=== PATIENT | male | born 1950 | race Caucasian/White ===

== ENCOUNTER 2017-08-09 07:59 | Inpatient (IN) | payer MEDICARE ==
[2017-08-09 09:36] LABS: Hematocrit 42 % (42-52); Hemoglobin 14.7 g/dl (14.0-18.0); Mean Corpuscular HGB Conc 35 g/dl (31-36); Mean Corpuscular Hemoglobin 35 pg (27-31); Mean Corpuscular Volume 99 fL (80-94); Mean Platelet Volume 10 um3 (7.4-10.4); Platelet Count 96 10^3/ul (150-450); Red Blood Count 4.26 10^6/ul (4.0-5.4); Red Cell Distribution Width 15 % (10.5-15); White Blood Count 10.5 10^3/ul (3.5-10.8)
[2017-08-09 09:39] LABS: INR 0.98 (0.77-1.02)
[2017-08-09 09:45] LABS: EGFR Non-African American 53.9 (>60)
[2017-08-09 09:57] LABS: Urine Appearance Clear; Urine Blood Negative (Negative); Urine Color Yellow; Urine Ketones Negative (Negative); Urine Protein 1+(30 mg/dL) (Negative); Urine Specific Gravity 1.016 (1.010-1.030); Urine Urobilinogen Negative (Negative)
[2017-08-09 09:58] LABS: ABS Basophils 0 10^3/ul (0-0.2); ABS Eosinophils 0 10^3/ul (0-0.6); ABS Lymphocytes 0.9 10^3/ul (1.0-4.8); ABS Monocytes 0.7 10^3/ul (0-0.8); ABS Neutrophils 8.8 10^3/ul (1.5-7.7); ABS Nucleated RBC 0 10^3/ul; Eosinophil % 0.2 % (0-6); Lymphocyte % 8.3 % (25-47); Nucleated Red Blood Cells % 0
[2017-08-09] MEDS ORDERED: Calcium Gluconate INJ* 1 GM in NS 0.9% 100 ML* 100 ML IVPB ONE (10:10)
[2017-08-09] MEDS ORDERED: Insulin REGULAR(*) 1 UNITS UNIT IV PUSH ONE (10:10)
[2017-08-09] MEDS ORDERED: Dextrose 50% VIAL 50 ml IV PRN (10:10)
[2017-08-09] MEDS ORDERED: Dextrose 50% Syringe 50 ML* 25 GM/50 ML SYRINGE ONE (10:19)
[2017-08-09] MEDS ORDERED: Albuterol HFA INHALER* 8 gm MDI INH PRN (10:59)
[2017-08-09] MEDS ORDERED: Sodium Polystyrene ORAL.SOL* 15 GM/60 ML BTL PO ONE ×2 (11:04→15:39)
[2017-08-09] MEDS ORDERED: Dextrose 50% Syringe 50 ML* 25 GM/50 ML SYRINGE IV PUSH PRN (11:14)
[2017-08-09] MEDS ORDERED: cefTRIAXone(*) 2 GM in NS 0.9% 100 ML* 100 ML IVPB SCH (12:00)
[2017-08-09] MEDS: Insulin LISPRO* 1 UNITS UNIT SUBCUT SCH ×3 (12:38→20:30)
[2017-08-09] MEDS: NS 0.9% 1000 ML* 1,000 ML IV SCH (12:51)
[2017-08-09] MEDS: Furosemide TAB* 40 MG PO SCH (13:06)
[2017-08-09] MEDS ORDERED: Iodixanol* (CONTRAST) 320 MG/ML 100 ML SDV IV ONE (13:07)
[2017-08-09] MEDS ORDERED: Furosemide IV* 10 MG/ML 2 ML VIAL (20 MG) IV SLOW PU ONE (13:09)
[2017-08-09] MEDS ORDERED: Ondansetron INJ* 2 MG/ML VIAL IV PRN (13:09)
[2017-08-09] MEDS ORDERED: Morphine INJ* 2 MG/ML 1 ML CARPUJECT IV PRN (13:47)
--- NOTE | 2017-08-09 14:42 | RAD ---
INDICATION: Abdominal pain. Cirrhosis. Hyperkalemia. Blood in stool. Post cholecystectomy. History of a mesenteric mass. COMPARISON: May 29, 2017 MRI and December 18, 2015 CT. TECHNIQUE: Multidetector CT images were obtained from the lung bases to the ischial tuberosities with 135 mL Visipaque 320 IV and oral contrast. Multiplanar reformation. REPORT: 0.9 cm soft tissue density nodule at the medial basal segment of the RIGHT lower lobe is new compared with the prior exam. Negative for pleural effusions. Nodular surface contour of the liver. No focal hepatic lesions or biliary dilatation. Post cholecystectomy. Unremarkable pancreas. Mildly enlarged spleen measuring 14 cm cephalocaudal without significant change. 1.4 cm diameter normally opacified portal vein. Portosystemic most prominent at the gastrohepatic ligament and paraesophageal varices. Negative for CT abnormality of the upper GI, small bowel, or infra cecal appendix. Moderate colonic diverticulosis at the sigmoid colon without findings of diverticulitis. Negative for ascites or free air. Small fat-containing umbilical hernia without suggestion of acute inflammatory change. Normal adrenal glands. Innumerable bilateral small renal cortical cysts. Dominant 2.4 cm cyst at the upper pole of the LEFT kidney. No suspicious focal renal lesions or hydronephrosis. Unchanged few small nonobstructing RIGHT kidney calyceal stones. Unchanged small LEFT calyceal renal stone. Unremarkable nondilated ureters. Largely decompressed urinary bladder partially obscured by artifact from the RIGHT hip prosthesis without gross abnormality. Symmetric seminal vesicles. Negative for lymphadenopathy. Normal diameter abdominal aorta and iliac arteries. Physiologic distention of the IVC. Significant interval decrease in magnitude of increased density in the midline retroperitoneal fat most prominent below the level of the duodenum. Negative for suspicious focal osseous lesions. Diffuse degenerative spondylosis and facet joint osteoarthritis. Moderate LEFT hip osteoarthritis. IMPRESSION: 1. Cirrhotic liver morphology with evidence for portal hypertension with portosystemic shunts most prominent at the gastrosplenic ligament and paraesophageal regions. 2. Interval decrease in mild splenomegaly. 3. Negative for ascites. 4. Interval decrease in magnitude of nonspecific retroperitoneal increased density favoring benign etiology. 5. Urolithiasis without obstructive uropathy.
[2017-08-09 15:00] LABS: EGFR Non-African American 55.9 (>60)
[2017-08-09] MEDS ORDERED: Sodium Polystyrene RECTAL* 30 GM/120 ML RECTAL.SUS PR ONE (17:35)
--- NOTE | 2017-08-09 20:04 | HP ---
CC: Dr. Osborn; Dr. Silva * ADMISSION HISTORY AND PHYSICAL: DATE OF ADMISSION: 08/09/17 PRIMARY CARE DOCTOR: Dr. Osborn. VISUAL TRAINING AIDE: Dr. Silva. MY ATTENDING PHYSICIAN WHILE IN THE HOSPITAL: Dr. Nilo Lo* (DICTATED BY VIJI TORREZ) CHIEF COMPLAINT: Confusion since May, significantly worse over the past day. HISTORY OF PRESENT ILLNESS: Mr. 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 The patient was diagnosed with cirrhosis 1-1/2 years ago. It was determined to be due to nonalcoholic steatohepatitis. The patient follows with Dr. Silva. The patient in May was found to have significant ascites, a MELD score of 9, and was started on lactulose, spironolactone which was then switched to amiloride. The patient weighed 268 pounds and is down to 237 pounds since May. The patient since then, has been somewhat confused and more allergic than he normally is. The patient has been seen several times and sent by his primary care provider and his television camera operator. The patient was recently started on lactulose on 08/06/17 for this confusion. The patient had significant amounts of diarrhea since then with initially small amounts of blood that has increased to significant amount of blood this morning. The patient denies black material in his stool or rectal pain with this diarrhea. The patient was diagnosed with influenza A in the middle of June and has persistent shortness of breath with activity and cough, which improves with albuterol inhaler, which he has been having to use several times a day. The patient also has had abdominal pain on and off since May, but it has gotten much worse since this morning the patient states the pain is on his right side underneath his rib margin and will radiate across his abdomen to the left side, states it is 6/10 in intensity, worse with movement. No palliating factors. The patient denies fevers or chills. The patient has not had a temperature. The patient denies dizziness, change in his vision, chest pain, swelling, or other signs of coronary artery disease. The patient was found in the emergency department to have elevated liver enzymes with AST of 114, ALT of 111, ammonia of 86, sodium 124, potassium 6.6, the patient's creatinine is also elevated at 1.32. As such, we were asked to evaluate for admission. PAST MEDICAL HISTORY: Cirrhosis, diabetes, arthritis, hypertension, psoriasis, gout, nonalcoholic steatohepatitis, inflammatory mesenteric mass, infected hip prosthesis, lumbar disk disease. PAST SURGICAL HISTORY: Cholecystectomy, lumbar spine surgery at L5-S1, and multiple hip replacements with infected prosthesis and removal. MEDICATIONS: 1. Metformin 500 mg daily. 2. Multivitamin. 3. Colchicine 0.6 mg by mouth twice daily as needed for gout. 4. Lasix 40 mg p.o. daily. 5. Albuterol 2 puffs inhalation q.4 hours as needed for shortness of breath or wheezing. 6. Amiloride 10 mg p.o. b.i.d. 7. Allopurinol 100 mg daily. 8. Ramipril 10 mg p.o. daily. 9. Amlodipine 5 mg p.o. daily. 10. Lactulose 10 mg p.o. t.i.d. ALLERGIES: PENICILLIN, ZOLOFT, STATINS. FAMILY HISTORY: The patient's father of bladder cancer. The patient's mother of renal failure secondary to hypertension. The patient has a sister with Parkinson's disease. SOCIAL HISTORY: The patient quit smoking 37 years ago. The patient denies ever using alcohol or illicit drugs. The patient is on disability. The patient is , has 2 children. The patient's healthcare proxy is his , Keren Bailey. REVIEW OF SYSTEMS: A 14-point review of systems was reviewed and negative except as the above. PHYSICAL EXAMINATION GENERAL: The patient is a 67-year-old male, who appears stated age, who is sitting comfortably in the bed, in no acute distress. VITAL SIGNS: At the time of admission, at the time of arrival to the emergency department temperature 98.0, pulse rate 86, respiratory rate 16, oxygen saturation 98% on room air, blood pressure 116/70. HEENT: Head normocephalic, atraumatic. Sclerae anicteric. No conjunctival injection. Nasal mucosa moist. Oral mucous moist. No pharyngeal erythema, discharge, or exudates. NECK: Supple. Nontender. No lymphadenopathy. No carotid bruit auscultated. RESPIRATORY: Clear to auscultation bilaterally. No wheezes, rales, or rhonchi. Good air exchange bilaterally. CARDIAC: Regular rate and rhythm. No clicks, murmurs, gallops, or rubs. Pulses 2+ in bilateral dorsalis pedis, posterior tibialis, and radial areas. No bilateral lower extremity edema noted. ABDOMEN: Distended, tender to palpation throughout with voluntary guarding without rigidity. No rebound. Tenderness is worst in the right upper quadrant but it is present throughout. Positive fluid wave. RECTAL: Exam performed by emergency department revealed no hemorrhoids, perianal excoriation, or overt blood positive for stool occult blood. GENITOURINARY: No suprapubic tenderness or CVA tenderness. NEURO: Cranial nerves II through XII intact. Strength 4/5 in bilateral lower extremities without focal deficits. The patient is alert and oriented x3, but is slow to respond to questions and is very lethargic. Cerebellar testing performed without difficulty, but the patient's movement are very slow and Deliberate. Reflexes 2+ in bilateral biceps, patellar, and Achilles areas. Babinski's downgoing bilaterally. PSYCHIATRIC: The patient is lethargic, but pleasant and cooperative. SKIN: Clean, dry, intact. No rash. No jaundice. DIAGNOSTIC STUDIES/LAB DATA: White blood cell count 10.5, hemoglobin 14.7, MCV 99, MCH 35, platelet count 96. INR 0.98. Sodium 124, potassium 6.6, chloride 100, carbon dioxide 17, anion gap 7, BUN 44, creatinine 1.32, glucose 125, calcium 10, magnesium 2.2. Total bilirubin 0.15, AST 114, ALT 111, alkaline phosphatase 105. Ammonia 86. Creatine kinase 203. Troponin I 0.03. Protein 8.2, albumin 4.4, globulin 3.8, globulin-albumin ratio 1.2. Urine shows 1+ protein and hyaline casts, no abnormalities. Studies: Electrocardiogram shows normal sinus rhythm. No ST-segment abnormalities. No blocks or hypertrophy, possible intraventricular conduction delay, no enlargement. QTc of 419, normal axis, no peaked or symmetric T waves. ASSESSMENT AND PLAN: The patient is a 67-year-old male with past medical history significant for cirrhosis from nonalcoholic steatohepatitis, diabetes mellitus, hypertension, psoriasis, gout, and mesenteric mass, who presents with increased lethargy, ascites, and abdominal pain as well as hyperkalemia. The patient's presentation might be a consequence of progression of his cirrhosis with hepatic encephalopathy; however, the patient has concerning features for spontaneous bacterial peritonitis. The patient will have a paracentesis and subsequently started on ceftriaxone. The patient will also have therapy for his potassium and treatment with lactulose for his hepatic encephalopathy. 1. Abdominal pain in the setting of cirrhotic patient. The patient has abdominal pain and mental status changes with known cirrhosis with ascites. The patient also has mild bleeding per rectum. The patient has no white blood cell count, fevers, or hypotension at this time; however, spontaneous bacterial peritonitis cannot be excluded. The patient will be started on ceftriaxone. The patient will have a paracentesis with Surgery. The patient will have a contrast-enhanced CAT scan to exclude other causes of his abdominal pain. 2. Hyperkalemia. The patient has potassium 6.6 without signs of EKG changes at this time. This could contribute to the patient's confusion. The patient has received calcium gluconate, insulin, and dextrose while in the emergency department. We will dose with Kayexalate as well and recheck in 4 hours. The patient's amiloride and ramipril will be held. 3. Ascites. The patient will be continued on Lasix for treatment of ascites and for lowering his potassium. The patient will have the amiloride held. The patient has lost 31 pounds since being started on diuretics, but still has problems with ascites, this will be assessed. This will also be decreased by his paracentesis. If confirmed spontaneous bacterial peritonitis, the patient will be given albumin. 4. Cirrhosis, possible hepatic encephalopathy. The patient has a MELD score of 10 at this time increased from 9 at his most recent appointment with his television camera operator. The patient is not a candidate for liver transplant due to his mesenteric mass. The patient will be started on lactulose 30ml t.i.d. for his possible hepatic encephalopathy. The patient is to follow up as outpatient. 5. Hypertension. The patient is hypertensive in the hospital, but given the possibility of spontaneous bacterial peritonitis, we will hold amlodipine and ramipril. At this time, continue Lasix and monitor. The patient also could be a risk for hypotension after his paracentesis. 6. Diabetes. The patient is well controlled on metformin at home. The patient will have this out due to acute kidney injury and we will follow this with blood fingersticks and insulin while in the hospital. Lactic acid will like be performed as this may be an explanation for the patient's altered mental status due to metformin and acute kidney injury. 7. Acute kidney injury. The patient has slightly elevated creatinine at 1.32 up from his baseline, looks around 0.8, this could be dehydration. The patient' s elevated BUN-creatinine ratio could also be due to hepatorenal syndrome. We will give the patient fluid for his hyponatremia and monitor. 8. Hyponatremia. The patient's sodium is 124, this could contribute to his confusion. This is decreased from 136 the last time he was at this institution. We will give fluids and monitor. 9. Gout: Continue Allopurinol. 10. Gastrointestinal bleed: The patient has scant amount of gastrointestinal bleeding at this time. The patient's hemoglobin is stable and the patient has had no visible blood in his stool, but has blood when he wipes. It is possible due to internal hemorrhoids with cirrhosis. The patient is scheduled for an EGD with his television camera operator later this year to assess for varices. The patient's hemoglobin is stable, it does not likely represent variceal bleeding at this time. We will monitor the patient's hemoglobin and consult Gastroenterology for EGD or colonoscopy if this persists. This is an indication to start the patient on antibiotics even if the patient is not confirmed to have spontaneous bacterial peritonitis. 11. FEN: The patient will have low-protein diet to reduce chance of hepatic encephalopathy. The patient will have fluids running at 125 for hyponatremia, hyperkalemia, and for blood pressure support in the setting of possible spontaneous bacterial peritonitis. 12. DVT prophylaxis. The patient will have SCDs in the setting of possible gastrointestinal bleed. 13. Disposition. The patient is an inpatient to telemetry for monitoring while his potassium is being lowered. TIME SPENT: Approximately 75 minutes was spent on this admission, 45 minutes of which was spent [id number] with the patient obtaining history and physical and discussing treatment plan. This plan has been discussed with my attending, Dr. Nilo Lo, and he is in agreement. ADDENDUM: Patient had a Contrast enhanced CT scan of his abdomen which showed no Ascites. Gasterointestinal Bleeding likely from rectal excoriation, will stop Ceftriaxone.. Patient also was unable to tolerate SPS by mouth so he was given it per rectum for treatment of persistent hyperkalemia. VIJI TORREZ [id number]/[facility] #: [id number] KRISTEN
[2017-08-09] MEDS ORDERED: Phenol 1.4% Spray* 177 ML BTL MT PRN (20:23)
[2017-08-09] MEDS ORDERED: Benzocaine/Menthol LOZ* 1 LOZENGE MT PRN (20:23)
[2017-08-09 23:16] LABS: EGFR Non-African American 48.8 (>60)
[2017-08-10 06:16] LABS: ABS Basophils 0 10^3/ul (0-0.2); ABS Eosinophils 0 10^3/ul (0-0.6); ABS Neutrophils 5.2 10^3/ul (1.5-7.7); ABS Nucleated RBC 0 10^3/ul; Eosinophil % 0.6 % (0-6); Hematocrit 38 % (42-52); Hemoglobin 13.4 g/dl (14.0-18.0); Lymphocyte % 13.9 % (25-47); Mean Corpuscular HGB Conc 35 g/dl (31-36); Mean Corpuscular Hemoglobin 35 pg (27-31); Mean Corpuscular Volume 98 fL (80-94); Mean Platelet Volume 9 um3 (7.4-10.4); Nucleated Red Blood Cells % 0.1; Platelet Count 77 10^3/ul (150-450); Red Blood Count 3.85 10^6/ul (4.0-5.4); Red Cell Distribution Width 15 % (10.5-15); White Blood Count 7.2 10^3/ul (3.5-10.8)
[2017-08-10 06:29] LABS: EGFR Non-African American 55.4 (>60)
[2017-08-10] MEDS: NS 0.9% 1000 ML* 1,000 ML IV SCH ×2 (08:53→18:02)
[2017-08-10] MEDS: Insulin LISPRO* 1 UNITS UNIT SUBCUT SCH ×4 (09:52→20:48)
[2017-08-10] MEDS: Furosemide TAB* 40 MG PO SCH (09:57)
[2017-08-10] MEDS: Allopurinol TAB* 100 MG PO SCH (09:57)
--- NOTE | 2017-08-10 10:40 | ED ---
Rolanda Howell Edward, scribed for Mark Lisa MD on 08/09/17 at 0816 . Complex/Multi-Sys Presentation - HPI Summary HPI Summary: 67 y/o male presents to the ED c/o acute on chronic AMS described as confusion. Pt's states that she has had trouble getting the pt to eat the past couple of days. Pt c/o ABD pain rated 6/10 in severity. Associated sx: large amounts of blood with BM this morning, decreased appetite, sleep disturbance, cough, bilateral shoulder pain. Pt had diarrhea three nights ago all night, continuing into the next day after starting . PMHx ascites, cirrhosis - nonalcoholic fatty liver disease, mass at the back of his stomach. - History Of Current Complaint Chief Complaint: EDGeneral Hx Obtained From: Patient Onset/Duration: Still Present Location: Pain At: - ABD Associated Signs And Symptoms: Positive: Diarrhea, Abdominal Pain, Decreased Oral Intake, Other - AMS described as confusion, bilateral shoulder pain, sleep disturbance - Allergies/Home Medications Allergies/Adverse Reactions: Allergies Allergy/AdvReac Type Severity Reaction Status Date / Time Penicillins Allergy Severe Hives/Diff. Verified 08/09/17 10:25 Breathing/Itching Home Medications: Home Medications Albuterol HFA INHALER* [Ventolin HFA Inhaler*] 2 puff INH Q4H PRN 08/09/17 [ History Confirmed 08/09/17] Allopurinol TAB* [Zyloprim 100 MG TAB*] 100 mg PO DAILY 08/09/17 [History Confirmed 08/09/17] Colchicine* [Colcrys*] 0.6 mg PO DAILY PRN 08/09/17 [History Confirmed 08/09/17] Furosemide TAB* [Lasix TAB*] 40 mg PO DAILY 08/09/17 [History Confirmed 08/09/17 ] Lactulose [Kristalose] 10 gm PO DAILY 08/09/17 [History Confirmed 08/09/17] Multivitamins/Minerals TAB* [Theragran/minerals TAB*] 1 tab PO DAILY 08/09/17 [ History Confirmed 08/09/17] Ramipril CAP* [Altace CAP*] 10 mg PO DAILY 08/09/17 [History Confirmed 08/09/17] aMILoride TAB* [Midamor TAB*] 10 mg PO BID 08/09/17 [History Confirmed 08/09/17] amLODIPine TAB* [Norvasc 5 mg TAB*] 5 mg PO DAILY 08/09/17 [History Confirmed ] metFORMIN* [Glucophage 500 MG TAB *] 500 mg PO DAILY 08/09/17 [History Confirmed 08/09/17] PMH/Surg Hx/FS Hx/Imm Hx Previously Healthy: No Endocrine/Hematology History: Reports: Hx Diabetes - lost wt and is no longer dm Denies: Hx Thyroid Disease Cardiovascular History: Reports: Hx Hypertension - meds Denies: Hx Pacemaker/ICD Respiratory History: Denies: Hx Asthma, Hx Chronic Obstructive Pulmonary Disease (COPD) GI History: Denies: Hx Ulcer Sensory History: Denies: Hx Hearing Aid Psychiatric History: Denies: Hx Panic Disorder - Cancer History Cancer Type, 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 Hx Chemotherapy: No Hx Radiation Therapy: No Hx Palliative Cancer Treatment: No - Surgical History Surgery Procedure, Year, and Place: RIGHT HIP REPLACEMENT X3, GALLBLADDER, LOWER BACK X2 - Immunization History Date of Tetanus Vaccine: Unknown Infectious Disease History: No Infectious Disease History: Denies: Hx Hepatitis, Hx Human Immunodeficiency Virus (HIV), Traveled Outside the [place] in Last 30 Days - Social History Alcohol Use: None Hx Substance Use: No Substance Use Type: Reports: None Hx Tobacco Use: Yes Smoking Status (MU): Former Smoker Review of Systems Positive: Other - decreased appetite, sleep disturbance Eyes: Negative ENT: Negative Cardiovascular: Negative Respiratory: Negative Positive: Abdominal Pain, Diarrhea, Other - blood in stool Genitourinary: Negative Positive: Arthralgia - bilateral shoulder pain Skin: Negative Neurological: Other - confusion Psychological: Normal All Other Systems Reviewed And Are Negative: Yes Physical Exam - Summary Physical Exam Summary: VITAL SIGNS: Reviewed. GENERAL: Patient is a well-developed and nourished male who is lying comfortable in the stretcher. Patient is not in any acute respiratory distress. Pt is confused. HEAD AND FACE: Normocephalic and atraumatic. EYES: PERRLA, EOMI x 2, No injected conjunctiva. EARS: Hearing grossly intact. Ear canals and tympanic membranes are WNL. MOUTH: Oropharynx within normal limits. NECK: Supple, trachea is midline, no adenopathy, no JVD. CHEST: Symmetric, no tenderness at palpation LUNGS: Clear to auscultation bilaterally. No wheezing or crackles. CVS: RRR, S1 and S2 present, no murmurs or gallops appreciated. ABDOMEN: Soft, non-tender. No signs of distention. Positive bowel sounds. No rebound no guarding, and no masses palpated. No abdominal bruit or pulsations. EXTREMITIES: FROM in all major joints, no edema, no cyanosis or clubbing. NEURO: Alert and oriented x 3. No acute neurological deficits. Speech is normal. SKIN: Dry and warm RECTAL: No gross blood, no hemorrhoids. Triage Information Reviewed: Yes Vital Signs On Initial Exam: Initial Vitals Temp Pulse Resp BP Pulse Ox 98.0 F 86 16 166/70 98 08/09/17 08:00 08/09/17 08:00 08/09/17 08:00 08/09/17 08:00 08/09/17 08:00 Vital Signs Reviewed: Yes Diagnostics - Vital Signs Vital Signs Temp Pulse Resp BP Pulse Ox 08/09/17 08:00 98.0 F 86 16 166/70 98 - Laboratory Lab Results: Lab Results 08/09/17 08/09/17 08/09/17 Range/Units 09:15 09:15 09:15 WBC 10.5 (3.5-10.8) 10^3/ul RBC 4.26 (4.0-5.4) 10^6/ul Hgb 14.7 (14.0-18.0) g/dl Hct 42 (42-52) % MCV 99 H (80-94) fL MCH 35 H (27-31) pg MCHC 35 (31-36) g/dl RDW 15 (10.5-15) % Plt Count 96 L (150-450) 10^3/ul MPV 10 (7.4-10.4) um3 Neut % (Auto) 84.0 H (38-83) % Lymph % (Auto) 8.3 L (25-47) % [place] % (Auto) 7.1 (1-9) % Eos % (Auto) 0.2 (0-6) % Baso % (Auto) 0.4 (0-2) % Absolute Neuts (auto) 8.8 H (1.5-7.7) 10^3/ul Absolute Lymphs (auto) 0.9 L (1.0-4.8) 10^3/ul Absolute Monos (auto) 0.7 (0-0.8) 10^3/ul Absolute Eos (auto) 0 (0-0.6) 10^3/ul Absolute Basos (auto) 0 (0-0.2) 10^3/ul Absolute Nucleated RBC 0 10^3/ul Nucleated RBC % 0 INR (Anticoag Therapy) (0.77-1.02) Sodium 124 L (133-145) mmol/L Potassium 6.6 H* (3.5-5.0) mmol/L Chloride 100 L (101-111) mmol/L Carbon Dioxide 17 L (22-32) mmol/L Anion Gap 7 (2-11) mmol/L BUN 44 H (6-24) mg/dL Creatinine 1.32 H (0.67-1.17) mg/dL Est GFR ( Amer) 69.4 (>60) Est GFR (Non-Af Amer) 53.9 (>60) BUN/Creatinine Ratio 33.3 H (8-20) Glucose 125 H (70-100) mg/dL Calcium 10.0 (8.6-10.3) mg/dL Magnesium 2.2 (1.9-2.7) mg/dL Total Bilirubin 1.50 H (0.2-1.0) mg/dL AST 114 H (13-39) U/L ALT 111 H (7-52) U/L Alkaline Phosphatase 105 H (34-104) U/L Ammonia 86 H (16-53) mol/L Total Creatine Kinase 203 (10-223) U/L Troponin I 0.03 (<0.04) ng/mL Total Protein 8.2 (6.4-8.9) g/dL Albumin 4.4 (3.2-5.2) g/dL Globulin 3.8 (2-4) g/dL Albumin/Globulin Ratio 1.2 (1-3) Urine Color Urine Appearance Urine pH (5-9) Ur Specific [place] (1.010-1.030) Urine Protein (Negative) Urine Ketones (Negative) Urine Blood (Negative) Urine Nitrate (Negative) Urine Bilirubin (Negative) Urine Urobilinogen (Negative) Ur Leukocyte Esterase (Negative) Urine WBC (Auto) (Absent) Urine RBC (Auto) (Absent) Urine Bacteria (Absent) Hyaline Casts (Absent) Urine Glucose (Negative) 08/09/17 08/09/17 Range/Units 09:15 09:30 WBC (3.5-10.8) 10^3/ul RBC (4.0-5.4) 10^6/ul Hgb (14.0-18.0) g/dl Hct (42-52) % MCV (80-94) fL MCH (27-31) pg MCHC (31-36) g/dl RDW (10.5-15) % Plt Count (150-450) 10^3/ul MPV (7.4-10.4) um3 Neut % (Auto) (38-83) % Lymph % (Auto) (25-47) % [place] % (Auto) (1-9) % Eos % (Auto) (0-6) % Baso % (Auto) (0-2) % Absolute Neuts (auto) (1.5-7.7) 10^3/ul Absolute Lymphs (auto) (1.0-4.8) 10^3/ul Absolute Monos (auto) (0-0.8) 10^3/ul Absolute Eos (auto) (0-0.6) 10^3/ul Absolute Basos (auto) (0-0.2) 10^3/ul Absolute Nucleated RBC 10^3/ul Nucleated RBC % INR (Anticoag Therapy) 0.98 (0.77-1.02) Sodium (133-145) mmol/L Potassium (3.5-5.0) mmol/L Chloride (101-111) mmol/L Carbon Dioxide (22-32) mmol/L Anion Gap (2-11) mmol/L BUN (6-24) mg/dL Creatinine (0.67-1.17) mg/dL Est GFR ( Amer) (>60) Est GFR (Non-Af Amer) (>60) BUN/Creatinine Ratio (8-20) Glucose (70-100) mg/dL Calcium (8.6-10.3) mg/dL Magnesium (1.9-2.7) mg/dL Total Bilirubin (0.2-1.0) mg/dL AST (13-39) U/L ALT (7-52) U/L Alkaline Phosphatase (34-104) U/L Ammonia (16-53) mol/L Total Creatine Kinase (10-223) U/L Troponin I (<0.04) ng/mL Total Protein (6.4-8.9) g/dL Albumin (3.2-5.2) g/dL Globulin (2-4) g/dL Albumin/Globulin Ratio (1-3) Urine Color Yellow Urine Appearance Clear Urine pH 5.0 (5-9) Ur Specific [place] 1.016 (1.010-1.030) Urine Protein 1+(30 mg/dl) H (Negative) Urine Ketones Negative (Negative) Urine Blood Negative (Negative) Urine Nitrate Negative (Negative) Urine Bilirubin Negative (Negative) Urine Urobilinogen Negative (Negative) Ur Leukocyte Esterase Negative (Negative) Urine WBC (Auto) Absent (Absent) Urine RBC (Auto) Absent (Absent) Urine Bacteria Absent (Absent) Hyaline Casts Present H (Absent) Urine Glucose Negative (Negative) Result Diagrams: 08/10/17 05:53 08/10/17 05:53 Lab Statement: Any lab studies that have been ordered have been reviewed, and results considered in the medical decision making process. - Additional Comments Diagnostic Additional Comments: EKG - 08:42 - SR @ 71 BPM. Normal axis. No ST elevations. Complex Multi-Symp Course/Dx Assessment/Plan: 67 y/o male presents to the ED c/o acute on chronic AMS described as confusion. Pt's states that she has had trouble getting the pt to eat the past couple of days. Pt c/o ABD pain rated 6/10 in severity. Associated sx: large amounts of blood with BM this morning, decreased appetite, sleep disturbance, cough, bilateral shoulder pain. Pt had diarrhea three nights ago all night, continuing into the next day after starting . PMHx ascites, cirrhosis - nonalcoholic fatty liver disease, mass at the back of his stomach. EKG - 08:42 - SR @ 71 BPM. Normal axis. No ST elevations. Test results show sodium 124, potassium 6.6, acute renal insufficiency, increased LFTs, ammonia 86, ua uti. In the ed course the pt given calcium gluconate, dextrose and insulin for the pts hyperkalemia. I discussed the case with Dr. Lo who accepted the pt for admission. - Diagnoses Provider Diagnoses: AMS possibly secondary to hypernatremia, Increased ammonia level, Hyperkalemia , Increased LFT's - Physician Notifications Discussed Care Of Patient With: Nilo Lo Time Discussed With Above Provider: 10:50 Instructed by Provider To: Admit As Inpatient - Critical Care Time Critical Care Time: 75-104 min Discharge - Discharge Plan Condition: Stable Disposition: ADMITTED TO [facility] documentation as recorded by the Rolanda miles Edward accurately reflects the service I personally performed and the decisions made by me, Mark Lisa MD.
[2017-08-10] MEDS ORDERED: amLODIPine TAB* 5 MG PO SCH (11:00)
--- NOTE | 2017-08-10 13:30 | RAD ---
Indication: Cough. Single frontal view of the chest performed at 1310 hours was reviewed. Comparison is made with previous exam dated August 24, 2014. No mediastinal shift is noted. Heart is of normal size and configuration. Lung lzoano appear clear. IMPRESSION: NO ACTIVE CARDIOPULMONARY DISEASE IS NOTED.
[2017-08-10 14:14] LABS: Urine Appearance Clear; Urine Blood Negative (Negative); Urine Color Yellow; Urine Ketones Negative (Negative); Urine Protein Negative (Negative); Urine Specific Gravity 1.013 (1.010-1.030); Urine Urobilinogen Negative (Negative)
--- NOTE | 2017-08-10 16:56 | PN ---
Subjective Date of Service: 08/10/17 Interval History: He and his agree that he is better this morning. He is still not back to his baseline, but improving. His only complaint is diarrhea since taking the lactulose. Family History: Unchanged from Admission Social History: Unchanged from Admission Past Medical History: Unchanged from Admission Objective Active Medications: Albuterol (Ventolin Hfa Inhaler*) 2 puff INH Q4H PRN PRN Reason: SOB/WHEEZING Last Admin: 08/10/17 09:50 Dose: 2 puff Allopurinol (Zyloprim Tab*) 100 mg PO DAILY [facility] Last Admin: 08/10/17 09:57 Dose: 100 mg Dextrose (D50w Syringe 50 Ml*) 12.5 gm IV PUSH .FOR FS < 60 - SS PRN PRN Reason: FS < 60 Furosemide (Lasix Tab*) 40 mg PO DAILY [facility] Last Admin: 08/10/17 09:57 Dose: 40 mg Guaifenesin (Robitussin*) 5 ml PO Q4H PRN PRN Reason: COUGH Sodium Chloride (Ns 0.9% 1000 Ml*) 1,000 mls @ 125 mls/hr IV PER RATE [facility] Last Admin: 08/10/17 08:53 Dose: 125 mls/hr Insulin Human Lispro (Humalog*) 0 units SUBCUT ACHS [facility] PRN Reason: Protocol Last Admin: 08/10/17 12:15 Dose: Not Given Lactulose (Lactulose*) 30 ml PO TID [facility] Last Admin: 08/10/17 14:09 Dose: 30 ml Morphine Sulfate (Morphine Inj (Syringe)*) 2 mg IV Q4H PRN PRN Reason: PAIN - MILD Ondansetron HCl (Zofran Inj*) 4 mg IV Q6H PRN PRN Reason: NAUSEA Last Admin: 08/09/17 15:36 Dose: 4 mg Oseltamivir Phosphate (Tamiflu Cap*) 75 mg PO BID [facility] Stop: 08/15/17 09:01 Phenol/Menthol (Chloroseptic Throat Crowder*) 1 spray MT TID PRN PRN Reason: SORE THROAT Throat Lozenges (Chloraseptic Troy*) 1 troy MT Q6H PRN PRN Reason: SORE THROAT Last Admin: 08/09/17 21:03 Dose: 1 troy Vital Signs - 8 hr 08/10/17 08/10/17 11:14 15:31 Temperature 98.3 F 98.5 F Pulse Rate 81 78 Respiratory 20 Rate Blood Pressure 139/60 132/62 (mmHg) O2 Sat by Pulse 98 96 Oximetry Oxygen Devices in Use Now: None Appearance: alert, well appearing Eyes: No Scleral Icterus, PERRLA, - - no nystagmus Ears/Nose/Mouth/Throat: NL Teeth, Lips, Gums, - Neck: NL Appearance and Movements; NL JVP, Trachea Midline Respiratory: - - few rhonchi at bases, coughs frequently during my exam Cardiovascular: NL Sounds; No Murmurs; No JVD, RRR Abdominal: NL Sounds; No Tenderness; No Distention, - - umbilical hernia, reducible, liver palpable at costal margin, no ascites Lymphatic: No Cervical Adenopathy Extremities: No Edema Skin: No Rash or Ulcers Neurological: Alert and Oriented x 3, - - coordination in tact, follows complex commands Result Diagrams: 08/10/17 05:53 08/10/17 05:53 Additional Lab and Data: Lab Results 08/09/17 08/09/17 08/09/17 Range/Units 09:15 09:15 09:15 WBC 10.5 (3.5-10.8) 10^3/ul RBC 4.26 (4.0-5.4) 10^6/ul Hgb 14.7 (14.0-18.0) g/dl Hct 42 (42-52) % MCV 99 H (80-94) fL MCH 35 H (27-31) pg MCHC 35 (31-36) g/dl RDW 15 (10.5-15) % Plt Count 96 L (150-450) 10^3/ul MPV 10 (7.4-10.4) um3 Neut % (Auto) 84.0 H (38-83) % Lymph % (Auto) 8.3 L (25-47) % [place] % (Auto) 7.1 (1-9) % Eos % (Auto) 0.2 (0-6) % Baso % (Auto) 0.4 (0-2) % Absolute Neuts (auto) 8.8 H (1.5-7.7) 10^3/ul Absolute Lymphs (auto) 0.9 L (1.0-4.8) 10^3/ul Absolute Monos (auto) 0.7 (0-0.8) 10^3/ul Absolute Eos (auto) 0 (0-0.6) 10^3/ul Absolute Basos (auto) 0 (0-0.2) 10^3/ul Absolute Nucleated RBC 0 10^3/ul Nucleated RBC % 0 INR (Anticoag Therapy) (0.77-1.02) Sodium 124 L (133-145) mmol/L Potassium 6.6 H* (3.5-5.0) mmol/L Chloride 100 L (101-111) mmol/L Carbon Dioxide 17 L (22-32) mmol/L Anion Gap 7 (2-11) mmol/L BUN 44 H (6-24) mg/dL Creatinine 1.32 H (0.67-1.17) mg/dL Est GFR ( Amer) 69.4 (>60) Est GFR (Non-Af Amer) 53.9 (>60) BUN/Creatinine Ratio 33.3 H (8-20) Glucose 125 H (70-100) mg/dL Calcium 10.0 (8.6-10.3) mg/dL Magnesium 2.2 (1.9-2.7) mg/dL Total Bilirubin 1.50 H (0.2-1.0) mg/dL AST 114 H (13-39) U/L ALT 111 H (7-52) U/L Alkaline Phosphatase 105 H (34-104) U/L Ammonia 86 H (16-53) mol/L Total Creatine Kinase 203 (10-223) U/L Troponin I 0.03 (<0.04) ng/mL Total Protein 8.2 (6.4-8.9) g/dL Albumin 4.4 (3.2-5.2) g/dL Globulin 3.8 (2-4) g/dL Albumin/Globulin Ratio 1.2 (1-3) Urine Color Urine Appearance Urine pH (5-9) Ur Specific [place] (1.010-1.030) Urine Protein (Negative) Urine Ketones (Negative) Urine Blood (Negative) Urine Nitrate (Negative) Urine Bilirubin (Negative) Urine Urobilinogen (Negative) Ur Leukocyte Esterase (Negative) Urine WBC (Auto) (Absent) Urine RBC (Auto) (Absent) Urine Bacteria (Absent) Hyaline Casts (Absent) Urine Glucose (Negative) 08/09/17 08/09/17 Range/Units 09:15 09:30 WBC (3.5-10.8) 10^3/ul RBC (4.0-5.4) 10^6/ul Hgb (14.0-18.0) g/dl Hct (42-52) % MCV (80-94) fL MCH (27-31) pg MCHC (31-36) g/dl RDW (10.5-15) % Plt Count (150-450) 10^3/ul MPV (7.4-10.4) um3 Neut % (Auto) (38-83) % Lymph % (Auto) (25-47) % [place] % (Auto) (1-9) % Eos % (Auto) (0-6) % Baso % (Auto) (0-2) % Absolute Neuts (auto) (1.5-7.7) 10^3/ul Absolute Lymphs (auto) (1.0-4.8) 10^3/ul Absolute Monos (auto) (0-0.8) 10^3/ul Absolute Eos (auto) (0-0.6) 10^3/ul Absolute Basos (auto) (0-0.2) 10^3/ul Absolute Nucleated RBC 10^3/ul Nucleated RBC % INR (Anticoag Therapy) 0.98 (0.77-1.02) Sodium (133-145) mmol/L Potassium (3.5-5.0) mmol/L Chloride (101-111) mmol/L Carbon Dioxide (22-32) mmol/L Anion Gap (2-11) mmol/L BUN (6-24) mg/dL Creatinine (0.67-1.17) mg/dL Est GFR ( Amer) (>60) Est GFR (Non-Af Amer) (>60) BUN/Creatinine Ratio (8-20) Glucose (70-100) mg/dL Calcium (8.6-10.3) mg/dL Magnesium (1.9-2.7) mg/dL Total Bilirubin (0.2-1.0) mg/dL AST (13-39) U/L ALT (7-52) U/L Alkaline Phosphatase (34-104) U/L Ammonia (16-53) mol/L Total Creatine Kinase (10-223) U/L Troponin I (<0.04) ng/mL Total Protein (6.4-8.9) g/dL Albumin (3.2-5.2) g/dL Globulin (2-4) g/dL Albumin/Globulin Ratio (1-3) Urine Color Yellow Urine Appearance Clear Urine pH 5.0 (5-9) Ur Specific [place] 1.016 (1.010-1.030) Urine Protein 1+(30 mg/dl) H (Negative) Urine Ketones Negative (Negative) Urine Blood Negative (Negative) Urine Nitrate Negative (Negative) Urine Bilirubin Negative (Negative) Urine Urobilinogen Negative (Negative) Ur Leukocyte Esterase Negative (Negative) Urine WBC (Auto) Absent (Absent) Urine RBC (Auto) Absent (Absent) Urine Bacteria Absent (Absent) Hyaline Casts Present H (Absent) Urine Glucose Negative (Negative) Microbiology and Other Data: Microbiology 08/10/17 13:45 Gram Stain - Final Sputum 08/10/17 13:00 Influenza Types A,B Antigen (RACHELE) - Final Nasal Specimen received for Influenza A/B Molecular testing Assess/Plan/Problems-Billing Assessment: - Patient Problems (1) Influenza B Current Visit: Yes Status: Acute Code(s): J10.1 - FLU DUE TO OTH IDENT INFLUENZA VIRUS W OTH RESP MANIFEST SNOMED Code(s): 48648677 Comment: Start tamiflu today x 5 days (2) Hepatic encephalopathy Current Visit: Yes Status: Acute Code(s): K72.90 - HEPATIC FAILURE, UNSPECIFIED WITHOUT COMA SNOMED Code(s): 35938872 Comment: Improved; titrate lactulose to mental status. Can reduce today. No asterixis. (3) AGUIRRE (nonalcoholic steatohepatitis) Current Visit: Yes Status: Acute Code(s): K75.81 - NONALCOHOLIC STEATOHEPATITIS (AGUIRRE) SNOMED Code(s): 289178942 Comment: with decompensation as above with encephalopathy. i suspect this was due to influenza; no ascites on CT to perform a diagnostic para, no uti, he did complain of come blood on the toilet paper, but hgb stable and he likely does have hemorrhoids given elevated portal pressure, and this has resolved. He follows with Hepatology at [place] (4) Normal anion gap metabolic acidosis Current Visit: Yes Status: Acute Code(s): E87.2 - ACIDOSIS SNOMED Code(s) : 008335442 Comment: Likely due to profuse diarrhea from lactulose. decrease lactulose as above (5) Hyperkalemia Current Visit: Yes Status: Acute Code(s): E87.5 - HYPERKALEMIA SNOMED Code (s): 35777890 Comment: likely med-related due to spironolactone and ramipril. both on hold at this time, and K+ is resolving. (6) Acute kidney failure Current Visit: Yes Status: Acute Comment: improving today with IVF
[2017-08-10] MEDS: guaiFENesin LIQ* 100 MG/5 ML UDC PO PRN (17:17)
[2017-08-10] MEDS: Oseltamivir CAP* 75 MG CAP PO SCH (21:49)
[2017-08-11 06:28] LABS: ABS Basophils 0 10^3/ul (0-0.2); ABS Eosinophils 0.1 10^3/ul (0-0.6); ABS Lymphocytes 1.5 10^3/ul (1.0-4.8); ABS Monocytes 0.6 10^3/ul (0-0.8); ABS Neutrophils 2.7 10^3/ul (1.5-7.7); ABS Nucleated RBC 0 10^3/ul; Eosinophil % 2.2 % (0-6); Hematocrit 35 % (42-52); Hemoglobin 12.1 g/dl (14.0-18.0); Lymphocyte % 29.9 % (25-47); Mean Corpuscular HGB Conc 34 g/dl (31-36); Mean Corpuscular Hemoglobin 34 pg (27-31); Mean Corpuscular Volume 100 fL (80-94); Mean Platelet Volume 9 um3 (7.4-10.4); Nucleated Red Blood Cells % 0; Platelet Count 64 10^3/ul (150-450); Red Blood Count 3.56 10^6/ul (4.0-5.4); Red Cell Distribution Width 15 % (10.5-15); White Blood Count 4.9 10^3/ul (3.5-10.8)
[2017-08-11 06:40] LABS: INR 0.98 (0.77-1.02)
[2017-08-11 06:43] LABS: EGFR Non-African American 72.6 (>60)
[2017-08-11] MEDS: Insulin LISPRO* 1 UNITS UNIT SUBCUT SCH ×2 (08:21→11:54)
[2017-08-11] MEDS: Allopurinol TAB* 100 MG PO SCH (08:22)
[2017-08-11] MEDS: Furosemide TAB* 40 MG PO SCH (08:22)
[2017-08-11] MEDS: Oseltamivir CAP* 75 MG CAP PO SCH (08:23)
[2017-08-11] MEDS: NS 0.9% 1000 ML* 1,000 ML IV SCH (10:19)
[2017-08-11] MEDS: guaiFENesin LIQ* 100 MG/5 ML UDC PO PRN (11:53)
[2017-08-11 12:41] VITALS: BP 125/63
--- NOTE | 2017-08-12 03:52 | DS ---
DISCHARGE SUMMARY: DATE OF ADMISSION: 08/09/17 DATE OF DISCHARGE: 08/11/17 ADMITTING PROVIDER: VIJI Gonsales ATTENDING PHYSICIANS: Sandee Mccurdy MD, and Bhavesh Francisco MD (on date of discharge). PRIMARY CARE PROVIDER: Dr. Osborn. GI DOCTOR: Dr. Awilda Silva of [facility]. PRINT BUYER/LIVER TRANSPLANT: Dr. Eric, [facility]. CHIEF COMPLAINT: Altered mental status. PRINCIPAL DIAGNOSES: Influenza B; likely hepatic encephalopathy in the setting of AGUIRRE cirrhosis. HISTORY OF PRESENT ILLNESS AND HOSPITAL COURSE: Mr. Bill Bailey is a 67-year - old male with a past medical history of significant for cirrhosis secondary to AGUIRRE, non-insulin dependent diabetes mellitus, hypertension, psoriasis, gout , inflammatory mesenteric mass presented with 1 day of increased lethargy, anorexia without nausea, vomiting, and blood in his stools. He has been diagnosed with AGUIRRE cirrhosis approximately 18 months ago and follows with Dr. Awilda Silva. He had previously workup for MDS at [facility], which ultimately turned out not be thought to be the case. Had imaging in May, which showed ascites and was started on spironolactone by Dr. Puckett and then on followup with Dr. Silva, started on Lasix. His spironolactone had been changed to amiloride given breast pain. The patient's weight dropped from 268 to 237 pounds since that time. However, since that time he has been somewhat more confused than his baseline and actually had followed up and started again prescription for lactulose just this past , 08/06/17, 3 days prior to admission. However, he only had one dose of that prior to presentation. Also, he was diagnosed with influenza A in the middle of June and had shortness of breath with cough, improved with inhaler since then. He has had on and off abdominal pain since May, but much worse morning of admission. He denied fevers or chills. He had some transaminase on presentation here with AST of 114 , ALT of 111, ammonia of 86, hyponatremic sodium 124, and potassium of 6.6, creatinine of 1.32. He was admitted for all the above findings. There was concern given this abdominal pain and confusion and for SBP. He had a CT abdomen and pelvis with IV and oral contrast on 08/09/17, which showed cirrhotic liver with evidence of portal hypertension and portosystemic shunts most prominent at the gastrosplenic ligament and paraesophageal regions. He had interval decrease in mild splenomegaly compared to MRI of 05/29/17. There was no evidence of ascites on this exam and interval decrease in the non- specific retroperitoneal density in his retroperitoneal fat below the level of the duodenum and was thought favoring a benign etiology. The patient's amiloride and OSCAR inhibitor were held given GUALBERTO and hyperkalemia, which slowly resolved. He was started on lactulose again. Again, he had only got one dose as an outpatient. He did get 1 dose of ceftriaxone on admission when initial concern for SBP prior to negative findings of the ascites on CT abdomen and pelvis. He had a sputum culture with Gram stain, 2+ neutrophils, mixed morphotypes resembling normal benedicto, actual culture is still pending. Stool occult blood which was positive for blood and he had a positive influenza B rapid serology, was started on Tamiflu. His sodium improved from 124 up to 129 on the day of discharge. His mental status rapidly improved by admitted day of hospital day #2. His hemoglobin was 14.7 on admission and drifted down to 13.4 and 12.1 on the day of discharge. His bowel movements were described as loose and watery, there was extensive urgency. He did not have any gross blood. His platelets were noted to be decreased, thrombocytopenic to 96 on admission, 64 on discharge. He does have a scheduled EGD on 09/09/17 to look for esophageal varices. He is being discharged with continued course of Tamiflu and lactulose to be titrated for 3 soft bowel movements each day and cessation of his amiloride and ramipril. Of course, followup scheduled with Dr. Osborn and Dr. Silva encouraged. The patient noted was not thought to be a current candidate for liver transplant when he saw Dr. Eric of [facility] given this inflammatory retroperitoneal mass though did of note decrease in size on this study. DISCHARGE MEDICATIONS: Include: 1. Lactose 30 mL p.o. b.i.d. but to titrate for 3 soft bowel movements each day. 2. Albuterol 2 puffs inhaled q.4 hours p.r.n. shortness of breath. 3. Allopurinol 100 mg p.o. daily. 4. Lasix 40 mg p.o. daily. 5. Tamiflu 75 mg p.o. b.i.d. for 8 more tabs. 6. Amlodipine 5 mg p.o. daily. 7. Colchicine 0.6 mg p.o. daily p.r.n. for gout flares. 8. Metformin 500 mg p.o. daily. Of note, amiloride 10 mg p.o. b.i.d. and ramipril 10 mg p.o. daily had been stopped given GUALBERTO and hyperkalemia. DISCHARGE DIET: Low salt, consistent carbohydrate. RESTRICTIONS: No restrictions. FOLLOWUP: Please follow up with Dr. Osborn within 5 days; Dr. Awilda Silva, Gastroenterology within 1 to 2 weeks; as previously arranged with Dr. Eric of [place], Hepatology, as needed. The patient should have his blood pressure recorded daily given the cessation of his OSCAR inhibitor, was normotensive here. Also, should have a CBC within 7 days. TIME SPENT: On this discharge was 40 minutes. [id number]/[facility] #: [id number] MTDD
== END 2017-08-11 13:30 | disposition home or self-care (01) | DRG 442 ==
LOC: ED 07:59 → MEDTELE 10:49
PROVIDERS: ADMIT Internal Medicine; ATTEND Internal Medicine
DX: K72.90 Hepatic failure, unspecified without coma (principal); N17.9 Acute kidney failure, unspecified; E87.2 Acidosis; E87.1 Hypo-osmolality and hyponatremia; D69.6 Thrombocytopenia, unspecified; E87.5 Hyperkalemia; K92.1 Melena; J10.1 Influenza due to other identified influenza virus with other respiratory manifestations; K74.60 Unspecified cirrhosis of liver; R41.82 Altered mental status, unspecified; E11.9 Type 2 diabetes mellitus without complications; I10 Essential (primary) hypertension; Z96.641 Presence of right artificial hip joint; K63.9 Disease of intestine, unspecified; M19.90 Unspecified osteoarthritis, unspecified site; L40.9 Psoriasis, unspecified; M10.9 Gout, unspecified; K75.81 Nonalcoholic steatohepatitis (NASH); M51.36 Other intervertebral disc degeneration, lumbar region; Z88.8 Allergy status to other drugs, medicaments and biological substances; Z90.49 Acquired absence of other specified parts of digestive tract; Z80.52 Family history of malignant neoplasm of bladder; Z88.0 Allergy status to penicillin; Z87.891 Personal history of nicotine dependence; Z82.49 Family history of ischemic heart disease and other diseases of the circulatory system; Z84.1 Family history of disorders of kidney and ureter
CPT/HCPCS: 36415; 71045; 74177; 80048; 80053; 81003; 81015; 82140; 82270; 82550; 83605; 83735; 84484; 85025; 85610; 87070; 87205; 87502; 93005; 99284; A9270-GY; J0610; J0696; J1940; J2405; Q9967

== ENCOUNTER 2018-06-10 18:26 | Emergency (ER) | payer MEDICARE ==
[2018-06-10] MEDS ORDERED: HYDROcodone/ACETAMIN 5-325 MG* 1 TAB PO ONE (18:38)
--- NOTE | 2018-06-10 18:42 | UC ---
Truncal Trauma HPI - HPI Summary HPI Summary: 68-year-old male comes in to clinic today after he is 8 foot ladder fell over and he landed on his right ribs and right abdomen. This happened within a couple hours. Eyes any head injury or neck injury no loss of consciousness. It does hurt when he takes a deep breath. He has a history of cirrhosis. No vomiting. Movement makes the pain worse. With inspiration or movement the pain is moderate to severe. Resting minimizes the pain. - History Of Current Complaint Stated Complaint: RIB INJURY Time Seen by Provider: 06/10/18 18:32 - Allergies/Home Medications Allergies/Adverse Reactions: Allergies Allergy/AdvReac Type Severity Reaction Status Date / Time Penicillins Allergy Severe Hives/Diff. Verified 06/10/18 18:44 Breathing/Itching sertraline [From Zoloft] Allergy WEIRD Verified 06/10/18 18:44 THOUGHTS Nlsghlb-Efj-Pjn Reductase Allergy Stomach Verified 06/10/18 18:44 Inhibitor Cramps PMH/Surg Hx/FS Hx/Imm Hx Previously Healthy: Yes - cirrhosis Endocrine History: Diabetes Cardiovascular History: Hypertension GI/ History: Gastrointestional Bleed - Surgical History Surgical History: Yes Surgery Procedure, Year, and Place: RIGHT HIP REPLACEMENT-REVISED AFTER INFECTION. BACK SURGERIES-LAMINECTOMY. GALLBLADDER - Social History Alcohol Use: None Substance Use Type: None Smoking Status (MU): Former Smoker - Immunization History Most Recent Influenza Vaccination: FALL 2016 Most Recent Pneumonia Vaccination: RECEIVED IN PAST Review of Systems All Other Systems Reviewed And Are Negative: Yes Constitutional: Positive: Negative Skin: Positive: Bruising - rt upper abd Eyes: Positive: Negative ENT: Positive: Negative Respiratory: Positive: Other - see hpi Cardiovascular: Positive: Chest Pain - see hpi Gastrointestinal: Positive: Abdominal Pain - see hpi Genitourinary: Positive: Negative Motor: Positive: Negative Neurovascular: Positive: Negative Musculoskeletal: Positive: Other: - Tender to palpation right lower lateral ribs and right side of the upper abdomen. Positive bowel sounds the rest of the abdomen is nontender. There is is some abrasion and ecchymosis on the upper abdomen on the lateral aspect. Neurological: Positive: Negative Psychological: Positive: Negative Is Patient Immunocompromised?: No Physical Exam Triage Information Reviewed: Yes Appearance: Well-Appearing, Well-Nourished, Pain Distress - with deep breaths and movement Vital Signs Reviewed: Yes Eye Exam: Normal Eyes: Positive: Conjunctiva Clear ENT: Negative: Nasal drainage Neck exam: Normal Neck: Positive: Supple, Nontender Respiratory: Positive: Lungs clear, Normal breath sounds, No respiratory distress, Other: - tender to palpation rt lower lateral ribs Cardiovascular: Positive: RRR Abdomen Description: Positive: Other: - tender to palpation rt upper lateral abd. Negative: CVA Tenderness (R), CVA Tenderness (L) Bowel Sounds: Positive: Present Musculoskeletal: Positive: Other: - Tender to palpation right lower lateral ribs and right side of the upper abdomen. Positive bowel sounds the rest of the abdomen is nontender. There is is some abrasion and ecchymosis on the upper abdomen on the lateral aspect. Neurological Exam: Normal Neurological: Positive: Alert, Muscle Tone Normal Psychological Exam: Normal Psychological: Positive: Normal Response To Family, Age Appropriate Behavior Skin: Positive: Other - abrasion/eccymosis rt upper lateral abd Truncal Trauma Course/Dx - Course Course Of Treatment: EXAM: CT Chest Without Contrast. EXAM DATE/TIME: 2017 7:04 PM. CLINICAL HISTORY: 68 years old, male; Injury or trauma; Fall; Initial encounter; Blunt; Ruq;. Blunt trauma (contusions or hematomas); Injury date: 06/10/18; Prior surgery;. Surgery date: 1-6 months; Surgery type: Umbilical hernia repair 05/06/18,. cholecystectomy, right hip replacement, laminectomy; Additional info: Fall,. struck right upper/abd lower ribs, HX of cirrhosis of liver. TECHNIQUE: Axial computed tomography images of the chest without intravenous contrast. All CT scans at this facility use at least one of these dose optimization. techniques: automated exposure control; mA and/or kV adjustment per patient. size (includes targeted exams where dose is matched to clinical indication); or. iterative reconstruction. Coronal and sagittal reformatted images were created and reviewed. COMPARISON: CT ABDOMEN AND PELVIS W WO CONTRAST 12/18/2015 2:01 PM. FINDINGS: Thyroid: No thyroid nodules. Lungs: No lung contusion or laceration. No pulmonary nodules, masses, or. consolidations. No bronchiectasis, peribronchial thickening, or luminal. defects. Pleural space: Normal. No pneumothorax. No pleural effusion. Heart: No pericardial effusion. There is mild atherosclerotic calcification. of the coronary arteries. Mediastinum: No mediastinal hematoma. Aorta: The aorta demonstrates mild atherosclerotic calcification. Lymph nodes: Normal. No enlarged lymph nodes. Bones/joints: The thoracic spine demonstrates mild degenerative changes at. multiple levels. No fractures. No suspicious bone lesions. Soft tissues: Normal. IMPRESSION: No traumatic thoracic abnormalities. EXAM: CT Abdomen and Pelvis Without Contrast. EXAM DATE/TIME: 06/10/2018 7:04 PM. CLINICAL HISTORY: 68 years old, male; Injury or trauma; Fall; Initial encounter; Blunt; Ruq;. Blunt trauma (contusions or hematomas); Injury date: 06/10/18; Prior surgery;. Surgery date: 1-6 months; Surgery type: Umbilical hernia repair 05/06/18,. cholecystectomy, right hip replacement, laminectomy; Additional info: Fall,. struck right upper/abd lower ribs, HX of cirrhosis of liver. TECHNIQUE: Axial computed tomography images of the abdomen and pelvis without contrast. All CT scans at this facility use at least one of these dose optimization. techniques: automated exposure control; mA and/or kV adjustment per patient. size (includes targeted exams where dose is matched to clinical indication); or. iterative reconstruction. Coronal and sagittal reformatted images were created and reviewed. COMPARISON: CT ABDOMEN AND PELVIS W WO CONTRAST 12/18/2015 2:01 PM. FINDINGS: Lower thorax: No acute findings. ABDOMEN: Liver: Nodular hepatic contour with no focal lesions. No hepatic laceration. or perihepatic hematomas. Gallbladder and bile ducts: Surgically absent gallbladder. Pancreas: Normal. No ductal dilation. Spleen: Enlarged spleen measuring 940 cc. No splenic laceration or. perisplenic hematomas. Adrenals: Normal. No mass. Kidneys and ureters: Bilateral nonobstructing renal calculi largest on the. right within the mid pole measuring 0.7 cm and on the left within the superior. pole measuring 0.3 cm. Several subtle low attenuating renal cortical foci. bilaterally including on the right from the lower pole measuring 1.3 cm and on. the left within the upper pole measuring 2 cm. No renal laceration or perirenal. hematomas. No calyceal or pelvic rupture. Stomach and bowel: Incompletely distended grossly normal stomach. Normal. caliber small bowel. No colonic masses or segmental wall thickening. Appendix: Normal caliber appendix without wall thickening or adjacent. inflammation. PELVIS: Bladder: Thin-walled bladder with no focal nodularity, perivesicular. stranding, or calcifications. Reproductive: Normal sized prostate. Normal seminal vesicles. ABDOMEN and PELVIS: Intraperitoneal space: Normal. No free air. No significant fluid collection. Bones/joints: Total right hip arthroplasty in normal anatomic alignment. No. displaced rib fractures. No vertebral fractures or dislocations. No pelvic. fractures. Mild left hip primary osteoarthritis. Soft tissues: Normal. No hernia. Vasculature : The aorta demonstrates mild atherosclerotic calcification. Multiple perigastric and periesophageal varices. Lymph nodes: Normal. No enlarged lymph nodes. IMPRESSION: 1. No abdominal or pelvic traumatic abnormalities. 2. Hepatic cirrhosis and portal hypertension. 3. Bilateral nonobstructing renal calculi. 4. Bosniak type I renal cysts. No followup indicated. To contact [facility] with a general question: [facility] - [phone]. For direct physician to physician contact: Physician Hotline - [phone]. [facility] ([facility] Facility ID #[id number]). End of Report Content . . Attending Doctor: Sb Madrid ([id number]). Liquor Commissioner: Salma Flor ([id number]). Mud Analysis Supervisor: León MCGILL ([facility]). Report Date: 06/10/2018 18:38:00. Report Status: Final. Begin of Report Content === . Patient Name: HARLAN ALFARO Medical Record#: [id number]. Ordering Physician: Sb Madrid MD Acct.#: [id number]. : 1950 Age: 68 Sex: M Location: [facility]. Exam Date: 1837 ADM Status: REG ER. Order Information: CT CHEST/ABD/PEL W/O. Accession Number: [id number]. CPT: 23211. EXAM: CT Chest Without Contrast. EXAM DATE/TIME: 06/10/2018 7:04 PM. CLINICAL HISTORY: 68 years old, male; Injury or trauma; Fall; Initial encounter; Blunt; Ruq;. Blunt trauma ( contusions or hematomas); Injury date: 06/10/18; Prior surgery;. Surgery date: 1-6 months; Surgery type: Umbilical hernia repair 05/06/18,. cholecystectomy, right hip replacement, laminectomy; Additional info: Fall,. struck right upper/ abd lower ribs, HX of cirrhosis of liver. TECHNIQUE: Axial computed tomography images of the chest without intravenous contrast. All CT scans at this facility use at least one of these dose optimization. techniques: automated exposure control; mA and/or kV adjustment per patient. size ( includes targeted exams where dose is matched to clinical indication); or. iterative reconstruction. Coronal and sagittal reformatted images were created and reviewed. COMPARISON: CT ABDOMEN AND PELVIS W WO CONTRAST 12/18/2015 2:01 PM. FINDINGS: Thyroid: No thyroid nodules. Lungs: No lung contusion or laceration. No pulmonary nodules, masses, or. consolidations. No bronchiectasis , peribronchial thickening, or luminal. defects. Pleural space: Normal. No pneumothorax. No pleural effusion. Heart: No pericardial effusion. There is mild atherosclerotic calcification. of the coronary arteries. Mediastinum: No mediastinal hematoma. Aorta: The aorta demonstrates mild atherosclerotic calcification. Lymph nodes: Normal. No enlarged lymph nodes. Bones/joints: The thoracic spine demonstrates mild degenerative changes at. multiple levels. No fractures. No suspicious bone lesions. Soft tissues: Normal. IMPRESSION: No traumatic thoracic abnormalities. EXAM: CT Abdomen and Pelvis Without Contrast. EXAM DATE/TIME: 06/10/2018 7:04 PM. CLINICAL HISTORY: 68 years old , male; Injury or trauma; Fall; Initial encounter; Blunt; Ruq;. Blunt trauma ( contusions or hematomas); Injury date: 06/10/18; Prior surgery;. Surgery date: 1-6 months; Surgery type: Umbilical hernia repair 05/06/18,. cholecystectomy, right hip replacement, laminectomy; Additional info: Fall,. struck right upper/ abd lower ribs, HX of cirrhosis of liver. TECHNIQUE: Axial computed tomography images of the abdomen and pelvis without contrast. All CT scans at this facility use at least one of these dose optimization. techniques: automated exposure control; mA and/or kV adjustment per patient. size ( includes targeted exams where dose is matched to clinical indication); or. iterative reconstruction. Coronal and sagittal reformatted images were created and reviewed. COMPARISON: CT ABDOMEN AND PELVIS W WO CONTRAST 12/18/2015 2:01 PM. FINDINGS: Lower thorax: No acute findings. ABDOMEN: Liver: Nodular hepatic contour with no focal lesions. No hepatic laceration. or perihepatic hematomas. Gallbladder and bile ducts: Surgically absent gallbladder. Pancreas : Normal. No ductal dilation. Spleen: Enlarged spleen measuring 940 cc. No splenic laceration or. perisplenic hematomas. Adrenals: Normal. No mass. Kidneys and ureters: Bilateral nonobstructing renal calculi largest on the. right within the mid pole measuring 0.7 cm and on the left within the superior. pole measuring 0.3 cm. Several subtle low attenuating renal cortical foci. bilaterally including on the right from the lower pole measuring 1.3 cm and on. the left within the upper pole measuring 2 cm. No renal laceration or perirenal. hematomas. No calyceal or pelvic rupture. Stomach and bowel: Incompletely distended grossly normal stomach. Normal. caliber small bowel. No colonic masses or segmental wall thickening. Appendix: Normal caliber appendix without wall thickening or adjacent. inflammation. PELVIS: Bladder: Thin- walled bladder with no focal nodularity, perivesicular. stranding, or calcifications. Reproductive: Normal sized prostate. Normal seminal vesicles. ABDOMEN and PELVIS: Intraperitoneal space: Normal. No free air. No significant fluid collection. Bones/joints: Total right hip arthroplasty in normal anatomic alignment. No. displaced rib fractures. No vertebral fractures or dislocations. No pelvic. fractures. Mild left hip primary osteoarthritis. Soft tissues: Normal. No hernia. Vasculature: The aorta demonstrates mild atherosclerotic calcification. Multiple perigastric and periesophageal varices. Lymph nodes: Normal. No enlarged lymph nodes. IMPRESSION: 1. No abdominal or pelvic traumatic abnormalities. 2. Hepatic cirrhosis and portal hypertension. 3. Bilateral nonobstructing renal calculi. 4. Bosniak type I renal cysts. No followup indicated. To contact [facility] with a general question: Operations Center - [phone]. For direct physician to physician contact: Physician Hotline - [phone]. [facility] ([facility] Facility ID #[id number]). . <Electronically signed by Salma Flor MD in OV> 06/10/181930. I discussed the CT report with patient and his . Patient is unable to take nonsteroidal anti-inflammatories due to history of GI bleeds. He also has hepatic cirrhosis but he does take acetaminophen sparingly. For pain control we will give tramadol 50 mg every 6 hours as needed. Patient has an incentive spirometer that he will use at home to help avoid respiratory infections. Plan will be for the patient follow-up his primary care doctor if he gets worse he needs to get reevaluated in the emergency department. - Differential Dx/Diagnosis Provider Diagnosis: Contusion of rib on right side, Abdominal contusion Discharge - Sign-Out/Discharge Documenting (check all that apply): Patient Departure All imaging exams completed and their final reports reviewed: Yes - Discharge Plan Condition: Stable Disposition: HOME Prescriptions: traMADol TAB* [Ultram*] 50 mg PO Q6HR PRN #20 tab MDD 4 PRN Reason: Pain Patient Education Materials: Rib Contusion (ED), Blunt Abdominal Injury (ED) Referrals: Dex Osborn MD [Primary Care Provider] - Additional Instructions: FOLLOW UP WITH YOUR DOCTOR IF NOT COMPLETELY IMPROVED. GET RECHECKED FOR ANY WORSENING OF YOUR CONDITION OR QUESTIONS OR CONCERNS. - Billing Disposition and Condition Condition: STABLE Disposition: Home
[2018-06-10 18:48] VITALS: BP 151/66
== END 2018-06-10 19:30 | disposition home or self-care (01) ==
LOC: UCEAST 18:26
DX: S20.211A Contusion of right front wall of thorax, initial encounter (principal); W11.XXXA Fall on and from ladder, initial encounter; Y92.9 Unspecified place or not applicable; S30.1XXA Contusion of abdominal wall, initial encounter; Z87.891 Personal history of nicotine dependence; I10 Essential (primary) hypertension; E11.9 Type 2 diabetes mellitus without complications; Z88.8 Allergy status to other drugs, medicaments and biological substances; Z88.0 Allergy status to penicillin
CPT/HCPCS: 71250; 74176; 81003; 99212; G0463

== ENCOUNTER 2019-05-12 17:09 | Observation (INO) | payer MEDICARE, OTHER ==
--- OUTSIDE RECORDS SUMMARY | 2019-05-12 17:48 | XMS REPORT | Summary of Care ---
:1950 Author Organization [facility] Address [address] [facility] [place] [address] Care Team Providers Name Role Phone Dex Osborn Primary Care Provider Reason for Referral MRI/CAT/PET Scan (Routine) Status Reason Specialty Diagnoses / Referred By Referred To Procedures Contact Contact Pending Review Diagnoses Other ascites Awilda Silva MD Procedures US ABDOMEN COMPLETE [address] [place] [address] Reason for Visit Reason Comments Follow Up Discharge from spinal rehab from [place]/ seen by Dr Eric in [facility] - liver specialist - recommendations were given to Dr Silva - anxiety issues / poor apetitite x couple of weeks Encounter Details Date Type Department Care Team Description 05/10/2019 Office Visit Awilda Atwood MD 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) (Primary Dx); Gastroenterology/Hepa [address] Idiopathic sclerosing mesenteritis (HCC); [place] [address] Other ascites [address] [phone] [place] [address] [phone] Allergies Active Allergy Reactions Severity Noted Date Comments Alc-Sertraline Other 08/26/2007 Hostile mood Penicillins Anaphylaxis, Rash 10/15/2004 Statins GI Reaction 09/30/2010 Abdomen pain, RUQ Zoloft Other 09/20/2010 He had terrible thought while taking it documented as of this encounter (statuses as of 05/10/2019) Medications Medication Sig Dispensed Refills Start Date End Date Status urea 10 % Apply by Apply externally 0 Active externally Cream route NEEDED. COLCRYS 0.6 MG Oral TAKE 1 TABLET BY 60 Tab 5 08/29/2013 Active Tab MOUTH TWICE A DAY IF NEEDED FOR GOUT Blood Glucose by Does not apply 1 Kit 0 04/05/2014 Active Monitoring Suppl route. Brand: (BLOOD GLUCOSE insurance choice, METER) Does not use daily as dir, apply Kit Dx: 250.00 Lancets Does not by Does not apply 100 Each 11 04/05/2014 Active apply Misc route. Brand: Insurance choice, use daily as dir, Dx: 250.00 Calcipotriene-Betame 1 Appl by Topical 100 g 11 09/11/2015 Active th Diprop (TACLONEX) route DAILY 0.005-0.064 % Apply NEEDED (for externally psoriasis). OintmentIndications: Psoriasis Glucose Blood In 1 Strip by In Vitro route DAILY. Freestyle lite 100 Strip 5 01/07/2016 Active Vitro Strip E11.9 albuterol HFA Take 2 Puffs by 18 g 5 05/25/2017 Active (VENTOLIN) 108 (90 inhalation EVERY Base) MCG/ACT FOUR HOURS Inhalation Aero Soln NEEDED (for wheezing). furosemide (LASIX) Take 1 Tab by mouth 30 Tab 5 07/08/2017 Active 40 MG Oral Tab DAILY. Additional information Patient taking differently: 80 mg Oral BID, Reported on 05/10/2019 12:32 PM Multiple Vitamins-Minerals Take by mouth DAILY. 0 Active (DAILY-GABRIEL MENS FORMULA PO) amiloride (MIDAMOR) 5 MG Oral Take 5 mg by mouth 0 Active TabIndications: 2 tabs BID DAILY. Indications: 2 tabs BID halobetasol (ULTRAVATE) 0.05 % Apply BID PRN for 50 g 3 12/10/2017 Active Apply externally psoriasis CreamIndications: Psoriasis metFORMIN (GLUCOPHAGE) 500 MG TAKE 1 TABLET ONCE 90 Tab 3 01/26/2018 Active Oral TabIndications: Diabetes DAILY mellitus (HCC) allopurinol (ZYLOPRIM) 100 MG TAKE 1 TABLET ONCE 90 Tab 3 02/22/2018 Active Oral Tab DAILY XIFAXAN 550 MG Oral Tab take 1 tablet by mouth 60 Tab 6 05/10/2018 Active twice a day as directed lactulose (CEPHULAC) 10 g Oral Take 10-20 g by mouth 180 Packet 3 2018 Active PackIndications: Cirrhosis of THREE TIMES DAILY. liver not due to alcohol (HCC) Additional information Patient taking differently: 20 g Oral QID, Reported on 05/10/2019 12:32 PM Rosuvastatin Calcium 5 MG Oral Take 1 Tab by mouth EVERY 90 Tab 3 2018 Active Tab BEDTIME. Additional information Patient taking differently: 10 mg Oral QHS, Indications: 1/2 tab QD, Reported on 05/10/2019 12:32 PM nadolol (CORGARD) 20 Take 0.5 Tabs 45 Tab 3 10/20/2018 Active MG Oral Tab by mouth DAILY. citalopram (CELEXA) Take 1 Tab by 30 Tab 3 05/09/2019 Active 10 MG Oral Tab mouth DAILY. Pantoprazole Sodium Take 40 mg by 0 Active 40 MG Oral Pack mouth DAILY AT 1400. sennosides (SENOKOT) Take 2 Tabs by 0 Active 8.6 MG Oral Tab mouth DAILY. Tamsulosin HCl Take 0.4 mg by 0 Active (FLOMAX) 0.4 MG Oral mouth DAILY. CapIndications: 2 Indications: 2 tabs tabs apixaban (ELIQUIS) Take 2.5 mg by 0 Active 2.5 MG Oral Tab mouth TWICE DAILY. simethicone Take 80 mg by 0 Active (GENASYME, MYLICON) mouth EVERY SIX 80 MG Oral Chew Tab HOURS NEEDED for Flatulence. Benzocaine-Docusate Place 5 mg per 0 Active Sodium (ENEMEEZ PLUS rectum TWICE RE) DAILY. amLodipine (NORVASC) Take 1 Tab by 90 Tab 3 03/30/2018 Discontinued (No 5 MG Oral Tab mouth DAILY. 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 General patient education discussion including: obesity-related excess mortality, weight loss link to reduction of risk factors for cardiac and other diseases, importance of long-term maintenance treatment in weight loss Status post revision of total hip Right Dr. Vic Chicas 08/21/2005 01/22/2012 Gout 08/23/2009 DJD (DEGENERATIVE JOINT DISEASE) OF HIP 08/26/2007 Colon polyp 08/26/2007 Overview: Replaced inactive diagnosis Psoriasis 08/24/2007 Essential hypertension 06/09/2007 Degenerative disc disease 06/09/2007 Mixed hyperlipidemia 06/09/2007 Diabetes mellitus, CARE PLAN INITIATED documented as of this encounter (statuses as of 05/10/2019) Resolved Problems Problem Noted Date Resolved Date MDS (myelodysplastic syndrome) 06/27/2016 03/23/2018 MDS (myelodysplastic syndrome) 04/11/2014 06/27/2015 Obesity 08/24/2007 10/14/2011 Fatty liver 06/09/2007 06/27/2015 documented as of this encounter (statuses as of 05/10/2019) Immunizations Name Administration Dates Next Due Hepatitis B Vaccine Adult 01/01/2016, 08/06/2015, 07/10/2015 Influenza (IM) Preservative Free 04/03/2014, 03/01/2013, 07/05/2012, 06/09/2011, 05/06/2010, 04/19/2009, 04/20/2008, 08/26/2007 Influenza Vaccine High Dose 03/23/2018, 03/13/2017, 04/24/2016, 05/17/2015 Influenza Vaccine Whole 04/07/2006 PNEUMOCOCCAL POLYSACCHARIDE VACCINE 03/01/2013 Pneumococcal Conjugate(13 Valent) 07/08/2014 TDAP Vaccine 04/20/2008 ZOSTER (ZOSTAVAX) VACCINE 10/26/2012 documented as of this encounter Social History Tobacco Use Types Packs/Day Years Used Date Former Smoker Cigarettes 0.2 Quit: 09/27/1969 Smokeless Tobacco: Never Used Comments: quit 1981. Never bought his own cigarettes only borrowed them from people, very infrequently, which also holds for smokeless tobacco Alcohol Use Drinks/Week oz/Week Comments No 0 Standard drinks or equivalent 0.0 Sex Assigned at Date Recorded Not on file Job Start Date Occupation Industry Not on file Not on file Not on file Travel History Travel Start Travel End No recent travel history available. documented as of this encounter Last Filed Vital Signs Vital Sign Reading Time Taken Comments Blood Pressure 106/63 05/10/2019 12:23 PM EST Pulse 67 05/10/2019 12:23 PM EST Temperature 35.9 05/10/2019 12:23 PM EST C (96.7 F) Respiratory Rate 20 05/10/2019 12:23 PM EST Oxygen Saturation 99% 05/10/2019 12:23 PM EST Inhaled Oxygen Concentration - - Weight 81.9 kg (180 lb 8 oz) 05/10/2019 12:23 PM EST Height 172.7 cm (5' 8") 05/10/2019 12:23 PM EST Body Mass Index 27.44 05/10/2019 12:23 PM EST documented in this encounter Progress Notes Awilda Silva MD - 05/10/2019 12:45 PM EST PATIENT: Bill Bailey : 1950 DATE OF SERVICE: 05/10/2019 REFERRING PRACTITIONER: Dex Osborn PRIMARY CARE PROVIDER: Dex Osborn CHIEF COMPLAINT: AGUIRRE cirrhosis followup Subjective HISTORY OF PRESENT ILLNESS: Bill Bailey is a 69-y.o. male who presents for follow-up of AGUIRRE cirrhosis. Patient had been referred to [facility] in [place] to discuss need for liver transplant. Because his MELD is low, he was not deemed to be a candidate at this time, although may be considered in the future. His course over the last few months has been very difficult. He had a fall that resulted in a broken neck, and was in the [facility] for 1 month, followed by a stay in the [facility]. He has had recurrent ascitesrequiring multiple paracentesis. He is suffering from anxiety and sleeplessness. His last paracentesis was several weeks ago, and it was recommended afterwards by Dr. Loaiza that he be considered for an albumin infusion. He thinks that the fluid may be building up again, althoughit is definitely better than previously. Currently, he is wheelchair bound, but is able to stand with walker and assistance. He is getting physical therapy twice a week. Current Outpatient Medications Medication Sig albuterol HFA (VENTOLIN) 108 (90 Base) MCG/ACT Inhalation Aero Soln Take 2 Puffs by inhalation EVERY FOUR HOURS NEEDED (for wheezing). allopurinol (ZYLOPRIM) 100 MG Oral Tab TAKE 1 TABLET ONCE DAILY amiloride (MIDAMOR) 5 MG Oral Tab Take 5 mg by mouth DAILY. amLodipine (NORVASC) 5 MG Oral Tab Take 1 Tab by mouth DAILY. Blood Glucose Monitoring Suppl (BLOOD GLUCOSE METER) Does not apply Kit by Does not apply route. Brand: insurance choice, use daily as dir, Dx: 250.00 Calcipotriene-Betameth Diprop (TACLONEX) 0.005-0.064 % Apply externally Ointment 1 Appl by Topical route DAILY NEEDED (for psoriasis). citalopram (CELEXA) 10 MG Oral Tab Take 1 Tab by mouth DAILY. COLCRYS 0.6 MG Oral Tab TAKE 1 TABLET BY MOUTH TWICE A DAY IF NEEDED FOR GOUT furosemide (LASIX) 40 MG Oral Tab Take 1 Tab by mouth DAILY. (Patient taking differently: Take 40 mg by mouth TWICE DAILY.) Glucose Blood In Vitro Strip 1 Strip by In Vitro route DAILY. Freestyle lite E11.9 halobetasol (ULTRAVATE) 0.05 % Apply externally Cream Apply BID PRN for psoriasis lactulose (CEPHULAC) 10 g Oral Pack Take 10-20 g by mouth THREE TIMES DAILY. Lancets Does not apply Misc by Does not apply route. Brand: Insurance choice, use daily as dir, Dx: 250.00 metFORMIN (GLUCOPHAGE) 500 MG Oral Tab TAKE 1 TABLET ONCE DAILY Multiple Vitamins-Minerals (DAILY-GABRIEL MENS FORMULA PO) Take by mouth DAILY. nadolol (CORGARD) 20 MG Oral Tab Take 0.5 Tabs by mouth DAILY. Rosuvastatin Calcium 5 MG Oral Tab Take 1 Tab by mouth EVERY BEDTIME. urea 10 % Apply externally Cream by Apply externally route NEEDED. XIFAXAN 550 MG Oral Tab take 1 tablet by mouth twice a day as directed No current facility-administered medications for this visit. Facility-Administered Medications Ordered in Other Visits Medication gadobutrol (GADOVIST) IV solution 10 mmol Allergies Allergen Reactions Alc-Sertraline Other Hostile mood Pcn [Penicillins] Anaphylaxis and Rash Statins GI Reaction Abdomen pain, RUQ Zoloft Other He had terrible thought while taking it REVIEW OF SYSTEMS: All remaining review of systems was negative except for as noted in the history of present illness/subjective. Objective PHYSICAL EXAMINATION: VITALS: Vitals: 05/10/19 1223 BP: 106/63 Pulse: 67 Resp: 20 Temp: 96.7 F (35.9 C) SpO2: 99% GENERAL: alert, oriented, no acute distress. HEENT: No scleral icterus, MMM; in wheelchair Psych: Affect subdued Neck: no lymphadenopathy LUNGS: clear to auscultation bilaterally. HEART: regular rhythm, no murmurs, no gallops, no rubs. ABDOMEN: general exam: soft, mild distention Extrmities: trace-2+ pitting Skin: clear RECTAL: exam deferred. IMPRESSION: AGUIRRE cirrhosis, recent fall, recurrent ascites Plan PLAN: 1. Check ultrasound to see if there is more ascites; recommend IR guided paracentesis with albumin infusion 2. Bloodwork next week with Dr. Osborn; may need adjustment of his diuretic regimen Follow up: Schedule follow-up here in 2 week(s). Author: Awilda Silva MD 05/10/2019 07:31 documented in this encounter Plan of Treatment Date Type Specialty Care Team Description 05/17/2019 Office Visit Internal Medicine Dex Osborn MD [facility] [place] [address] [phone] 05/17/2019 Office Visit Gastroenterology Awilda Silva MD [address] [place] [address] [phone] Name Type Priority Associated Diagnoses Date/Time US ABDOMEN COMPLETE Imaging Routine Other ascites 05/10/2019 1:20 PM EST Name Type Priority Associated Diagnoses Order Schedule US ABDOMEN COMPLETE Imaging Routine Other ascites Expected: 05/10/2019, Expires: 05/09/2020 Health Maintenance Due Date Last Done Comments ZOSTER IMMUNIZATION SERIES 12/21/2012 10/26/2012 (2 of 3) FALL RISK ASSESSMENT 2014 MEDICARE ANNUAL WELLNESS 12/20/2015 12/19/2014 (Previously VISIT completed) Diabetic Eye Exam 02/27/2018 02/27/2017, 08/28/2015, 04/13/2014 PNEUMOCOCCAL 65+YRS (2 of 2 03/01/2018 07/08/2014, 03/01/2013 - PPSV23) INFLUENZA VACCINE (#1) 2019 03/23/2018, 03/13/2017, 04/24/2016, Additional history exists DEPRESSION SCREENING 03/23/2019 03/23/2018 FOOT EXAM 03/23/2019 03/23/2018, 03/23/2018, 03/23/2017, Additional history exists COLONOSCOPY SCREENING 06/08/2019 06/08/2014, 12/25/2011, 12/25/2011, Additional history exists HEMOGLOBIN A1C 07/16/2019 01/13/2019, 09/09/2018, 07/14/2018, Additional history exists EGD (ESOPHAGODUODENOSCOPY) 10/16/2019 10/15/2018, 10/15/2018, 09/08/2017, Additional history exists LIPID DISORDER SCREENING 01/14/2020 01/13/2019, 09/17/2018, 09/09/2018, Additional history exists URINE MICROALBUMIN 01/14/2020 01/13/2019, 03/13/2017, 03/26/2016, Additional history exists HEPATITIS C SCREENING Completed 12/20/2013, 10/26/2007, 04/01/2007 AAA SCREENING/SURVEILLANCE Completed 02/02/2017, 08/11/2016, 12/18/2015, Additional history exists HPV IMMUNIZATION SERIES Aged Out No longer eligible based on patient's age to complete this topic MENINGOCOCCAL VACCINE IMM Aged Out No longer eligible based on patient's age to complete this topic documented as of this encounter Goals Goal Patient Goal Associated Recent Patient-Stated? Author Type Problems Progress Blood Pressure Blood Pressure Essential 106/63 No [place], < 140/90 hypertension (05/10/2019 MD Dex 12:23 PM EST) Note: Hypertension Care Plan Based on the patient's clinical history and according to JNC 8 guidelines target blood pressure goal is less than 140/90. Based on the patient's last blood pressure of BP: 168/84 mmHg the patient is at above goal. As your provider, it is important that I advise you regarding: your current medications and help you with any challenges you may face taking your medications as directed (ex. instructions, cost, side effects, and interactions). Important lifestyle changes: exercise, weight reduction, diet, dietary sodium reduction, medication compliance and moderation of alcohol consumption your clinical goals and how you can achieve success: weight reduction, exercise plan and diet improvements medication management: adjusted medications as appropriate patient education/self-management tools provided: Current self-management tools adequate To successfully manage my Hypertension I will: monitor my blood pressure daily, understanding that my goal is less than 140/ 90 per my healthcare provider's recommendation. I will schedule an appointment with my provider if consistent abnormal readings greater than 160/100. take medications every day as prescribed by my healthcare provider and if unable to take them I will discuss with my provider. monitor for symptoms of chest pain, chest tightness/pressure, irregular heartbeat, persistent dizziness, radiating arm pain, and neck or jaw pain. If any of these symptoms are noticed I will seek medical attention immediately by calling 911 exercise/walk 30 minutes 5 day(s) per week. If I experience chest pain, chest tightness, or shortness of breath, I will seek medical attention immediately. follow a diet rich in fruits, vegetables, and low-fat dairy products with reduced content of saturated & total fat. I will reduce my sodium intake daily. An example is the DASH diet. To obtain more information please refer to the DASH Eating Plan listed in Educational Resources. record my blood pressure results. [employer] is safe and secure way for you to do this in your medical record online. try to obtain an ideal body weight. My recent weight was Weight: 245 lb ( 111.131 kg). My weight loss goal for my next office visit is 240 lbs. limit alcohol consumption. For men two drinks per day and women one drink per day. if currently smoking, will discuss how to quit smoking with my healthcare provider and work towards quitting. Educational Resources: National Heart, Lung, & Blood [place] http://nhlbi.nih.gov/hbp/index.html The DASH Diet Eating Plan http://www.nhlbi.nih.gov/health/health-topics/ topics/dash/ Academy of Nutrition & DIetetics http://eatright.org National Smoking Cessation Site http://smokefree.gov Blood Pressure < Blood Pressure 106/63 (05/10/2019 12:23 No Dex Osborn MD 140/90 PM EST) Note: This is an individualized treatment (blood pressure) goal for Bill Bailey: Displayed above (on the left) is your goal for blood pressure control. Your most recent blood pressure is also shown above, on the right. You should try to achieve blood pressures that are lower than your goal listed above (on the left). Diabetes < 7.0 Diabetes Diabetes mellitus, 6.3 (01/13/2019 7:58 No Dex Osborn MD CARE PLAN INITIATED AM EDT) Note: Diabetes Care Plan According to current 2014 ADA guidelines the patient A1C goal is less than 7. The patient's last A1C was Lab Results Lab Results Value Date/Time GLYCO 5.8 04/03/2014 1155 GLYCO 6.9 07/22/2013 0820 The patient is:at goal . As your provider, it is important that I advise you regarding: your current medications and help you with any challenges you may face taking your medications as directed (ex. instructions, cost, side effects, and interactions). Important lifestyle changes:exercise, diet, glucose monitoring and medication compliance your clinical goals and how you can achieve success:weight reduction, exercise plan, diet management and glucose monitoring medication management: adjusted medications as appropriate patient education/self-management tools provided: Current self-management tools adequate To successfully manage my Diabetes I will: have lab work every six months if my previous A1c was 7 or less. If my results were greater than 7, I will have lab work every three months. My goal is to control my diabetes by keeping A1c below 7.0 take medications every day as prescribed by my healthcare provider and if unable to take them I will discuss with my provider. exercise/walk 30 minutes 5 day(s) per week. If I experience chest pain, chest tightness, or shortness of breath, I will seek medical attention immediately. check feet daily. If sores or irritation are noticed, will seek medical attention. follow a low carbohydrate and low fat diet. My goal is an LDL (bad cholesterol) number less than 100 when I have my routine lab work. check blood sugar as instructed and will call my healthcare provider if the results are consistently below 70 or above 300. I will monitor for symptoms of low blood sugar (feeling faint, dizzy, lig htheaded, jittery, sweaty, or hungry), if symptoms are noticed, I will eat or drink something (glucose tabs, orange juice, candy) to help raise sugar. record my blood sugar results (including dextrose sticks). [employer] is safe and secure way for you to do this in your medical record online. try to obtain an ideal body weight. My recent weight was Weight: 245 lb ( 111.131 kg). My weight loss goal for my next office visit is 240 lbs. to prevent kidney problems common to people with diabetes I will complete a yearly Microalbumin to check for protein in urine. I will talk with my healthcare provider about medications to prevent diabetic renal disease. to prevent diabetic retinopathy I will see an eye doctor yearly. A yearly dilated eye exam helps prevent blindness. if currently smoking, will discuss how to quit smoking with my healthcare provider and work towards quitting. Glycohemoglobin A1c < 7.0 Diabetes 6.3 (01/13/2019 7:58 AM No Dex Osborn MD EDT) Note: This is an individualized treatment (diabetes control, HgbA1C) goal for Bill Bailey: Displayed above is your progress towards your HgbA1C goal. Your goal is shown above (on the left); your most recent HgbA1C is shown on the right. Note that lower numbers are better. Weight loss vs. 18 mo Lifestyle 69.5 (05/10/2019 12:23 PM No Dex Osborn MD max (lbs) >= 10 EST) Note: This is an individualized lifestyle goal for Bill Bailey: Your body mass index (BMI) is more than 30. You should lose weight. A reasonable starting goal is to lose 10 pounds. Displayed above is how many pounds you have lost thus far towards your 10 pound weight loss goal. Keep immunizations current Lifestyle Dex Alvarez MD Note: This is an individualized lifestyle goal for Bill Bailey: Please be sure to keep up-to-date on recommended immunizations. For example, this would include a yearly influenza vaccine. Immunization status can be seen by looking at the Health Maintenance sections of your [employer], Plan of Care, and any After Visit Summaries. Take all prescribed medications as directed Self-management Dex Alvarez MD Note: This is an individualized self-management goal for Bill Bailey: Please take all prescribed medications as directed. 1. Do not skip doses. If you cannot afford your medications, talk with your doctor. 2. Use a pill reminder system such as a pill box if needed. Your pharmacist can help you with this. 3. Contact your Pharmacy 5 days before your medication runs out. If you cannot take your medications for any reasons, talk with your doctor. 4. Please bring all of your medication bottles and inhalers (or a list of all your medications/inhalers) with you to every visit. Potential barriers to meeting all of your care plan goals will continue to be addressed on an ongoing basis. 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 (Home) [address] [phone] [place], [place] (Work) [id number] documented as of this encounter
--- NOTE | 2019-05-12 18:29 | ED ---
Abdominal Pain/Male - HPI Summary HPI Summary: 69 year old M [place] [facility] accompanied by for evaluation of 50 pound weight gain over 3 days. Hx non-alcoholic cirrhosis. Was seen by Dr. Silva GI at [place], 3 days ago, where he had an ultrasound done which showed ascites. Hx ascites. Last paracentesis 3 weeks ago when he had 8L drained. Had blood work done and weight taken today. On his way home from today's appointment , patient was called and told that he gained 50 pounds over the last 3 days and was referred to ED. states he hasn't been eating a lot recently. Patient denies fever, chills, erythema of eyes, sore throat, chest pain, shortness of breath, cough, abdominal pain, nausea/vomiting, dysuria, hematuria, myalgia, edema, rash, or dizziness. The patient rates the pain 6/10 in severity. Symptoms aggravated by nothing. Symptoms alleviated by nothing. Does not usually wear nasal cannula oxygen. Neck fx in December 2018 after unloading heavy items in driveway, slipping, falling on to ground. Recently d/c from rehab 2 weeks ago. Patient has right side weakness and is unable to ambulate at baseline since this injury. - History of Current Complaint Chief Complaint: EDAbdPain Stated Complaint: PARACENTESIS PER Hx Obtained From: Patient, Family/Playground Worker - Onset/Duration: Lasting Days, Still Present Timing: Constant Severity Currently: Moderate Pain Intensity: 6 Pain Scale Used: 0-10 Numeric Aggravating Factor(s): Nothing Alleviating Factor(s): Nothing Associated Signs And Symptoms: Positive: Negative - fever, chills, erythema of eyes, sore throat, chest pain, shortness of breath, cough, abdominal pain, nausea/vomiting, dysuria, hematuria, myalgia, edema, rash, or dizziness - Allergies/Home Medications Allergies/Adverse Reactions: Allergies Allergy/AdvReac Type Severity Reaction Status Date / Time Penicillins Allergy Severe Hives/Diff. Verified 05/12/19 17:25 Breathing/Itching sertraline [From Zoloft] Allergy WEIRD Verified 05/12/19 17:25 THOUGHTS Hizlcam-Tsm-Epb Reductase Allergy Stomach Verified 05/12/19 17:25 Inhibitor Cramps Home Medications: Home Medications Apixaban* [Eliquis*] 2.5 mg PO BID 05/12/19 [History Confirmed 05/12/19] Citalopram TAB* [CeleXA TAB*] 10 mg PO DAILY 05/12/19 [History Confirmed ] Docusate Sodium/Benzocaine [Enemeez Plus] 5 ml IA BID 05/12/19 [History Confirmed 05/12/19] Furosemide TAB* [Lasix TAB*] 80 mg PO BID 05/12/19 [History Confirmed 05/12/19] Lactulose* 20 ml PO QID 05/12/19 [History Confirmed 05/12/19] Nadolol (NF) 10 mg PO DAILY 05/12/19 [History Confirmed 05/12/19] Pantoprazole TAB * [Protonix TAB*] 40 mg PO DAILY 05/12/19 [History Confirmed ] RiFAXimin* [Xifaxan*] 550 mg PO BID 05/12/19 [History Confirmed 05/12/19] Rosuvastatin (NF) [Crestor (NF)] 5 mg PO DAILY 05/12/19 [History Confirmed 05/12] Senna TAB 8.6 mg* [Senokot 8.6 mg TAB*] 2 tab PO DAILY 05/12/19 [History Confirmed 05/12/19] Simethicone TAB* [Mylicon TAB*] 160 mg PO TID 05/12/19 [History Confirmed ] Tamsulosin CAP* [Flomax CAP*] 0.8 mg PO DAILY 05/12/19 [History Confirmed ] aMILoride TAB* [Midamor TAB*] 10 mg PO BID 05/12/19 [History Confirmed 05/12/19] PMH/Surg Hx/FS Hx/Imm Hx Endocrine/Hematology History: Reports: Hx Diabetes, Other Endocrine/ Hematological Disorders - CIRRHOSIS Denies: Hx Thyroid Disease Cardiovascular History: Reports: Hx Hypertension - meds, Other Cardiovascular Problems/Disorders - hcl Denies: Hx Pacemaker/ICD Respiratory History: Denies: Hx Asthma, Hx Chronic Obstructive Pulmonary Disease (COPD) GI History: Reports: Hx Gall Bladder Disease - JAIRO, Hx Gastrointestinal Bleed - 08/09/17, Other GI Disorders - LIVER DISEASE, CIRRHOSIS Denies: Hx Ulcer History: Reports: Hx Acute Renal Failure - 08/09/17 Denies: Hx Renal Disease Musculoskeletal History: Reports: Hx Gout Sensory History: Denies: Hx Contacts or Glasses, Hx Hearing Aid Opthamlomology History: Denies: Hx Contacts or Glasses Neurological History: Reports: Other Neuro Impairments/Disorders - ELEVATED AMMONIA LEVELS - CONFUSION Denies: Hx Seizures, Hx Spinal Cord Injury, Hx Transient Ischemic Attacks ( TIA) Psychiatric History: Denies: Hx Panic Disorder - Cancer History Cancer Type, 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 Hx Chemotherapy: No Hx Radiation Therapy: No Hx Palliative Cancer Treatment: No - Surgical History Surgery Procedure, Year, and Place: RIGHT HIP REPLACEMENT-REVISED AFTER INFECTION. BACK SURGERIES-LAMINECTOMY. GALLBLADDER - Immunization History Date of Tetanus Vaccine: Unknown Date of Influenza Vaccine: 04/14 Infectious Disease History: No Infectious Disease History: Reports: History Other Infectious Disease - staph infection, not MRSA, FLU 06/2017 Denies: Hx Hepatitis, Hx Human Immunodeficiency Virus (HIV), Traveled Outside the [place] in Last 30 Days - Family History Known Family History: Positive: Other - bladder cancer, renal failure, hypertension, Parkinson's - Social History Alcohol Use: None Hx Substance Use: No Substance Use Type: Reports: None Hx Tobacco Use: Yes Smoking Status (MU): Former Smoker Review of Systems Negative: Fever, Chills Negative: Erythema Negative: Sore Throat Negative: Chest Pain Negative: Shortness Of Breath, Cough Negative: Abdominal Pain, Vomiting, Nausea Negative: dysuria, hematuria Negative: Myalgia, Edema Negative: Rash Neurological: Negative - Dizziness All Other Systems Reviewed And Are Negative: Yes Physical Exam - Summary Physical Exam Summary: Constitutional: Well-developed, Well-nourished, Alert. (-) Distressed Skin: Warm, Dry HENT: Normocephalic; Atraumatic Eyes: Conjunctiva normal Neck: Musculoskeletal ROM normal neck. (-) JVD, (-) Stridor, (-) Tracheal deviation Cardio: Rhythm regular, rate normal, Heart sounds normal; Intact distal pulses; The pedal pulses are 2+ and symmetric. Radial pulses are 2+ and symmetric. (-) Murmur Pulmonary/Chest wall: Effort normal. (-) Respiratory distress but currently on supplemental oxygen, (-) Wheezes, (-) Rales. Abd: Soft, (-) tenderness, (-) Guarding, (-) Rebound, moderate ascites Musculoskeletal: (-) Edema Lymph: (-) Cervical adenopathy Neuro: Alert, Oriented x3 Psych: Mood and affect Normal Triage Information Reviewed: Yes Vital Signs On Initial Exam: Initial Vitals Temp Pulse Resp BP Pulse Ox 98.7 F 62 22 109/65 99 05/12/19 17:15 05/12/19 17:15 05/12/19 17:15 05/12/19 17:15 05/12/19 17:15 Vital Signs Reviewed: Yes Procedures - Sedation Patient Received Moderate/Deep Sedation with Procedure: No Diagnostics - Vital Signs Vital Signs Temp Pulse Resp BP Pulse Ox 05/12/19 17:15 98.7 F 62 22 109/65 99 - Laboratory Result Diagrams: 05/12/19 18:46 05/12/19 18:46 Lab Statement: Any lab studies that have been ordered have been reviewed, and results considered in the medical decision making process. Abdominal Pain Male Course/Dx - Course Course Of Treatment: 69 year old M presenting to [facility] accompanied by for evaluation of 50 pound weight gain over 3 days. Hx non-alcoholic cirrhosis. Was seen by LEANDER Sky at [place], 3 days ago, where he had an ultrasound done which showed ascites. Hx ascites. Last paracentesis 3 weeks ago when he had 8L drained. Had blood work done and weight taken today. On his way home from today' s appointment, patient was called and told that he gained 50 pounds over the last 3 days and was referred to ED. states he hasn't been eating a lot recently. Patient denies fever, chills, erythema of eyes, sore throat, chest pain, shortness of breath, cough, abdominal pain, nausea/vomiting, dysuria, hematuria, myalgia, edema, rash, or dizziness. The patient rates the pain 6/10 in severity. Symptoms aggravated by nothing. Symptoms alleviated by nothing. Does not usually wear nasal cannula oxygen. Neck fx in December 2018 after unloading heavy items in driveway, slipping, falling on to ground. Recently d/c from rehab 2 weeks ago. Patient has right side weakness and is unable to ambulate at baseline since this injury. Physical exam findings: No respiratory distress but currently on supplemental oxygen, moderate ascites. . Bloodwork results with no significant abnormalities except for RBC 2.56, Hgb 7.6, Hct 23, RDW 17, platelet count 123, absolute lymphs 0.8, sodium 130, chloride 97, calcium 8.3, CRP 14.78, total protein 5.8, albumin 2.8, albumin/globulin 0.9. Urinalysis results with no significant abnormalities except for blood 2+, trace leukocyte esterase, RBC 1+, squamous epithelial cells, bacteria 1+, hyaline casts. Dr. Diane, GI, recommends consulting surgery for paracentesis. Dr. Muñoz, hospitalist, agrees to admit patient. - Diagnoses Provider Diagnoses: Cirrhosis - Provider Notifications Discussed Care Of Patient With: Jorge Diane Time Discussed With Above Provider: 19:57 Instructed by Provider To: Other - Per LEANDER Lauren, we need to consult surgery for paracentesis. Discharge ED - Sign-Out/Discharge Documenting (check all that apply): Patient Departure - Admit - Discharge Plan Condition: Stable Disposition: ADMITTED TO [facility] Referrals: Dex Osborn MD [Primary Care Provider] - - Attestation Statements Document Initiated by Scribe: Yes Documenting Scribe: Zaida Reynolds Provider For Whom Scribe is Documenting (Include Credential): Gonzalo Grullon MD Scribe Attestation: I, Zaida Reynolds, scribed for Gonzalo Grullon MD on 05/12/19 at 2024. Status of Scribe Document: Ready
[2019-05-12 18:53] LABS: ABS Eosinophils 0.1 10^3/ul (0-0.6); ABS Lymphocytes 0.8 10^3/ul (1.0-4.8); ABS Monocytes 0.6 10^3/ul (0-0.8); ABS Neutrophils 3.1 10^3/ul (1.5-7.7); Eosinophil % 2.9 %; Hematocrit 23 % (42-52); Hemoglobin 7.6 g/dL (14.0-18.0); Lymphocyte % 16.6 %; Mean Corpuscular HGB Conc 32 g/dL (31-36); Mean Corpuscular Hemoglobin 30 pg (27-31); Mean Corpuscular Volume 92 fL (80-94); Mean Platelet Volume 9.1 fL (7.4-10.4); Platelet Count 123 10^3/uL (150-450); Red Blood Count 2.56 10^6 /uL (4.18-5.48); Red Cell Distribution Width 17 % (10-15); White Blood Count 4.6 10^3/uL (3.5-10.8)
[2019-05-12 19:03] LABS: Urine Appearance Cloudy; Urine Bacteria 1+ (Absent); Urine Bilirubin Negative (Negative); Urine Blood 2+ (Negative); Urine Color Amber; Urine Glucose Negative (Negative); Urine Ketones Negative (Negative); Urine Nitrite Negative (Negative); Urine Protein Negative (Negative); Urine Red Blood Cell 1+(3-5/hpf) (Absent); Urine Squamous Epithelial Cell Present (Absent); Urine Urobilinogen Negative (Negative); Urine White Blood Cell Trace(0-5/hpf) (Absent)
[2019-05-12 19:10] LABS: Albumin 2.8 g/dL (3.2-5.2); Albumin/Globulin Ratio 0.9 (1-3); BUN/Creatinine Ratio 17.9 (8-20); C Reactive Protein 14.78 mg/L (<8.01); Calcium 8.3 mg/dL (8.6-10.3); EGFR African American 94.8 (>60); EGFR Non-African American 78.4 (>60); Potassium 3.5 mmol/L (3.5-5.0); Total Protein 5.8 g/dL (6.4-8.9)
--- NOTE | 2019-05-12 21:25 | HP ---
History of Present Illness - History of Present Illness Reason for Visit: paracentesis History of Present Illness: 69 year old male with non-alcoholic cirrhosis was referred to the ED today from his clinic appointment. He was told he gained 50 lbs in 3 days and his physician sent him to the hospital to get a paracentesis and albumin transfusion. Pt's is baffled over this 50 lbs weight gain. She said her 's weight usually avg around 230s-240s, and it is 230 today. He did have a paracentesis 3 weeks ago done at the [facility] where 9 L of fluid was removed, this was his 4th paracentesis since december. No fever, no chills. His abdomen is not tense but he said he is starting to feel full and cannot lay flat entirely. is concerned that if he doesnt get his paracentesis soon, it may drag through the weekend. - Past Medical History Gastrointestinal: Other - cirrhosis - Past Surgical History Past Surgical History: Hernia Repair - Past Family History Family History: Hyperlipidemia, Hypertension - Past Social History Alcohol: None Drugs: None Lives: With Family Domestic Violence: Negative Review of Systems - Measurements Intake and Output: Intake and Output Last 24 Hours 05/10/19 05/11/19 05/12/19 05/13/19 06:59 06:59 06:59 06:59 Weight 230 lb - Review of Systems Constitutional Symptoms: Positive: Weight Gain Dermatology: Negative: Normal, Rash, Skin Lesions, Cancer, Skin Lumps, Other HEENT: Negative: Normal, Change in Hearing, Vertigo, Dental Problems, Tinnitus, Sinus Problem, Other Eyes: Negative: Normal, Change in Vision, Double Vision, Eye Pain, Glaucoma, Cataract, Contacts or Glasses, Other Pulmonary: Negative: Normal, Cough, Sputum, Hemoptysis, Wheezing, Respiratory Distress, Shortness of Breath, COPD, Asthma, Exercise Intolerance, Home Oxygen, Other Cardiology: Negative: Normal, Chest Pain, Shortness of Breath, Palpitations, Swelling of Ankles, Peripheral Vascular Dis, Edema, Faintness, Syncope, Claudication, Proximal NocturnalDyspnea, Orthopnoea, Other Endocrinology: Negative: Normal, Thyroid Problems, Adrenal Problems, Gonadal Problems, Family Hx Endocrine Disorders, Obesity, Diabetes Mellitus, Hyperglycemia, Hx Hypoglycemia, Diabetic Foot Ulcers, Calluses, Hirsutism, Menstrual Abnormalities , Polydipsia, Polyuria, Gonadal Problems, Gynecomastia, Pituitary disease, Other Hematologic/Lymphatic: Negative: Anemia, Easy Bruising, Hx Leukemia, Hx Lymphoma, Use of Anticoagulant, Use of Antiplatelet Drugs, Other Neurology: Negative: Normal, Headache, Migraines, Change in Vision, Diplopia, Dizziness , Change in Balancing, Change in Coordination, Change in Memory, Change in Speech, Change in Sphincter Function, Change in Walking, Numbness\Paresthesiae, Unexplained Weakness, Hx of Stroke\TIA, Hx of Seizures, Other Objective Active Medications: Allopurinol (Zyloprim Tab*) 100 mg PO DAILY AAYUSH Amiloride HCl (Midamor Tab*) 10 mg PO BID [facility]USH Apixaban (Eliquis*) 2.5 mg PO BID [facility]USH Citalopram Hydrobromide (Celexa Tab*) 10 mg PO DAILY [facility]USH Furosemide (Lasix Tab*) 80 mg PO BID [facility] Lactulose (Lactulose*) 20 ml PO QID AAYUSH Nadolol (Nadolol (Nf)) 10 mg PO DAILY [facility]USH Pantoprazole Sodium (Protonix Tab*) 40 mg PO DAILY [facility]USH Rifaximin (Xifaxan*) 550 mg PO BID A[facility]USH Rosuvastatin Calcium (Crestor (Nf)) 5 mg PO DAILY [facility]; Protocol Senna (Senokot 8.6 Mg Tab*) 2 tab PO DAILY AAYUSH Simethicone (Mylicon Tab*) 160 mg PO TID A[facility]USH Tamsulosin HCl (Flomax Cap*) 0.8 mg PO DAILY [facility] Vital Signs - 8 hr 05/12/19 05/12/19 05/12/19 17:15 18:04 18:05 Temperature 98.7 F Pulse Rate 62 61 64 Respiratory 22 Rate Blood Pressure 109/65 111/68 (mmHg) O2 Sat by Pulse 99 99 99 Oximetry 05/12/19 18:35 Temperature Pulse Rate 69 Respiratory 23 Rate Blood Pressure 105/69 (mmHg) O2 Sat by Pulse 100 Oximetry Oxygen Devices in Use Now: None Appearance: laying in bed comfortably Eyes: No Scleral Icterus Respiratory: Symmetrical Chest Expansion and Respiratory Effort, Clear to Auscultation Cardiovascular: NL Sounds; No Murmurs; No JVD - 2+ edema B/L Abdominal: - - distended, non-tender. +fluid wave Neurological: Alert and Oriented x 3 Result Diagrams: 05/12/19 18:46 05/12/19 18:46 Assess/Plan/Problems-Billing Assessment: - Patient Problems (1) Decompensated hepatic cirrhosis Current Visit: Yes Status: Acute Code(s): K72.90 - HEPATIC FAILURE, UNSPECIFIED WITHOUT COMA SNOMED Code(s): 805879837 Comment: cirrhosis sec to AGUIRRE on lasix amiloride at home, despite that has been having frequent paracenteses since december Pt not sure what his dry weight is but knows he usally weighs around 230-240s. Here for a parencetesis. (2) DVT prophylaxis Current Visit: Yes Status: Acute Code(s): Z29.9 - ENCOUNTER FOR PROPHYLACTIC MEASURES, UNSPECIFIED SNOMED Code(s): 989214315 Comment: betzaida (3) Full code status Current Visit: Yes Status: Acute Code(s): Z78.9 - OTHER SPECIFIED HEALTH STATUS SNOMED Code(s): 761652593 (4) AGUIRRE (nonalcoholic steatohepatitis) Current Visit: No Status: Acute Code(s): K75.81 - NONALCOHOLIC STEATOHEPATITIS (AGUIRRE) SNOMED Code(s): 512030831 Comment: He follows with Hepatology at [place] cont lactulose, rifaximin, protonix, nadolol (5) BPH (benign prostatic hyperplasia) Current Visit: Yes Status: Acute Code(s): N40.0 - BENIGN PROSTATIC HYPERPLASIA WITHOUT LOWER URINRY TRACT SYMP SNOMED Code(s): 013680559 Comment: on tamsulosin (6) HLD (hyperlipidemia) Current Visit: Yes Status: Acute Code(s): E78.5 - HYPERLIPIDEMIA, UNSPECIFIED SNOMED Code(s): 59486941 Comment: cont rosuvastatin
[2019-05-13 06:25] LABS: ABS Eosinophils 0.1 10^3/ul (0-0.6); ABS Lymphocytes 0.9 10^3/ul (1.0-4.8); ABS Monocytes 0.4 10^3/ul (0-0.8); ABS Neutrophils 2.1 10^3/ul (1.5-7.7); Eosinophil % 3.6 %; Hematocrit 21 % (42-52); Hemoglobin 7.1 g/dL (14.0-18.0); Lymphocyte % 24.9 %; Mean Corpuscular HGB Conc 34 g/dL (31-36); Mean Corpuscular Hemoglobin 30 pg (27-31); Mean Corpuscular Volume 91 fL (80-94); Mean Platelet Volume 9.2 fL (7.4-10.4); Platelet Count 103 10^3/uL (150-450); Red Blood Count 2.34 10^6 /uL (4.18-5.48); Red Cell Distribution Width 17 % (10-15); White Blood Count 3.5 10^3/uL (3.5-10.8)
[2019-05-13 06:37] LABS: INR 1.6 (0.82-1.09)
[2019-05-13 06:42] LABS: Albumin 2.6 g/dL (3.2-5.2); Albumin/Globulin Ratio 0.9 (1-3); BUN/Creatinine Ratio 20.9 (8-20); Calcium 8.3 mg/dL (8.6-10.3); EGFR African American 106.4 (>60); EGFR Non-African American 87.9 (>60); Globulin 2.8 g/dL (2-4); Potassium 3.3 mmol/L (3.5-5.0); Total Protein 5.4 g/dL (6.4-8.9)
--- NOTE | 2019-05-13 07:16 | PN ---
<DarcyMilton - Last Filed: 05/13/19 14:52> Hospitalist Progress Note Date of Service: 05/13/19 S/IE: Bill Bailey is a 69 year-old man with a history of hepatic cirrhosis with recurrent ascities, hepatic encephalopathy, HLD, atrial fibrillation, fall with neck fracture and neurogenic bladder and bowel who presents with complaints of acute weight gain and abdominal distention, requesting paracentesis. He was admitted last evening (05/12/19) by Dr. Muñoz. This is hospital day 2. Believes that he was told by PCP that he had gained 50 pounds and needed paracentesis and albumin transfusion. is confused by this, stating that normal weight is 230 - 240 and today is about 230. Last paracentesis was 3 weeks ago at the [place], extracted about 9L of fluid total, was 4th paracentesis since December. concerned about worsening of condition without paracentesis. Has had steatohepatitis for about 4 years. Follows with transplant team at [facility]. MELD score is low and not currently on a transplant list. PCP is Dr. Osborn at [facility] in [place]. Also getting setup with a PCP at the [facility] in [place] to facilitate rehab services related to cervical spine fracture sustained during fall in December 2018. Neck fracture was surgically repaired. There was a cardiac arrest just prior to that surgery with successful resuscitation. Had been wearing neck brace until about 2 weeks ago. Had paracentesis today. Planning for d/c to home today. ROS: Reports weight gain. Denies fever, chills, SOB, CP, abdominal pain. PMH: Hepatic cirrhosis, hepatic encephalopathy, ascities, HLD, neurogenic bladder, fall, neck fracture, neurogenic bladder and bowel, atrial fibrillation PSH: hernia repair, hip replacement - complicated by infection, had revision, surgical repair of neck fracture Family Hx: HLD, HTN Social Hx: [place] , lives at home with who cares for him, denies tobacco / ETOH / recreational drug use, follows low salt diet Allergies: PCN - hives / dyspnea, statins - stomach cramps, sertraline - "weird thoughts" Home Meds: Allopurinol TAB* [Zyloprim 100 MG TAB*] 100 mg PO DAILY 08/09/17 [History Confirmed 05/12/19] Multivitamins/Minerals TAB* [Theragran/minerals TAB*] 1 tab PO DAILY 08/09/17 [ History Confirmed 05/12/19] metFORMIN* [Glucophage 500 MG TAB *] 500 mg PO DAILY 08/09/17 [History Confirmed 05/12/19] Apixaban* [Eliquis*] 2.5 mg PO BID 05/12/19 [History Confirmed 05/12/19] Citalopram TAB* [CeleXA TAB*] 10 mg PO DAILY 05/12/19 [History Confirmed ] Docusate Sodium/Benzocaine [Enemeez Plus] 5 ml [place] BID 05/12/19 [History Confirmed 05/12/19] Furosemide TAB* [Lasix TAB*] 80 mg PO BID 05/12/19 [History Confirmed 05/12/19] Lactulose* 20 ml PO QID 05/12/19 [History Confirmed 05/12/19] Nadolol (NF) 10 mg PO DAILY 05/12/19 [History Confirmed 05/12/19] Pantoprazole TAB * [Protonix TAB*] 40 mg PO DAILY 05/12/19 [History Confirmed ] RiFAXimin* [Xifaxan*] 550 mg PO BID 05/12/19 [History Confirmed 05/12/19] Rosuvastatin (NF) [Crestor (NF)] 5 mg PO DAILY 05/12/19 [History Confirmed 05/12] Senna TAB 8.6 mg* [Senokot 8.6 mg TAB*] 2 tab PO DAILY 05/12/19 [History Confirmed 05/12/19] Simethicone TAB* [Mylicon TAB*] 160 mg PO TID 05/12/19 [History Confirmed ] Tamsulosin CAP* [Flomax CAP*] 0.8 mg PO DAILY 05/12/19 [History Confirmed ] aMILoride TAB* [Midamor TAB*] 10 mg PO BID 05/12/19 [History Confirmed 05/12/19] O: PE: 3 Temp Pulse Resp BP Pulse Ox 98.6 F 61 16 104/56 100 05/13/19 11:05 05/13/19 11:05 05/13/19 11:05 05/13/19 11:05 05/13/19 11:05 *Exam done after paracentesis with drainage of 5.5 L of fluid General: Resting comfortably in bed, appears stated age, not in acute distress, AAOx4, mildly somnolent, pleasantly cooperates with interview and examination HEENT: Head normocephalic, atraumatic. Hearing grossly normal. PERRLA. EOMI. Vision grossly normal. No scleral icterus. Nares patent. Oral mucosa pink and moist. Good dentition. Uvula midline. No JVD. Trachea midline. No lymphadenopathy. No thyromegaly. Chest: Unlabored breathing with normal symmetric chest motion. Lungs clear bilaterally with good air movement. Normal S1/S2. No rubs, clicks, gallops. Abdomen: Protuberant, soft, non-distended, non-tender. No fluid wave. Extremities: UE and LE distal CMS intact b/l. No asterixis. Recent Labs: 3 05/13/19 05/13/19 05/13/19 05:30 05:30 05:30 WBC 3.5 RBC 2.34 L Hgb 7.1 L Hct 21 L MCV 91 MCH 30 MCHC 34 RDW 17 H Plt Count 103 L MPV 9.2 Neut % (Auto) 58.6 Lymph % (Auto) 24.9 Izard % (Auto) 12.1 Eos % (Auto) 3.6 Baso % (Auto) 0.8 Absolute Neuts (auto) 2.1 Absolute Lymphs (auto) 0.9 L Absolute Monos (auto) 0.4 Absolute Eos (auto) 0.1 Absolute Basos (auto) 0.0 Absolute Nucleated RBC 0.0 Nucleated RBC % 0.0 INR (Anticoag Therapy) 1.60 H Sodium 132 L Potassium 3.3 L Chloride 99 L Carbon Dioxide 27 Anion Gap 6 BUN 18 Creatinine 0.86 Est GFR ( Amer) 106.4 Est GFR (Non-Af Amer) 87.9 BUN/Creatinine Ratio 20.9 H Glucose 95 Calcium 8.3 L Total Bilirubin 1.00 AST 28 ALT 14 Alkaline Phosphatase 57 Total Protein 5.4 L Albumin 2.6 L Globulin 2.8 Albumin/Globulin Ratio 0.9 L 3 05/12/19 18:46 WBC 4.6 RBC 2.56 L Hgb 7.6 L Hct 23 L MCV 92 MCH 30 MCHC 32 RDW 17 H Plt Count 123 L MPV 9.1 Neut % (Auto) 67.4 Lymph % (Auto) 16.6 Izard % (Auto) 12.6 Eos % (Auto) 2.9 Baso % (Auto) 0.5 Absolute Neuts (auto) 3.1 Absolute Lymphs (auto) 0.8 L Absolute Monos (auto) 0.6 Absolute Eos (auto) 0.1 Absolute Basos (auto) 0.0 Absolute Nucleated RBC 0.0 Nucleated RBC % 0.0 3 05/12/19 05/12/19 18:46 18:46 Sodium 130 L Potassium 3.5 Chloride 97 L Carbon Dioxide 27 Anion Gap 6 BUN 17 Creatinine 0.95 Est GFR ( Amer) 94.8 Est GFR (Non-Af Amer) 78.4 BUN/Creatinine Ratio 17.9 Glucose 100 Lactic Acid 1.7 Calcium 8.3 L Total Bilirubin 1.00 AST 32 ALT 17 Alkaline Phosphatase 59 C-Reactive Protein 14.78 H Total Protein 5.8 L Albumin 2.8 L Globulin 3.0 Albumin/Globulin Ratio 0.9 L Lipase 34 3 05/12/19 18:50 Urine Color Natalee Urine Appearance Cloudy Urine pH 5.0 Ur Specific Dun[place] 1.010 Urine Protein Negative Urine Ketones Negative Urine Blood 2+ A Urine Nitrate Negative Urine Bilirubin Negative Urine Urobilinogen Negative Ur Leukocyte Esterase Trace A Urine WBC (Auto) Trace(0-5/hpf) Urine RBC (Auto) 1+(3-5/hpf) A Ur Squamous Epith Cells Present A Urine Bacteria 1+ A Hyaline Casts Present A Urine Glucose Negative Paracentesis US (05/13/19): Indication: Ascites. Limited abdominal ultrasound demonstrates a moderate to large amount of ascites. Informed consent was obtained from the patient. Utilizing usual aseptic technique and lidocaine as a local anesthetic an 8-Chilean catheter was placed within the left lower quadrant. Approximately 5500 mL of natalee fluid was aspirated. IMPRESSION: Paracentesis 5.5 L of natalee appearing fluid from the abdomen. Current Medications: Allopurinol (Zyloprim Tab*) 100 mg PO DAILY [facility] Last Admin: 05/13/19 08:15 Dose: 100 mg Amiloride HCl (Midamor Tab*) 10 mg PO BID [facility] Last Admin: 05/13/19 10:44 Dose: 10 mg Citalopram Hydrobromide (Celexa Tab*) 10 mg PO DAILY [facility] Last Admin: 05/13/19 08:16 Dose: 10 mg Furosemide (Lasix Tab*) 80 mg PO BID [facility] Last Admin: 05/13/19 08:13 Dose: 80 mg Lactulose (Lactulose*) 20 ml PO QID [facility] Last Admin: 05/13/19 13:47 Dose: 20 ml Nadolol (Nadolol (Nf)) 10 mg PO DAILY [facility] Last Admin: 05/13/19 11:13 Dose: Not Given (Docusate Sodium/Benzocaine [Enemeez Plus Mini Enema] 5 Ml) 5 ml W[place] BID [facility] Last Admin: 05/13/19 11:14 Dose: Not Given Pantoprazole Sodium (Protonix Tab*) 40 mg PO DAILY [facility] Last Admin: 05/13/19 08:15 Dose: 40 mg Rifaximin (Xifaxan*) 550 mg PO BID [facility] Last Admin: 05/13/19 10:43 Dose: 550 mg Rosuvastatin Calcium (Crestor (Nf)) 5 mg PO DAILY [facility]; Protocol Last Admin: 05/13/19 10:43 Dose: 5 mg Senna (Senokot 8.6 Mg Tab*) 2 tab PO DAILY [facility] Last Admin: 05/13/19 08:16 Dose: 2 tab Simethicone (Mylicon Tab*) 160 mg PO TID [facility] Last Admin: 05/13/19 13:48 Dose: 160 mg Tamsulosin HCl (Flomax Cap*) 0.8 mg PO DAILY [facility] Recent Orders: 05/12/19 18:24 Straight Catheterization ONCE 05/12/19 18:50 Urine Culture Stat 05/12/19 21:06 Up with Assistance Activity Routine Admit Routine Clinical Screening Routine Full Code Routine 05/12/19 21:07 Call Provider if:(View Detail) .ONCE DVT Risk Assessment Routine 05/12/19 21:08 CDU Care ONCE 05/13/19 09:00 Allopurinol TAB* [Zyloprim TAB*] 100 mg PO DAILY Citalopram TAB* [CeleXA TAB*] 10 mg PO DAILY Docusate Sodium/Benzocaine [Enemeez Plus Mini Enema] 5 ml [place] BID Furosemide TAB* [Lasix TAB*] 80 mg PO BID Lactulose* 20 ml PO QID Nadolol (NF) 10 mg PO DAILY Pantoprazole TAB * [Protonix TAB*] 40 mg PO DAILY RiFAXimin* [Xifaxan*] 550 mg PO BID Rosuvastatin (NF) [Crestor (NF)] 5 mg PO DAILY Senna TAB 8.6 mg* [Senokot 8.6 mg TAB*] 2 tab PO DAILY Simethicone TAB* [Mylicon TAB*] 160 mg PO TID aMILoride TAB* [Midamor TAB*] 10 mg PO BID 05/13/19 13:37 Discharge Routine 05/13/19 21:00 Tamsulosin CAP* [Flomax CAP*] 0.8 mg PO DAILY A/I: 69 year-old man with a history of hepatic cirrhosis with recurrent ascities, hepatic encephalopathy, HLD, atrial fibrillation, fall with neck fracture and neurogenic bladder and bowel with significant ascities due to acute decompensated hepatic cirrhosis in need of paracentesis P: Decompensated Hepatic Cirrhosis: Strong suspicion of acute decompensation based upon history and presence of ascities confirmed by US No asterixis noted No varices noted No spider telangiectasias noted MELD score is 12 based upon current data Paracentesis was ordered and performed under US guidance - drained 5.5 L of fluid Ordered 25 g albumin infusion Continue furosemide and amiloride as above Continue nadolol as above Continue low sodium diet Recommended f/u with existing coutierier for re-evaluation of diuretic regimen and to discuss whether or not a TIPS procedure might be indicated Hepatic Encephalopathy Prophylaxis: Chronic condition due to hepatic cirrhosis Continue lactulose and rifaximin as above Neurogenic Bladder: Complication of neck fracture that occurred December 2018 Continue Flomax as above Continue condom catheter use Neurogenic Bowel: Complication of neck fracture that occurred December 2018 Continue senna, simethicone and docusate sodium enemas as above DMII: Chronic condition Non-insulin dependant Holding home metformin while in hospital Resume on d/c HLD: Chronic condition Continue Crestor as above Depression: Chronic condition Continue citalopram as above Gout Prophylaxis: Chronic condition Continue allopurinol as above <Shelli Oglesby - Last Filed: 05/13/19 15:50> Hospitalist Progress Note Agree with excellent MSIII note, difficult tx options in the block sealer given multimorbiditiy, though in short term para successful
[2019-05-13] MEDS: Simethicone TAB* 80 MG TAB.CHEW PO SCH ×2 (08:15→13:48)
[2019-05-13] MEDS ORDERED: Pantoprazole TAB * 40 MG TAB PO SCH (09:00)
[2019-05-13] MEDS ORDERED: Senna TAB 8.6 mg* TAB PO SCH (09:00)
[2019-05-13] MEDS ORDERED: BENZOCAINE PR SCH (09:00)
[2019-05-13] MEDS ORDERED: Allopurinol TAB* 100 MG PO SCH (09:00)
[2019-05-13] MEDS ORDERED: Lactulose* 15 ML UDC PO SCH (09:00)
[2019-05-13] MEDS ORDERED: RiFAXimin* 550 MG TAB PO SCH (09:00)
[2019-05-13] MEDS ORDERED: Tamsulosin CAP* 0.4 MG PO SCH ×2 (09:00→21:00)
[2019-05-13] MEDS ORDERED: CMCS: Rosuvastatin (NF) 5 MG TAB PO SCH (09:00)
[2019-05-13] MEDS ORDERED: NADOLOL 20 MG PO SCH (09:00)
[2019-05-13] MEDS ORDERED: Apixaban* 2.5 MG TAB PO SCH (09:00)
[2019-05-13] MEDS ORDERED: aMILoride TAB* 5 MG PO SCH (09:00)
[2019-05-13] MEDS ORDERED: Citalopram TAB* 10 MG PO SCH (09:00)
[2019-05-13] MEDS ORDERED: Furosemide TAB* 40 MG PO SCH (09:00)
[2019-05-13] MEDS ORDERED: DOCUSATE SODIUM PR SCH (09:00)
[2019-05-13] MEDS ORDERED: Albumin Human 25%* 25 GM/100 ML BTL IV ONE (11:30)
--- NOTE | 2019-05-13 14:56 | DS ---
CC: Dex Osborn MD DISCHARGE SUMMARY: DATE OF ADMISSION: 05/12/19 DATE OF DISCHARGE: 05/13/19 PRIMARY CARE PROVIDER: Dex Osborn MD, [facility]. DISPOSITION AT THE TIME OF DISCHARGE: Stable to return to home. PRIMARY DIAGNOSIS: Decompensated cirrhosis with tense ascites, status post 5.5 L paracentesis. SECONDARY DIAGNOSES: 1. Nonalcoholic steatohepatitis, cirrhosis, decompensated by ascites, hepatic encephalology, and eso phageal varices, all currently controlled at this time, on home medications, following with the trans plant clinic. 2. Prediabetes. 3. Gout. 4. Hypertension. 5. Hyperlipidemia. 6. Recent vertebral fracture in the summer, status post current repair. 7. Benign prostatic hypertrophy. 8. Atrial fibrillation, on anticoagulation. MEDICATIONS AT THE TIME OF DISCHARGE: 1. Metformin 500 mg p.o. daily. 2. Multivitamin 1 tab p.o. daily. 3. Allopurinol 100 mg p.o. daily. 4. Amiloride 10 mg p.o. b.i.d. 5. Apixaban 2.5 mg p.o. b.i.d. 6. Citalopram 10 mg p.o. daily. 7. Docusate 5 mL per rectum b.i.d. 8. Furosemide 80 mg p.o. b.i.d. 9. Lactulose 20 mL p.o. q.i.d. 10. Nadolol 10 mg p.o. daily. 11. Pantoprazole 40 mg p.o. daily. 12. Rifaximin 550 mg p.o. b.i.d. 13. Rosuvastatin 5 mg p.o. daily. 14. Senna 2 tabs p.o. daily. 15. Simethicone 160 mg p.o. t.i.d. p.r.n. 16. Tamsulosin 0.8 mg p.o. daily. Medication changes during this hospitalization include none. HISTORY OF PRESENT ILLNESS AND HOSPITAL COURSE: This is a 69-year-old male with the above past medic al history, who presented to the emergency room with complaint of tense ascites. The patient had bee n to his primary care provider, who noted weight gain and was concerned heading into the weekend that the patient would need a large volume paracentesis. He denied any shortness of breath, cough, GI pa in, hepatic encephalopathy, or hematemesis or dark or tarry stools. Labs were done, which were notab le for hyponatremia, which is stable and pancytopenia, which is unchanged from prior in the past. Im aging was done that showed large ascites. He was admitted to the hospital for a large volume paracen tesis, which was performed under ultrasound guidance. On the morning of 05/13/19, 5.5 L were removed successfully without pain or complication. Albumin 25 g was given status post paracentesis and the patient tolerated the procedure well with no hypertension or further complication. On the day of dis charge, he is ambulating, tolerating diet, voiding freely. Physical exam is notable for no asterixis , no confusion. He still has mild ascites with positive fluid waves, but no tense ascites and no oth er stigmata of chronic liver disease and is stable to be discharged to home. LABS AND STUDIES DONE DURING THIS HOSPITALIZATION: Labs on the day of discharge: White blood cell co unt 3.5, hemoglobin 7.1, hematocrit 21, platelets 103. Sodium 132, potassium 3.3, chloride 99, BUN 1 8, creatinine 0.86, and glucose 95. LFTs are stable at AST 28, ALT 14, alk phos 57, and total biliru bin is 1. UA shows 1+ red blood cells, squamous epithelial cells is present, hyaline casts. Culture was drawn. The patient has no symptoms. Imaging included ultrasound that was used to guide paracen tesis, which showed [id number] amount of ascites. ITEMS TO FOLLOW UP ON STATUS POST DISCHARGE: 1. Decompensated cirrhosis with recurrent need for large volume paracentesis. The patient is mildly hypertensive, although question is whether he can tolerate more diuresis. He should be on a 2:1 rat io with potassium sparing diuretic and furosemide, and the patient is already on fairly large doses o f diuretic. We will defer to primary care and malware analyst to continue to optimize this patient from a diuretic standpoint. Likely he is not a candidate for the TIPS procedure secondary to already mellissa ng diagnosed with hepatic encephalopathy, although this decision can be discussed with the family. 2. Transplant status: The patient is already on a transplant list. Apparently with low MELD scores . Continues to follow regularly in the event he does decompensate further. This was discussed with . All questions were answered. TIME SPENT: Forty-five minutes was spent on the planning of this discharge with over half of that sp ent directly at the bedside of the patient providing direct patient care. If there are any questions about the care of the patient during this hospitalization, please do not h esitate to reach out or contact me directly, my cell phone # is [phone]. A physical exam was pe rformed on the day of discharge, can be found in the progress note. [id number]/CPS #: [id number]
[2019-05-13 17:26] VITALS: BP 99/53
== END 2019-05-13 16:15 | disposition home or self-care (01) ==
LOC: ED 17:09 → MED 21:06
PROVIDERS: ADMIT Student in an Organized Health Care Education/Training Program; ATTEND Internal Medicine
DX: K72.90 Hepatic failure, unspecified without coma (principal); K75.81 Nonalcoholic steatohepatitis (NASH); R18.8 Other ascites; I85.00 Esophageal varices without bleeding; Z79.899 Other long term (current) drug therapy; R73.03 Prediabetes; M10.9 Gout, unspecified; I10 Essential (primary) hypertension; E78.5 Hyperlipidemia, unspecified; N40.0 Benign prostatic hyperplasia without lower urinary tract symptoms; I48.91 Unspecified atrial fibrillation; Z79.01 Long term (current) use of anticoagulants; Z88.0 Allergy status to penicillin; Z87.891 Personal history of nicotine dependence
CPT/HCPCS: 36415; 49083; 76705; 80053; 81003; 81015; 83605; 83690; 85025; 85610; 86140; 87077; 87086; 87186; 96374; 99285; A9270-GY; G0378; P9047

== ENCOUNTER 2019-06-05 18:34 | Emergency (ER) | payer MEDICARE ==
--- OUTSIDE RECORDS SUMMARY | 2019-06-05 19:22 | XMS REPORT | Summary of Care ---
:1950 Author Organization [facility] Address [address] [facility] [place] [address] Care Team Providers Name Role Phone Dex Osborn Primary Care Provider Reason for Visit Reason Comments Transitional Care Management [facility] [place]13 [place]acentesis; [facility] and [facility]30 dr. flores (neck sureon); dr. Silva next month Medication Check question amiloride from last OV with GI. Also increased lasix and lactulose Hypertension question medication as since accident BP running lower. 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) (Primary Dx); Medicine [address] Idiopathic sclerosing mesenteritis (HCC); [address] [place] [address] Type 2 diabetes mellitus with complication, without long-term current use of insulin (HCC); [place] [address] Other ascites; [phone] Dislocation of C6-C7 cervical vertebrae, sequela; Portal vein thrombosis Allergies Active Allergy Reactions Severity Noted Date Comments Alc-Sertraline Other 08/26/2007 Hostile mood Penicillins Anaphylaxis, Rash 10/15/2004 Statins GI Reaction 09/30/2010 Abdomen pain, RUQ Zoloft Other 09/20/2010 He had terrible thought while taking it documented as of this encounter (statuses as of 05/27/2019) Medications Medication Sig Dispensed Refills Start Date [...] HOURS Inhalation Aero Soln NEEDED (for wheezing). Multiple Take by mouth 0 Active Vitamins-Minerals DAILY. (DAILY-GABRIEL MENS FORMULA PO) amiloride (MIDAMOR) Take 5 mg by mouth 0 Active 5 MG Oral DAILY. Indications: TabIndications: 2 2 tabs BID tabs BID halobetasol Apply BID PRN for 50 g 3 12/10/2017 Active (ULTRAVATE) 0.05 % psoriasis Apply externally CreamIndications: Psoriasis metFORMIN TAKE 1 TABLET ONCE 90 Tab 3 01/26/2018 Active (GLUCOPHAGE) 500 MG DAILY Oral TabIndications: Diabetes mellitus (HCC) allopurinol TAKE 1 TABLET ONCE 90 Tab 3 02/22/2018 Active (ZYLOPRIM) 100 MG DAILY Oral Tab lactulose (CEPHULAC) Take 10-20 g by 180 Packet 3 09/01/2018 Active 10 g Oral mouth THREE TIMES PackIndications: DAILY. 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) Additional information Patient taking differently: 20 g Oral QID, Reported on 05/10/2019 12:32 PM Rosuvastatin Calcium 5 MG Oral Take 1 Tab by mouth EVERY 90 Tab 3 2018 Active Tab BEDTIME. Additional information Patient taking differently: 10 mg Oral QHS, Indications: 1/2 tab QD, Reported on 05/10/2019 12:32 PM nadolol (CORGARD) 20 Take 0.5 Tabs by 45 Tab 3 10/20/2018 Active MG Oral Tab mouth DAILY. Pantoprazole Sodium [...] Sodium (ENEMEEZ PLUS rectum TWICE RE) DAILY. rifaximin (XIFAXAN) Take 550 mg by 0 Active 550 MG Oral Tab mouth TWICE DAILY. mirtazapine (REMERON) Take 1 Tab by 30 Tab 5 05/17/2019 Active 15 MG Oral Tab mouth EVERY BEDTIME. furosemide (LASIX) 40 Take 1 Tab by 30 Tab 5 07/08/2017 05/23/20 Discontinued MG Oral Tab mouth DAILY. 19 XIFAXAN 550 MG Oral take 1 tablet by 60 Tab 6 05/10/2018 05/23/20 Discontinued Tab mouth twice a 19 day as directed citalopram (CELEXA) Take 1 Tab by 30 Tab 3 05/09/2019 05/17/20 Discontinued 10 MG Oral Tab mouth DAILY. 19 (Alternative Therapy) documented as of this encounter (statuses as of 05/27/2019) Active Problems Problem Noted Date Dislocation of C6-C7 cervical vertebrae 05/24/2019 Overview: With fracture Portal hypertension 09/05/2018 Idiopathic sclerosing mesenteritis 09/05/2018 [...] as of this encounter (statuses as of 05/27/2019) Resolved Problems Problem Noted Date Resolved Date MDS (myelodysplastic syndrome) 06/27/2016 03/23/2018 MDS (myelodysplastic syndrome) 04/11/2014 06/27/2015 Obesity 08/24/2007 10/14/2011 Fatty liver 06/09/2007 06/27/2015 documented as of this encounter (statuses as of 05/27/2019) Immunizations Name Administration Dates Next Due Hepatitis B Vaccine Adult 01/01/2016, 08/06/2015, 07/10/2015 Influenza (IM) Preservative Free 04/03/2014, 03/01/2013, 07/05/2012, 06/09/2011, 05/06/2010, 04/19/2009, 04/20/2008, 08/26/2007 Influenza Vaccine High Dose 03/28/2019, 03/23/2018, 03/13/2017, 04/24/2016, 05/17/2015 Influenza Vaccine Whole 04/07/2006 PNEUMOCOCCAL POLYSACCHARIDE VACCINE 03/01/2013 Pneumococcal Conjugate(13 Valent) 07/08/2014 TDAP Vaccine 01/16/2019, 04/20/2008 ZOSTER (ZOSTAVAX) VACCINE 10/26/2012 documented as [...] Sign Reading Time Taken Comments Blood Pressure 100/52 05/17/2019 1:27 PM EST Pulse 60 05/17/2019 1:27 PM EST Temperature - - Respiratory Rate - - Oxygen Saturation - - Inhaled Oxygen Concentration - - Weight 98.9 kg (218 lb) 05/17/2019 1:27 PM EST Height - - Body Mass Index 33.15 05/10/2019 12:23 PM EST documented in this encounter Patient Instructions Patient InstructionsDex Osborn MD - 05/17/2019 1:00 PM ESTContinue same medicines, except stop citalopram and start mirtazapine 15 mg at bedtime. This helps mood, appetite, and can help you sleep at night. I will be discussing the diuretic regimen with Dr. Silva, trying to make it so that you do not get a reaccumulation of fluid in your abdomen. Call if any symptoms worsen. Return in 1 month documented in this encounter Progress Notes Dex Osborn MD - 05/17/2019 1:00 PM EST PATIENT: Bill Bailey : 1950 DATE OF SERVICE: 05/17/2019 CHIEF COMPLAINT: Chief Complaint Patient presents with Transitional Care Management [facility] [place]/13 paracentesis; [facility] dr. flores (neck sure); dr. Silva next month Medication Check question amiloride from last OV with GI. Also increased lasix and lactulose Hypertension question medication as since accident BP running lower. Subjective HISTORY OF PRESENT ILLNESS: Bill Bailey is a 69-y.o. male. HPI He returns in follow-up of several issues. 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 Had long hospitalization and rehab stay. More recently he had development of ascites and required brief hospitalization for therapeutic paracentesis . Several liters of fluid were removed. Now getting PT at [facility] Bertha Was getting more anxious and depressed and started on citalopram. Wonders if it is causing loose stools. Told him it usually does not. Past Medical History: Diagnosis Date Cervical stenosis of spine Cirrhosis (HCC) AGUIRRE Degenerative disc disease 06/09/2007 Diabetes mellitus (HCC) GERD (gastroesophageal reflux disease) Gout 06/09/2007 Hyperlipidemia 06/09/2007 Hypersplenism Hypertension 06/09/2007 Obesity 08/24/2007 Personal history of colonic polyps 04/13/2007 Psoriasis 08/24/2007 Sclerosing mesenteritis (HCC) Family History Problem Relation Age of Onset Heart Father [place] Cancer Father gall bladder Asthma Child dtg Prostate Cancer Child cousin Prostate Cancer Paternal Uncle Current Outpatient Medications Medication Sig albuterol HFA (VENTOLIN) 108 (90 Base) MCG/ACT Inhalation Aero Soln Take 2 Puffs by inhalation EVERY FOUR HOURS NEEDED (for wheezing). allopurinol (ZYLOPRIM) 100 MG Oral Tab TAKE 1 TABLET ONCE DAILY amiloride (MIDAMOR) 5 MG Oral Tab Take 5 mg by mouth DAILY. Indications: 2 tabs BID apixaban (ELIQUIS) 2.5 MG Oral Tab Take 2.5 mg by mouth TWICE DAILY. Benzocaine-Docusate Sodium (ENEMEEZ PLUS RE) Place 5 mg per rectum TWICE DAILY. Blood Glucose Monitoring Suppl (BLOOD GLUCOSE [...] by mouth DAILY. (Patient taking differently: Take 80 mg by mouth TWICE DAILY.) Glucose Blood In Vitro Strip 1 Strip by In Vitro route DAILY. Freestyle lite E11.9 halobetasol (ULTRAVATE) 0.05 % Apply externally Cream Apply BID PRN for psoriasis lactulose (CEPHULAC) 10 g Oral Pack Take 10-20 g by mouth THREE TIMES DAILY. (Patient taking differently: Take 20 g by mouth FOUR TIMES DAILY.) Lancets Does not apply Misc by Does not apply route. Brand: Insurance choice, use daily as dir, Dx: 250.00 metFORMIN (GLUCOPHAGE) 500 MG Oral Tab TAKE 1 TABLET ONCE DAILY Multiple Vitamins-Minerals (DAILY-GABRIEL MENS FORMULA PO) Take by mouth DAILY. nadolol (CORGARD) 20 MG Oral Tab Take 0.5 Tabs by mouth DAILY. Pantoprazole Sodium 40 MG Oral Pack Take 40 mg by mouth DAILY AT 1400. rifaximin (XIFAXAN) 550 MG Oral Tab Take 550 mg by mouth. Rosuvastatin Calcium 5 MG Oral Tab Take 1 Tab by mouth EVERY BEDTIME. ( Patient taking differently: Take 10 mg by mouth EVERY BEDTIME. Indications: 1/2 tab QD) sennosides (SENOKOT) 8.6 MG Oral Tab Take 2 Tabs by mouth DAILY. simethicone (GENASYME, MYLICON) 80 MG Oral Chew Tab Take 80 mg by mouth EVERY SIX HOURS NEEDED for Flatulence. Tamsulosin HCl (FLOMAX) 0.4 MG Oral Cap Take 0.4 mg by mouth DAILY. Indications: 2 tabs urea 10 % Apply externally Cream by [...] He had terrible thought while taking it Social History Socioeconomic History Marital status: Spouse name: Not on file Number of children: Not on file Years of education: Not on file Highest education level: Not on file Occupational History Not on file Social Needs Financial resource strain: Not on file Food insecurity: Worry: Not on file Inability: Not on file Transportation needs: Medical: Not on file Non-medical: Not on file Tobacco Use Smoking status: Former Smoker Packs/day: 0.20 Types: Cigarettes Last attempt to quit: 09/27/1969 Years since quittin.6 Smokeless tobacco: Never Used Tobacco comment: quit 1981. Never bought his own cigarettes only borrowed them from people, very infrequently, which also holds for smokeless tobacco Substance and Sexual Activity Alcohol use: No Alcohol/week: 0.0 standard drinks Drug use: No Sexual activity: Yes Partners: Female Lifestyle Physical activity: Days per week: Not on file Minutes per session: Not on file Stress: Not on file Relationships Social connections: Talks on phone: Not on file Gets together: Not on file Attends taoism service: Not on file Active member of club or organization: Not on file Attends meetings of clubs or organizations: Not on file Relationship status: Not on file Intimate partner violence: Fear of current or ex partner: Not on file Emotionally abused: Not on file Physically abused: Not on file Forced sexual activity: Not on file Other Topics Concern Not on file Social History Narrative Not on file REVIEW OF SYSTEMS: Review of Systems Constitutional: Positive for malaise/fatigue and weight loss. Negative for fever. HENT: Negative for congestion. Eyes: Negative for blurred vision. Respiratory: Positive for shortness of breath. Cardiovascular: Negative for chest pain. Gastrointestinal: Negative for abdominal pain. Genitourinary: Positive for frequency. Musculoskeletal: Positive for neck pain. Neurological: Negative for seizures and loss of consciousness. Endo/Heme/Allergies: Negative for polydipsia. Psychiatric/Behavioral: Positive for depression. The patient has insomnia. Objective PHYSICAL EXAM: VITALS: BP 100/52 | Pulse 60 | Wt 218 lb (98.9 kg) | BMI 33.15 kg/m Body mass index is 33.15 kg/m. Physical Exam Alert, oriented, in no acute distress. Vitals as above. HEENT: unremarkable. Neck: No palpable lymphadenopathy in the submandibular, submental, anterior cervical, posterior cervical, or occipital chains, nor in the supraclavicular spaces. No JVD, thyromegaly. LUNGS: clear. HEART: Regular rate and rhythm. Abdomen distended but not tense EXTREMITIES: no cyanosis, clubbing, trace1+ edema. ASSESSMENT / IMPRESSION: ICD-9-CM ICD-10-CM 1. 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)due to nonalcoholic steatohepatitis 571.5 K74.60 2. 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 Type 2 diabetes mellitus with complication, without long-term current use of insulin (HCC)controlled 250.90 E11.8 4. Other ascitestreated with paracentesis now with diuretic 789.59 R18.8 5. Dislocation of C6-C7 cervical vertebrae, sequelarecovering 905.6 S13.171S With fracture 6 anemia unclear cause. Will discuss with Dr. Silva 7 portal vein thrombosiscontinue apixaban for now but given anemia discuss with Dr. Silva the importance of continuing it, versus stopping it in the face of anemia, TCM Statement. Review of the hospitalization: I am seeing for transition of care following hospitalization. The date of discharge was: May 13, 2019 The discharge diagnosis was ascites from liver cirrhosis. I reviewed the discharge summary, discharge instructions, and pertinent additional documentation obtained during hospitalization. I reconciled the medications. I also reviewed the Transition of Care documentation done by staff. The tests that were not available at the time of discharge were reviewed. Additional tests which are not yet available include: None Coordination of care. - I am satisfied that appropriate referrals are in place to deal with the problems identified during hospitalization, and that the patient has adequate community resources and support in place. - Additional testing related to hospitilization was requested today: no See orders. I confirmed the patient's understanding of the diagnosis and plan of care. Specific education that was provided today: Patient Instructions Continue same medicines, except stop citalopram and start mirtazapine 15 mg at bedtime. This helps mood, appetite, and can help you sleep at night. I will be discussing the diuretic regimen with Dr. Silva, trying to make it so that you do not get a reaccumulation of fluid in your abdomen. Call if any symptoms worsen. Return in 1 month The current and discharge medications were reconciled by an RN, telephonically on May 16, 2019 The source document was Electronic summary of care Author: Dex Osborn MD 05/17/2019 13:47 documented in this encounter Plan of Treatment Date Type Specialty Care Team Description 06/08/2019 Office Visit Gastroenterology Awilda Silva MD [address] [place] [address] [phone] 06/15/2019 Office Visit Internal Medicine Dex Osborn MD [facility] [place] [address] [phone] Health Maintenance Due Date Last Done Comments ZOSTER IMMUNIZATION SERIES 12/21/2012 10/26/2012 (2 of 3) MEDICARE ANNUAL WELLNESS 12/20/2015 12/19/2014 (Previously VISIT completed) Diabetic Eye Exam 02/27/2018 02/27/2017, 08/28/2015, 04/13/2014 PNEUMOCOCCAL 65+YRS (2 of 2 03/01/2018 07/08/2014, 03/01/2013 - PPSV23) DEPRESSION SCREENING 03/23/2019 03/23/2018 FOOT EXAM 03/23/2019 03/23/2018, 03/23/2018, 03/23/2017, Additional history exists Colonoscopy 06/08/2019 06/08/2014, 12/25/2011, 12/25/2011, Additional history exists HEMOGLOBIN A1C 07/16/2019 01/13/2019, 09/09/2018, 07/14/2018, Additional history exists EGD (ESOPHAGODUODENOSCOPY) 10/16/2019 10/15/2018, 10/15/2018, 09/08/2017, Additional history exists LIPID DISORDER SCREENING 01/14/2020 01/13/2019, 09/17/2018, 09/09/2018, Additional history exists URINE MICROALBUMIN 01/14/2020 01/13/2019, 03/13/2017, 03/26/2016, Additional history exists FALL RISK ASSESSMENT 05/17/2020 05/17/2019, 05/17/2019 HEPATITIS C SCREENING Completed 12/20/2013, 10/26/2007, 04/01/2007 INFLUENZA VACCINE Completed 03/28/2019, 03/23/2018, 03/13/2017, Additional history exists AAA SCREENING/SURVEILLANCE Completed 05/10/2019, 02/02/2017, 08/11/2016, Additional history exists HPV IMMUNIZATION SERIES Aged Out No longer eligible based on patient's age to complete this topic MENINGOCOCCAL VACCINE IMM Aged Out No longer eligible based on patient's age to complete this topic documented as of this encounter Goals Goal Patient Goal Associated Recent Patient-Stated? Author Type Problems Progress Blood Pressure Blood Pressure Essential 110/72 No Skezas, < 140/90 hypertension (05/23/2019 MD Dex 2:18 PM EST) Note: Hypertension Care Plan Based [...] Educational Resources. record my blood pressure results. Nathaly is safe and secure way for you [...] Educational Resources: National Heart, Lung, & Blood Roy http://nhlbi.nih.gov/hbp/index.html The DASH Diet Eating Plan http://www.nhlbi.nih.gov/health/health-topics/ topics/dash/ Academy of Nutrition & DIetetics http://eatright.org National Smoking Cessation Site http://smokefree.gov Blood Pressure < Blood Pressure 110/72 (05/23/2019 2:18 Dex Alvarez MD 140/90 PM EST) Note: This is [...] 7.0 Diabetes Diabetes mellitus, 6.3 (01/13/2019 7:58 Dex Alvarez MD CARE PLAN INITIATED AM EDT) Note: [...] my blood sugar results (including dextrose sticks). Nathaly is safe and secure way for you [...] better. Weight loss vs. 18 mo Lifestyle 29 (05/23/2019 2:18 PM EST) No Dex Osborn MD max (lbs) >= 10 Note: This is an individualized lifestyle goal [...] alcohol Idiopathic sclerosing mesenteritis (HCC) Sclerosing mesenteritis Type 2 diabetes mellitus with complication, without long-term current use of insulin (HCC) Other ascites Dislocation of C6-C7 cervical vertebrae, sequela Portal vein thrombosis documented in this encounter Insurance Payer Benefit Plan / Subscriber ID Effective Dates Phone Address Type Group AETNA MEDICARE AETNA MEDICARE xxxxxxxx 2018-Present [employer] ADVANTAGE ADVANTAGE Guarantor Name Account Type Relation to Date of Phone Billing Patient Address Bill Bailey Personal/Family 1950 [phone] [id number] [phone] [place], [place] (Work) [id number] documented as of this encounter"
--- OUTSIDE RECORDS SUMMARY | 2019-06-05 19:22 | XMS REPORT | Summary of Care ---
:1950 Author Organization [facility] Address [address] [facility] [address] [place] [address] Care Team Providers Name Role Phone Dex Osborn Primary Care Provider Reason for Visit Reason Comments Follow-up Follow-up on cirrhosis of liver. Encounter Details Date Type Department Care Team Description 05/23/2019 Office Visit Awilda Atwood MD 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) (Primary Dx); Gastroenterology/Hepa [address] Other ascites; [place] [address] Type 2 diabetes mellitus with complication, without long-term current use of insulin (HCC) [address] [phone] [place] [address] [phone] Allergies Active Allergy Reactions Severity Noted Date Comments Alc-Sertraline Other 08/26/2007 Hostile mood Penicillins Anaphylaxis, Rash 10/15/2004 Statins GI Reaction 09/30/2010 Abdomen pain, RUQ Zoloft Other 09/20/2010 He had terrible thought while taking it documented as of this encounter (statuses as of 06/01/2019) Medications Medication Sig Dispensed Refills Start Date [...] on 05/10/2019 12:32 PM nadolol (CORGARD) 20 MG Take 0.5 Tabs by 45 Tab 3 10/20/2018 Active Oral Tab mouth DAILY. Pantoprazole Sodium 40 Take 40 mg by mouth 0 Active MG Oral Pack DAILY AT 1400. sennosides (SENOKOT) Take 2 Tabs by 0 Active 8.6 MG Oral Tab mouth DAILY. Tamsulosin HCl (FLOMAX) Take 0.4 mg by 0 Active 0.4 MG Oral mouth DAILY. CapIndications: 2 tabs Indications: 2 tabs apixaban (ELIQUIS) 2.5 Take 2.5 mg by 0 Active MG Oral Tab mouth TWICE DAILY. simethicone (GENASYME, Take 80 mg by mouth 0 Active MYLICON) 80 MG Oral EVERY SIX HOURS Chew Tab NEEDED for Flatulence. Benzocaine-Docusate Place 5 mg per 0 Active Sodium (ENEMEEZ PLUS rectum TWICE DAILY. RE) rifaximin (XIFAXAN) 550 Take 550 mg by 0 Active MG Oral Tab mouth TWICE DAILY. mirtazapine (REMERON) Take 1 Tab by mouth 30 Tab 5 05/17/2019 Active 15 MG Oral Tab EVERY BEDTIME. furosemide (LASIX) 80 Take 80 mg by mouth 0 Active MG Oral Tab TWICE DAILY. furosemide (LASIX) 40 Take 1 Tab by mouth 30 Tab 5 07/08/2017 05/23/2019 Discontinued MG Oral Tab DAILY. XIFAXAN 550 MG Oral Tab take 1 tablet by 60 Tab 6 05/10/2018 05/23/2019 Discontinued mouth twice a day as directed documented as of this encounter (statuses as of 06/01/2019) Active Problems Problem Noted Date Dislocation of [...] revision of total hip Right Dr. Vic Chiacs 08/21/2005 01/22/2012 Gout 08/23/2009 DJD (DEGENERATIVE JOINT DISEASE) OF HIP 08/26/2007 Colon polyp 08/26/2007 Overview: Replaced inactive diagnosis Psoriasis 08/24/2007 Essential hypertension 06/09/2007 Degenerative disc disease 06/09/2007 Mixed hyperlipidemia 06/09/2007 Diabetes mellitus, CARE PLAN INITIATED documented as of this encounter (statuses as of 06/01/2019) Resolved Problems Problem Noted Date Resolved Date MDS (myelodysplastic syndrome) 06/27/2016 03/23/2018 MDS (myelodysplastic syndrome) 04/11/2014 06/27/2015 Obesity 08/24/2007 10/14/2011 Fatty liver 06/09/2007 06/27/2015 documented as of this encounter (statuses as of 06/01/2019) Immunizations Name Administration Dates Next Due Hepatitis [...] Sign Reading Time Taken Comments Blood Pressure 110/72 05/23/2019 2:18 PM EST Pulse 72 05/23/2019 2:18 PM EST Temperature 36.8 05/23/2019 2:18 PM EST C (98.2 F) Respiratory Rate - - Oxygen Saturation - - Inhaled Oxygen Concentration - - Weight 100.2 kg (221 lb) 05/23/2019 2:18 PM EST Height 172.7 cm (5' 8") 05/23/2019 2:18 PM EST Body Mass Index 33.6 05/23/2019 2:18 PM EST documented in this encounter Patient Instructions Patient InstructionsKiAwilda milner MD - 05/23/2019 2:30 PM EST1. Ok to try melatonin for sleep: 3 mg 2. See me back 2 weeks Awilda Silva MD documented in this encounter Progress Notes Awilda Silva MD - 05/23/2019 2:30 PM EST PATIENT: Bill Bailey : 1950 DATE OF SERVICE: 05/23/2019 REFERRING PRACTITIONER: Dex Osborn PRIMARY CARE PROVIDER: Dex Osborn CHIEF COMPLAINT: Chief Complaint Patient presents with Follow-up Follow-up on cirrhosis of liver. Subjective HISTORY OF PRESENT ILLNESS: Bill Bailey is a 69-y.o. male who presents for follow-up of cirrhosis. He reports that his energy and mood are a little better. He thinks that his abdominal swelling is stable, although may be building up again. He is working with physical therapy as an outpatient and is slowly seeing some improvement. He started remeron for sleep and anxiety (by Dr. Osborn). His is concerned about some sleepiness. He is taking both the rifaximin and the lactulose for hepatic encephalopathy. Review of bloodwork shows significant drop in Hgb over the past few months (7.6 , down from 13.8 in December). He denies fevers/chills, nausea/vomiting. His last paracentesis was about 2 weeks ago. He was seen in the ER at [facility] for increase in fluid last week, but weight was actually stable. Current Outpatient Medications Medication Sig albuterol HFA [...] by Topical route DAILY NEEDED (for psoriasis). COLCRYS 0.6 MG Oral Tab TAKE 1 TABLET BY MOUTH TWICE A DAY IF NEEDED FOR GOUT furosemide (LASIX) 80 MG Oral Tab Take 80 mg by mouth TWICE DAILY. Glucose Blood In Vitro Strip 1 Strip [...] Oral Tab TAKE 1 TABLET ONCE DAILY mirtazapine (REMERON) 15 MG Oral Tab Take 1 Tab by mouth EVERY BEDTIME. Multiple Vitamins-Minerals (DAILY-GABRIEL MENS FORMULA PO) Take by mouth DAILY. nadolol (CORGARD) 20 MG Oral Tab Take 0.5 Tabs by mouth DAILY. Pantoprazole Sodium 40 MG Oral Pack Take 40 mg by mouth DAILY AT 1400. rifaximin (XIFAXAN) 550 MG Oral Tab Take 550 mg by mouth TWICE DAILY. Rosuvastatin Calcium 5 MG Oral Tab [...] externally Cream by Apply externally route NEEDED. No current facility-administered medications for this visit. [...] of present illness/subjective. Objective PHYSICAL EXAMINATION: VITALS: BP 110/72 | Pulse 72 | Temp 98.2 F (36.8 C) | Ht 5' 8" ( 1.727 m) | Wt 221 lb (100.2 kg) | BMI 33.60 kg/m Body mass index is 33.6 kg/m. GENERAL: alert, oriented, no acute distress. In wheelchair. HEENT: No scleral icterus, MMM Psych: Affect subdued. Neck: no lymphadenopathy LUNGS: clear to auscultation bilaterally. HEART: regular rhythm, no murmurs, no gallops, no rubs. ABDOMEN: general exam: soft, non-tender, mildly distended Extrmities: 1-2+ pitting edema IMPRESSION: AGUIRRE cirrhosis, complicated by recurrent ascites. Now with decreased Hgb. Plan PLAN: 1. Will plan for EGD to check for varices; will need to be done under [facility] in [place]. 2. Paracentesis with albumin as needed 3. Low salt diet. 4. CMP; pending sodium, consider adjustment of diuretic regimen. 5. Melatonin for sleep Follow up: Schedule follow-up here in 2 week(s). Author: Awilda Silva MD 06/01/2019 14:00 documented in this encounter Plan of Treatment Date Type Specialty Care Team Description 06/08/2019 Office Visit Gastroenterology Awilda Silva MD [address] [place] [address] [phone] 06/15/2019 Office Visit Internal Medicine Dex Osborn MD [address] [place], [place] [id number] [phone] Health Maintenance Due Date Last Done Comments [...] Blood Pressure Blood Pressure Essential 110/72 No [place], < 140/90 hypertension (05/23/2019 MD Dex 2:18 [...] Educational Resources: National Heart, Lung, & Blood [place] http://nhlbi.nih.gov/hbp/index.html The DASH Diet Eating Plan http://www.nhlbi.nih.gov/health/health-topics/ [...] weight loss goal. Keep immunizations current Lifestyle No Dex Osborn MD Note: This is an individualized lifestyle [...] Cirrhosis of liver without mention of alcohol Other ascites Type 2 diabetes mellitus with complication, without long-term current use of insulin (HCC) documented in this encounter Insurance Payer Benefit Plan / Subscriber ID Effective Dates Phone Address Type Group AETNA MEDICARE AETNA MEDICARE xxxxxxxx 2018-Present [employer] ADV[employer]AGE ADVANTAGE Guarantor Name Account Type Relation to Date of Phone Billing Patient Address Bill Bailey Personal/Family 1950 [id number] [phone] [place], [place] (Work) [id number] documented as of this encounter
--- NOTE | 2019-06-05 20:32 | ED ---
Abdominal Pain/Male - HPI Summary HPI Summary: 69 year old male presents to the ED with right sided paracentesis leakage starting this morning. noticed he was soaked this am and discovered the site was leaking. Patient has had 4 paracenteses secondary to liver cirrhosis ( starting several months ago). Most recently took off about 6 liters. Patient denies abdominal pain or fever. Patient has HTN and is on blood thinners. PSHx laminectomy, spinal cord injury. - History of Current Complaint Chief Complaint: EDGeneral Stated Complaint: LEAKING THROUGH PARACENTESIS SITE PER Time Seen by Provider: 06/05/19 20:12 Hx Obtained From: Patient Onset/Duration: Sudden Onset - this morning, Lasting Hours, Still Present Timing: Constant Severity Initially: Mild Severity Currently: Mild Pain Intensity: 0 Pain Scale Used: 0-10 Numeric Location: Flank - right Radiates: No Character: Not Applicable Aggravating Factor(s): Nothing Alleviating Factor(s): Nothing Associated Signs And Symptoms: Negative: Fever - Allergies/Home Medications Allergies/Adverse Reactions: Allergies Allergy/AdvReac Type Severity Reaction Status Date / Time Penicillins Allergy Severe Hives/Diff. Verified 06/01/19 11:24 Breathing/Itching sertraline [From Zoloft] Allergy WEIRD Verified 06/01/19 11:24 THOUGHTS [id number] Reductase Allergy Stomach Verified 06/01/19 11:24 Inhibitor Cramps PMH/Surg Hx/FS Hx/Imm Hx Endocrine/Hematology History: Reports: Other Endocrine/Hematological Disorders - CIRRHOSIS Denies: Hx Diabetes, Hx Thyroid Disease Cardiovascular History: Reports: Hx Hypertension - meds, Other Cardiovascular Problems/Disorders - hcl Denies: Hx Pacemaker/ICD, Hx Peripheral Vascular Disease Respiratory History: Denies: Hx Asthma, Hx Chronic Obstructive Pulmonary Disease (COPD) GI History: Reports: Hx Gall Bladder Disease - JAIRO, Hx Gastrointestinal Bleed - 08/09/17, Other GI Disorders - LIVER DISEASE, CIRRHOSIS Denies: Hx Ulcer History: Reports: Hx Acute Renal Failure - 08/09/17 Denies: Hx Renal Disease Musculoskeletal History: Reports: Hx Gout Sensory History: Denies: Hx Cataracts, Hx Contacts or Glasses, Hx Glaucoma, Hx Hearing Aid Opthamlomology History: Denies: Hx Cataracts, Hx Contacts or Glasses, Hx Glaucoma Neurological History: Reports: Other Neuro Impairments/Disorders - ELEVATED AMMONIA LEVELS - CONFUSION Denies: Hx Headaches, Hx Seizures, Hx Spinal Cord Injury, Hx Transient Ischemic Attacks (TIA) Psychiatric History: Denies: Hx Panic Disorder - Cancer History Cancer Type, 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 Hx Chemotherapy: No Hx Radiation Therapy: No Hx Palliative Cancer Treatment: No - Surgical History Surgery Procedure, Year, and Place: RIGHT HIP REPLACEMENT-REVISED AFTER INFECTION. BACK SURGERIES-LAMINECTOMY. GALLBLADDER - Immunization History Date of Tetanus Vaccine: Unknown Date of Influenza Vaccine: 04/14 Infectious Disease History: No Infectious Disease History: Reports: History Other Infectious Disease - staph infection, not MRSA, FLU 06/2017 Denies: Hx Hepatitis, Hx Human Immunodeficiency Virus (HIV), Traveled Outside the [place] in Last 30 Days - Family History Known Family History: Positive: Other - bladder cancer, renal failure, hypertension, Parkinson's - Social History Alcohol Use: None Hx Substance Use: No Substance Use Type: Reports: None Hx Tobacco Use: Yes Smoking Status (MU): Former Smoker Have You Smoked in the Last Year: No Review of Systems Negative: Fever Negative: Abdominal Pain Positive: Myalgia - Flank pain due to paracentesis All Other Systems Reviewed And Are Negative: Yes Physical Exam - Summary Physical Exam Summary: Constitutional: Elderly male Skin: Warm, Dry, paracentesis site w/o erythema HENT: Normocephalic; Atraumatic Eyes: Conjunctiva normal Neck: (-) Stridor, (-) Nuchal rigidity Cardio: Rhythm regular, rate normal, Heart sounds normal; Intact distal pulses; Radial pulses are 2+ and symmetric. (-) Murmur Pulmonary/Chest wall: Effort normal. (-) Respiratory distress, (-) Wheezes, (-) Rales Abd: Soft, (-) tenderness, (-) Guarding, (-) Rebound. Distended. Paracentesis site to the lateral mid right abdomen, leaking clear fluid. Musculoskeletal: (-) Edema Neuro: Alert, Oriented x3. Dec strength BLE. Psych: Mood and affect Normal Triage Information Reviewed: Yes Vital Signs On Initial Exam: Initial Vitals Temp Pulse Resp BP Pulse Ox 98.6 F 72 16 91/55 100 06/05/19 18:52 06/05/19 18:52 06/05/19 18:52 06/05/19 18:52 06/05/19 18:52 Vital Signs Reviewed: Yes Procedures - Sedation Patient Received Moderate/Deep Sedation with Procedure: No Diagnostics - Vital Signs Vital Signs Temp Pulse Resp BP Pulse Ox 06/05/19 20:13 72 100 06/05/19 20:12 73 105/63 98 06/05/19 18:52 98.6 F 72 16 91/55 100 - Laboratory Lab Statement: Any lab studies that have been ordered have been reviewed, and results considered in the medical decision making process. Re-Evaluation - Re-Evaluation First Eval Re-Evaluation Time: 21:00 Change: Improved Comment: Applied skin glue to the paracentesis site Abdominal Pain Male Course/Dx - Course Course Of Treatment: 69 y/o male p/w leakage at paracentesis site. - PE elderly male, NAD. Abd soft, clear fluid from parasite. Placed dermabond over site, clean dressing and tegaderm. No signs of infection on exam. - can follow up w IR if having persistent problem. - Diagnoses Provider Diagnoses: S/P abdominal paracentesis Discharge ED - Sign-Out/Discharge Documenting (check all that apply): Patient Departure - discharge - Discharge Plan Condition: Stable Disposition: HOME Patient Education Materials: Paracentesis (DC) Referrals: Dex Osborn MD [Primary Care Provider] - Additional Instructions: You were seen aftera paracentesis for leakage from the area. We were able to stop this. Please return for abdominal pain, fevers, tenderness or drainage from the site. Please follow up with your doctor. It was a pleasure taking care of you today - Billing Disposition and Condition Condition: STABLE Disposition: Home - Attestation Statements Document Initiated by Scribe: Yes Documenting Scribe: Emre Lopez Provider For Whom Brandt is Documenting (Include Credential): Roxanne Nieto MD Scribe Attestation: I, Emre Lopez, scribed for Roxanne Nieto MD on 06/05/19 at 2158. Scribe Documentation Reviewed: Yes Provider Attestation: The documentation as recorded by the scribeEmre accurately reflects the service I personally performed and the decisions made by me, Roxanne Nieto MD Status of Scribe Document: Viewed
[2019-06-05 21:56] VITALS: BP 98/60
== END 2019-06-05 21:56 | disposition home or self-care (01) ==
LOC: ED 18:34
DX: T81.31XA Disruption of external operation (surgical) wound, not elsewhere classified, initial encounter (principal); K74.60 Unspecified cirrhosis of liver; I10 Essential (primary) hypertension; Z87.891 Personal history of nicotine dependence
CPT/HCPCS: 99282

== ENCOUNTER 2019-06-06 10:16 | Inpatient (IN) | payer MEDICARE ==
--- NOTE | 2019-06-06 13:42 | ED ---
Skin Complaint - HPI Summary HPI Summary: This pt is a 69 y/o male presenting to [facility] c/o leaking from paracentesis site since yesterday. reports patient last had paracentesis on 06/01/[address] Hicks and had 6.5 L of fluids drained. states this was his 4th paracentesis. Per , pt has been weak and without energy ever since his last paracentesis. notes his paracentesis site started leaking yesterday and they came to the ED where it was glued and dressed. reports paracentesis site is leaking again today. Pt denies abdominal distension, SOB, abd pain, fever, diaphoresis, chills, chest pain. Pt denies dizziness, lightheadedness, melena. Daughter reports pt's abdomen is not distended now. Per , pt has been eating and drinking "sufficiently." Patient is on 160 mg Lasix a day (80 mg in the am and 80 mg in the pm) and 20 mg amiloride, and per pt is not producing enough urine as he should. Pt does not keep track of his weight due to being wheelchair bound. reports Dr. Silva did blood work on patient on 05/12/19 and got a message from her on 06/01 notifying them of low blood counts. states they were advised to get an endoscopy and has one scheduled in [place]. PMHx: Fractured neck in December 2018, paraplegic, cirrhosis. reports pt had surgery for his fractured neck at [facility] and the anesthesia got the patient's cirrhosis going again, since then pt has had 4 sessions of paracentesis. Per , due to patient's spinal injury his blood pressure is now on the low side. - History of Current Complaint Chief Complaint: EDLacSutureRecheck Time Seen by Provider: 06/06/19 11:39 Stated Complaint: LEAKING FROM WOUND PER PT Hx Obtained From: Patient, Family/Driving Teacher - and daughter Onset/Duration: Started Days Ago - 1, Still Present Skin Exposure Onset/Duration: Days Ago - 1 Timing: Lasting Days - 1 Current Severity: None Pain Intensity: 0 Pain Scale Used: 0-10 Numeric Skin Location: Abdomen - in the right Aggravating Symptom(s): Nothing Alleviating Symptom(s): Nothing Associated Signs & Symptoms: Weakness - generalized Related History: Other: - s/p paracentesis on 06/01/19 - Additional Pertinent History Primary Care Physician: [id number] - Allergy/Home Medications Allergies/Adverse Reactions: Allergies Allergy/AdvReac Type Severity Reaction Status Date / Time Penicillins Allergy Severe Hives/Diff. Verified 06/06/19 10:22 Breathing/Itching sertraline [From Zoloft] Allergy WEIRD Verified 06/06/19 10:22 THOUGHTS Vidljfp-Lkc-Xpi Reductase Allergy Stomach Verified 06/06/19 10:22 Inhibitor Cramps Home Medications: Home Medications Docusate Sodium/Benzocaine [Enemeez Plus Mini Enema] 5 ml [place] DAILY PRN 06/06/19 [History Confirmed 06/06/19] Melatonin (NF) 1 tab PO BEDTIME PRN 06/06/19 [History Confirmed 06/06/19] Mirtazapine TAB* [Remeron TAB*] 15 mg PO BEDTIME 06/06/19 [History Confirmed 03/17] Sennosides [Senna] 17.2 mg PO DAILY 06/06/19 [History Confirmed 06/06/19] PMH/Surg Hx/FS Hx/Imm Hx Endocrine/Hematology History: Reports: Other Endocrine/Hematological Disorders - CIRRHOSIS Denies: Hx Diabetes, Hx Thyroid Disease Cardiovascular History: Reports: Hx Hypertension - meds, Other Cardiovascular Problems/Disorders - hcl Denies: Hx Pacemaker/ICD, Hx Peripheral Vascular Disease Respiratory History: Denies: Hx Asthma, Hx Chronic Obstructive Pulmonary Disease (COPD) GI History: Reports: Hx Gall Bladder Disease - JAIRO, Hx Gastrointestinal Bleed - 08/09/17, Other GI Disorders - LIVER DISEASE, CIRRHOSIS Denies: Hx Ulcer History: Reports: Hx Acute Renal Failure - 08/09/17 Denies: Hx Renal Disease Musculoskeletal History: Reports: Hx Gout Sensory History: Denies: Hx Cataracts, Hx Contacts or Glasses, Hx Glaucoma, Hx Hearing Aid Opthamlomology History: Denies: Hx Cataracts, Hx Contacts or Glasses, Hx Glaucoma Neurological History: Reports: Other Neuro Impairments/Disorders - ELEVATED AMMONIA LEVELS - CONFUSION Denies: Hx Headaches, Hx Seizures, Hx Spinal Cord Injury, Hx Transient Ischemic Attacks (TIA) Psychiatric History: Denies: Hx Panic Disorder - Cancer History Cancer Type, 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 Hx Chemotherapy: No Hx Radiation Therapy: No Hx Palliative Cancer Treatment: No - Surgical History Surgical History: Yes Surgery Procedure, Year, and Place: RIGHT HIP REPLACEMENT-REVISED AFTER INFECTION. BACK SURGERIES-LAMINECTOMY. GALLBLADDER - Immunization History Date of Tetanus Vaccine: Unknown Date of Influenza Vaccine: 2018 Immunizations Up to Date: Yes Infectious Disease History: No Infectious Disease History: Reports: History Other Infectious Disease - staph infection, not MRSA, FLU 06/2017 Denies: Hx Hepatitis, Hx Human Immunodeficiency Virus (HIV), Traveled Outside the [place] in Last 30 Days - Family History Known Family History: Positive: Other - bladder cancer, renal failure, hypertension, Parkinson's - Social History Alcohol Use: None Hx Substance Use: No Substance Use Type: Reports: None Hx Tobacco Use: Yes Smoking Status (MU): Former Smoker Have You Smoked in the Last Year: No Review of Systems Negative: Fever, Chills Negative: Erythema Negative: Sore Throat Negative: Chest Pain Negative: Shortness Of Breath, Cough Negative: Abdominal Pain, Vomiting, Nausea, Other - NEGATIVE: abd distension, melena Negative: dysuria, hematuria Negative: Myalgia, Edema Skin: Other - POSITIVE: leaking from paracentesis site Negative: Rash Neurological: Other - NEGATIVE: dizziness Positive: Weakness - generalized All Other Systems Reviewed And Are Negative: Yes Physical Exam - Summary Physical Exam Summary: Constitutional: Well-developed, Well-nourished, Alert. (-) Distressed Skin: Warm, Dry HENT: Normocephalic; Atraumatic Eyes: Conjunctiva normal Neck: Musculoskeletal ROM normal neck. (-) JVD, (-) Stridor, (-) Tracheal deviation Cardio: Rhythm regular, rate normal, Heart sounds normal; Intact distal pulses; The pedal pulses are 2+ and symmetric. Radial pulses are 2+ and symmetric. (-) Murmur Pulmonary/Chest wall: Effort normal. (-) Respiratory distress, (-) Wheezes, (-) Rales Abd: Soft, (-) tenderness, (-) Distension, (-) Guarding, (-) Rebound. Right lower quadrant paracentesis site, laterally, with a soaked gauze pad. Musculoskeletal: (-) Edema Lymph: (-) Cervical adenopathy Neuro: Alert, Oriented x3 Psych: Mood and affect Normal Triage Information Reviewed: Yes Vital Signs On Initial Exam: Initial Vitals Temp Pulse Resp BP Pulse Ox 98.0 F 74 14 94/57 100 06/06/19 10:20 06/06/19 10:20 06/06/19 10:20 06/06/19 10:20 06/06/19 10:20 Vital Signs Reviewed: Yes Procedures - Sedation Patient Received Moderate/Deep Sedation with Procedure: No Diagnostics - Vital Signs Vital Signs Temp Pulse Resp BP Pulse Ox 06/06/19 13:00 69 98 06/06/19 12:42 72 103/59 99 06/06/19 12:12 63 99/60 97 06/06/19 12:00 66 99 06/06/19 11:42 68 110/62 100 06/06/19 11:37 65 100 06/06/19 10:20 98.0 F 74 14 94/57 100 - Laboratory Result Diagrams: 06/06/19 13:47 06/06/19 13:46 Lab Statement: Any lab studies that have been ordered have been reviewed, and results considered in the medical decision making process. - Radiology Chest XR Radiology Interpretation Completed By: Radiologist Summary of Radiographic Findings: IMPRESSION: No active cardiopulmonary disease. Dr. Grullon has reviewed this report. - EKG 14:23 Cardiac Rate: NL - at 74 bpm EKG Rhythm: Atrial Flutter Summary of EKG Findings: EKG at 1423 shows atrial flutter at a rate of 74 bpm. No STEMI. Course/Dx - Course Assessment/Plan: Pt is a 69 y/o male presenting to [facility] c/o leaking from paracentesis site since yesterday. reports patient last had paracentesis on 06/01/[address] Hicks and had 6.5 L of fluids drained. states this was his 4th paracentesis. Per , pt has been weak and without energy ever since his last paracentesis. notes his paracentesis site started leaking yesterday and they came to the ED where it was glued and dressed. reports paracentesis site is leaking again today. Lab results remarkable for RBC of 1.98, hemoglobin of 5.5, hematocrit of 17, platelet count of 116, sodium of 131 , potassium of 3.2, chloride is 98, glucose is 128, lactic acid is 4, troponin is 0.03, total protein is 5.8. Chest XR shows No active cardiopulmonary disease. In the ED course the pt received potassium chloride, transfusion of 2 units of packed cell-RBC. The plan for paracentesis leak for me is to monitor output by ostomy bag for potential paracentesis. Discussed the case wtih Dr. Mcfadden, hospitalist, who accepted the pt for admission. Dx: gastric varices, acute blood loss anemia, symptomatic anemia, paracentesis leak, atrial flutter. - Diagnoses Provider Diagnoses: Gastric varices, Acute blood loss anemia, Symptomatic anemia, Atrial flutter, S /P abdominal paracentesis - Physician Notifications Discussed Care Of Patient With: Sharla Mcfadden - hospitalist Time Discussed With Above Provider: 14:33 Instructed by Provider To: Admit As Inpatient Discharge ED - Sign-Out/Discharge Documenting (check all that apply): Patient Departure - Admit to [facility] - Discharge Plan Condition: Stable Disposition: ADMITTED TO [facility] Referrals: Dex Osborn MD [Primary Care Provider] - - Attestation Statements Document Initiated by Scribe: Yes Documenting Scribe: Suki Machuca Provider For Whom Scribe is Documenting (Include Credential): Gonzalo Grullon MD Scribe Attestation: Suki Howell, scribed for Gonzalo Grullon MD on 06/06/19 at 1553. Status of Scribe Document: Ready
[2019-06-06 14:21] LABS: ABS Eosinophils 0.1 10^3/ul (0-0.6); ABS Lymphocytes 0.6 10^3/ul (1.0-4.8); ABS Monocytes 0.6 10^3/ul (0-0.8); ABS Neutrophils 3.1 10^3/ul (1.5-7.7); Eosinophil % 1.4 %; Hematocrit 17 % (42-52); Hemoglobin 5.5 g/dL (14.0-18.0); Lymphocyte % 13.4 %; Mean Corpuscular HGB Conc 32 g/dL (31-36); Mean Corpuscular Hemoglobin 28 pg (27-31); Mean Corpuscular Volume 87 fL (80-94); Mean Platelet Volume 9.4 fL (7.4-10.4); Nucleated Red Blood Cells % 0.1; Platelet Count 116 10^3/uL (150-450); Red Blood Count 1.98 10^6 /uL (4.18-5.48); Red Cell Distribution Width 19 % (10-15); White Blood Count 4.3 10^3/uL (3.5-10.8)
[2019-06-06 14:31] LABS: ALT 18 U/L (7-52); AST 28 U/L (13-39); Albumin 3.1 g/dL (3.2-5.2); Albumin/Globulin Ratio 1.1 (1-3); Alkaline Phosphatase 62 U/L (34-104); Anion Gap 10 mmol/L (2-11); BUN/Creatinine Ratio 24.7 (8-20); Blood Urea Nitrogen 23 mg/dL (6-24); CO2 Carbon Dioxide 23 mmol/L (22-32); Calcium 8.8 mg/dL (8.6-10.3); Chloride 98 mmol/L (101-111); EGFR African American 97.2 (>60); EGFR Non-African American 80.3 (>60); Globulin 2.7 g/dL (2-4); Glucose 128 mg/dL (70-100); Magnesium 1.9 mg/dL (1.9-2.7); Potassium 3.2 mmol/L (3.5-5.0); Sodium 131 mmol/L (135-145); Total Protein 5.8 g/dL (6.4-8.9)
[2019-06-06] MEDS ORDERED: Potassium Chlor TAB* 20 MEQ TAB.ER PO ONE ×2 (14:35→16:17)
[2019-06-06 14:36] LABS: Troponin I 0.03 ng/mL (<0.03)
[2019-06-06 14:48] LABS: TSH (Thyroid Stimulating Horm) 1.69 mcIU/mL (0.34-5.60)
--- NOTE | 2019-06-06 16:24 | HP ---
History of Present Illness - History of Present Illness Reason for Visit: Weakness and Leakage from Paracentesis site-5 days History of Present Illness: 69M PMH decompensated cirrhosis (ascites, EV, HE) 2/2 AGUIRRE, Atrial Fibrillation , Gout, Vertebral fracture s/p repair and resultant paraplegia, BPH presented with weakness and leakage from paracentesis site for 5 days. He had large volume paracentesis done on Thursday(06/01/2019) and removed 6.5 L. Then the noticed leak which was soaking his back and bedsheets. He denies abdominal pain, nausea, vomiting, hematemesis, black tarry stool or bright red blood per rectum. He denies confusion, hallucination and sleep changes. He is wheelchair bound after vertebral fracture and his takes care of him. Most of the history has been taken from his . She noticed that since he has weak and gets tired easily but denies any fever, chills or rigor. He was seen in ED yesterday for the leak and dressing was done and discharged. But noticed that he was leaking more frequently that prompted her to bring him to the ED. He was incidentally found to be anemic in ED and hospitalist team was asked to observe him after transfusion. In ED His vitals were stable. Ostomy bag was put in leakage site. His blood work up remarkable for RBC of 1.98, hemoglobin of 5.5, hematocrit of 17, platelet count of 116, sodium of 131, potassium of 3.2, chloride is 98, glucose is 128, lactic acid is 4, troponin is 0.03, total protein is 5.8. Chest XR shows No active cardiopulmonary disease. Given his severe anemia he is admitted for blood transfusion and for observation. - Past Medical History Past Medical History: 1. 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 2. Atrial Fibrillation on eliquis 3. Diabetes 4. Gout 5. C3-C7 fracture s/p repair 6. Benign prostatic hyperplasia. - Past Surgical History Past Surgical History: 1. Cholecystectomy 2. Hernia surgery 3. Spine surgery 4. Hip replacement - Past Family History Past Family History: 1. Bladder Cancer-on father 2. CKD 2/2 HTN-Mother 3. Parkinson's disease - Past Social History Past Social History: Patient lives with his and is on disability. He denies tobacco use, alcohol use and other recreational drug use. His HCP is his -Keren Bailey. Review of Systems - Review of Systems Constitutional: Positive: Weakness. Negative: Fever, Chills, Sweats, Malaise, Other Eyes: Negative: Pain, Vision Change, Conjunctivae Inflammation, Eyelid Inflammation, Redness, Other ENT: Negative: Ear Pain, Ear Discharge, Nose Pain, Nose Discharge, Nose Congestion, Mouth Pain, Mouth Swelling, Throat Pain, Throat Swelling, Other Respiratory: Negative: Cough, Dry, Shortness of Breath, Hemoptysis, SOB with Excertion, Pleuritic Pain, Sputum, Wheezing Cardiovascular: Negative: Chest Pain, Palpitations, Orthopnea, Paroxysmal Noc. Dyspnea, Edema, Light Headedness, Other Gastrointestinal: Negative: Nausea, Vomiting, Abdominal Pain, Diarrhea, Constipation, Melena, Hematochezia, Other Genitourinary: Negative: Dysuria, Frequency, Incontinence, Hematuria, Retention , Other Musculoskeletal: Negative: Neck Pain, Shoulder Pain, Arm Pain, Back Pain, Hand Pain, Leg Pain, Foot Pain, Other Skin: Negative: Rash, Lesions, Eyad, Bruising, Other Neurological: Negative: Weakness, Numbness, Incoordination, Change in Speech, Confusion, Seizures, Other - Medications/Allergies Allergies/Adverse Reactions: Allergies Allergy/AdvReac Type Severity Reaction Status Date / Time Penicillins Allergy Severe Hives/Diff. Verified 06/06/19 10:22 Breathing/Itching sertraline [From Zoloft] Allergy WEIRD Verified 06/06/19 10:22 THOUGHTS Rfgjzyk-Ikl-Gyb Reductase Allergy Stomach Verified 06/06/19 10:22 Inhibitor Cramps Medications: Current Medications Allopurinol (Zyloprim Tab*) 100 mg PO DAILY AAYUSH Amiloride HCl (Midamor Tab*) 10 mg PO BID AAYUSH Furosemide (Lasix Tab*) 80 mg PO BID AAYUSH Lactulose (Lactulose*) 30 ml PO QID AAYUSH Melatonin (Melatonin (Nf)) 1 tab PO BEDTIME PRN PRN Reason: SLEEP Mirtazapine (Remeron Tab*) 15 mg PO BEDTIME AAYUSH Multivitamins/Minerals (Theragran/Minerals Tab*) 1 tab PO DAILY AAYUSH Nadolol (Nadolol (Nf)) 10 mg PO DAILY AAYUSH Pantoprazole Sodium (Protonix Tab*) 40 mg PO DAILY [facility] Potassium Chloride (Klor Con Er Tab*) 40 meq PO ONCE ONE Stop: 06/06/19 16:18 Rifaximin (Xifaxan*) 550 mg PO BID AAYUSH Rosuvastatin Calcium (Crestor (Nf)) 5 mg PO BEDTIME AAYUSH; Protocol Senna (Senokot 8.6 Mg Tab*) tab PO DAILY AAYUSH Tamsulosin HCl (Flomax Cap*) 0.8 mg PO DAILY [facility] Exam Vital Signs: Vital Signs (72 hours) 06/06/19 06/06/19 06/06/19 10:20 11:37 11:42 Temperature 98.0 F Pulse Rate 74 65 68 Respiratory 14 Rate Blood Pressure 94/57 110/62 (mmHg) O2 Sat by Pulse 100 100 100 Oximetry 06/06/19 06/06/19 06/06/19 12:00 12:12 12:42 Temperature Pulse Rate 66 63 72 Respiratory Rate Blood Pressure 99/60 103/59 (mmHg) O2 Sat by Pulse 99 97 99 Oximetry 06/06/19 06/06/19 06/06/19 13:00 13:12 14:00 Temperature Pulse Rate 69 73 73 Respiratory Rate Blood Pressure 97/57 (mmHg) O2 Sat by Pulse 98 99 99 Oximetry 06/06/19 06/06/19 06/06/19 14:13 14:43 15:00 Temperature Pulse Rate 74 75 73 Respiratory Rate Blood Pressure 98/63 96/60 (mmHg) O2 Sat by Pulse 95 100 100 Oximetry 06/06/19 06/06/19 06/06/19 15:12 15:27 15:42 Temperature 98.4 F Pulse Rate 76 73 73 Respiratory 18 Rate Blood Pressure 90/57 102/59 103/62 (mmHg) O2 Sat by Pulse 100 100 100 Oximetry 06/06/19 06/06/19 15:44 16:00 Temperature 98.6 F Pulse Rate 68 Respiratory 16 Rate Blood Pressure (mmHg) O2 Sat by Pulse 100 Oximetry Exam: Patient is lying on a bed in supine position and is not in acute distress but looks pale. HEENT: Normocephalic and atraumatic. Sclera anicteric but anemic. EOMI. PERRLA. Neck: No lymphadenopathy and enlarged thyroid. NO JVD elevation. Lungs: Good respiratory effort and chest expansion. Clear with no added sound. Heart: Normal in rate and rhythm. S1/S2 heard with no murmur, rubs or gallops. Abdomen: Soft and nontender but distended with flank fullness. Ostomy bag on right side with no visible drainage. Dullness on percussion and fluid thrill present. Normal bowel sound heard. Extremities; No swelling, cyanosis or clubbing Neuro: Alert, oriented and coperative. CN intact. Motor strength 4/5 on both lower extremities with intact sensation. Assessment/Plan - Assessment/Plan Assessment: 69M PMH decompensated cirrhosis(x3, 2/2 AGUIRRE), Afib on AC, NIDDM, hyperlipidemia presented with weakness and post LVP leak. Incidentally, found to have severe anemia. Treating with blood tranfusion. Differential as per below. Plan: 1. Severe Anemia: His Hb is 5.5 and is normocytic. He has a history of gastric varices but denies any hematemesis, heamtochezia or melena. Possibility include bleeding from varices, anemia of chronic disease. We will give 2U of PRBC and monitor him. We will order stool occult blood test to rule out bleeding and give antibiotic Iv ceftriaxone to prevent any infection. We will also order iron studies. 2. Post-para Leak: Ostomy bag in place and no drainage seen on bag yet. Monitor for any leakage. 3. Lactic Acidosis: Has lactic acid level of 4. Likely Type2. Normal WBC and vitals normal. We will recheck it. 4. Decompensated Cirrhosis: Secondary to AGUIRRE; decompensated by varices, HE and ascites. There is no sign of SBP and patient is on antibiotic which will act both way. Patient is scheduled for endoscopy in [place] in Thursday. He follows Dr. Shira Medelhrie's clinic. He is following in [place] in transplant clinic but is not in list yet because of low MELD score. His MELD-Na score is 18. Continue his home lasix, amiloride, amiloride, lactulose, rifaximin. 5. Atrial Fibrillation: Currently rate at goal and rhythm is regular. His EKG shows Atrial Flutter. We will hold his eliquis given his severe anemia. 6. Diabetes: We will hold his metformin given his lactic acidosis. We will put him on fingersticks. 7. Hyperlipidemia: continue rosuvastatin. 8. BPH: Continue tamsulosin. 9. Gout: Continue allopurinol. 10. Paraplegia: Not active 11. DVT prophylaxis: SCD 12. Diet: Low salt diet. High protein. 13. Full code. Attestation Supervising Physician: Mendel Attestation: I agree with resident note and supervised assessment and plan. 69M with decompensated cirrhosis presented with anemia, likely from slow GIB, already scheduled for outpt endoscopy in 1 week. Discussed plan for transfusion and d/c with his outpt GI Dr. Awilda Silva today. Anticipate d/c tomorrow if all goes well, no signs of hemodynamic compromise from a GI standpoint #Anemia 2/2 to GIB vs ACD: Transfuse x 2 U, tx with CTX for antibiotic PPX in setting of possible variceal bleed w/ known ascites, no need for diag para at this time as no pain no WBC no fever continued rifaxin use and already tx with PPX -FU iron studies, FU CBC, has endoscopy as outpt, no need for URGENT scope at this time and discussed without outpt GI #Cirrhosis: Continue home meds #Afib: Hold AC moving forward #DVT: Holding
[2019-06-06 17:22] LABS: Ferritin 27.2 ng/mL (24-336)
[2019-06-06 17:25] LABS: Folate 19.27 ng/mL (>3.99)
[2019-06-06 17:26] LABS: % Iron Saturation 6 % (15-55); Iron 21 ug/dL (50-212); Total Iron Binding Capacity 367 mcg/dL (250-450); Transferrin 262 mg/dL (203-362)
[2019-06-06] MEDS ORDERED: cefTRIAXone(*) 1 GM in NS 0.9% 50 ML* 50 ML IVPB SCH (18:00)
[2019-06-06] MEDS: Furosemide TAB* 40 MG PO SCH (18:07)
[2019-06-06] MEDS: Mirtazapine TAB* 15 MG PO SCH (19:54)
[2019-06-06] MEDS: Melatonin 3 MG TAB PO PRN (19:54)
[2019-06-06] MEDS: aMILoride TAB* 5 MG PO SCH (19:55)
[2019-06-06] MEDS: RiFAXimin* 550 MG TAB PO SCH (19:56)
[2019-06-06] MEDS ORDERED: Rosuvastatin (NF) 5 MG TAB PO SCH (21:00)
[2019-06-06] MEDS: ROSUVASTATIN 10 MG PO SCH (23:09)
[2019-06-06] MEDS: cefTRIAXone(*) 1 GM in NS 0.9% 50 ML* 50 ML IVPB SCH (23:09)
[2019-06-07 06:21] LABS: ABS Eosinophils 0.1 10^3/ul (0-0.6); ABS Lymphocytes 0.7 10^3/ul (1.0-4.8); ABS Monocytes 0.6 10^3/ul (0-0.8); ABS Neutrophils 3.1 10^3/ul (1.5-7.7); Eosinophil % 1.7 %; Hematocrit 21 % (42-52); Mean Corpuscular HGB Conc 34 g/dL (31-36); Mean Corpuscular Hemoglobin 28 pg (27-31); Mean Corpuscular Volume 85 fL (80-94); Mean Platelet Volume 9.5 fL (7.4-10.4); Platelet Count 110 10^3/uL (150-450); Red Blood Count 2.48 10^6 /uL (4.18-5.48); Red Cell Distribution Width 17 % (10-15); White Blood Count 4.5 10^3/uL (3.5-10.8)
[2019-06-07 06:45] LABS: Troponin I 0.04 ng/mL (<0.03)
--- NOTE | 2019-06-07 07:00 | PN ---
Subjective Date of Service: 06/07/19 Interval History: HD 2 on 06/07 69M PMH decompensated cirrhosis(x3, 2/2 AGUIRRE), Afib on AC, NIDDM, hyperlipidemia presented with weakness and post LVP leak. Incidentally, found to have severe anemia. s/p 2 U of blood transfusion No acute overnight events vitals stable patient was feeling better than yesterday but not baseline. he had BM this morning after enema. Denies pain, nausea and vomiting. No drainage in ostomy tube so it was removed Objective Active Medications: Allopurinol (Zyloprim Tab*) 100 mg PO DAILY [facility] Amiloride HCl (Midamor Tab*) 10 mg PO BID [facility] Last Admin: 06/06/19 19:55 Dose: 10 mg Furosemide (Lasix Tab*) 80 mg PO 0900,1800 [facility] Last Admin: 06/06/19 18:07 Dose: Not Given Ceftriaxone Sodium 1 gm/ (Sodium Chloride) 50 mls @ 100 mls/hr IVPB 2000 [facility] Last Admin: 06/06/19 23:09 Dose: 100 mls/hr Lactulose (Lactulose*) 30 ml PO QID [facility] Last Admin: 06/06/19 19:51 Dose: Not Given Melatonin (Melatonin) 3 mg PO BEDTIME PRN PRN Reason: SLEEP Last Admin: 06/06/19 19:54 Dose: 3 mg Mirtazapine (Remeron Tab*) 15 mg PO BEDTIME [facility] Last Admin: 06/06/19 19:54 Dose: 15 mg Multivitamins/Minerals (Theragran/Minerals Tab*) 1 tab PO DAILY [facility] Nadolol (Nadolol (Nf)) 10 mg PO DAILY [facility] Pantoprazole Sodium (Protonix Tab*) 40 mg PO DAILY [facility] Rifaximin (Xifaxan*) 550 mg PO BID [facility] Last Admin: 06/06/19 19:56 Dose: 550 mg Rosuvastatin Calcium (Crestor (Nf)) 5 mg PO BEDTIME [facility]; Protocol Last Admin: 06/06/19 23:09 Dose: 5 mg Senna (Senokot 8.6 Mg Tab*) 2 tab PO DAILY [facility] Tamsulosin HCl (Flomax Cap*) 0.8 mg PO DAILY [facility] Vital Signs - 8 hr 06/06/19 06/07/19 23:42 03:28 Temperature 98.8 F 97.8 F Pulse Rate 63 63 Respiratory 18 20 Rate Blood Pressure 101/51 94/52 (mmHg) O2 Sat by Pulse 98 98 Oximetry Oxygen Devices in Use Now: None Exam: Patient is lying on a bed in supine position and is not in acute distress but looks pale. HEENT: Normocephalic and atraumatic. Sclera anicteric but anemic. EOMI. PERRLA. Neck: No lymphadenopathy and enlarged thyroid. NO JVD elevation. Lungs: Good respiratory effort and chest expansion. Clear with no added sound. Heart: Normal in rate and rhythm. S1/S2 heard with no murmur, rubs or gallops. Abdomen: Soft and nontender but distended with flank fullness. Ostomy bag on right side with no visible drainage. Dullness on percussion and fluid thrill present. Normal bowel sound heard. Extremities; No swelling, cyanosis or clubbing Neuro: Alert, oriented and coperative. CN intact. Motor strength 4/5 on both lower extremities with intact sensation. Result Diagrams: 06/07/19 14:50 06/06/19 13:46 Assess/Plan/Problems-Billing Assessment: 69M PMH decompensated cirrhosis(x3, 2/2 AGUIRRE), Afib on AC, NIDDM, hyperlipidemia presented with weakness and post LVP leak. Incidentally, found to have severe anemia. s/p 3 U of RBC. likely endoscopy tomorrow - Patient Problems (1) Anemia Current Visit: Yes Status: Acute Code(s): D64.9 - ANEMIA, UNSPECIFIED SNOMED Code(s): 737881802 Comment: -severe anemia- Hb 5.5 on presentation -s/p 3 U of PRBC. -Hb is 8 -has history of gastric varices and stool occult blood is positive. -suspect slow bleeding from varices - needs endoscopy; talked to Dr. galvez and he will see patient. (2) Status post abdominal paracentesis Current Visit: Yes Status: Acute Code(s): Z98.890 - OTHER SPECIFIED POSTPROCEDURAL STATES SNOMED Code(s): 842483157 Comment: -no leak at present. -watch for any leak. (3) Decompensated hepatic cirrhosis Current Visit: No Status: Acute Code(s): K72.90 - HEPATIC FAILURE, UNSPECIFIED WITHOUT COMA SNOMED Code(s): 232087146 Comment: -Secondary to AGUIRRE; decompensated by varices, HE and ascites. -There is no sign of SBP and patient is on antibiotic which will act both way. -Patient is scheduled for endoscopy in [place] in Thursday. -He follows Dr. Silva at [place]'s clinic. He is following in [place] in transplant clinic but is not in list yet because of low MELD score. His MELD-Na score is 18. Continue his home lasix, amiloride, amiloride, lactulose, rifaximin. -he will need endoscopy- will defer that to GI (4) Atrial fibrillation Current Visit: Yes Status: Acute Code(s): I48.91 - UNSPECIFIED ATRIAL FIBRILLATION SNOMED Code(s): 61720643 Comment: -has history of atrial fibrillation/flutter -rate is well controlled -hold his eliquis given low Hb and suspicion of bleeding (5) Diabetes Current Visit: Yes Status: Acute Code(s): E11.9 - TYPE 2 DIABETES MELLITUS WITHOUT COMPLICATIONS SNOMED Code(s): 38422432 Comment: -non-insulin dependent. - hold his metformin-will restart on discharge -blood glucose below 150. (6) Gout Current Visit: Yes Status: Acute Code(s): M10.9 - GOUT, UNSPECIFIED SNOMED Code(s): 79050697 Comment: -continue allopurinol (7) BPH (benign prostatic hyperplasia) Current Visit: No Status: Acute Code(s): N40.0 - BENIGN PROSTATIC HYPERPLASIA WITHOUT LOWER URINRY TRACT SYMP SNOMED Code(s): 288013788 Comment: -on tamsulosin (8) HLD (hyperlipidemia) Current Visit: No Status: Acute Code(s): E78.5 - HYPERLIPIDEMIA, UNSPECIFIED SNOMED Code(s): 98286711 Comment: -cont rosuvastatin (9) DVT prophylaxis Current Visit: No Status: Acute Code(s): Z29.9 - ENCOUNTER FOR PROPHYLACTIC MEASURES, UNSPECIFIED SNOMED Code(s): 719084534 Comment: -on scd (10) Full code status Current Visit: No Status: Acute Code(s): Z78.9 - OTHER SPECIFIED HEALTH STATUS SNOMED Code(s): 101188937 Status and Disposition: Observation Attending: Shelli Oglesby Attestation Documenting Resident: Kristian Akers Supervising Physician: Shelli Oglesby Attending/Supervising Physician Comment: Agree with resident note Attending A/P 69M with decompensated cirrhosis presented with anemia, today had inappropriate response to 2 U and + FOBT. While he has outpt scope in 1 week, may need more urgent scope given evidence of current oozing. Holding AC, GI to consult #Anemia 2/2 to GIB vs ACD: Transfuse total of 3U, now with Hgb 8 tx with CTX for antibiotic PPX in setting of possible variceal bleed w/ known ascites, no need for diag para at this time as no pain no WBC no fever continued rifaxin use and already tx with PPX -FU iron studies, FU CBC, has endoscopy as outpt, +FOBT and low iron with inappropriate response to initial transfusion, will hope for possible EGD tomorrow #Cirrhosis: Continue home meds #Afib: Hold AC moving forward #DVT: Holding #Diet-Likely NPO for scope tomorrow #Dispo: To home when stable Attestation: This service has been performed in part by a resident under the direction of a teaching physician.I, Shelli Oglesby, performed the service, or was physically present during the critical, or villela portions of the service, furnished by the resident. I participated in the management of the patient.
[2019-06-07] MEDS: RiFAXimin* 550 MG TAB PO SCH ×2 (08:17→19:54)
[2019-06-07] MEDS: Senna TAB 8.6 mg* TAB PO SCH (08:18)
[2019-06-07] MEDS: Tamsulosin CAP* 0.4 MG PO SCH (08:18)
[2019-06-07] MEDS: Multivitamins/Minerals TAB PO SCH (08:18)
[2019-06-07] MEDS: aMILoride TAB* 5 MG PO SCH ×2 (08:19→19:55)
[2019-06-07] MEDS: Pantoprazole TAB * 40 MG TAB PO SCH (08:19)
[2019-06-07] MEDS: Nadolol (NF) 20 MG TAB PO SCH (08:19)
[2019-06-07] MEDS: Allopurinol TAB* 100 MG PO SCH (08:19)
[2019-06-07] MEDS: Furosemide TAB* 40 MG PO SCH ×2 (08:19→16:45)
[2019-06-07] MEDS ORDERED: metFORMIN* 500 MG TAB PO SCH (09:00)
[2019-06-07 09:06] LABS: Troponin I 0.03 ng/mL (<0.03)
[2019-06-07 14:59] LABS: Hematocrit 24 % (42-52); Mean Corpuscular HGB Conc 33 g/dL (31-36); Mean Corpuscular Hemoglobin 28 pg (27-31); Mean Corpuscular Volume 86 fL (80-94); Mean Platelet Volume 9.2 fL (7.4-10.4); Platelet Count 110 10^3/uL (150-450); Red Blood Count 2.81 10^6 /uL (4.18-5.48); Red Cell Distribution Width 17 % (10-15); White Blood Count 4.2 10^3/uL (3.5-10.8)
[2019-06-07] MEDS: cefTRIAXone(*) 1 GM in NS 0.9% 50 ML* 50 ML IVPB SCH (19:52)
[2019-06-07] MEDS: ROSUVASTATIN 10 MG PO SCH (19:53)
[2019-06-07] MEDS: Mirtazapine TAB* 15 MG PO SCH (19:54)
[2019-06-07 20:28] LABS: Urine Appearance Cloudy; Urine Bilirubin Negative (Negative); Urine Blood 1+ (Negative); Urine Color Yellow; Urine Glucose Negative (Negative); Urine Ketones Negative (Negative); Urine Nitrite Negative (Negative); Urine Protein Negative (Negative); Urine Specific Gravity 1.009 (1.010-1.030); Urine Urobilinogen Negative (Negative)
[2019-06-07 20:33] LABS: Urine Bacteria 1+ (Absent); Urine Red Blood Cell Trace(0-2/hpf) (Absent); Urine Squamous Epithelial Cell Present (Absent); Urine White Blood Cell 1+(6-10/hpf) (Absent)
--- NOTE | 2019-06-07 21:08 | CONS ---
GASTROENTEROLOGY CONSULT: DATE OF CONSULT: 06/07/19 CONSULTING PHYSICIANS: Dr. Shelli Oglesby, Dr. Dex Osborn. REASON FOR CONSULT: Presentation to the ER with persistent drainage from a paracentesis site and later noting a fall in hemoglobin from baseline said to be around 11 or 12 down to 5.5 with no overt GI bleeding and the patient having been on chronic Eliquis. History per patient and HISTORY: This 69-year-old man with cirrhosis related to AGUIRRE has been involved in an extended recuperation from a fall and a fractured neck that occurred this summer with emergency surgery at [facility] 01/16/19. He was at [facility] for another month and then transferred to the [facility] and discharged home 04/27/19. While in the rehab unit, he required 3 paracentesis of 4.5 L each to deal with anasarca. Since the accident his had to learn to care for his bowel and bladder function and she can say there have been no tarry or frankly bloody stools. Since being home he has required 2 other large paracentesis at [facility] 06/01/19. He also had a followup with the [facility] / Dr Macdonald on 05/02/19 and was told that his MELD score was fairly low. Yesterday at admission, his hemoglobin was 5.5, though it had been as low as 7.1 on 05/13/19. Today, he received 3 units of transfusion, which he says are the first 3 units he has ever received. He has never had an upper GI bleed. His who is a close observer states there had been no events of hematemesis or melena. Stool today was brown per his nurse though was heme positive. He has been on Eliquis since November when an ultrasound at [place] showed a portal vein thrombosis. It was about a month later that he had the fall and required emergency neurosurgery at [facility] and the Eliquis was held for a month or more. It was restarted sometime on the [facility] unit and he has been on it ever since until just yesterday. Per his some subsequent ultrasounds showed resolution of the portal vein thrombosis but she points out he has been diagnosed with atrial fibrillation. He had surveillance endoscopy at [facility] [address] Rubi (?) with according to his a small esophageal varix and a gastric varix. He was put on beta- blockers. A repeat exam in spring 2018 resulted in no change in treatment though the report is not available. PAST MEDICAL HISTORY: 1. AGUIRRE, cirrhosis - initially thrombocytopenia led to a bone marrow biopsy at [facility] and he was diagnosed with myelodysplastic syndrome. Second opinions at [facility] and [facility] changed the diagnosis to cirrhosis and splenomegaly. It is felt to be from AGUIRRE. He has never had any clinical GI bleeding. He has had encephalopathy. 2. Umbilical hernia repair - at [facility] in 2017 3. C3-C7 fracture, status post repair at [facility] 4. Atrial fibrillation- summer 2018 5. Gout. 6. Diabetes. 7. Hip replacement, Dr Vic Chicas, 2003 - multiple surgeries with infected prosthesis 8. Lumbar disk surgery, Dr Bolden 2002 and 2006. 9. Cholecystectomy, remote past. MEDICATIONS: At home: Allopurinol; amiloride; furosemide; nadolol; tamsulosin ; pantoprazole; rifaximin; Crestor; and apixaban. SOCIAL HISTORY: He is and retired. He is a nondrinker. REVIEW OF SYSTEMS: No history of viral hepatitis, pancreatitis, [place], syncope, CVA, overt GI bleeding, prior transfusions hemoptysis. He has a history of gout. PHYSICAL EXAM: He is a pale, tired-appearing older man in no overt distress. Temperature 98.4; pulse 72, irregular; blood pressure 105/61. HEENT exam shows no icterus. He has no adenopathy. Breath sounds are intact all 4 regions. Heart sounds are irregular without a murmur. His abdomen is obese with obvious ascites. There is a scar scab in the right mid abdomen where there had been prior leakage. Rectal deferred. Extremity showed 2+ pitting edema at the ankles. He is alert and oriented. LABS: Today, white count 4.2, hemoglobin 8.0, hematocrit 24, platelets 110. Albumin 3.1, LFTs otherwise normal with bilirubin 0.90, ALT 18, ferritin 27, iron saturation 6%. Sodium 131. IMPRESSION: This 69-year-old man with nonalcoholic steatohepatitis cirrhosis with ascites, past encephalopathy and pancytopenia has had a subacute evolution of anemia over several months. His who is a close observer never detected any sign of overt gastrointestinal bleeding. He is known to have small varices with one reportedly in the stomach which would be a risk for massive hemorrhage. It seems most likely Eliquis in conjunction with portal hypertensive gastropathy is causing the anemia. Antral ectasias or AVMs are possible. Nothing sounds like a variceal bleed. There are other possibilities , but he has been on a PPI steadily and not taking NSAIDs and portal hypertensive changes leading to the anemia seems most likely. Upper endoscopy will be helpful to verify the gastric mucosa as to enteropathy, GAVE, gastritis etc and recheck the small varices. At this moment the burden of Eliquis appears to exceed potential benefit even with two relative indications and will hold it. It is notable that with his bilirubin, platelets and INR just slightly off, he is not ranking a very high priority for the transplant service. Clearly there are end- stage liver disease manifestations which are not captured. There is an opportunity to review water restriction in addition to diuretic treatment. [id number]/CPS #: [id number] MTDD
[2019-06-08] MEDS: Acetaminophen TAB* 325 MG PO ONE ×2 (00:34→05:03)
[2019-06-08] MEDS: Melatonin 3 MG TAB PO PRN (01:36)
[2019-06-08 06:22] LABS: Potassium 3.4 mmol/L (3.5-5.0)
[2019-06-08 06:27] LABS: BUN/Creatinine Ratio 16.5 (8-20); EGFR African American 99.7 (>60); EGFR Non-African American 82.4 (>60)
[2019-06-08 06:40] LABS: ABS Eosinophils 0.1 10^3/ul (0-0.6); ABS Lymphocytes 0.8 10^3/ul (1.0-4.8); ABS Monocytes 0.7 10^3/ul (0-0.8); ABS Neutrophils 3.1 10^3/ul (1.5-7.7); Eosinophil % 1.5 %; Hematocrit 23 % (42-52); Hemoglobin 7.6 g/dL (14.0-18.0); Lymphocyte % 17.1 %; Mean Corpuscular HGB Conc 33 g/dL (31-36); Mean Corpuscular Hemoglobin 29 pg (27-31); Mean Corpuscular Volume 86 fL (80-94); Mean Platelet Volume 9.9 fL (7.4-10.4); Platelet Count 105 10^3/uL (150-450); Red Blood Count 2.67 10^6 /uL (4.18-5.48); Red Cell Distribution Width 17 % (10-15); White Blood Count 4.7 10^3/uL (3.5-10.8)
--- NOTE | 2019-06-08 06:52 | PN ---
Subjective Date of Service: 06/08/19 Interval History: HD 3 on 06/08 69M PMH decompensated cirrhosis(x3, 2/2 AGUIRRE), Afib on AC, NIDDM, hyperlipidemia presented with weakness and post LVP leak. Incidentally, found to have severe anemia. s/p 3U of blood transfusion No acute overnight events Vitals stable Patient is sitting on a chair and is feeling better. He had a BM this morning. He has a history of hemorrhoids. He denies abdominal pain and nausea and vomiting. Objective Active Medications: Allopurinol (Zyloprim Tab*) 100 mg PO DAILY [facility] Last Admin: 06/07/19 08:19 Dose: 100 mg Amiloride HCl (Midamor Tab*) 10 mg PO BID [facility] Last Admin: 06/07/19 19:55 Dose: 10 mg Furosemide (Lasix Tab*) 80 mg PO 0900,1800 [facility] Last Admin: 06/07/19 16:45 Dose: 80 mg Ceftriaxone Sodium 1 gm/ (Sodium Chloride) 50 mls @ 100 mls/hr IVPB 2000 [facility] Last Admin: 06/07/19 19:52 Dose: 100 mls/hr Lactulose (Lactulose*) 30 ml PO QID [facility] Last Admin: 06/07/19 19:56 Dose: Not Given Melatonin (Melatonin) 3 mg PO BEDTIME PRN PRN Reason: SLEEP Last Admin: 06/08/19 01:36 Dose: 3 mg Mirtazapine (Remeron Tab*) 15 mg PO BEDTIME [facility] Last Admin: 06/07/19 19:54 Dose: 15 mg Multivitamins/Minerals (Theragran/Minerals Tab*) 1 tab PO DAILY [facility] Last Admin: 06/07/19 08:18 Dose: 1 tab Nadolol (Nadolol (Nf)) 10 mg PO DAILY [facility] Last Admin: 06/07/19 08:19 Dose: Not Given Pantoprazole Sodium (Protonix Tab*) 40 mg PO DAILY [facility] Last Admin: 06/07/19 08:19 Dose: 40 mg Rifaximin (Xifaxan*) 550 mg PO BID [facility] Last Admin: 06/07/19 19:54 Dose: 550 mg Rosuvastatin Calcium (Crestor (Nf)) 5 mg PO BEDTIME [facility]; Protocol Last Admin: 06/07/19 19:53 Dose: 5 mg Senna (Senokot 8.6 Mg Tab*) 2 tab PO DAILY [facility] Last Admin: 06/07/19 08:18 Dose: 2 tab Tamsulosin HCl (Flomax Cap*) 0.8 mg PO DAILY [facility] Last Admin: 06/07/19 08:18 Dose: 0.8 mg Vital Signs - 8 hr 06/07/19 06/08/19 23:05 02:43 Temperature 98.3 F 98.3 F Pulse Rate 75 69 Respiratory 18 16 Rate Blood Pressure 106/54 111/50 (mmHg) O2 Sat by Pulse 100 98 Oximetry Oxygen Devices in Use Now: None Exam: patient is sitting on a chair with no acute distress HEENT: Normocephalic and atraumatic Lungs: CLear wiht no added sounds Heart: S1/S2 heard with no murmur Abdomen: Distended but nontender. Dullness on percussion. Normal BS heard Extremities: No swelling, cyanosis and clubbing Neuro: Alert, oriented and conscious. Moving all four extremities equally Result Diagrams: 06/08/19 06:32 06/08/19 05:40 Assess/Plan/Problems-Billing Assessment: 69M PMH decompensated cirrhosis(x3, 2/2 AGUIRRE), Afib on AC, NIDDM, hyperlipidemia presented with weakness and post LVP leak. Incidentally, found to have severe anemia. s/p 3 U of RBC. endoscopy planned today - Patient Problems (1) Anemia Current Visit: Yes Status: Acute Code(s): D64.9 - ANEMIA, UNSPECIFIED SNOMED Code(s): 698953626 Comment: -severe anemia- Hb 5.5 on presentation -s/p 3 U of PRBC. -Hb is 7.6 -has history of gastric varices and stool occult blood is positive. -suspect slow bleeding from varices - endoscopy today; pending results (2) Decompensated hepatic cirrhosis Current Visit: No Status: Acute Code(s): K72.90 - HEPATIC FAILURE, UNSPECIFIED WITHOUT COMA SNOMED Code(s): 834937856 Comment: -Secondary to AGUIRRE; decompensated by varices, HE and ascites. -There is no sign of SBP and patient is on antibiotic which will act both way. -Continue his home lasix, amiloride, amiloride, lactulose, rifaximin. -Endoscopy today-pending results (3) Status post abdominal paracentesis Current Visit: Yes Status: Acute Code(s): Z98.890 - OTHER SPECIFIED POSTPROCEDURAL STATES SNOMED Code(s): 976822352 Comment: -no leak at present. -watch for any leak. (4) Atrial fibrillation Current Visit: Yes Status: Acute Code(s): I48.91 - UNSPECIFIED ATRIAL FIBRILLATION SNOMED Code(s): 81928978 Comment: -has history of atrial fibrillation/flutter -rate is well controlled -hold his eliquis given low Hb and suspicion of bleeding (5) Diabetes Current Visit: Yes Status: Acute Code(s): E11.9 - TYPE 2 DIABETES MELLITUS WITHOUT COMPLICATIONS SNOMED Code(s): 66747551 Comment: -non-insulin dependent. - hold his metformin-will restart on discharge -blood glucose below 150. (6) Gout Current Visit: Yes Status: Acute Code(s): M10.9 - GOUT, UNSPECIFIED SNOMED Code(s): 45239223 Comment: -continue allopurinol (7) BPH (benign prostatic hyperplasia) Current Visit: No Status: Acute Code(s): N40.0 - BENIGN PROSTATIC HYPERPLASIA WITHOUT LOWER URINRY TRACT SYMP SNOMED Code(s): 816784723 Comment: -on tamsulosin (8) HLD (hyperlipidemia) Current Visit: No Status: Acute Code(s): E78.5 - HYPERLIPIDEMIA, UNSPECIFIED SNOMED Code(s): 54197976 Comment: -cont rosuvastatin (9) DVT prophylaxis Current Visit: No Status: Acute Code(s): Z29.9 - ENCOUNTER FOR PROPHYLACTIC MEASURES, UNSPECIFIED SNOMED Code(s): 660124522 Comment: -on scd (10) Full code status Current Visit: No Status: Acute Code(s): Z78.9 - OTHER SPECIFIED HEALTH STATUS SNOMED Code(s): 164026212 Status and Disposition: Inpatient Attending: Shelli Oglesby Attestation Documenting Resident: Kristian Akers Supervising Physician: Shelli Oglesby Attending/Supervising Physician Comment: Agree with resident note and findings. Attending A/P 69M with decompensated cirrhosis presented with anemia, today had inappropriate response to 2 U and + FOBT. While he has outpt scope in 1 week, may need more urgent scope given evidence of current oozing. Holding AC, GI to consult #Anemia 2/2 to GIB vs ACD: Transfuse total of 3U, now with Hgb 8->7.6 tx with CTX for antibiotic PPX in setting of possible variceal bleed w/ known ascites, no need for diag para at this time as no pain no WBC no fever continued rifaxin use and already tx with PPX -FU iron studies, FU CBC, has endoscopy as outpt, +FOBT and low iron with inappropriate response to initial transfusion, will hope for possible EGD if GI finds it is safe #Cirrhosis: Continue home meds #Afib: Hold AC moving forward #DVT: Holding #Diet-Likely NPO for scope if possible here, if not advocate for transfer Attestation: This service has been performed in part by a resident under the direction of a teaching physician.I, Shelli Oglesby, performed the service, or was physically present during the critical, or villela portions of the service, furnished by the resident. I participated in the management of the patient.
[2019-06-08] MEDS: Senna TAB 8.6 mg* TAB PO SCH (08:43)
[2019-06-08] MEDS: Furosemide TAB* 40 MG PO SCH ×2 (08:43→22:54)
[2019-06-08] MEDS: Multivitamins/Minerals TAB PO SCH (08:43)
[2019-06-08] MEDS: Tamsulosin CAP* 0.4 MG PO SCH (08:43)
[2019-06-08] MEDS: RiFAXimin* 550 MG TAB PO SCH ×2 (08:43→21:36)
[2019-06-08] MEDS: aMILoride TAB* 5 MG PO SCH ×2 (08:43→21:36)
[2019-06-08] MEDS: Allopurinol TAB* 100 MG PO SCH (08:44)
[2019-06-08] MEDS: Nadolol (NF) 20 MG TAB PO SCH (08:44)
[2019-06-08] MEDS: Pantoprazole TAB * 40 MG TAB PO SCH (08:44)
[2019-06-08] MEDS: Nadolol TAB* 40 MG PO SCH (12:50)
[2019-06-08] MEDS ORDERED: Midazolam* 1 MG/ML 10 ML VIAL (10 MG) ONE (14:41)
[2019-06-08] MEDS ORDERED: fentaNYL* 50 MCG/ML 2 ML VIAL (100 MCG VIAL) ONE (14:41)
--- NOTE | 2019-06-08 16:39 | PN ---
Progress Note - Progress Note Date of Service: 06/08/19 Note: GASTROENTEROLOGY NOTE EGD performed this afternoon for severe anemia. E: No varices G: Possible small isolated gastric varix. Mild/mod non-bleeding GAVE No fresh or old blood. D: Few small patches of white slightly nodular mucosa. Biopsied. Impression: Possible that GAVE was oozing in setting of anticoagulation. GAVE is mild now with no evidence of oozing/bleeding. Can consider other sources of blood loss, although patient is poor candidate for colonoscopy. Would recommend monitoring CBC off anticoagulation to confirm stability/improvement. If Hgb trends down, then will need to discuss expanding work-up. - Continue to monitor CBC - Hold anticoagulation - Advance diet - Recommend updating liver US w/ doppler to evaluate for recurrence of PVT given increased ascites. Would be hesitant to restart anticoagulation if PVT present given severe anemia. Would need to discuss w/ Dr Eric at [facility] in that case. Julia Masterson MD Gastroenterology
--- NOTE | 2019-06-08 17:56 | PRO ---
CC: Dr. Akers PROCEDURE REPORT: DATE OF PROCEDURE: 06/08/19 PROCEDURE: EGD with biopsy. INPATIENT PROVIDER: Dr. Akers. INDICATION: The patient was admitted with acute on chronic anemia. He has been maintained on chronic Eliquis, which was initially for portal vein thrombus and atrial fibrillation. Hemoglobin sandie of 5.5 during this admission for which he has been given several units of blood. No overt bleeding reported. In spring, an EGD at [facility] demonstrated small gastric varix and portal hypertensive gastropathy. Last colonoscopy was approximately 5-7 years ago. MEDICATIONS GIVEN: 1. Midazolam 4 mg IV. 2. Fentanyl 37.5 mcg IV. DESCRIPTION OF PROCEDURE: Full disclosure of risks was reviewed with the patient as detailed on the consent form. The patient was placed in the left lateral decubitus position and monitored with continuous pulse oximetry, capnography, interval blood pressure monitoring, and direct observation. A bite -block was placed between the patient's teeth. An adult gastroscope was then inserted into the patient's mouth and advanced down the esophagus, into the stomach, and into the distal duodenum. Findings and interventions are described below. FINDINGS: Esophagus was a tubular structure without rings or strictures. There was no esophagitis. There were no esophageal varices. Scope was easily advanced into the stomach. Stomach was examined in the forward and retroflexed views. There was [id number] GAVE without spontaneous oozing or friability. Gastric mucosa was otherwise unremarkable. No portal hypertensive gastropathy noted. Retroflexion in the stomach demonstrated possible small IGV1 gastric varix without high risk features. Scope was then advanced into the duodenum to at least the third portion. In the proximal and mid duodenum, there were multiple small nodular areas with overlying whitish-colored mucosa. Biopsy obtained to ensure these did not represent small adenomatous polyps. Scope was then withdrawn from the patient. There was no fresh or old blood seen on exam. The patient tolerated the procedure well and was recovered in the GI recovery area. IMPRESSION: 1. Complete upper endoscopy to the distal duodenum. 2. No esophageal varices. Small gastric varix. No evidence to suggest that this is cause of the patient's anemia. 3. [id number] gastric antral vascular ectasia. No oozing or bleeding. 4. Multiple small nodular areas in the proximal mid duodenum with overlying whitish mucosa. Unclear clinical significance but not a bleeding source. FOLLOWUP: 1. Await pathology. 2. Recommend continuing to monitor CBC every 8 to 12 hours to ensure stability. 3. Recommend remaining off anticoagulation. It is possible that the patient was having chronic oozing from GAVE in the setting of the anticoagulation. Given the severity of his anemia, I think it would be best to discontinue the anticoagulation for now. If ongoing anemia off anticoagulation, then repeat EGD w/ treatment of GAVE could be considered. This was not performed today given relatively mild severity. 4. Recommend a repeat liver ultrasound with Doppler as the patient has had increasing ascites and history of a portal vein clot. If portal vein thrombosis is present, then I would still be hesitant to repeat anticoagulation given the severity of his anemia. Would plan to discuss with the patient's hand assembler at [facility] in further detail if PVT is present. 5. Would defer further work-up for anemia (unless ongoing H/H drop or clinical change) as patient is poor candidate for colonoscopy. Patient's is in agreement. Thank you very much for this consult. GI will continue to follow along. [id number]/CPS #: [id number] KRISTEN
[2019-06-08] MEDS: Mirtazapine TAB* 15 MG PO SCH (21:36)
[2019-06-08] MEDS: ROSUVASTATIN 10 MG PO SCH (21:37)
[2019-06-08] MEDS: cefTRIAXone(*) 1 GM in NS 0.9% 50 ML* 50 ML IVPB SCH (21:37)
[2019-06-08] MEDS: Lidocaine 2% JELLY* 6 ML JELLY TOPICAL SCH (21:48)
[2019-06-09 06:55] LABS: Calcium 8.1 mg/dL (8.6-10.3); EGFR African American 102.3 (>60); EGFR Non-African American 84.5 (>60); Potassium 3.5 mmol/L (3.5-5.0)
--- NOTE | 2019-06-09 07:11 | PN ---
Subjective Date of Service: 06/09/19 Interval History: HD 4 on 06/09 69M PMH decompensated cirrhosis(x3, 2/2 AGUIRRE), Afib on AC, NIDDM, hyperlipidemia presented with weakness and post LVP leak. Incidentally, found to have severe anemia. s/p 3U of blood transfusion. s/p endoscopy(06/08) No acute overnight events vitals stable Patient feeling better. He denies abdominal pain, nausea, vomiting and difficulty in breathing. He had BM yesterday Objective Active Medications: Allopurinol (Zyloprim Tab*) 100 mg PO DAILY [facility] Last Admin: 06/08/19 08:44 Dose: 100 mg Amiloride HCl (Midamor Tab*) 10 mg PO BID [facility] Last Admin: 06/08/19 21:36 Dose: 10 mg Furosemide (Lasix Tab*) 80 mg PO 0900,1800 [facility] Last Admin: 06/08/19 22:54 Dose: Not Given Ceftriaxone Sodium 1 gm/ (Sodium Chloride) 50 mls @ 100 mls/hr IVPB 2000 [facility] Last Admin: 06/08/19 21:37 Dose: 100 mls/hr Lactulose (Lactulose*) 30 ml PO QID [facility] Last Admin: 06/08/19 21:48 Dose: Not Given Lidocaine HCl (Lidocaine 2% Jelly*) 1 applic TOPICAL BID [facility] Last Admin: 06/08/19 21:48 Dose: Not Given Melatonin (Melatonin) 3 mg PO BEDTIME PRN PRN Reason: SLEEP Last Admin: 06/08/19 01:36 Dose: 3 mg Mirtazapine (Remeron Tab*) 15 mg PO BEDTIME [facility] Last Admin: 06/08/19 21:36 Dose: 15 mg Multivitamins/Minerals (Theragran/Minerals Tab*) 1 tab PO DAILY [facility] Last Admin: 06/08/19 08:43 Dose: 1 tab Nadolol (Corgard Tab*) 10 mg PO DAILY [facility] Last Admin: 06/08/19 12:50 Dose: Not Given Pantoprazole Sodium (Protonix Tab*) 40 mg PO DAILY [facility] Last Admin: 06/08/19 08:44 Dose: 40 mg Rifaximin (Xifaxan*) 550 mg PO BID [facility] Last Admin: 06/08/19 21:36 Dose: 550 mg Rosuvastatin Calcium (Crestor (Nf)) 5 mg PO BEDTIME [facility]; Protocol Last Admin: 06/08/19 21:37 Dose: 5 mg Senna (Senokot 8.6 Mg Tab*) 2 tab PO DAILY [facility] Last Admin: 06/08/19 08:43 Dose: 2 tab Tamsulosin HCl (Flomax Cap*) 0.8 mg PO DAILY [facility] Last Admin: 06/08/19 08:43 Dose: 0.8 mg Vital Signs - 8 hr 06/09/19 04:03 Temperature 98.6 F Pulse Rate 78 Respiratory 20 Rate Blood Pressure 112/63 (mmHg) O2 Sat by Pulse 97 Oximetry Oxygen Devices in Use Now: None Exam: patient is sitting on a chair with no acute distress HEENT: Normocephalic and atraumatic Lungs: CLear wiht no added sounds Heart: S1/S2 heard with no murmur Abdomen: Distended but nontender. Dullness on percussion. Normal BS heard Extremities: No swelling, cyanosis and clubbing Neuro: Alert, oriented and conscious. Moving all four extremities equally Result Diagrams: 06/09/19 06:01 06/09/19 06:01 Assess/Plan/Problems-Billing Assessment: 69M PMH decompensated cirrhosis(x3, 2/2 AGUIRRE), Afib on AC, NIDDM, hyperlipidemia presented with weakness and post LVP leak. Incidentally, found to have severe anemia. s/p 3 U of RBC. s/p endoscopy(06/08); trending h& H - Patient Problems (1) Anemia Current Visit: Yes Status: Acute Code(s): D64.9 - ANEMIA, UNSPECIFIED SNOMED Code(s): 003318952 Comment: -severe anemia- Hb 5.5 on presentation -s/p 3 U of PRBC. -Hb is 7.4 -has history of gastric varices and stool occult blood is positive. - endoscopy(06/09)- has gastric varices and GAVE; no active bleeding going on; biopsed nodualr mucosa -US liver: chronic PV thrombus; no occlusion -trending H&H-discussed with DR. Diane-no any active intervention at present (2) Decompensated hepatic cirrhosis Current Visit: No Status: Acute Code(s): K72.90 - HEPATIC FAILURE, UNSPECIFIED WITHOUT COMA SNOMED Code(s): 041154213 Comment: -Secondary to AGUIRRE; decompensated by varices, HE and ascites. -There is no sign of SBP and patient is on antibiotic which will act both way. -Continue his home lasix, amiloride(increased to 15 mg BID), lactulose, rifaximin. -Endoscopy on 06/08- see above -hs chronic PV thrombus (3) Status post abdominal paracentesis Current Visit: Yes Status: Acute Code(s): Z98.890 - OTHER SPECIFIED POSTPROCEDURAL STATES SNOMED Code(s): 614615879 Comment: -no leak at present. -watch for any leak. (4) Atrial fibrillation Current Visit: Yes Status: Acute Code(s): I48.91 - UNSPECIFIED ATRIAL FIBRILLATION SNOMED Code(s): 04312949 Comment: -has history of atrial fibrillation/flutter -rate is well controlled -hold his eliquis given low Hb and high risk of bleeding (5) Diabetes Current Visit: Yes Status: Acute Code(s): E11.9 - TYPE 2 DIABETES MELLITUS WITHOUT COMPLICATIONS SNOMED Code(s): 55566120 Comment: -non-insulin dependent. - hold his metformin-will restart on discharge -blood glucose below 150. (6) Gout Current Visit: Yes Status: Acute Code(s): M10.9 - GOUT, UNSPECIFIED SNOMED Code(s): 13604983 Comment: -continue allopurinol (7) BPH (benign prostatic hyperplasia) Current Visit: No Status: Acute Code(s): N40.0 - BENIGN PROSTATIC HYPERPLASIA WITHOUT LOWER URINRY TRACT SYMP SNOMED Code(s): 810761317 Comment: -on tamsulosin (8) HLD (hyperlipidemia) Current Visit: No Status: Acute Code(s): E78.5 - HYPERLIPIDEMIA, UNSPECIFIED SNOMED Code(s): 31778101 Comment: -cont rosuvastatin (9) DVT prophylaxis Current Visit: No Status: Acute Code(s): Z29.9 - ENCOUNTER FOR PROPHYLACTIC MEASURES, UNSPECIFIED SNOMED Code(s): 167086165 Comment: -on scd (10) Full code status Current Visit: No Status: Acute Code(s): Z78.9 - OTHER SPECIFIED HEALTH STATUS SNOMED Code(s): 044758832 Status and Disposition: Inpatient trending H&H Attending: Shelli Oglesby Attestation Documenting Resident: Kristian Akers Supervising Physician: Shelli Oglesby Attending/Supervising Physician Comment: Agree with resident note and findings. Attending A/P 69M with decompensated cirrhosis presented with anemia, found to be oozing from GAVE on EGD done 06/08. Holding AC moving forward has chronic PVT. #Anemia 2/2 to GAVE- Transfuse total of 3U, now with Hgb 8->7.6 tx with CTX for antibiotic PPX in setting of GIB w/ known ascites, no need for diag para at this time as no pain no WBC no fever continued rifaxin use and already tx with PPX -EGD with GAVE, will trend CBC today and if continues to drop, re involve GI -Will need outpt GI (local) and call to [facility] [employer] [facility] in [place] given holding AC and pts family would like sooner appt. -If CBC stable will give addnl unit and d/c tomorrow #Cirrhosis: Continue home meds #Afib: Hold AC moving forward, also with PVT. #DVT: Holding #Diet-Resumed Dispo: Pending CBC Attestation: This service has been performed in part by a resident under the direction of a teaching physician.I, Shelli Oglesby, performed the service, or was physically present during the critical, or villela portions of the service, furnished by the resident. I participated in the management of the patient.
[2019-06-09 07:30] LABS: ABS Eosinophils 0.1 10^3/ul (0-0.6); ABS Lymphocytes 0.7 10^3/ul (1.0-4.8); ABS Monocytes 0.7 10^3/ul (0-0.8); ABS Neutrophils 3.1 10^3/ul (1.5-7.7); Eosinophil % 1.5 %; Hematocrit 22 % (42-52); Hemoglobin 7.4 g/dL (14.0-18.0); Lymphocyte % 14.7 %; Mean Corpuscular HGB Conc 33 g/dL (31-36); Mean Corpuscular Hemoglobin 28 pg (27-31); Mean Corpuscular Volume 85 fL (80-94); Mean Platelet Volume 9.4 fL (7.4-10.4); Nucleated Red Blood Cells % 0.1; Platelet Count 97 10^3/uL (150-450); Red Cell Distribution Width 16 % (10-15); White Blood Count 4.6 10^3/uL (3.5-10.8)
[2019-06-09] MEDS: Allopurinol TAB* 100 MG PO SCH (08:32)
[2019-06-09] MEDS: Multivitamins/Minerals TAB PO SCH (08:32)
[2019-06-09] MEDS: Furosemide TAB* 40 MG PO SCH ×2 (08:32→17:32)
[2019-06-09] MEDS: RiFAXimin* 550 MG TAB PO SCH ×2 (08:33→21:12)
[2019-06-09] MEDS: Pantoprazole TAB * 40 MG TAB PO SCH (08:33)
[2019-06-09] MEDS: Tamsulosin CAP* 0.4 MG PO SCH (08:33)
[2019-06-09] MEDS: Senna TAB 8.6 mg* TAB PO SCH (08:33)
[2019-06-09] MEDS: aMILoride TAB* 5 MG PO SCH ×2 (08:33→21:11)
[2019-06-09] MEDS: Nadolol TAB* 40 MG PO SCH (08:34)
[2019-06-09] MEDS: Lidocaine 2% JELLY* 6 ML JELLY TOPICAL SCH ×2 (08:35→21:10)
[2019-06-09 15:54] LABS: Hematocrit 23 % (42-52); Hemoglobin 7.6 g/dL (14.0-18.0); Mean Corpuscular HGB Conc 33 g/dL (31-36); Mean Corpuscular Hemoglobin 29 pg (27-31); Mean Corpuscular Volume 86 fL (80-94); Mean Platelet Volume 9.2 fL (7.4-10.4); Platelet Count 107 10^3/uL (150-450); Red Blood Count 2.66 10^6 /uL (4.18-5.48); Red Cell Distribution Width 17 % (10-15); White Blood Count 5.2 10^3/uL (3.5-10.8)
--- NOTE | 2019-06-09 17:23 | PN ---
Progress Note - Progress Note Date of Service: 06/09/19 Note: feels ok, no new sx vs yesterday; brown bm yesterday VS; 98.4, 99/59, 73 nad, +bs, soft, no asterixis Hgb 7.4---->7.6, plts 107, Na 132, PV US; chronic PVT EGD with nonbleeding GAVE acute issues: anemia--->stable H/H, hold AC for now chronic PVT--->no ac Jorge Diane MD
[2019-06-09] MEDS: ROSUVASTATIN 10 MG PO SCH (21:12)
[2019-06-09] MEDS: Mirtazapine TAB* 15 MG PO SCH (21:12)
[2019-06-09] MEDS: cefTRIAXone(*) 1 GM in NS 0.9% 50 ML* 50 ML IVPB SCH (21:12)
[2019-06-09] MEDS: Melatonin 3 MG TAB PO PRN (23:19)
[2019-06-10 06:51] LABS: Hematocrit 22 % (42-52); Hemoglobin 7.3 g/dL (14.0-18.0); Mean Corpuscular HGB Conc 33 g/dL (31-36); Mean Corpuscular Hemoglobin 29 pg (27-31); Mean Corpuscular Volume 86 fL (80-94); Mean Platelet Volume 9.2 fL (7.4-10.4); Platelet Count 93 10^3/uL (150-450); Red Blood Count 2.54 10^6 /uL (4.18-5.48); Red Cell Distribution Width 16 % (10-15); White Blood Count 4.9 10^3/uL (3.5-10.8)
--- NOTE | 2019-06-10 07:02 | PN ---
Subjective Date of Service: 06/10/19 Interval History: HD 5 on 06/10 69M PMH decompensated cirrhosis(x3, 2/2 AGUIRRE), Afib on AC, NIDDM, hyperlipidemia presented with weakness and post LVP leak. Incidentally, found to have severe anemia. s/p 3U of blood transfusion. s/p endoscopy(06/08) No acute overnight events vitals stable Patient feeling okay. HE was having bowel movement. He denies any pain, nausea or vomiting and SOB. Hemoglobin stable for discharge. HE will f/u with Dr. Diane in thursday and will get his lab drawn thursday. Objective Active Medications: Allopurinol (Zyloprim Tab*) 100 mg PO DAILY [facility] Last Admin: 06/09/19 08:32 Dose: 100 mg Amiloride HCl (Midamor Tab*) 15 mg PO BID [facility] Last Admin: 06/09/19 21:11 Dose: 15 mg Furosemide (Lasix Tab*) 80 mg PO 0900,1800 [facility] Last Admin: 06/09/19 17:32 Dose: 80 mg Ceftriaxone Sodium 1 gm/ (Sodium Chloride) 50 mls @ 100 mls/hr IVPB 1999 [facility] Last Admin: 06/09/19 21:12 Dose: 100 mls/hr Lactulose (Lactulose*) 30 ml PO QID [facility] Last Admin: 06/09/19 21:09 Dose: 20 ml Lidocaine HCl (Lidocaine 2% Jelly*) 1 applic TOPICAL BID [facility] Last Admin: 06/09/19 21:10 Dose: Not Given Melatonin (Melatonin) 3 mg PO BEDTIME PRN PRN Reason: SLEEP Last Admin: 06/09/19 23:19 Dose: 3 mg Mirtazapine (Remeron Tab*) 15 mg PO BEDTIME [facility] Last Admin: 06/09/19 21:12 Dose: 15 mg Multivitamins/Minerals (Theragran/Minerals Tab*) 1 tab PO DAILY [facility] Last Admin: 06/09/19 08:32 Dose: 1 tab Nadolol (Corgard Tab*) 10 mg PO DAILY [facility] Last Admin: 06/09/19 08:34 Dose: 10 mg Pantoprazole Sodium (Protonix Tab*) 40 mg PO DAILY [facility] Last Admin: 06/09/19 08:33 Dose: 40 mg Rifaximin (Xifaxan*) 550 mg PO BID [facility] Last Admin: 06/09/19 21:12 Dose: 550 mg Rosuvastatin Calcium (Crestor (Nf)) 5 mg PO BEDTIME [facility]; Protocol Last Admin: 06/09/19 21:12 Dose: 5 mg Senna (Senokot 8.6 Mg Tab*) 2 tab PO DAILY [facility] Last Admin: 06/09/19 08:33 Dose: 2 tab Tamsulosin HCl (Flomax Cap*) 0.8 mg PO DAILY [facility] Last Admin: 06/09/19 08:33 Dose: 0.8 mg Vital Signs - 8 hr 06/09/19 06/10/19 23:17 04:08 Temperature 98.3 F 98.3 F Pulse Rate 72 75 Respiratory 16 16 Rate Blood Pressure 103/55 105/55 (mmHg) O2 Sat by Pulse 98 97 Oximetry Oxygen Devices in Use Now: None Exam: patient is sitting on a chair with no acute distress HEENT: Normocephalic and atraumatic Lungs: CLear wiht no added sounds Heart: S1/S2 heard with no murmur Abdomen: Distended but nontender. Dullness on percussion. Normal BS heard Extremities: No swelling, cyanosis and clubbing Neuro: Alert, oriented and conscious. Moving all four extremities equally Result Diagrams: 06/10/19 06:27 06/10/19 06:27 Assess/Plan/Problems-Billing Assessment: 69M PMH decompensated cirrhosis(x3, 2/2 AGUIRRE), Afib on AC, NIDDM, hyperlipidemia presented with weakness and post LVP leak. Incidentally, found to have severe anemia. s/p 3 U of RBC. s/p endoscopy(06/08); trending h& H; stable now - Patient Problems (1) Anemia Current Visit: Yes Status: Acute Code(s): D64.9 - ANEMIA, UNSPECIFIED SNOMED Code(s): 242230452 Comment: -severe anemia- Hb 5.5 on presentation -s/p 3 U of PRBC. -Hb is 7.4 -has history of gastric varices and stool occult blood is positive. - endoscopy(06/09)- has gastric varices and GAVE; no active bleeding going on; biopsed nodualr mucosa -US liver: chronic PV thrombus; no occlusion -patient will f/u with Dr. Diane (2) Decompensated hepatic cirrhosis Current Visit: No Status: Acute Code(s): K72.90 - HEPATIC FAILURE, UNSPECIFIED WITHOUT COMA SNOMED Code(s): 248417400 Comment: -Secondary to AGUIRRE; decompensated by varices, HE and ascites. -There is no sign of SBP and patient is on antibiotic which will act both way. -Continue his home lasix, amiloride(increased to 15 mg BID), lactulose, rifaximin. -Endoscopy on 06/08- see above -hs chronic PV thrombus (3) Status post abdominal paracentesis Current Visit: Yes Status: Acute Code(s): Z98.890 - OTHER SPECIFIED POSTPROCEDURAL STATES SNOMED Code(s): 327597990 Comment: -no leak at present. -watch for any leak. (4) Atrial fibrillation Current Visit: Yes Status: Acute Code(s): I48.91 - UNSPECIFIED ATRIAL FIBRILLATION SNOMED Code(s): 22729912 Comment: -has history of atrial fibrillation/flutter -rate is well controlled -hold his eliquis given low Hb and high risk of bleeding (5) Diabetes Current Visit: Yes Status: Acute Code(s): E11.9 - TYPE 2 DIABETES MELLITUS WITHOUT COMPLICATIONS SNOMED Code(s): 70356415 Comment: -non-insulin dependent. - hold his metformin-will restart on discharge -blood glucose below 150. (6) Gout Current Visit: Yes Status: Acute Code(s): M10.9 - GOUT, UNSPECIFIED SNOMED Code(s): 20150766 Comment: -continue allopurinol (7) BPH (benign prostatic hyperplasia) Current Visit: No Status: Acute Code(s): N40.0 - BENIGN PROSTATIC HYPERPLASIA WITHOUT LOWER URINRY TRACT SYMP SNOMED Code(s): 902412372 Comment: -on tamsulosin (8) HLD (hyperlipidemia) Current Visit: No Status: Acute Code(s): E78.5 - HYPERLIPIDEMIA, UNSPECIFIED SNOMED Code(s): 11757717 Comment: -cont rosuvastatin (9) DVT prophylaxis Current Visit: No Status: Acute Code(s): Z29.9 - ENCOUNTER FOR PROPHYLACTIC MEASURES, UNSPECIFIED SNOMED Code(s): 870924336 Comment: -on scd (10) Full code status Current Visit: No Status: Acute Code(s): Z78.9 - OTHER SPECIFIED HEALTH STATUS SNOMED Code(s): 788319104 Status and Disposition: Inpatient dc today Attending: Shelli Oglesby Attestation Documenting Resident: Kristian Akers Supervising Physician: Shelli Oglesby Attending/Supervising Physician Comment: Agree with resident note and findings. Attending A/P 69M with decompensated cirrhosis presented with anemia, found to be oozing from GAVE on EGD done 06/08. Holding AC moving forward has chronic PVT. #Anemia 2/2 to GAVE- Transfuse total of 3U, now with Hgb 8->7.6/7.3 tx with CTX for antibiotic PPX in setting of GIB w/ known ascites, no need for diag para at this time as no pain no WBC no fever continued rifaxin use and already tx with PPX -EGD with GAVE, CBC stable, OK for d/c -Will need outpt GI (local) and call to [employer] in [place] given holding AC and pts family would like sooner appt. #Cirrhosis: Continue home meds #Afib: Hold AC moving forward, also with PVT. #DVT: Holding #Diet-Resumed Dispo: Likely to home Attestation: This service has been performed in part by a resident under the direction of a teaching physician.I, Shelli Oglesby, performed the service, or was physically present during the critical, or villela portions of the service, furnished by the resident. I participated in the management of the patient.
[2019-06-10 07:06] LABS: BUN/Creatinine Ratio 17.2 (8-20); Calcium 7.8 mg/dL (8.6-10.3); EGFR Non-African American 86.8 (>60); Potassium 3.4 mmol/L (3.5-5.0)
[2019-06-10] MEDS: RiFAXimin* 550 MG TAB PO SCH (09:58)
[2019-06-10] MEDS: Pantoprazole TAB * 40 MG TAB PO SCH (09:58)
[2019-06-10] MEDS: Furosemide TAB* 40 MG PO SCH (09:58)
[2019-06-10] MEDS: Senna TAB 8.6 mg* TAB PO SCH (09:58)
[2019-06-10] MEDS: Multivitamins/Minerals TAB PO SCH (09:58)
[2019-06-10] MEDS: Allopurinol TAB* 100 MG PO SCH (09:58)
[2019-06-10] MEDS: Tamsulosin CAP* 0.4 MG PO SCH (09:58)
[2019-06-10] MEDS: Nadolol TAB* 40 MG PO SCH (09:59)
[2019-06-10] MEDS: aMILoride TAB* 5 MG PO SCH (09:59)
[2019-06-10] MEDS: Lidocaine 2% JELLY* 6 ML JELLY TOPICAL SCH (10:00)
[2019-06-10 11:26] VITALS: BP 106/59
--- NOTE | 2019-06-10 11:59 | DS ---
CC: Dr. Victor Hugo Mcknight; Dr. Dex Osborn; Dr. Jorge Diane DISCHARGE SUMMARY: DATE OF ADMISSION: 06/06/19 DATE OF DISCHARGE: 06/10/19 PRIMARY CARE PROVIDER: Dr. Victor Hugo Mcknight at the [facility] as well as Dr. Dex Osborn at [place]. CONDITIONING MACHINE OPERATOR: Dr. Jorge Diane. PRIMARY DIAGNOSIS: Acute blood loss anemia secondary to gastric antral vascular ectasia. SECONDARY DIAGNOSES: 1. Decompensated cirrhosis by ascitics, hepatic encephalopathy, and gastric varices, all currently w ell managed at this time. 2. Atrial fibrillation, on anticoagulation, now discontinued. 3. Portal vein thrombosis, chronic, holding anticoagulation. 4. Iar-sqpsjjm-cjnfepgzx diabetes. 5. History of C3 through C7 fracture, status post repair. 6. Benign prostatic hypertrophy. 7. Gout. 8. Hyperlipidemia. 9. Paraplegia associated with above C3 through C7 injury. MEDICATIONS AT TIME OF DISCHARGE: 1. Docusate sodium benzocaine 5 mL per rectum daily p.r.n. as per prior bowel regimen. 2. Allopurinol 100 mg p.o. daily. 3. Amiloride 15 mg p.o. b.i.d. 4. Furosemide 80 mg p.o. b.i.d. 5. Melatonin 1 tab p.o. q.h.s. 6. Metformin 500 mg p.o. daily. 7. Mirtazapine 15 mg p.o. q.h.s. 8. Multivitamin 1 tab p.o. daily. 9. Nadolol 10 mg p.o. daily. 10. Pantoprazole 40 mg p.o. daily. 11. Rifaximin 550 mg p.o. b.i.d. 12. Rosuvastatin 5 mg p.o. q.h.s. 13. Sennosides 17.2 mg p.o. daily. 14. Tamsulosin 0.8 mg p.o. daily. 15. Kristalose 30 mL p.o. 4 times a day. 16. Ciprofloxacin 500 mg p.o. b.i.d. for an additional 2 days status post discharge. Medications changes on this hospitalization include the addition of ciprofloxacin for antibiotic prop hylaxis in the setting of a decompensated cirrhotic having a GI bleed, the discontinuation of apixaba n for portal vein thrombosis and atrial fibrillation, the up-titration of amiloride to 15 mg p.o. b.i .d. from 10 mg p.o. b.i.d., and otherwise, no medications were changed. HISTORY OF PRESENT ILLNESS AND HOSPITAL COURSE: A 69-year-old male with above past medical history w kristyn initially presented to the emergency room on 06/06/16 with chief complaint of continual leakage fr om large volume paracentesis for 5 days. He had a large volume paracentesis on 06/01/19 where 6.5 L were removed and his noticed that a leak was soaking his bedsheets for several days in a row. A t that time, he denied abdominal pain, nausea, vomiting, hematemesis, black tarry stools, or bright r ed blood per rectum. He denies any confusion, hallucinations, or sleep changes. Of note, he is whee lchair bound after the vertebral fracture from earlier this year, his takes care of him. She br ought him to the ER to get ostomy bag placed over his para leak and possible supergluing, although sh e noted to emergency room physician that he seems more weak and fatigued and was not participating in physical therapy. Labs were done which incidentally noted a significant anemia with a hemoglobin of 5.5, otherwise stable pancytopenia, stable chronic hyponatremia, and no other acute findings. The p atmilo was admitted for transfusion and workup of his anemia. Of note, he was scheduled for an outpa tient EGD by his outpatient GI doctor 1 week prior from his hospital admission, although because of h is acute anemia, it was reasonable to admit him for transfusion and continued workup. His hospital c ourse by problem is as follows: 1. Acute blood loss anemia. The patient was transfused a total of 2 units on admission, although he had inappropriate response with a hemoglobin rising from 5.5 to 7. He continued to drift downwards from this sandie and an additional third unit was transfused with a response to roughly 7.7 to 7.6. A fecal occult blood was done which was positive. Because of his inappropriate response to transfusio ns and fecal occult blood being positive, GI was consulted, who recommended doing EGD. EGD was perfor med on 06/08/19 which showed possible small isolated gastric varix and qutj-fn-tzxlrafh nonbleeding G AVE, no fresh or old blood was noted in the gastric esophageals, no varices, and duodenum showed a fe w patches of white slightly nodular mucosa, which was biopsied. It was thought that he had a source of possibly oozing GAVEs and anticoagulation was recommended to be held. The patient has a history o f portal vein thrombosis and a portal vein ultrasound was repeated which showed a chronic stable port al vein thrombus, peritoneal ascites, hepatic cirrhosis, otherwise negative. GI felt that, given the patient was high risk and with persistent anemia, holding anticoagulation moving forward was reasona ble. The patient is a poor candidate for colonoscopy and it was held at this time. Postprocedure on 06/09/19 and 06/10/19, the patient's hemoglobin remained stable at 7.6 to 7.3. He had no dark tarry stools or bright red blood per rectum during this hospitalization. His vital signs remained stable and the family elects to follow up closely with outpatient GI team for continued monitoring of CBC an d possible lower workup as needed. Overall, the hope is that the holding anticoagulation moving forw adry, this will stop the slow oozing from his GAVE. 2. Decompensated cirrhosis. The patient has had persistent large volume ascites that has been recen tly exacerbated since he underwent surgery in the summer after his neck fracture. He needs frequent large volume paracentesis. His amiloride was titrated up slightly and furosemide doses were continue d. His pressure seemed to tolerate these doses and the patient had no further complications, so need to follow up with GI and a referral for Dr. Diane's team has been made at the patient's [facility]. His nadolol, rifaximin, and Kristalose were continued. He had no episodes of hepatic encepha lopathy and no evidence of bleeding esophageal varices. He does not have tense ascites at time of di scharvladislav. Of note, he was kept on antibiotic prophylaxis for a patient with known ascites in the sett ing of GI bleed. He was on ceftriaxone for a total of 5 days and is discharged on ciprofloxacin for a total of 7 days for antibiotic prophylaxis to prevent SBP. He had no signs of SBP, although a diag nostic paracentesis was not done and he was prophylaxed from the antibiotic standpoint regardless. 3. Atrial fibrillation. His Eliquis was withheld. He was rate controlled. 4. Haf-jydlalg-ejkhymmsx diabetes. Home medications were continued without complication. 5. Gout. Home medications were continued without complication. 6. C3 through C7 fracture, status post repair with resultant paraplegia. The patient may resume his PT after discharge, this is indicated in the discharge packet. 7. BPH. Home medications were continued. 8. DVT prophylaxis, all withheld given his ongoing slow oozing. On day of discharge, the patient is tolerating diet, voiding freely, feeling at baseline. His hemogl obin has been stable for 48 hours status post procedure. The patient's family and the patient were c ounseled on following up with primary care provider for recheck H and H in the next 7 days. LABS AND STUDIES DONE DURING THIS HOSPITALIZATION: Labs done on day of discharge: White blood cell c ount 4.9, hemoglobin 7.3, hematocrit is 22, platelets 93. BMP shows sodium of 132, potassium of 3.4, chloride 101, carbon dioxide 25, anion gap 6, BUN 15, creatinine 0.87. Imaging done during this hospitalization includedan EGD done on 06/08/19, which showed jius-tp-siwuir te GAVE and 1 small isolated gastric varix, but no active blood. Chest x-ray done on 06/06/19 shows no intrathoracic pathology. Portal vein ultrasound done on 06/08/19 shows chronic portal vein thrombus, nonocclusive, cirrhosis a nd ascites. Biopsies performed during EGD of duodenum showed small bowel mucosa with normal villous architecture and no pathologic abnormality. No villous blunting or infiltrate identified. Microbiology showed negative blood culture, urine cultures, and a fecal occult blood that was positiv e. ITEMS TO FOLLOW UP ON STATUS POST DISCHARGE: 1. The patient's anemia secondary to GAVE oozing in the setting of anticoagulation. The hope is ramona t holding his anticoagulation moving forward with a chance for this patient's recovery. He will need repeat CBC within 7 to 10 days to determine if further transfusion is needed. He is asymptomatic at this point with no signs of active bleeding and thus transfusion goal was 7, which the patient is at on day of discharge. 2. Decompensated cirrhosis. The patient's family requests a local GI team and a referral was made f or Dr. Diane and team. They do follow with the transplant team, MELD score is 11 on this hospitali zation, and he is not meeting high enough MELD scores for urgent evaluation of transplant, although t mike have established in the past. They may need ongoing large volume paracentesis and counseling miky und management of this challenging disease. 3. Paraplegia from recent vertebral fracture. The patient should resume physial therapy moving forw adry as he was making progress. This is indicated on the discharge summary. TIME SPENT: Sixty minutes was spent in planning of this discharge with over half of that spent direc tly at the bedside with the patient providing direct patient care. If there are any questions about the care of this patient during this hospitalization, please do not hesitate to reach out or contact me directly, my cell phone is [phone]. This discharge summary is a distillation of a total of 5 days of hospitalization. A physical exam was performed on day of discharge, please find on the medical chart. [id number]/[facility] #: [id number]
--- NOTE | 2019-06-12 21:55 | DS ---
ADDENDUM TO DISCHARGE SUMMARY: DATE OF ADMISSION: 06/06/19 DATE OF DISCHARGE: 06/10/19 DISPOSITION: Condition at the time of discharge: The patient is stable to be discharged to home. [id number]/[facility] #: [id number] MTDD
== END 2019-06-10 12:20 | disposition home or self-care (01) | DRG 377 ==
LOC: ED 10:16 → MED 15:46 → OBSVTOIN 15:50 → MED 17:19
PROVIDERS: ADMIT Internal Medicine; ATTEND Internal Medicine
PROC: 30233N1 Transfusion of Nonautologous Red Blood Cells into Peripheral Vein, Percutaneous Approach (ICD-10-PCS; 2019-06-06)
PROC: 0DB98ZX Excision of Duodenum, Via Natural or Artificial Opening Endoscopic, Diagnostic (ICD-10-PCS; principal; 2019-06-08)
DX: K31.811 Angiodysplasia of stomach and duodenum with bleeding (principal); I81 Portal vein thrombosis; D62 Acute posthemorrhagic anemia; I48.92 Unspecified atrial flutter; E87.2 Acidosis; G82.20 Paraplegia, unspecified; R18.8 Other ascites; E87.1 Hypo-osmolality and hyponatremia; D61.818 Other pancytopenia; K74.60 Unspecified cirrhosis of liver; M10.9 Gout, unspecified; Z96.641 Presence of right artificial hip joint; I48.91 Unspecified atrial fibrillation; E11.9 Type 2 diabetes mellitus without complications; N40.0 Benign prostatic hyperplasia without lower urinary tract symptoms; I86.4 Gastric varices; E78.5 Hyperlipidemia, unspecified; L76.82 Other postprocedural complications of skin and subcutaneous tissue; Y65.8 Other specified misadventures during surgical and medical care; K72.90 Hepatic failure, unspecified without coma; K75.81 Nonalcoholic steatohepatitis (NASH); Z88.0 Allergy status to penicillin; Z87.891 Personal history of nicotine dependence; Z88.8 Allergy status to other drugs, medicaments and biological substances; Y92.9 Unspecified place or not applicable; Z99.3 Dependence on wheelchair
CPT/HCPCS: 36415; 71045; 80048; 80053; 81003; 81015; 82272; 82607; 82728; 82746; 83540; 83550; 83605; 83735; 84443; 84484; 85025; 85027; 85060; 86850; 86900; 86901; 86922; 87040; 87086; 88305; 93005; 93975; 99156; 99285; A9270-GY; J0696; J2250; J3010; P9040

== ENCOUNTER 2020-04-13 06:36 | Inpatient (IN) ==
[2020-04-13 08:11] LABS: Urine Appearance Cloudy; Urine Bilirubin Negative (Negative); Urine Blood 3+ (Negative); Urine Color Yellow; Urine Glucose Negative (Negative); Urine Ketones Negative (Negative); Urine Nitrite Negative (Negative); Urine Protein 1+(30 mg/dL) (Negative); Urine Specific Gravity 1.013 (1.010-1.030); Urine Urobilinogen Negative (Negative)
[2020-04-13 08:22] LABS: ABS Eosinophils 0.2 10^3/ul (0-0.6); ABS Lymphocytes 0.5 10^3/ul (1.0-4.8); ABS Monocytes 0.2 10^3/ul (0-0.8); ABS Neutrophils 3.3 10^3/ul (1.5-7.7); Eosinophil % 3.9 %; Hematocrit 30 % (42-52); Hemoglobin 10.1 g/dL (14.0-18.0); Mean Corpuscular HGB Conc 34 g/dL (31-36); Mean Corpuscular Hemoglobin 34 pg (27-31); Mean Corpuscular Volume 99 fL (80-94); Mean Platelet Volume 9.3 fL (7.4-10.4); Platelet Count 75 10^3/uL (150-450); Red Cell Distribution Width 16 % (10-15); White Blood Count 4.2 10^3/uL (3.5-10.8)
[2020-04-13 08:24] LABS: ALT 18 U/L (7-52); AST 34 U/L (13-39); Albumin 3.3 g/dL (3.2-5.2); Alkaline Phosphatase 76 U/L (34-104); Anion Gap 7 mmol/L (2-11); Blood Urea Nitrogen 14 mg/dL (6-24); C Reactive Protein 34.44 mg/L (<8.01); CO2 Carbon Dioxide 27 mmol/L (22-32); Calcium 9.1 mg/dL (8.6-10.3); Chloride 106 mmol/L (101-111); EGFR African American 89.1 (>60); EGFR Non-African American 73.7 (>60); Globulin 3.3 g/dL (2-4); Glucose 115 mg/dL (70-100); Magnesium 1.6 mg/dL (1.9-2.7); Potassium 3.4 mmol/L (3.5-5.0); Sodium 140 mmol/L (135-145); Total Protein 6.6 g/dL (6.4-8.9)
[2020-04-13 08:25] LABS: Troponin I 0.01 ng/mL (<0.03)
[2020-04-13] MEDS ORDERED: Magnesium Sulfate 2 gm BAG 2 GM/50 ML BAG IVPB ONE (08:29)
[2020-04-13 08:31] LABS: Urine Bacteria Absent (Absent); Urine Red Blood Cell 3+(>10/hpf) (Absent); Urine White Blood Cell 3+(>20/hpf) (Absent)
[2020-04-13 08:35] LABS: INR 1.25 (0.82-1.09)
[2020-04-13 08:53] LABS: Acetaminophen < 15 mcg/mL; Alcohol, S < 10 mg/dL (<10)
[2020-04-13] MEDS ORDERED: Iodixanol (CONTRAST) 320 MG/ML 100 ML SDV IV ONE (08:56)
[2020-04-13] MEDS ORDERED: levETIRAcetam 1000MG IVPREMIX 1,000 MG/100 ML BAG IVPB ONE (09:27)
[2020-04-13] MEDS ORDERED: Thrombin 5,000 UNITS 1 APPLIC KIT - topical use - TOPICAL ONE (10:06)
[2020-04-13] MEDS ORDERED: Gelfoam 12-7 ADSORBABL SPONGE ONE (10:07)
[2020-04-13] MEDS ORDERED: Bupivacaine 0.5% 50 ML MDV VIAL ONE (10:07)
[2020-04-13] MEDS ORDERED: Bacitracin INJECTION 50,000 UNITS ONE (10:08)
[2020-04-13] MEDS ORDERED: Bacitracin OINTMENT TUBE ONE ×2 (10:08→14:52)
[2020-04-13] MEDS ORDERED: Gelfoam Sponge SIZE 100 SPONGE ONE (10:08)
[2020-04-13] MEDS ORDERED: fentaNYL 250 mcg/5 ml 50 MCG/ML 5 ml VIAL (250 MCG) ONE (10:09)
[2020-04-13] MEDS ORDERED: Propofol 10 MG/ML 20 ML BTL ONE (10:11)
[2020-04-13] MEDS ORDERED: Rocuronium 50 mg VIAL 10 mg/ml 5 ml VIAL (50 mg) ONE ×3 (10:12→13:33)
[2020-04-13] MEDS ORDERED: Remifentanil 2 MG VIAL ONE (10:14)
[2020-04-13] MEDS ORDERED: Sterile Water for Inj 10 ML ONE ×2 (10:17→15:27)
[2020-04-13] MEDS ORDERED: Succinylcholine 200 mg VIAL 20 mg/ml 10 ml VIAL (200 mg) ONE (10:19)
[2020-04-13] MEDS ORDERED: Mannitol 25% (12.5 GM) 50 ML 12.5 GM/50 ML VIAL ONE (11:06)
[2020-04-13] MEDS ORDERED: Lidocaine 2% PF 5 ML VIAL ONE (11:11)
[2020-04-13] MEDS ORDERED: Clindamycin 900 MG/D5W BAG 900 MG/50 ML BAG IVPB ONE (11:13)
[2020-04-13] MEDS ORDERED: Phenylephrine 40 mcg/mL 10mL (400mcg) SYRINGE ONE ×2 (11:48→14:54)
[2020-04-13] MEDS ORDERED: EPHEDrine (Pressors) 50 MG/ML VIAL ONE ×3 (11:55→15:27)
[2020-04-13] MEDS ORDERED: Phenylephrine IV 10 MG/ML 1 ml VIAL ONE ×2 (12:01→13:39)
[2020-04-13 12:35] LABS: ABS Eosinophils 0.3 10^3/ul (0-0.6); ABS Monocytes 0.7 10^3/ul (0-0.8); ABS Neutrophils 8.5 10^3/ul (1.5-7.7); Eosinophil % 2.6 %; Hematocrit 27 % (42-52); Hemoglobin 9.4 g/dL (14.0-18.0); Lymphocyte % 9.4 %; Mean Corpuscular HGB Conc 35 g/dL (31-36); Mean Corpuscular Hemoglobin 34 pg (27-31); Mean Corpuscular Volume 98 fL (80-94); Mean Platelet Volume 9.1 fL (7.4-10.4); Platelet Count 105 10^3/uL (150-450); Red Blood Count 2.77 10^6 /uL (4.18-5.48); Red Cell Distribution Width 16 % (10-15); White Blood Count 10.5 10^3/uL (3.5-10.8)
[2020-04-13 12:41] LABS: INR 1.28 (0.82-1.09)
[2020-04-13 13:17] LABS: Potassium 3.5 mmol/L (3.5-5.0)
[2020-04-13] MEDS ORDERED: Ondansetron 4 mg VIAL 2 MG/ML 2 ml VIAL ONE (13:45)
[2020-04-13] MEDS ORDERED: fentaNYL 100 mcg/2 ml 50 MCG/ML VIAL IV PRN (13:51)
[2020-04-13] MEDS ORDERED: diPHENhydraMINE IV 50 MG/ML 1 ml VIAL (BENADRYL) IV PRN (13:51)
[2020-04-13] MEDS ORDERED: Naloxone 0.4 mg VIAL 0.4 mg/ml 1 ml VIAL IV PRN (13:51)
[2020-04-13] MEDS ORDERED: Prochlorperazine 5 mg/ml 2 ml VIAL (10 mg) IV PRN (13:51)
[2020-04-13 15:52] LABS: Hematocrit 24 % (42-52); Hemoglobin 8.2 g/dL (14.0-18.0); Mean Corpuscular HGB Conc 35 g/dL (31-36); Mean Corpuscular Hemoglobin 34 pg (27-31); Mean Corpuscular Volume 98 fL (80-94); Mean Platelet Volume 8.2 fL (7.4-10.4); Platelet Count 93 10^3/uL (150-450); Red Blood Count 2.42 10^6 /uL (4.18-5.48); Red Cell Distribution Width 16 % (10-15); White Blood Count 9.1 10^3/uL (3.5-10.8)
[2020-04-13] MEDS ORDERED: Ondansetron 4 mg VIAL 2 MG/ML 2 ml VIAL IV PRN (16:10)
[2020-04-13] MEDS ORDERED: hydrALAZINE 20 mg/ml 1 ML Vial IV IV SLOW PU PRN (16:11)
[2020-04-13] MEDS ORDERED: Albuterol 2.5mg/3 ml (0.083%) NEB.SOLN INH PRN (16:12)
[2020-04-13] MEDS ORDERED: Magnesium Hydroxide LIQ 30 ML UDC PO ONE (17:00)
[2020-04-13] MEDS: NS 0.9% 1000 ml BAG 1,000 ML IV SCH (17:08)
[2020-04-13] MEDS ORDERED: Dextrose 50% Syringe 50 ml 25 GM/50 ML SYRINGE IV PUSH PRN (18:15)
[2020-04-13] MEDS: Clindamycin 900 MG/D5W BAG 900 MG/50 ML BAG IVPB SCH (19:55)
[2020-04-13] MEDS: Lactulose 30 ml UDC PO SCH (21:07)
[2020-04-13] MEDS: levETIRAcetam 500 MG IVPREMIX 500 MG/100 ML BAG IV SCH (21:08)
[2020-04-13] MEDS: Polyethylene Glycol 3350 17 GM PACKET PO SCH (21:08)
[2020-04-13] MEDS ORDERED: NS 0.9% 500 ml BAG 500 ML IV ONE (21:30)
[2020-04-14] MEDS: NS 0.9% 1000 ml BAG 1,000 ML IV SCH ×2 (01:50→14:51)
[2020-04-14] MEDS: Clindamycin 900 MG/D5W BAG 900 MG/50 ML BAG IVPB SCH ×3 (03:33→23:14)
[2020-04-14] MEDS ORDERED: Magnesium Sulfate 2 gm BAG 2 GM/50 ML BAG IVPB ONE (08:08)
[2020-04-14] MEDS: Lactulose 30 ml UDC PO SCH ×2 (09:52→22:32)
[2020-04-14] MEDS: levETIRAcetam 500 MG IVPREMIX 500 MG/100 ML BAG IV SCH (09:54)
[2020-04-14] MEDS: Polyethylene Glycol 3350 17 GM PACKET PO SCH ×2 (09:54→22:32)
[2020-04-14 18:01] LABS: ABS Eosinophils 0.2 10^3/ul (0-0.6); ABS Lymphocytes 0.5 10^3/ul (1.0-4.8); ABS Monocytes 0.5 10^3/ul (0-0.8); ABS Neutrophils 3.6 10^3/ul (1.5-7.7); Eosinophil % 3.8 %; Hematocrit 21 % (42-52); Hemoglobin 7.2 g/dL (14.0-18.0); Lymphocyte % 10.5 %; Mean Corpuscular HGB Conc 34 g/dL (31-36); Mean Corpuscular Hemoglobin 33 pg (27-31); Mean Corpuscular Volume 97 fL (80-94); Mean Platelet Volume 8.9 fL (7.4-10.4); Platelet Count 65 10^3/uL (150-450); Red Blood Count 2.18 10^6 /uL (4.18-5.48); Red Cell Distribution Width 16 % (10-15); White Blood Count 4.7 10^3/uL (3.5-10.8)
[2020-04-14 18:09] LABS: Activated Partial Thrombo Time 29.5 seconds (26.0-38.0); Calcium 7.9 mg/dL (8.6-10.3); INR 1.36 (0.82-1.09); Potassium 3.5 mmol/L (3.5-5.0)
[2020-04-14] MEDS ORDERED: Phenylephrine INJ 50 MG in NS 0.9% IV SCH (18:30)
[2020-04-14] MEDS ORDERED: Phenylephrine IV 10 MG/ML 1 ml VIAL ONE (19:26)
[2020-04-14] MEDS ORDERED: Calcium Gluconate 2 GM in NS 0.9% 100 ml BAG 100 ML IV ONE (20:00)
[2020-04-14] MEDS ORDERED: Bumetanide IV 0.25 MG/ML 4 ml VIAL (1 mg) SLOW PUSH PRN (20:05)
[2020-04-14] MEDS: levETIRAcetam 500 MG/100 ML IV SCH (21:32)
[2020-04-15 02:30] LABS: Hematocrit 26 % (42-52); Mean Corpuscular HGB Conc 34 g/dL (31-36); Mean Corpuscular Hemoglobin 32 pg (27-31); Mean Corpuscular Volume 95 fL (80-94); Mean Platelet Volume 8.4 fL (7.4-10.4); Platelet Count 85 10^3/uL (150-450); Red Blood Count 2.78 10^6 /uL (4.18-5.48); Red Cell Distribution Width 17 % (10-15); White Blood Count 6.7 10^3/uL (3.5-10.8)
[2020-04-15] MEDS: levETIRAcetam 500 MG/100 ML IV SCH ×3 (04:14→21:09)
[2020-04-15] MEDS: NS 0.9% 1000 ml BAG 1,000 ML IV SCH ×2 (05:16→21:40)
[2020-04-15] MEDS ORDERED: Dexamethasone IV 4 MG/ML VIAL 1 ml VIAL IV SLOW PU ONE (07:43)
[2020-04-15 08:13] LABS: Calcium 8.2 mg/dL (8.6-10.3); Magnesium 1.7 mg/dL (1.9-2.7); Phosphorus 3.4 mg/dL (2.5-5.0); Potassium 3.1 mmol/L (3.5-5.0)
[2020-04-15 08:15] LABS: ABS Eosinophils 0.2 10^3/ul (0-0.6); ABS Lymphocytes 0.5 10^3/ul (1.0-4.8); ABS Monocytes 0.5 10^3/ul (0-0.8); ABS Neutrophils 4.8 10^3/ul (1.5-7.7); Eosinophil % 3.3 %; Hematocrit 24 % (42-52); Hemoglobin 8.3 g/dL (14.0-18.0); Lymphocyte % 8.6 %; Mean Corpuscular HGB Conc 34 g/dL (31-36); Mean Corpuscular Hemoglobin 33 pg (27-31); Mean Corpuscular Volume 95 fL (80-94); Mean Platelet Volume 8.8 fL (7.4-10.4); Platelet Count 67 10^3/uL (150-450); Red Blood Count 2.54 10^6 /uL (4.18-5.48); Red Cell Distribution Width 17 % (10-15)
[2020-04-15] MEDS ORDERED: Magnesium Sulfate 2 gm BAG 2 GM/50 ML BAG IVPB ONE (08:20)
[2020-04-15] MEDS: Clindamycin 900 MG/D5W BAG 900 MG/50 ML BAG IVPB SCH ×4 (08:27→22:26)
[2020-04-15] MEDS: Polyethylene Glycol 3350 17 GM PACKET PO SCH ×2 (08:32→21:09)
[2020-04-15] MEDS: Lactulose 30 ml UDC PO SCH ×2 (08:45→21:09)
[2020-04-15] MEDS ORDERED: Influenza VAC *QUAD* 2020-21* 0.5 ML SYRINGE IM ONE (09:00)
[2020-04-15] MEDS ORDERED: CALCIUM GLUCONATE 1GM/50ML NS 1 GM/50 ML BAG IV ONE (09:31)
[2020-04-15 09:47] LABS: EGFR African American 124.2 (>60); EGFR Non-African American 102.7 (>60)
[2020-04-15] MEDS ORDERED: Potassium Phosphate IV 30 MMOLE in NS 0.9% 250 ml 250 ML IVPB ONE (10:00)
[2020-04-15 10:13] LABS: Body Fluid Source Peritonial Fluid
[2020-04-15 11:04] LABS: Body Fluid Mono 64 %
[2020-04-15] MEDS: cefTRIAXone 1 gm/50 mL NS BAG 1 GM/50 ML BAG IVPB SCH (11:57)
[2020-04-15] MEDS: Dexamethasone IV 4 MG/ML VIAL 1 ml VIAL IV SLOW PU SCH ×2 (14:29→21:09)
[2020-04-15] MEDS ORDERED: LaCOSAMide VIAL 200 MG in NS 0.9% 50 ML 50 ML IV ONE (15:00)
[2020-04-15 16:14] LABS: ABS Lymphocytes 0.3 10^3/ul (1.0-4.8); ABS Monocytes 0.2 10^3/ul (0-0.8); ABS Neutrophils 4.8 10^3/ul (1.5-7.7); Eosinophil % 0.1 %; Hematocrit 23 % (42-52); Lymphocyte % 5.1 %; Mean Corpuscular HGB Conc 35 g/dL (31-36); Mean Corpuscular Hemoglobin 33 pg (27-31); Mean Corpuscular Volume 95 fL (80-94); Mean Platelet Volume 8.7 fL (7.4-10.4); Platelet Count 71 10^3/uL (150-450); Red Blood Count 2.43 10^6 /uL (4.18-5.48); Red Cell Distribution Width 17 % (10-15); White Blood Count 5.2 10^3/uL (3.5-10.8)
[2020-04-15 16:19] LABS: Activated Partial Thrombo Time 22.8 seconds (26.0-38.0); INR 1.29 (0.82-1.09)
[2020-04-15 16:40] LABS: Calcium 8.1 mg/dL (8.6-10.3); EGFR African American 110.5 (>60); EGFR Non-African American 91.3 (>60); Magnesium 1.9 mg/dL (1.9-2.7); Potassium 3.4 mmol/L (3.5-5.0)
[2020-04-15 17:21] LABS: Phosphorus 4.7 mg/dL (2.5-5.0)
[2020-04-15] MEDS ORDERED: Phytonadione SUBCUT/IM Adult 10 MG/ML AMP (IM or SQ not preferred route) SUBCUT ONE (18:07)
[2020-04-15] MEDS ORDERED: Phytonadione 10 mg in 50 mL NS over 30 min IV ONE (19:00)
[2020-04-15 19:55] LABS: Fibrinogen 248.9 mg/dL (110.8-404.3)
[2020-04-16] MEDS ORDERED: Calcium Gluconate 2 GM in NS 0.9% 100 ml BAG 100 ML IV ONE (02:11)
[2020-04-16] MEDS: LaCOSAMide VIAL 100 MG in NS 0.9% 50 ML 50 ML IV SCH ×2 (03:13→15:52)
[2020-04-16] MEDS: levETIRAcetam 500 MG/100 ML IV SCH ×3 (03:59→21:25)
[2020-04-16 05:16] LABS: ABS Lymphocytes 0.5 10^3/ul (1.0-4.8); ABS Monocytes 0.4 10^3/ul (0-0.8); ABS Neutrophils 9.9 10^3/ul (1.5-7.7); Hematocrit 24 % (42-52); Hemoglobin 8.3 g/dL (14.0-18.0); Lymphocyte % 4.2 %; Mean Corpuscular HGB Conc 34 g/dL (31-36); Mean Corpuscular Hemoglobin 33 pg (27-31); Mean Corpuscular Volume 96 fL (80-94); Mean Platelet Volume 8.5 fL (7.4-10.4); Platelet Count 125 10^3/uL (150-450); Red Blood Count 2.54 10^6 /uL (4.18-5.48); Red Cell Distribution Width 17 % (10-15); White Blood Count 10.8 10^3/uL (3.5-10.8)
[2020-04-16 05:25] LABS: Activated Partial Thrombo Time 26.9 seconds (26.0-38.0); INR 1.26 (0.82-1.09)
[2020-04-16 05:32] LABS: BUN/Creatinine Ratio 15.8 (8-20); Calcium 8.6 mg/dL (8.6-10.3); EGFR African American 122.3 (>60); EGFR Non-African American 101.1 (>60); Magnesium 1.8 mg/dL (1.9-2.7); Phosphorus 4.8 mg/dL (2.5-5.0); Potassium 3.5 mmol/L (3.5-5.0)
[2020-04-16] MEDS: Dexamethasone IV 4 MG/ML VIAL 1 ml VIAL IV SLOW PU SCH (06:09)
[2020-04-16] MEDS: Clindamycin 900 MG/D5W BAG 900 MG/50 ML BAG IVPB SCH ×3 (06:10→23:00)
[2020-04-16] MEDS: Lactulose 30 ml UDC PO SCH ×2 (08:59→21:26)
[2020-04-16] MEDS: Polyethylene Glycol 3350 17 GM PACKET PO SCH ×2 (08:59→21:26)
[2020-04-16] MEDS: cefTRIAXone 1 gm/50 mL NS BAG 1 GM/50 ML BAG IVPB SCH (12:17)
[2020-04-16] MEDS: NS 0.9% 1000 ml BAG 1,000 ML IV SCH (13:49)
[2020-04-16] MEDS ORDERED: Scopolamine PATCH Remove NOTE PATCH OFF ONE (15:00)
[2020-04-16] MEDS ORDERED: Phenylephrine IV 50 MG in NS 0.9% 250 ml 245 ML IV ONE (16:54)
[2020-04-16] MEDS ORDERED: Phenylephrine IV 50 MG in NS 0.9% 250 ml 245 ML IV SCH (17:15)
[2020-04-16 17:33] LABS: ABS Lymphocytes 0.5 10^3/ul (1.0-4.8); ABS Monocytes 0.6 10^3/ul (0-0.8); Hematocrit 24 % (42-52); Hemoglobin 8.2 g/dL (14.0-18.0); Lymphocyte % 4.1 %; Mean Corpuscular HGB Conc 34 g/dL (31-36); Mean Corpuscular Hemoglobin 32 pg (27-31); Mean Corpuscular Volume 95 fL (80-94); Mean Platelet Volume 8.5 fL (7.4-10.4); Platelet Count 115 10^3/uL (150-450); Red Blood Count 2.53 10^6 /uL (4.18-5.48); Red Cell Distribution Width 17 % (10-15); White Blood Count 11.1 10^3/uL (3.5-10.8)
[2020-04-16 17:45] LABS: Activated Partial Thrombo Time 27.1 seconds (26.0-38.0); INR 1.27 (0.82-1.09)
[2020-04-16 18:02] LABS: Calcium 8.3 mg/dL (8.6-10.3); Magnesium 1.9 mg/dL (1.9-2.7); Potassium 3.4 mmol/L (3.5-5.0)
[2020-04-16 18:08] LABS: Phosphorus 3.6 mg/dL (2.5-5.0)
[2020-04-16] MEDS ORDERED: Furosemide 20 mg/2 ml IV VIAL IV ONE (21:59)
[2020-04-17] MEDS: LaCOSAMide VIAL 100 MG in NS 0.9% 50 ML 50 ML IV SCH ×3 (03:26→15:10)
[2020-04-17] MEDS: levETIRAcetam 500 MG/100 ML IV SCH ×3 (05:13→20:53)
[2020-04-17 06:21] LABS: Hematocrit 24 % (42-52); Mean Corpuscular HGB Conc 33 g/dL (31-36); Mean Corpuscular Hemoglobin 32 pg (27-31); Mean Corpuscular Volume 96 fL (80-94); Mean Platelet Volume 8.4 fL (7.4-10.4); Platelet Count 134 10^3/uL (150-450); Red Blood Count 2.51 10^6 /uL (4.18-5.48); Red Cell Distribution Width 18 % (10-15); White Blood Count 11.7 10^3/uL (3.5-10.8)
[2020-04-17 06:59] LABS: Calcium 7.7 mg/dL (8.6-10.3); Magnesium 1.8 mg/dL (1.9-2.7); Potassium 3.4 mmol/L (3.5-5.0)
[2020-04-17] MEDS: NS 0.9% 1000 ml BAG 1,000 ML IV SCH (07:57)
[2020-04-17] MEDS ORDERED: Magnesium Sulfate 2 gm BAG 2 GM/50 ML BAG IVPB ONE (07:59)
[2020-04-17] MEDS ORDERED: Phenylephrine IV 50 MG in NS 0.9% 250 ml 245 ML IV SCH (08:00)
[2020-04-17] MEDS ORDERED: Calcium Gluconate 2 GM in NS 0.9% 100 ml BAG 100 ML IV ONE (08:00)
[2020-04-17] MEDS: Clindamycin 900 MG/D5W BAG 900 MG/50 ML BAG IVPB SCH ×2 (08:53→15:02)
[2020-04-17] MEDS: Polyethylene Glycol 3350 17 GM PACKET PO SCH ×2 (08:58→21:04)
[2020-04-17] MEDS: Lactulose 30 ml UDC PO SCH ×2 (08:58→21:04)
[2020-04-17] MEDS ORDERED: Influenza VAC *QUAD* 2020-21* 0.5 ML SYRINGE IM ONE (09:00)
[2020-04-17 09:31] LABS: INR 1.46 (0.82-1.09)
[2020-04-17] MEDS: cefTRIAXone 1 gm/50 mL NS BAG 1 GM/50 ML BAG IVPB SCH (11:59)
[2020-04-17 12:30] LABS: Albumin 2.6 g/dL (3.2-5.2); Calcium 8.4 mg/dL (8.6-10.3); Indirect Bilirubin 0.7 mg/dL (0.3-1.0); Potassium 3.4 mmol/L (3.5-5.0); Total Bilirubin 0.9 mg/dL (0.2-1.0)
[2020-04-17 12:36] LABS: Albumin/Globulin Ratio 0.9 (1-3); BUN/Creatinine Ratio 17.5 (8-20); EGFR African American 115.3 (>60); EGFR Non-African American 95.3 (>60); Globulin 2.8 g/dL (2-4); Total Protein 5.4 g/dL (6.4-8.9)
[2020-04-17 12:41] LABS: Fluid Type, Amylase PERITONEAL; Fluid Type, Glucose PERITONEAL; Glucose, BF 119 mg/dL
[2020-04-17 12:43] LABS: Albumin, BF 0.4 g/dL; Fluid Type, Albumin PERITONEAL; Fluid Type, Protein, Total PERITONEAL
[2020-04-17 12:45] LABS: Lactate Dehydrogenase, BF 40 U/L
[2020-04-17 13:57] LABS: Fluid Type: PERITONEAL; Triglycerides (BF) 30 mg/dL
[2020-04-17 13:58] LABS: Body Fluid Bilirubin 0.1 mg/dL; Fluid Type PERITONEAL
[2020-04-17] MEDS ORDERED: Magnesium Sulfate IV 3 GM in NS 0.9% 100 ml BAG 100 ML IVPB ONE (18:00)
[2020-04-17] MEDS: KCL 10 MEQ/50 ML IVPREMIX 10 MEQ/50 ML BAG IV SCH ×2 (18:11→20:04)
[2020-04-17] MEDS ORDERED: Furosemide 20 mg/2 ml IV VIAL IV ONE (21:00)
[2020-04-18] MEDS ORDERED: Phenylephrine IV 100 MG in NS 0.9% 500 ml BAG 490 ML IV SCH (02:00)
[2020-04-18] MEDS: LaCOSAMide VIAL 100 MG in NS 0.9% 50 ML 50 ML IV SCH ×2 (03:11→15:52)
[2020-04-18] MEDS: levETIRAcetam 500 MG/100 ML IV SCH (04:01)
[2020-04-18 04:26] LABS: Hematocrit 29 % (42-52); Hemoglobin 9.6 g/dL (14.0-18.0); Mean Corpuscular HGB Conc 33 g/dL (31-36); Mean Corpuscular Hemoglobin 33 pg (27-31); Mean Corpuscular Volume 97 fL (80-94); Platelet Count 121 10^3/uL (150-450); Red Blood Count 2.97 10^6 /uL (4.18-5.48); Red Cell Distribution Width 18 % (10-15); White Blood Count 7.7 10^3/uL (3.5-10.8)
[2020-04-18 05:31] LABS: Potassium 3.8 mmol/L (3.5-5.0)
[2020-04-18 05:41] LABS: Albumin 2.8 g/dL (3.2-5.2); Calcium 8.1 mg/dL (8.6-10.3); Total Bilirubin 1.1 mg/dL (0.2-1.0)
[2020-04-18 05:45] LABS: Albumin/Globulin Ratio 0.9 (1-3); BUN/Creatinine Ratio 17.9 (8-20); EGFR Non-African American 90.1 (>60); Globulin 3.2 g/dL (2-4)
[2020-04-18] MEDS ORDERED: levETIRAcetam 500 MG IVPREMIX 500 MG/100 ML BAG IVPB ONE (06:48)
[2020-04-18] MEDS ORDERED: LORazepam 2 mg VIAL 1 ml IV PUSH ONE (06:54)
[2020-04-18] MEDS ORDERED: Lorazepam PYXIS KEY PRN (06:54)
[2020-04-18] MEDS ORDERED: LORazepam 2 mg VIAL 1 ml ONE ×2 (07:00→07:06)
[2020-04-18] MEDS: Mannitol 25% (12.5 GM) 50 ML 12.5 GM/50 ML VIAL IV ONE ×2 (07:08→07:33)
[2020-04-18] MEDS ORDERED: levETIRAcetam 500 MG/100 ML IV SCH ×2 (08:00→13:30)
[2020-04-18] MEDS ORDERED: Calcium Gluconate 2 GM in NS 0.9% 100 ml BAG 100 ML IV SCH (09:00)
[2020-04-18] MEDS: Polyethylene Glycol 3350 17 GM PACKET PO SCH ×4 (09:17→21:43)
[2020-04-18] MEDS: Lactulose 30 ml UDC PO SCH ×4 (09:18→21:43)
[2020-04-18] MEDS: LORazepam 2 mg VIAL 1 ml IV PUSH PRN ×3 (09:40→15:00)
[2020-04-18] MEDS ORDERED: Fosphenytoin 1000 MG PE in 50 ml NS IVPB ONE (11:00)
[2020-04-18] MEDS: cefTRIAXone 1 gm/50 mL NS BAG 1 GM/50 ML BAG IVPB SCH (12:38)
[2020-04-18] MEDS ORDERED: Polyethylene Glycol 3350 17 GM PACKET ONE (12:38)
[2020-04-18] MEDS ORDERED: Phenytoin IV 50 MG/ML 2 ML VIAL (100 MG) IVPB ONE (16:09)
[2020-04-18] MEDS ORDERED: Magnesium Hydroxide LIQ 30 ML UDC PO PRN ×2 (16:19→16:38)
[2020-04-18] MEDS ORDERED: Ondansetron 4 mg VIAL 2 MG/ML 2 ml VIAL IV PRN ×2 (16:19→18:11)
[2020-04-18] MEDS ORDERED: FOSPHENYTOIN IVPB ONE (16:30)
[2020-04-18] MEDS ORDERED: NS 0.9% IVPB ONE (16:30)
[2020-04-18] MEDS ORDERED: hydrALAZINE 20 mg/ml 1 ML Vial IV IV SLOW PU PRN (16:39)
[2020-04-18] MEDS ORDERED: HYDROmorphone 1 MG/1 ML SYRINGE IV SLOW PU PRN (16:48)
[2020-04-18] MEDS ORDERED: NS 0.9% w/ 20 Meq KCL 1000 ml 1,000 ML IV SCH (17:00)
[2020-04-18] MEDS ORDERED: Pantoprazole 80 mg in NS BAG 80 MG/250 ML BAG IV SCH (18:00)
[2020-04-18] MEDS ORDERED: Clindamycin 900 MG/D5W BAG 900 MG/50 ML BAG IVPB SCH (18:00)
[2020-04-18] MEDS ORDERED: Fosphenytoin 100 MG in NS 0.9% 50 ML IVPB SCH (19:00)
[2020-04-18] MEDS ORDERED: Albuterol 2.5mg/3 ml (0.083%) NEB.SOLN INH SCH (19:00)
[2020-04-18] MEDS: levETIRAcetam 500 MG IVPREMIX 500 MG/100 ML BAG IV SCH (21:07)
[2020-04-18] MEDS: Rifaximin 20 mg/mL Suspension (Pharmacy to Compound) PO SCH (21:43)
[2020-04-18] MEDS ORDERED: Dexamethasone IV 4 MG/ML VIAL 1 ml VIAL IV SLOW PU SCH (22:00)
[2020-04-19] MEDS: Fosphenytoin 100 MG in NS 0.9% 50 ML 50 ML IVPB SCH ×3 (01:27→18:33)
[2020-04-19] MEDS ORDERED: levETIRAcetam 500 MG IVPREMIX 500 MG/100 ML BAG IV SCH (02:00)
[2020-04-19] MEDS: LaCOSAMide VIAL 100 MG in NS 0.9% 50 ML 50 ML IV SCH ×2 (02:32→16:13)
[2020-04-19] MEDS: levETIRAcetam 500 MG IVPREMIX 500 MG/100 ML BAG IV SCH ×4 (04:44→20:33)
[2020-04-19 06:24] LABS: ABS Eosinophils 0.2 10^3/ul (0-0.6); ABS Lymphocytes 0.5 10^3/ul (1.0-4.8); ABS Monocytes 0.5 10^3/ul (0-0.8); ABS Neutrophils 4.9 10^3/ul (1.5-7.7); Eosinophil % 3.4 %; Hematocrit 27 % (42-52); Hemoglobin 9.2 g/dL (14.0-18.0); Mean Corpuscular HGB Conc 34 g/dL (31-36); Mean Corpuscular Hemoglobin 33 pg (27-31); Mean Corpuscular Volume 97 fL (80-94); Mean Platelet Volume 8.2 fL (7.4-10.4); Platelet Count 94 10^3/uL (150-450); Red Blood Count 2.82 10^6 /uL (4.18-5.48); Red Cell Distribution Width 18 % (10-15); White Blood Count 6.1 10^3/uL (3.5-10.8)
[2020-04-19 06:28] LABS: Calcium 8.1 mg/dL (8.6-10.3)
[2020-04-19 06:51] LABS: Phenytoin 11.9 mcg/mL (10-20)
[2020-04-19] MEDS ORDERED: LORazepam 2 mg VIAL 1 ml IV PUSH ONE (07:00)
[2020-04-19] MEDS: LORazepam 2 mg VIAL 1 ml IV PUSH PRN (07:08)
[2020-04-19] MEDS ORDERED: Multivitamins/Minerals TAB PO SCH (09:00)
[2020-04-19] MEDS ORDERED: Enoxaparin 40 MG/0.4 ML SYR SUBCUT SCH (09:00)
[2020-04-19] MEDS: Polyethylene Glycol 3350 17 GM PACKET PO SCH ×2 (10:11→20:08)
[2020-04-19] MEDS: Amantadine SOLN ORALSYR 10 mg/ml G TUBE SCH (10:11)
[2020-04-19] MEDS: Rifaximin 20 mg/mL Suspension (Pharmacy to Compound) PO SCH ×2 (10:12→20:08)
[2020-04-19] MEDS: Lactulose 30 ml UDC PO SCH ×2 (10:12→20:08)
[2020-04-19] MEDS: cefTRIAXone 1 gm/50 mL NS BAG 1 GM/50 ML BAG IVPB SCH (12:07)
[2020-04-19] MEDS ORDERED: Mannitol 25% (12.5 GM) 50 ML 12.5 GM/50 ML VIAL IV SCH (16:30)
[2020-04-19] MEDS ORDERED: Mannitol 25% (12.5 GM) 50 ML 12.5 GM/50 ML VIAL ONE ×3 (17:42→18:31)
[2020-04-19] MEDS: MANNITOL IVPB SCH ×2 (17:54→18:36)
[2020-04-19] MEDS: NS 0.9% 1,000 ML IV SCH (18:40)
[2020-04-19] MEDS: Escitalopram SOLN ORALSYR 5 MG/5 ML G TUBE SCH (20:11)
[2020-04-20] MEDS ORDERED: Labetalol IV 5 MG/ML 20 ml VIAL ONE (00:05)
[2020-04-20] MEDS: Labetalol IV 5 MG/ML 20 ml VIAL IV PUSH PRN ×3 (00:09→19:02)
[2020-04-20] MEDS: Fosphenytoin 100 MG in NS 0.9% 50 ML 50 ML IVPB SCH ×3 (00:10→16:41)
[2020-04-20] MEDS ORDERED: Mannitol 25% (12.5 GM) 50 ML 12.5 GM/50 ML VIAL ONE ×8 (01:24→17:49)
[2020-04-20] MEDS: MANNITOL IVPB SCH ×6 (02:18→18:00)
[2020-04-20] MEDS: LaCOSAMide VIAL 100 MG in NS 0.9% 50 ML 50 ML IV SCH ×2 (02:24→15:46)
[2020-04-20] MEDS: levETIRAcetam 500 MG IVPREMIX 500 MG/100 ML BAG IV SCH ×4 (03:49→22:15)
[2020-04-20 06:15] LABS: ABS Eosinophils 0.1 10^3/ul (0-0.6); ABS Lymphocytes 0.4 10^3/ul (1.0-4.8); ABS Monocytes 0.4 10^3/ul (0-0.8); Eosinophil % 2.4 %; Hematocrit 25 % (42-52); Hemoglobin 8.5 g/dL (14.0-18.0); Mean Corpuscular HGB Conc 34 g/dL (31-36); Mean Corpuscular Hemoglobin 32 pg (27-31); Mean Corpuscular Volume 97 fL (80-94); Mean Platelet Volume 8.1 fL (7.4-10.4); Platelet Count 83 10^3/uL (150-450); Red Blood Count 2.62 10^6 /uL (4.18-5.48); Red Cell Distribution Width 18 % (10-15); White Blood Count 4.9 10^3/uL (3.5-10.8)
[2020-04-20 06:18] LABS: BUN/Creatinine Ratio 18.2 (8-20); Calcium 8.3 mg/dL (8.6-10.3); EGFR African American 120.5 (>60); EGFR Non-African American 99.6 (>60); Magnesium 2.1 mg/dL (1.9-2.7); Potassium 3.7 mmol/L (3.5-5.0)
[2020-04-20] MEDS: NS 0.9% 1,000 ML IV SCH (06:23)
[2020-04-20] MEDS: Rifaximin 20 mg/mL Suspension (Pharmacy to Compound) PO SCH ×2 (08:46→22:24)
[2020-04-20] MEDS: Polyethylene Glycol 3350 17 GM PACKET PO SCH ×2 (08:46→22:17)
[2020-04-20] MEDS: Lactulose 30 ml UDC PO SCH ×2 (08:47→22:16)
[2020-04-20] MEDS: Amantadine SOLN ORALSYR 10 mg/ml G TUBE SCH (08:47)
[2020-04-20] MEDS: cefTRIAXone 1 gm/50 mL NS BAG 1 GM/50 ML BAG IVPB SCH (11:52)
[2020-04-20] MEDS ORDERED: Fluconazole ORAL.SUSP 40 MG/ML 35 ML BTL PO ONE (14:43)
[2020-04-20] MEDS: Nystatin SUSPENSION 100,000 UNITS/ML UDC PO SCH ×2 (16:41→22:16)
[2020-04-20] MEDS: Escitalopram SOLN ORALSYR 5 MG/5 ML G TUBE SCH (22:17)
[2020-04-20] MEDS: hydrALAZINE 20 mg/ml 1 ML Vial IV IV SLOW PU PRN (23:44)
[2020-04-21] MEDS: NS 0.9% 1,000 ML IV SCH (00:06)
[2020-04-21] MEDS: Fosphenytoin 100 MG in NS 0.9% 50 ML 50 ML IVPB SCH ×3 (01:10→16:40)
[2020-04-21] MEDS ORDERED: Mannitol 25% (12.5 GM) 50 ML 12.5 GM/50 ML VIAL ONE ×2 (02:23)
[2020-04-21] MEDS: MANNITOL IVPB SCH ×5 (02:31→18:01)
[2020-04-21] MEDS: Labetalol IV 5 MG/ML 20 ml VIAL IV PUSH PRN (02:40)
[2020-04-21] MEDS: levETIRAcetam 500 MG IVPREMIX 500 MG/100 ML BAG IV SCH ×4 (05:38→21:03)
[2020-04-21] MEDS: LaCOSAMide VIAL 100 MG in NS 0.9% 50 ML 50 ML IV SCH ×2 (05:42→16:11)
[2020-04-21] MEDS: hydrALAZINE 20 mg/ml 1 ML Vial IV IV SLOW PU PRN ×2 (06:08→21:31)
[2020-04-21 07:14] LABS: Calcium 8.5 mg/dL (8.6-10.3); Potassium 3.7 mmol/L (3.5-5.0)
[2020-04-21 07:19] LABS: BUN/Creatinine Ratio 18.1 (8-20); EGFR African American 130.2 (>60); EGFR Non-African American 107.6 (>60)
[2020-04-21 07:30] LABS: Mean Platelet Volume 8.5 fL (7.4-10.4); Platelet Count 81 10^3/uL (150-450)
[2020-04-21] MEDS: Lactulose 30 ml UDC PO SCH ×2 (08:25→21:03)
[2020-04-21] MEDS: oxyCODONE 5 mg/5 ml ORAL.SOLN UDC PO PRN ×2 (08:26→17:39)
[2020-04-21] MEDS: Polyethylene Glycol 3350 17 GM PACKET PO SCH ×2 (08:27→21:03)
[2020-04-21] MEDS: Nystatin SUSPENSION 100,000 UNITS/ML UDC PO SCH ×4 (08:29→21:03)
[2020-04-21] MEDS: Amantadine SOLN ORALSYR 10 mg/ml G TUBE SCH (08:33)
[2020-04-21] MEDS: NS 0.45% 1000 ml BAG 1,000 ML IV SCH (08:36)
[2020-04-21] MEDS ORDERED: Fluconazole ORAL.SUSP 40 MG/ML 35 ML BTL PO SCH (09:00)
[2020-04-21] MEDS ORDERED: Calcium Gluconate 2 GM in NS 0.9% 100 ml BAG 100 ML IV ONE (09:00)
[2020-04-21] MEDS: Rifaximin 20 mg/mL Suspension (Pharmacy to Compound) PO SCH ×2 (09:30→21:03)
[2020-04-21 11:47] LABS: ABS Eosinophils 0.2 10^3/ul (0-0.6); ABS Lymphocytes 0.4 10^3/ul (1.0-4.8); ABS Monocytes 0.4 10^3/ul (0-0.8); Eosinophil % 3.1 %; Hematocrit 26 % (42-52); Hemoglobin 8.5 g/dL (14.0-18.0); Lymphocyte % 8.4 %; Mean Corpuscular HGB Conc 33 g/dL (31-36); Mean Corpuscular Hemoglobin 33 pg (27-31); Mean Corpuscular Volume 99 fL (80-94); Nucleated Red Blood Cells % 0.2; Red Blood Count 2.61 10^6 /uL (4.18-5.48); Red Cell Distribution Width 19 % (10-15)
[2020-04-21 11:48] LABS: Magnesium 2.3 mg/dL (1.9-2.7)
[2020-04-21 11:54] LABS: Phenytoin 9.3 mcg/mL (10-20)
[2020-04-21] MEDS: cefTRIAXone 1 gm/50 mL NS BAG 1 GM/50 ML BAG IVPB SCH (13:18)
[2020-04-21] MEDS: Escitalopram SOLN ORALSYR 5 MG/5 ML G TUBE SCH (21:03)
[2020-04-22] MEDS: Fosphenytoin 100 MG in NS 0.9% 50 ML 50 ML IVPB SCH ×4 (00:22→23:42)
[2020-04-22] MEDS: NS 0.45% 1000 ml BAG 1,000 ML IV SCH ×2 (02:08→18:09)
[2020-04-22] MEDS: LaCOSAMide VIAL 100 MG in NS 0.9% 50 ML 50 ML IV SCH ×2 (02:45→16:12)
[2020-04-22] MEDS: levETIRAcetam 500 MG IVPREMIX 500 MG/100 ML BAG IV SCH ×4 (02:47→21:35)
[2020-04-22] MEDS: oxyCODONE 5 mg/5 ml ORAL.SOLN UDC PO PRN ×2 (02:53→14:06)
[2020-04-22 04:44] LABS: Albumin 2.8 g/dL (3.2-5.2); Albumin/Globulin Ratio 0.9 (1-3); BUN/Creatinine Ratio 21.7 (8-20); Calcium 8.6 mg/dL (8.6-10.3); EGFR African American 136.8 (>60); Globulin 3.1 g/dL (2-4); HDL Cholesterol 27.6 mg/dL; Phenytoin 9.3 mcg/mL (10-20); Total Bilirubin 0.7 mg/dL (0.2-1.0); Total Protein 5.9 g/dL (6.4-8.9)
[2020-04-22 04:49] LABS: ABS Eosinophils 0.3 10^3/ul (0-0.6); ABS Lymphocytes 0.5 10^3/ul (1.0-4.8); ABS Monocytes 0.6 10^3/ul (0-0.8); ABS Neutrophils 6.3 10^3/ul (1.5-7.7); Eosinophil % 4.2 %; Hematocrit 28 % (42-52); Hemoglobin 9.1 g/dL (14.0-18.0); Lymphocyte % 6.3 %; Mean Corpuscular HGB Conc 32 g/dL (31-36); Mean Corpuscular Hemoglobin 32 pg (27-31); Mean Corpuscular Volume 99 fL (80-94); Mean Platelet Volume 8.8 fL (7.4-10.4); Platelet Count 93 10^3/uL (150-450); Red Blood Count 2.83 10^6 /uL (4.18-5.48); Red Cell Distribution Width 19 % (10-15); White Blood Count 7.7 10^3/uL (3.5-10.8)
[2020-04-22] MEDS: Polyethylene Glycol 3350 17 GM PACKET PO SCH ×2 (07:30→21:44)
[2020-04-22] MEDS: Lactulose 30 ml UDC PO SCH ×2 (07:55→21:40)
[2020-04-22] MEDS: Nystatin SUSPENSION 100,000 UNITS/ML UDC PO SCH ×4 (08:00→21:44)
[2020-04-22] MEDS: Amantadine SOLN ORALSYR 10 mg/ml G TUBE SCH (08:06)
[2020-04-22] MEDS: NADOLOL 20 MG PO SCH ×2 (08:07→10:01)
[2020-04-22] MEDS: Rifaximin 20 mg/mL Suspension (Pharmacy to Compound) PO SCH ×2 (09:39→21:41)
[2020-04-22 11:00] LABS: Urine Appearance Cloudy; Urine Bilirubin Negative (Negative); Urine Blood 3+ (Negative); Urine Color Yellow; Urine Glucose Negative (Negative); Urine Ketones Negative (Negative); Urine Nitrite Negative (Negative); Urine Protein 1+(30 mg/dL) (Negative); Urine Specific Gravity 1.021 (1.010-1.030); Urine Urobilinogen Negative (Negative)
[2020-04-22 11:02] LABS: Urine Bacteria Absent (Absent); Urine Red Blood Cell 3+(>10/hpf) (Absent); Urine White Blood Cell Trace(0-5/hpf) (Absent)
[2020-04-22] MEDS: Escitalopram SOLN ORALSYR 5 MG/5 ML G TUBE SCH (21:44)
[2020-04-23] MEDS: levETIRAcetam 500 MG IVPREMIX 500 MG/100 ML BAG IV SCH ×5 (03:23→22:02)
[2020-04-23] MEDS: LaCOSAMide ORALSYR LIQ 10 MG/ML NG TUBE SCH ×2 (03:26→16:09)
[2020-04-23 04:50] LABS: ABS Eosinophils 0.4 10^3/ul (0-0.6); ABS Lymphocytes 0.9 10^3/ul (1.0-4.8); ABS Monocytes 0.9 10^3/ul (0-0.8); ABS Neutrophils 7.1 10^3/ul (1.5-7.7); Eosinophil % 4.4 %; Hematocrit 30 % (42-52); Hemoglobin 9.8 g/dL (14.0-18.0); Lymphocyte % 9.6 %; Mean Corpuscular HGB Conc 33 g/dL (31-36); Mean Corpuscular Hemoglobin 32 pg (27-31); Mean Corpuscular Volume 98 fL (80-94); Mean Platelet Volume 8.7 fL (7.4-10.4); Nucleated Red Blood Cells % 0.1; Platelet Count 107 10^3/uL (150-450); Red Blood Count 3.03 10^6 /uL (4.18-5.48); Red Cell Distribution Width 19 % (10-15); White Blood Count 9.3 10^3/uL (3.5-10.8)
[2020-04-23 05:06] LABS: Potassium 3.7 mmol/L (3.5-5.0)
[2020-04-23] MEDS: NS 0.45% 1000 ml BAG 1,000 ML IV SCH ×2 (05:58→20:10)
[2020-04-23] MEDS: Polyethylene Glycol 3350 17 GM PACKET PO SCH ×3 (07:29→21:59)
[2020-04-23] MEDS: Fosphenytoin 100 MG in NS 0.9% 50 ML 50 ML IVPB SCH ×3 (08:57→23:53)
[2020-04-23] MEDS: Lactulose 30 ml UDC PO SCH ×2 (08:57→21:55)
[2020-04-23] MEDS: NADOLOL 20 MG PO SCH (09:04)
[2020-04-23] MEDS: Rifaximin 20 mg/mL Suspension (Pharmacy to Compound) PO SCH ×2 (09:13→21:55)
[2020-04-23] MEDS: Amantadine SOLN ORALSYR 10 mg/ml G TUBE SCH (09:13)
[2020-04-23] MEDS: Nystatin SUSPENSION 100,000 UNITS/ML UDC PO SCH ×4 (11:12→21:38)
[2020-04-23] MEDS: Escitalopram SOLN ORALSYR 5 MG/5 ML G TUBE SCH (22:55)
[2020-04-24] MEDS: levETIRAcetam 500 MG IVPREMIX 500 MG/100 ML BAG IV SCH ×4 (03:22→22:32)
[2020-04-24 03:38] LABS: Urine Appearance Cloudy; Urine Bilirubin Negative (Negative); Urine Blood 3+ (Negative); Urine Color Yellow; Urine Glucose Negative (Negative); Urine Ketones Negative (Negative); Urine Nitrite Negative (Negative); Urine Protein 1+(30 mg/dL) (Negative); Urine Specific Gravity 1.014 (1.010-1.030); Urine Urobilinogen Negative (Negative)
[2020-04-24 03:42] LABS: Urine Bacteria Absent (Absent); Urine Red Blood Cell 3+(>10/hpf) (Absent); Urine White Blood Cell 3+(>20/hpf) (Absent)
[2020-04-24 06:02] LABS: Potassium 3.6 mmol/L (3.5-5.0)
[2020-04-24 06:38] LABS: ABS Eosinophils 0.3 10^3/ul (0-0.6); ABS Lymphocytes 0.9 10^3/ul (1.0-4.8); ABS Monocytes 0.8 10^3/ul (0-0.8); ABS Neutrophils 6.2 10^3/ul (1.5-7.7); Eosinophil % 4.1 %; Hematocrit 30 % (42-52); Hemoglobin 9.8 g/dL (14.0-18.0); Mean Corpuscular HGB Conc 33 g/dL (31-36); Mean Corpuscular Hemoglobin 32 pg (27-31); Mean Corpuscular Volume 98 fL (80-94); Mean Platelet Volume 9.3 fL (7.4-10.4); Platelet Count 81 10^3/uL (150-450); Red Blood Count 3.04 10^6 /uL (4.18-5.48); Red Cell Distribution Width 18 % (10-15); White Blood Count 8.3 10^3/uL (3.5-10.8)
[2020-04-24] MEDS: Fosphenytoin 100 MG in NS 0.9% 50 ML 50 ML IVPB SCH ×3 (07:58→23:53)
[2020-04-24] MEDS: NADOLOL 20 MG PO SCH (10:02)
[2020-04-24] MEDS: Rifaximin 20 mg/mL Suspension (Pharmacy to Compound) PO SCH ×2 (10:03→22:02)
[2020-04-24] MEDS: Lactulose 30 ml UDC PO SCH ×2 (10:04→22:07)
[2020-04-24] MEDS: Nystatin SUSPENSION 100,000 UNITS/ML UDC PO SCH ×4 (10:06→21:55)
[2020-04-24] MEDS: Polyethylene Glycol 3350 17 GM PACKET PO SCH ×2 (10:07→22:03)
[2020-04-24] MEDS: Amantadine SOLN ORALSYR 10 mg/ml G TUBE SCH (11:01)
[2020-04-24] MEDS: NS 0.45% 1000 ml BAG 1,000 ML IV SCH ×2 (12:54→22:30)
[2020-04-25] MEDS: levETIRAcetam 500 MG IVPREMIX 500 MG/100 ML BAG IV SCH ×2 (03:12→10:08)
[2020-04-25] MEDS: Fosphenytoin 100 MG in NS 0.9% 50 ML 50 ML IVPB SCH (08:15)
[2020-04-25] MEDS: Amantadine SOLN ORALSYR 10 mg/ml G TUBE SCH (09:54)
[2020-04-25] MEDS: Polyethylene Glycol 3350 17 GM PACKET PO SCH ×2 (09:54→20:42)
[2020-04-25] MEDS: NADOLOL 20 MG PO SCH (09:55)
[2020-04-25] MEDS: Nystatin SUSPENSION 100,000 UNITS/ML UDC PO SCH ×5 (09:56→20:27)
[2020-04-25] MEDS: Lactulose 30 ml UDC PO SCH ×2 (09:56→20:36)
[2020-04-25] MEDS: Rifaximin 20 mg/mL Suspension (Pharmacy to Compound) PO SCH ×2 (09:56→20:36)
[2020-04-25] MEDS: Albumin Human 25% 25 GM/100 ML BTL IV SCH ×4 (12:43→19:39)
[2020-04-26] MEDS: Polyethylene Glycol 3350 17 GM PACKET PO SCH ×2 (08:04→20:52)
[2020-04-26] MEDS: Lactulose 30 ml UDC PO SCH ×2 (08:07→20:54)
[2020-04-26] MEDS: NADOLOL 20 MG PO SCH (08:07)
[2020-04-26] MEDS: Rifaximin 20 mg/mL Suspension (Pharmacy to Compound) PO SCH ×2 (08:09→20:53)
[2020-04-26] MEDS: Nystatin SUSPENSION 100,000 UNITS/ML UDC PO SCH ×4 (08:09→21:00)
[2020-04-27 06:00] LABS: ABS Eosinophils 0.3 10^3/ul (0-0.6); ABS Lymphocytes 0.7 10^3/ul (1.0-4.8); ABS Monocytes 0.5 10^3/ul (0-0.8); ABS Neutrophils 4.1 10^3/ul (1.5-7.7); Eosinophil % 5.2 %; Hematocrit 27 % (42-52); Hemoglobin 9.2 g/dL (14.0-18.0); Lymphocyte % 11.8 %; Mean Corpuscular HGB Conc 34 g/dL (31-36); Mean Corpuscular Hemoglobin 33 pg (27-31); Mean Corpuscular Volume 96 fL (80-94); Mean Platelet Volume 9.7 fL (7.4-10.4); Platelet Count 69 10^3/uL (150-450); Red Blood Count 2.81 10^6 /uL (4.18-5.48); Red Cell Distribution Width 18 % (10-15); White Blood Count 5.6 10^3/uL (3.5-10.8)
[2020-04-27 06:43] LABS: BUN/Creatinine Ratio 17.6 (8-20); Calcium 8.1 mg/dL (8.6-10.3); EGFR African American 139.1 (>60); Potassium 3.2 mmol/L (3.5-5.0)
[2020-04-27] MEDS ORDERED: Calcium Gluconate 2 GM in NS 0.9% 100 ml BAG 100 ML IV ONE (08:00)
[2020-04-27] MEDS ORDERED: Amantadine SOLN ORALSYR 10 mg/ml FEED TUBE SCH (09:00)
[2020-04-27] MEDS: NADOLOL 20 MG PO SCH (09:15)
[2020-04-27] MEDS: Potassium Chlor 20 meq TAB.ER PO SCH ×2 (09:16→21:23)
[2020-04-27] MEDS: Lactulose 30 ml UDC PO SCH ×2 (09:18→21:25)
[2020-04-27] MEDS: Nystatin SUSPENSION 100,000 UNITS/ML UDC PO SCH ×2 (09:18→11:12)
[2020-04-27] MEDS: Rifaximin 20 mg/mL Suspension (Pharmacy to Compound) PO SCH (09:18)
[2020-04-27] MEDS: Polyethylene Glycol 3350 17 GM PACKET PO SCH ×2 (09:19→21:04)
[2020-04-28 05:47] LABS: ABS Eosinophils 0.4 10^3/ul (0-0.6); ABS Lymphocytes 0.7 10^3/ul (1.0-4.8); ABS Monocytes 0.7 10^3/ul (0-0.8); ABS Neutrophils 5.3 10^3/ul (1.5-7.7); Eosinophil % 5.1 %; Hematocrit 27 % (42-52); Hemoglobin 9.2 g/dL (14.0-18.0); Lymphocyte % 10.4 %; Mean Corpuscular HGB Conc 34 g/dL (31-36); Mean Corpuscular Hemoglobin 33 pg (27-31); Mean Corpuscular Volume 96 fL (80-94); Mean Platelet Volume 9.1 fL (7.4-10.4); Platelet Count 80 10^3/uL (150-450); Red Blood Count 2.84 10^6 /uL (4.18-5.48); Red Cell Distribution Width 19 % (10-15); White Blood Count 7.1 10^3/uL (3.5-10.8)
[2020-04-28 05:59] LABS: BUN/Creatinine Ratio 19.1 (8-20); Calcium 8.1 mg/dL (8.6-10.3); EGFR African American 139.1 (>60); Magnesium 1.7 mg/dL (1.9-2.7); Potassium 3.7 mmol/L (3.5-5.0)
[2020-04-28] MEDS ORDERED: Magnesium Sulfate 2 gm BAG 2 GM/50 ML BAG IVPB ONE (08:33)
[2020-04-28] MEDS: Lactulose 30 ml UDC PO SCH ×5 (11:00→21:47)
[2020-04-28] MEDS: Potassium Chlor 20 meq TAB.ER PO SCH ×3 (13:55→21:25)
[2020-04-28] MEDS: Polyethylene Glycol 3350 17 GM PACKET PO SCH ×2 (14:16→21:45)
[2020-04-28] MEDS: NADOLOL 20 MG PO SCH (14:17)
[2020-04-28] MEDS ORDERED: levETIRAcetam 1000MG IVPREMIX 1,000 MG/100 ML BAG IVPB ONE (14:23)
[2020-04-28] MEDS ORDERED: levETIRAcetam 1000MG IVPREMIX 1,000 MG/100 ML BAG IVPB SCH (23:00)
[2020-04-28] MEDS ORDERED: Mannitol 25% (12.5 GM) 50 ML 12.5 GM/50 ML VIAL IV SCH (23:30)
[2020-04-28] MEDS ORDERED: Mannitol 25% (12.5 GM) 50 ML 12.5 GM/50 ML VIAL IV ONE (23:45)
[2020-04-29] MEDS: levETIRAcetam 500 MG IVPREMIX 500 MG/100 ML BAG IV SCH ×4 (01:38→21:24)
[2020-04-29 05:52] LABS: Activated Partial Thrombo Time 22.3 seconds (26.0-38.0); INR 1.23 (0.82-1.09)
[2020-04-29 06:08] LABS: BUN/Creatinine Ratio 18.9 (8-20); Calcium 8.1 mg/dL (8.6-10.3); EGFR African American 126.2 (>60); EGFR Non-African American 104.3 (>60); Phosphorus 2.6 mg/dL (2.5-5.0); Potassium 3.9 mmol/L (3.5-5.0)
[2020-04-29 06:09] LABS: ABS Eosinophils 0.4 10^3/ul (0-0.6); ABS Lymphocytes 0.9 10^3/ul (1.0-4.8); ABS Monocytes 0.6 10^3/ul (0-0.8); ABS Neutrophils 4.8 10^3/ul (1.5-7.7); Eosinophil % 5.8 %; Hematocrit 27 % (42-52); Lymphocyte % 12.8 %; Mean Corpuscular HGB Conc 34 g/dL (31-36); Mean Corpuscular Hemoglobin 33 pg (27-31); Mean Corpuscular Volume 97 fL (80-94); Mean Platelet Volume 9.7 fL (7.4-10.4); Platelet Count 77 10^3/uL (150-450); Red Blood Count 2.76 10^6 /uL (4.18-5.48); Red Cell Distribution Width 19 % (10-15); White Blood Count 6.8 10^3/uL (3.5-10.8)
[2020-04-29] MEDS ORDERED: Fosphenytoin 100 MG in NS 0.9% 50 ML 50 ML IVPB SCH (09:00)
[2020-04-29] MEDS: Polyethylene Glycol 3350 17 GM PACKET PO SCH ×2 (11:47→21:23)
[2020-04-29] MEDS: NADOLOL 20 MG PO SCH (11:48)
[2020-04-29] MEDS: Lactulose 30 ml UDC PO SCH ×3 (11:48→21:23)
[2020-04-29] MEDS: Potassium Chlor 20 meq TAB.ER PO SCH ×2 (11:49→21:23)
[2020-04-29 16:31] LABS: Urine Appearance Clear; Urine Bilirubin Negative (Negative); Urine Blood 2+ (Negative); Urine Color Yellow; Urine Glucose Negative (Negative); Urine Ketones Negative (Negative); Urine Nitrite Negative (Negative); Urine Protein Negative (Negative); Urine Specific Gravity 1.013 (1.010-1.030); Urine Urobilinogen Negative (Negative)
[2020-04-29 16:44] LABS: Urine Bacteria Absent (Absent); Urine Red Blood Cell 3+(>10/hpf) (Absent); Urine White Blood Cell 2+(11-20/hpf) (Absent)
[2020-04-30] MEDS: levETIRAcetam 500 MG IVPREMIX 500 MG/100 ML BAG IV SCH ×3 (06:07→20:49)
[2020-04-30 06:28] LABS: ABS Eosinophils 0.3 10^3/ul (0-0.6); ABS Lymphocytes 0.6 10^3/ul (1.0-4.8); ABS Monocytes 0.5 10^3/ul (0-0.8); ABS Neutrophils 3.8 10^3/ul (1.5-7.7); Eosinophil % 6.4 %; Hematocrit 28 % (42-52); Hemoglobin 9.2 g/dL (14.0-18.0); Lymphocyte % 12.1 %; Mean Corpuscular HGB Conc 33 g/dL (31-36); Mean Corpuscular Hemoglobin 32 pg (27-31); Mean Corpuscular Volume 98 fL (80-94); Mean Platelet Volume 9.1 fL (7.4-10.4); Platelet Count 80 10^3/uL (150-450); Red Blood Count 2.84 10^6 /uL (4.18-5.48); Red Cell Distribution Width 19 % (10-15); White Blood Count 5.3 10^3/uL (3.5-10.8)
[2020-04-30 06:29] LABS: INR 1.31 (0.82-1.09)
[2020-04-30 06:35] LABS: Potassium 4.2 mmol/L (3.5-5.0)
[2020-04-30] MEDS ORDERED: Phenytoin IV 50 MG/ML 2 ML VIAL (100 MG) IVPB SCH (09:00)
[2020-04-30] MEDS: Fosphenytoin 100 MG in NS 0.9% 50 ML IVPB SCH (09:24)
[2020-04-30] MEDS ORDERED: LORazepam 2 mg VIAL 1 ml IV PUSH PRN (10:13)
[2020-04-30] MEDS: Polyethylene Glycol 3350 17 GM PACKET PO SCH (10:24)
[2020-04-30] MEDS: Lactulose 30 ml UDC PO SCH ×3 (10:24→20:54)
[2020-04-30] MEDS: NADOLOL 20 MG PO SCH (10:25)
[2020-04-30] MEDS: Potassium Chlor 20 meq TAB.ER PO SCH (10:25)
[2020-05-01] MEDS: levETIRAcetam 500 MG IVPREMIX 500 MG/100 ML BAG IV SCH ×2 (05:54→15:28)
[2020-05-01] MEDS: Fosphenytoin 100 MG in NS 0.9% 50 ML IVPB SCH (08:20)
[2020-05-01] MEDS: Lactulose 30 ml UDC PO SCH ×3 (08:23→21:49)
[2020-05-01] MEDS ORDERED: Clindamycin 900 MG/D5W BAG 900 MG/50 ML BAG IVPB ONE ×2 (09:55→12:14)
[2020-05-01] MEDS: Potassium Chlor 20 meq TAB.ER PO SCH ×2 (11:17→21:49)
[2020-05-01] MEDS ORDERED: Midazolam 2 mg/2 ml VIAL 1 mg/ml 2 ml VIAL (2 mg) ONE (12:41)
[2020-05-01] MEDS ORDERED: fentaNYL 250 mcg/5 ml 50 MCG/ML 5 ml VIAL (250 MCG) ONE ×2 (12:41→12:42)
[2020-05-01] MEDS ORDERED: Bupivacaine 0.5% 50 ML MDV VIAL ONE (13:06)
[2020-05-01] MEDS ORDERED: Thrombin 5,000 UNITS 1 APPLIC KIT - topical use - TOPICAL ONE (13:06)
[2020-05-01] MEDS ORDERED: Bacitracin OINTMENT TUBE ONE (13:07)
[2020-05-01] MEDS ORDERED: Bacitracin INJECTION 50,000 UNITS ONE (13:07)
[2020-05-01] MEDS ORDERED: Gelfoam Sponge SIZE 100 SPONGE ONE (13:07)
[2020-05-01] MEDS ORDERED: Rocuronium 50 mg VIAL 10 mg/ml 5 ml VIAL (50 mg) ONE (14:01)
[2020-05-01] MEDS ORDERED: Etomidate 20 mg/10 ml 2 MG/ML 10 ml VIAL ONE (14:07)
[2020-05-01] MEDS ORDERED: levETIRAcetam IV 500 MG/5 ML VIAL ONE (14:43)
[2020-05-01 15:01] LABS: INR 1.31 (0.82-1.09)
[2020-05-01 15:23] LABS: ABS Eosinophils 0.3 10^3/ul (0-0.6); ABS Lymphocytes 0.6 10^3/ul (1.0-4.8); ABS Monocytes 0.4 10^3/ul (0-0.8); ABS Neutrophils 3.2 10^3/ul (1.5-7.7); Hematocrit 29 % (42-52); Hemoglobin 9.4 g/dL (14.0-18.0); Mean Corpuscular HGB Conc 33 g/dL (31-36); Mean Corpuscular Hemoglobin 32 pg (27-31); Mean Corpuscular Volume 98 fL (80-94); Mean Platelet Volume 9.4 fL (7.4-10.4); Platelet Count 79 10^3/uL (150-450); Red Blood Count 2.93 10^6 /uL (4.18-5.48); Red Cell Distribution Width 19 % (10-15); White Blood Count 4.6 10^3/uL (3.5-10.8)
[2020-05-01 15:24] LABS: Eosinophil % 7.5 %; Lymphocyte % 12.8 %; Nucleated Red Blood Cells % 0.2
[2020-05-01 15:59] LABS: BUN/Creatinine Ratio 22.9 (8-20); Calcium 8.5 mg/dL (8.6-10.3); EGFR African American 134.5 (>60); EGFR Non-African American 111.2 (>60); Potassium 4.3 mmol/L (3.5-5.0)
[2020-05-01] MEDS ORDERED: Lidocaine 2% PF 5 ML VIAL ONE (16:31)
[2020-05-01] MEDS ORDERED: Ondansetron 4 mg VIAL 2 MG/ML 2 ml VIAL ONE (16:33)
[2020-05-01] MEDS ORDERED: Dexamethasone IV 4 MG/ML VIAL 1 ml VIAL ONE (16:33)
[2020-05-01] MEDS ORDERED: Acetaminophen IV 1 GM/100ML 100 ML ONE (16:38)
[2020-05-01] MEDS ORDERED: fentaNYL 100 mcg/2 ml 50 MCG/ML VIAL ONE (16:45)
[2020-05-01] MEDS ORDERED: Naloxone 0.4 mg VIAL 0.4 mg/ml 1 ml VIAL IV PRN (17:08)
[2020-05-01] MEDS ORDERED: fentaNYL 100 mcg/2 ml 50 MCG/ML VIAL IV PRN (17:08)
[2020-05-01] MEDS ORDERED: diPHENhydraMINE IV 50 MG/ML 1 ml VIAL (BENADRYL) IV PRN (17:08)
[2020-05-01] MEDS ORDERED: Propofol 10 MG/ML 20 ML BTL ONE (17:17)
[2020-05-01] MEDS ORDERED: Sugammadex 500 MG/5 ML 5 ml VIAL IV PUSH ONE (17:23)
[2020-05-01] MEDS ORDERED: hydrALAZINE 20 mg/ml 1 ML Vial IV ONE (17:53)
[2020-05-01] MEDS ORDERED: Ondansetron 4 mg VIAL 2 MG/ML 2 ml VIAL IV PRN (17:59)
[2020-05-01] MEDS ORDERED: Magnesium Hydroxide LIQ 30 ML UDC PO PRN (17:59)
[2020-05-01] MEDS ORDERED: Midazolam 5 mg/5 ml VIAL 1 mg/ml 5 ml VIAL (5 mg) ONE ×2 (18:23→18:24)
[2020-05-01] MEDS ORDERED: NS 0.9% 1000 ml BAG 1,000 ML IV SCH (18:30)
[2020-05-01 19:00] LABS: Hematocrit 28 % (42-52); Hemoglobin 9.3 g/dL (14.0-18.0); Mean Corpuscular HGB Conc 33 g/dL (31-36); Mean Corpuscular Hemoglobin 32 pg (27-31); Mean Corpuscular Volume 97 fL (80-94); Platelet Count 93 10^3/uL (150-450); Red Blood Count 2.92 10^6 /uL (4.18-5.48); Red Cell Distribution Width 19 % (10-15); White Blood Count 5.6 10^3/uL (3.5-10.8)
[2020-05-01] MEDS ORDERED: levETIRAcetam 500 MG/100 ML IV ONE (19:00)
[2020-05-01] MEDS: LaCOSAMide VIAL 100 MG in NS 0.9% 50 ML 50 ML IV SCH (19:20)
[2020-05-01 19:37] LABS: C Reactive Protein 40.57 mg/L (<8.01); Calcium 8.5 mg/dL (8.6-10.3); EGFR African American 113.7 (>60); EGFR Non-African American 93.9 (>60); Phosphorus 4.2 mg/dL (2.5-5.0); Potassium 4.3 mmol/L (3.5-5.0)
[2020-05-01] MEDS ORDERED: LaCOSAMide VIAL 100 MG in NS 0.9% 50 ML 50 ML IV SCH (20:00)
[2020-05-01] MEDS ORDERED: niCARdipine 0.1MG/ML IVPREMIX 20 MG/200 ML BAG IV ONE (20:04)
[2020-05-01] MEDS: niCARdipine 0.1MG/ML IVPREMIX 20 MG/200 ML BAG IV SCH ×2 (20:10→22:17)
[2020-05-01] MEDS: Albuterol 2.5mg/3 ml (0.083%) NEB.SOLN INH SCH (20:52)
[2020-05-01] MEDS: Amantadine SOLN ORALSYR 10 mg/ml PO SCH (21:48)
[2020-05-01] MEDS: Clindamycin 900 MG/D5W BAG 900 MG/50 ML BAG IVPB SCH (22:59)
[2020-05-01] MEDS ORDERED: NS 0.9% 500 ml BAG 500 ML IV ONE (23:30)
[2020-05-02] MEDS: levETIRAcetam 500 MG IVPREMIX 500 MG/100 ML BAG IV SCH ×4 (00:06→19:26)
[2020-05-02 00:33] LABS: Activated Partial Thrombo Time 29.4 seconds (26.0-38.0); Hematocrit 26 % (42-52); Hemoglobin 8.5 g/dL (14.0-18.0); INR 1.54 (0.82-1.09)
[2020-05-02 00:41] LABS: BUN/Creatinine Ratio 25.3 (8-20); Calcium 6.9 mg/dL (8.6-10.3); EGFR African American 124.2 (>60); EGFR Non-African American 102.7 (>60); Magnesium 1.7 mg/dL (1.9-2.7); Potassium 3.9 mmol/L (3.5-5.0)
[2020-05-02] MEDS ORDERED: Magnesium Sulfate IV 1GM/100ML 1 GM/100 ML BAG IV ONE (01:12)
[2020-05-02] MEDS: Albuterol 2.5mg/3 ml (0.083%) NEB.SOLN INH SCH ×2 (01:58→11:07)
[2020-05-02] MEDS: LaCOSAMide VIAL 100 MG in NS 0.9% 50 ML 50 ML IV SCH ×3 (03:48→20:20)
[2020-05-02 05:05] LABS: ABS Lymphocytes 0.6 10^3/ul (1.0-4.8); ABS Monocytes 0.4 10^3/ul (0-0.8); ABS Neutrophils 4.3 10^3/ul (1.5-7.7); Eosinophil % 0.1 %; Hematocrit 27 % (42-52); Hemoglobin 8.9 g/dL (14.0-18.0); Lymphocyte % 11.1 %; Mean Corpuscular HGB Conc 33 g/dL (31-36); Mean Corpuscular Hemoglobin 32 pg (27-31); Mean Corpuscular Volume 97 fL (80-94); Mean Platelet Volume 8.4 fL (7.4-10.4); Platelet Count 111 10^3/uL (150-450); Red Blood Count 2.76 10^6 /uL (4.18-5.48); Red Cell Distribution Width 19 % (10-15); White Blood Count 5.3 10^3/uL (3.5-10.8)
[2020-05-02 05:30] LABS: BUN/Creatinine Ratio 28.6 (8-20); Calcium 7.8 mg/dL (8.6-10.3); EGFR Non-African American 90.1 (>60); Phosphorus 4.6 mg/dL (2.5-5.0); Potassium 4.4 mmol/L (3.5-5.0)
[2020-05-02 05:41] LABS: Urine Appearance Cloudy; Urine Bilirubin Negative (Negative); Urine Blood 3+ (Negative); Urine Color Yellow; Urine Glucose Negative (Negative); Urine Ketones Negative (Negative); Urine Nitrite Negative (Negative); Urine Protein 1+(30 mg/dL) (Negative); Urine Specific Gravity 1.014 (1.010-1.030); Urine Urobilinogen Negative (Negative)
[2020-05-02 05:57] LABS: Magnesium 2.2 mg/dL (1.9-2.7)
[2020-05-02 06:36] LABS: Urine Bacteria 1+ (Absent); Urine Red Blood Cell 3+(>10/hpf) (Absent); Urine White Blood Cell 3+(>20/hpf) (Absent)
[2020-05-02] MEDS: niCARdipine 0.1MG/ML IVPREMIX 20 MG/200 ML BAG IV SCH ×3 (06:43→15:28)
[2020-05-02] MEDS ORDERED: Calcium Gluconate 3 GM in NS 0.9% 250 ml 250 ML IV ONE (08:01)
[2020-05-02] MEDS: Clindamycin 900 MG/D5W BAG 900 MG/50 ML BAG IVPB SCH ×3 (08:05→22:50)
[2020-05-02] MEDS ORDERED: Calcium Gluconate 2 GM in NS 0.9% 100 ml BAG 100 ML IVPB ONE (08:47)
[2020-05-02] MEDS: NS 0.9% 1000 ml BAG 1,000 ML IV SCH ×2 (08:59→19:26)
[2020-05-02] MEDS: Potassium Chlor 20 meq TAB.ER PO SCH ×2 (12:09→20:19)
[2020-05-02] MEDS: Amantadine SOLN ORALSYR 10 mg/ml PO SCH ×2 (12:53→20:20)
[2020-05-02] MEDS: Lactulose 30 ml UDC PO SCH ×3 (12:54→20:19)
[2020-05-02] MEDS: Rifaximin 20 mg/mL Suspension (Pharmacy to Compound) FEED TUBE SCH ×3 (12:55→21:55)
[2020-05-02] MEDS: Furosemide 40 mg/4 ml IV VIAL IV SLOW PU SCH (12:55)
[2020-05-02] MEDS: Morphine ORAL CONCENTRATE 5 MG/0.25 ML ORAL.SYRIN SL PRN ×2 (15:37→22:50)
[2020-05-02 16:15] LABS: ABS Basophils 0.1 10^3/ul (0-0.2); ABS Eosinophils 0.2 10^3/ul (0-0.6); ABS Lymphocytes 0.7 10^3/ul (1.0-4.8); ABS Monocytes 0.7 10^3/ul (0-0.8); ABS Neutrophils 7.8 10^3/ul (1.5-7.7); Eosinophil % 2.5 %; Hematocrit 28 % (42-52); Hemoglobin 9.1 g/dL (14.0-18.0); Lymphocyte % 7.7 %; Mean Corpuscular HGB Conc 33 g/dL (31-36); Mean Corpuscular Hemoglobin 33 pg (27-31); Mean Corpuscular Volume 98 fL (80-94); Mean Platelet Volume 8.7 fL (7.4-10.4); Nucleated Red Blood Cells % 0.1; Platelet Count 132 10^3/uL (150-450); Red Blood Count 2.81 10^6 /uL (4.18-5.48); Red Cell Distribution Width 19 % (10-15); White Blood Count 9.5 10^3/uL (3.5-10.8)
[2020-05-02 16:44] LABS: Albumin 3.2 g/dL (3.2-5.2); BUN/Creatinine Ratio 28.9 (8-20); Calcium 8.8 mg/dL (8.6-10.3); EGFR African American 100.7 (>60); EGFR Non-African American 83.2 (>60); Globulin 3.3 g/dL (2-4); Potassium 4.3 mmol/L (3.5-5.0); Total Bilirubin 1.2 mg/dL (0.2-1.0); Total Protein 6.5 g/dL (6.4-8.9)
[2020-05-03] MEDS: levETIRAcetam 500 MG IVPREMIX 500 MG/100 ML BAG IV SCH ×4 (00:50→18:09)
[2020-05-03] MEDS: LaCOSAMide VIAL 100 MG in NS 0.9% 50 ML 50 ML IV SCH ×3 (03:57→23:21)
[2020-05-03 04:39] LABS: ABS Eosinophils 0.5 10^3/ul (0-0.6); ABS Lymphocytes 0.7 10^3/ul (1.0-4.8); ABS Monocytes 0.7 10^3/ul (0-0.8); Eosinophil % 5.9 %; Hematocrit 25 % (42-52); Hemoglobin 8.1 g/dL (14.0-18.0); Lymphocyte % 8.5 %; Mean Corpuscular HGB Conc 33 g/dL (31-36); Mean Corpuscular Hemoglobin 32 pg (27-31); Mean Corpuscular Volume 98 fL (80-94); Mean Platelet Volume 8.6 fL (7.4-10.4); Platelet Count 97 10^3/uL (150-450); Red Cell Distribution Width 19 % (10-15); White Blood Count 7.9 10^3/uL (3.5-10.8)
[2020-05-03 04:54] LABS: BUN/Creatinine Ratio 28.3 (8-20); Calcium 8.1 mg/dL (8.6-10.3); EGFR African American 98.1 (>60); EGFR Non-African American 81.1 (>60); Phosphorus 3.5 mg/dL (2.5-5.0); Potassium 4.1 mmol/L (3.5-5.0)
[2020-05-03] MEDS ORDERED: NS 0.9% 1000 ml BAG 1,000 ML IV SCH (06:08)
[2020-05-03] MEDS: Morphine ORAL CONCENTRATE 5 MG/0.25 ML ORAL.SYRIN SL PRN (06:36)
[2020-05-03] MEDS: Lactulose 30 ml UDC PO SCH ×2 (08:06→14:48)
[2020-05-03] MEDS: Potassium Chlor 20 meq TAB.ER PO SCH ×3 (08:08→22:08)
[2020-05-03] MEDS: Amantadine SOLN ORALSYR 10 mg/ml PO SCH ×2 (08:11→21:15)
[2020-05-03] MEDS: Clindamycin 900 MG/D5W BAG 900 MG/50 ML BAG IVPB SCH ×2 (08:11→14:48)
[2020-05-03] MEDS: Furosemide 40 mg/4 ml IV VIAL IV SLOW PU SCH ×2 (09:29→21:14)
[2020-05-03 10:25] LABS: Magnesium 2.1 mg/dL (1.9-2.7)
[2020-05-03] MEDS: Rifaximin 20 mg/mL Suspension (Pharmacy to Compound) FEED TUBE SCH ×2 (10:31→21:14)
[2020-05-03] MEDS ORDERED: oxyCODONE *Concentrate* ORALSYR 20 MG/ML PO PRN (12:31)
[2020-05-03] MEDS: Nystatin TOP POWDER 15 GM BTL TOPICAL SCH ×2 (14:48→21:35)
[2020-05-03 17:22] LABS: Mean Platelet Volume 8.5 fL (7.4-10.4); Platelet Count 95 10^3/uL (150-450)
[2020-05-03 18:10] LABS: ABS Eosinophils 0.3 10^3/ul (0-0.6); ABS Lymphocytes 0.7 10^3/ul (1.0-4.8); ABS Monocytes 0.5 10^3/ul (0-0.8); ABS Neutrophils 4.3 10^3/ul (1.5-7.7); Eosinophil % 5.6 %; Hematocrit 23 % (42-52); Hemoglobin 7.7 g/dL (14.0-18.0); Lymphocyte % 12.6 %; Mean Corpuscular HGB Conc 33 g/dL (31-36); Mean Corpuscular Hemoglobin 32 pg (27-31); Mean Corpuscular Volume 98 fL (80-94); Platelet Count 95 10^3/uL (150-450); Red Blood Count 2.39 10^6 /uL (4.18-5.48); Red Cell Distribution Width 19 % (10-15)
[2020-05-03] MEDS ORDERED: Alteplase (CATHFLO) 2 MG VIAL IV ONE (22:28)
[2020-05-04] MEDS: Clindamycin 900 MG/D5W BAG 900 MG/50 ML BAG IVPB SCH ×3 (00:28→15:08)
[2020-05-04 00:57] LABS: ABS Eosinophils 0.3 10^3/ul (0-0.6); ABS Lymphocytes 0.6 10^3/ul (1.0-4.8); ABS Monocytes 0.5 10^3/ul (0-0.8); ABS Neutrophils 5.2 10^3/ul (1.5-7.7); Eosinophil % 4.5 %; Hematocrit 24 % (42-52); Hemoglobin 7.8 g/dL (14.0-18.0); Lymphocyte % 9.6 %; Mean Corpuscular HGB Conc 33 g/dL (31-36); Mean Corpuscular Hemoglobin 33 pg (27-31); Mean Corpuscular Volume 99 fL (80-94); Mean Platelet Volume 8.9 fL (7.4-10.4); Platelet Count 88 10^3/uL (150-450); Red Blood Count 2.38 10^6 /uL (4.18-5.48); Red Cell Distribution Width 19 % (10-15); White Blood Count 6.7 10^3/uL (3.5-10.8)
[2020-05-04] MEDS: levETIRAcetam 500 MG IVPREMIX 500 MG/100 ML BAG IV SCH ×4 (01:12→21:16)
[2020-05-04 05:22] LABS: BUN/Creatinine Ratio 24.3 (8-20); Calcium 8.3 mg/dL (8.6-10.3); EGFR African American 126.2 (>60); EGFR Non-African American 104.3 (>60); Phosphorus 3.3 mg/dL (2.5-5.0); Potassium 3.9 mmol/L (3.5-5.0)
[2020-05-04 05:39] LABS: Hematocrit 23 % (42-52); Hemoglobin 7.8 g/dL (14.0-18.0); Mean Corpuscular HGB Conc 34 g/dL (31-36); Mean Corpuscular Hemoglobin 33 pg (27-31); Mean Corpuscular Volume 97 fL (80-94); Mean Platelet Volume 8.8 fL (7.4-10.4); Platelet Count 85 10^3/uL (150-450); Red Blood Count 2.39 10^6 /uL (4.18-5.48); Red Cell Distribution Width 19 % (10-15); White Blood Count 5.4 10^3/uL (3.5-10.8)
[2020-05-04 08:47] LABS: Mean Platelet Volume 8.8 fL (7.4-10.4); Platelet Count 98 10^3/uL (150-450)
[2020-05-04 09:00] LABS: BUN/Creatinine Ratio 24.2 (8-20); Calcium 7.7 mg/dL (8.6-10.3); Magnesium 1.8 mg/dL (1.9-2.7); Phosphorus 3.3 mg/dL (2.5-5.0); Potassium 3.6 mmol/L (3.5-5.0)
[2020-05-04] MEDS ORDERED: oxyCODONE 5 mg/5 ml ORAL.SOLN UDC PO PRN (10:15)
[2020-05-04] MEDS: LaCOSAMide VIAL 100 MG in NS 0.9% 50 ML 50 ML IV SCH ×2 (10:41→21:17)
[2020-05-04] MEDS: Furosemide 40 mg/4 ml IV VIAL IV SLOW PU SCH ×2 (10:46→21:17)
[2020-05-04] MEDS: Potassium Chlor 20 meq TAB.ER PO SCH ×2 (10:53→21:18)
[2020-05-04] MEDS: Amantadine SOLN ORALSYR 10 mg/ml PO SCH ×2 (11:00→21:18)
[2020-05-04] MEDS: Rifaximin 20 mg/mL Suspension (Pharmacy to Compound) FEED TUBE SCH ×2 (11:01→21:18)
[2020-05-04] MEDS: Nystatin TOP POWDER 15 GM BTL TOPICAL SCH ×2 (11:03→14:17)
[2020-05-04 15:27] LABS: Hematocrit 22 % (42-52); Hemoglobin 7.5 g/dL (14.0-18.0); Mean Corpuscular HGB Conc 33 g/dL (31-36); Mean Corpuscular Hemoglobin 33 pg (27-31); Mean Corpuscular Volume 98 fL (80-94); Mean Platelet Volume 8.6 fL (7.4-10.4); Platelet Count 94 10^3/uL (150-450); Red Blood Count 2.29 10^6 /uL (4.18-5.48); Red Cell Distribution Width 19 % (10-15); White Blood Count 4.4 10^3/uL (3.5-10.8)
[2020-05-04] MEDS ORDERED: Chlorhexidine MOUTHWASH 0.12% 15 ML UDC SWISH SPIT ONE (15:54)
[2020-05-04] MEDS ORDERED: Labetalol IV 5 MG/ML 20 ml VIAL IV PUSH PRN (18:40)
[2020-05-04] MEDS ORDERED: Dextrose 50% Syringe 50 ml 25 GM/50 ML SYRINGE IV PUSH PRN (18:55)
[2020-05-04] MEDS: CMCS: Ketoconazole 2 % CREAM (NF) 30 GM TUBE TOPICAL SCH ×2 (19:34→21:19)
[2020-05-04] MEDS: Neomycin/Polym/Bacit TOP OINT 15 GM TOPICAL SCH ×2 (19:34→21:24)
[2020-05-04] MEDS: Mupirocin 2% OINT TUBE TOPICAL SCH ×2 (19:35→21:20)
[2020-05-04] MEDS: niCARdipine 0.1MG/ML IVPREMIX 20 MG/200 ML BAG IV SCH (22:41)
[2020-05-05] MEDS: Clindamycin 900 MG/D5W BAG 900 MG/50 ML BAG IVPB SCH ×4 (00:21→23:07)
[2020-05-05] MEDS: niCARdipine 0.1MG/ML IVPREMIX 20 MG/200 ML BAG IV SCH (02:12)
[2020-05-05 06:13] LABS: ABS Eosinophils 0.4 10^3/ul (0-0.6); ABS Lymphocytes 0.6 10^3/ul (1.0-4.8); ABS Monocytes 0.6 10^3/ul (0-0.8); ABS Neutrophils 5.1 10^3/ul (1.5-7.7); Eosinophil % 5.5 %; Hematocrit 23 % (42-52); Hemoglobin 7.6 g/dL (14.0-18.0); Lymphocyte % 9.6 %; Mean Corpuscular HGB Conc 33 g/dL (31-36); Mean Corpuscular Hemoglobin 32 pg (27-31); Mean Corpuscular Volume 98 fL (80-94); Mean Platelet Volume 8.8 fL (7.4-10.4); Platelet Count 114 10^3/uL (150-450); Red Blood Count 2.35 10^6 /uL (4.18-5.48); Red Cell Distribution Width 19 % (10-15); White Blood Count 6.7 10^3/uL (3.5-10.8)
[2020-05-05 06:30] LABS: BUN/Creatinine Ratio 21.7 (8-20); Calcium 8.4 mg/dL (8.6-10.3); EGFR African American 110.5 (>60); EGFR Non-African American 91.3 (>60); Phosphorus 3.5 mg/dL (2.5-5.0); Potassium 3.9 mmol/L (3.5-5.0)
[2020-05-05] MEDS: levETIRAcetam 500 MG IVPREMIX 500 MG/100 ML BAG IV SCH ×3 (06:32→21:50)
[2020-05-05] MEDS: Rifaximin 20 mg/mL Suspension (Pharmacy to Compound) FEED TUBE SCH ×2 (08:32→20:25)
[2020-05-05] MEDS: Amantadine SOLN ORALSYR 10 mg/ml PO SCH ×2 (08:32→20:25)
[2020-05-05] MEDS: Mupirocin 2% OINT TUBE TOPICAL SCH ×2 (08:33→20:46)
[2020-05-05] MEDS: Furosemide 40 mg/4 ml IV VIAL IV SLOW PU SCH ×2 (08:33→20:28)
[2020-05-05] MEDS: CMCS: Ketoconazole 2 % CREAM (NF) 30 GM TUBE TOPICAL SCH ×2 (08:33→20:42)
[2020-05-05] MEDS: Neomycin/Polym/Bacit TOP OINT 15 GM TOPICAL SCH ×2 (08:33→20:47)
[2020-05-05] MEDS: Potassium Chlor 20 meq TAB.ER PO SCH (08:35)
[2020-05-05] MEDS: LaCOSAMide VIAL 100 MG in NS 0.9% 50 ML 50 ML IV SCH ×2 (09:16→21:50)
[2020-05-05] MEDS ORDERED: Lidocaine 1% MPF 5 ML VIAL INJ ONE (10:32)
[2020-05-05] MEDS: Potassium Chloride LIQUID 20 MEQ/15 ML LIQUID PO SCH (15:32)
[2020-05-06 05:33] LABS: ABS Eosinophils 0.5 10^3/ul (0-0.6); ABS Lymphocytes 0.9 10^3/ul (1.0-4.8); ABS Monocytes 0.6 10^3/ul (0-0.8); ABS Neutrophils 3.8 10^3/ul (1.5-7.7); Eosinophil % 8.6 %; Hematocrit 25 % (42-52); Hemoglobin 8.3 g/dL (14.0-18.0); Lymphocyte % 15.2 %; Mean Corpuscular HGB Conc 34 g/dL (31-36); Mean Corpuscular Hemoglobin 33 pg (27-31); Mean Corpuscular Volume 96 fL (80-94); Mean Platelet Volume 9.2 fL (7.4-10.4); Platelet Count 132 10^3/uL (150-450); Red Blood Count 2.56 10^6 /uL (4.18-5.48); Red Cell Distribution Width 19 % (10-15); White Blood Count 5.8 10^3/uL (3.5-10.8)
[2020-05-06] MEDS: levETIRAcetam 500 MG IVPREMIX 500 MG/100 ML BAG IV SCH ×3 (06:51→22:01)
[2020-05-06] MEDS: Clindamycin 900 MG/D5W BAG 900 MG/50 ML BAG IVPB SCH ×3 (08:27→23:58)
[2020-05-06] MEDS: Amantadine SOLN ORALSYR 10 mg/ml PO SCH ×2 (09:10→20:16)
[2020-05-06] MEDS: CMCS: Ketoconazole 2 % CREAM (NF) 30 GM TUBE TOPICAL SCH ×2 (09:11→20:19)
[2020-05-06] MEDS: Neomycin/Polym/Bacit TOP OINT 15 GM TOPICAL SCH ×2 (09:11→20:22)
[2020-05-06] MEDS: Potassium Chloride LIQUID 20 MEQ/15 ML LIQUID PO SCH (09:11)
[2020-05-06] MEDS: Furosemide 40 mg/4 ml IV VIAL IV SLOW PU SCH ×2 (09:11→20:19)
[2020-05-06] MEDS: Mupirocin 2% OINT TUBE TOPICAL SCH ×2 (09:11→22:00)
[2020-05-06] MEDS: Rifaximin 20 mg/mL Suspension (Pharmacy to Compound) FEED TUBE SCH ×2 (09:12→21:04)
[2020-05-06] MEDS: LaCOSAMide VIAL 100 MG in NS 0.9% 50 ML 50 ML IV SCH ×2 (09:47→20:58)
[2020-05-06 10:11] LABS: BUN/Creatinine Ratio 20.9 (8-20); Calcium 8.4 mg/dL (8.6-10.3); EGFR African American 141.5 (>60); EGFR Non-African American 116.9 (>60); Magnesium 1.8 mg/dL (1.9-2.7); Potassium 3.7 mmol/L (3.5-5.0)
[2020-05-06] MEDS ORDERED: Potassium Chloride LIQUID 20 MEQ/15 ML LIQUID PO ONE (14:05)
[2020-05-06] MEDS: Nystatin TOP POWDER 15 GM BTL TOPICAL SCH (20:22)
[2020-05-07 04:36] LABS: INR 1.28 (0.82-1.09)
[2020-05-07 04:37] LABS: ABS Eosinophils 0.3 10^3/ul (0-0.6); ABS Lymphocytes 0.7 10^3/ul (1.0-4.8); ABS Monocytes 0.4 10^3/ul (0-0.8); Eosinophil % 7.4 %; Hematocrit 23 % (42-52); Hemoglobin 7.9 g/dL (14.0-18.0); Lymphocyte % 16.5 %; Mean Corpuscular HGB Conc 34 g/dL (31-36); Mean Corpuscular Hemoglobin 33 pg (27-31); Mean Corpuscular Volume 96 fL (80-94); Mean Platelet Volume 9.1 fL (7.4-10.4); Platelet Count 99 10^3/uL (150-450); Red Cell Distribution Width 19 % (10-15); White Blood Count 4.5 10^3/uL (3.5-10.8)
[2020-05-07 04:45] LABS: Albumin 2.8 g/dL (3.2-5.2); Albumin/Globulin Ratio 0.9 (1-3); BUN/Creatinine Ratio 16.7 (8-20); Calcium 8.3 mg/dL (8.6-10.3); EGFR African American 130.2 (>60); EGFR Non-African American 107.6 (>60); Magnesium 1.8 mg/dL (1.9-2.7); Phosphorus 3.3 mg/dL (2.5-5.0); Potassium 4.1 mmol/L (3.5-5.0); Total Bilirubin 0.7 mg/dL (0.2-1.0); Total Protein 5.8 g/dL (6.4-8.9)
[2020-05-07] MEDS: levETIRAcetam 500 MG IVPREMIX 500 MG/100 ML BAG IV SCH ×3 (05:35→22:48)
[2020-05-07] MEDS ORDERED: Magnesium Sulfate IV 1GM/100ML 1 GM/100 ML BAG IV ONE (07:14)
[2020-05-07] MEDS ORDERED: Magnesium Sulfate 2 gm BAG 2 GM/50 ML BAG IVPB ONE (07:29)
[2020-05-07] MEDS: Clindamycin 900 MG/D5W BAG 900 MG/50 ML BAG IVPB SCH ×2 (08:48→16:12)
[2020-05-07] MEDS: Potassium Chloride LIQUID 20 MEQ/15 ML LIQUID PO SCH (08:58)
[2020-05-07] MEDS: Amantadine SOLN ORALSYR 10 mg/ml PO SCH ×2 (08:59→23:09)
[2020-05-07] MEDS: Furosemide 40 mg/4 ml IV VIAL IV SLOW PU SCH (08:59)
[2020-05-07] MEDS: Rifaximin 20 mg/mL Suspension (Pharmacy to Compound) FEED TUBE SCH (09:27)
[2020-05-07] MEDS: LaCOSAMide VIAL 100 MG in NS 0.9% 50 ML 50 ML IV SCH ×2 (10:48→22:47)
[2020-05-07] MEDS: NADOLOL 20 MG PO SCH (10:50)
[2020-05-07] MEDS: Rifaximin 20 mg/mL Suspension (Pharmacy to Compound) PO SCH ×2 (10:59→23:09)
[2020-05-07] MEDS: CMCS: Ketoconazole 2 % CREAM (NF) 30 GM TUBE TOPICAL SCH ×2 (11:01→22:31)
[2020-05-07] MEDS: Nystatin TOP POWDER 15 GM BTL TOPICAL SCH ×3 (11:01→22:31)
[2020-05-07] MEDS: Mupirocin 2% OINT TUBE TOPICAL SCH ×2 (11:01→22:30)
[2020-05-07] MEDS: Neomycin/Polym/Bacit TOP OINT 15 GM TOPICAL SCH ×2 (11:01→22:31)
[2020-05-08] MEDS: levETIRAcetam 500 MG IVPREMIX 500 MG/100 ML BAG IV SCH ×2 (05:44→14:31)
[2020-05-08 07:30] LABS: ABS Eosinophils 0.4 10^3/ul (0-0.6); ABS Lymphocytes 0.6 10^3/ul (1.0-4.8); ABS Monocytes 0.5 10^3/ul (0-0.8); ABS Neutrophils 3.1 10^3/ul (1.5-7.7); Hematocrit 24 % (42-52); Lymphocyte % 12.9 %; Mean Corpuscular HGB Conc 33 g/dL (31-36); Mean Corpuscular Hemoglobin 32 pg (27-31); Mean Corpuscular Volume 97 fL (80-94); Mean Platelet Volume 9.5 fL (7.4-10.4); Platelet Count 118 10^3/uL (150-450); Red Blood Count 2.49 10^6 /uL (4.18-5.48); Red Cell Distribution Width 19 % (10-15); White Blood Count 4.6 10^3/uL (3.5-10.8)
[2020-05-08 07:41] LABS: Albumin 2.9 g/dL (3.2-5.2); Albumin/Globulin Ratio 0.9 (1-3); BUN/Creatinine Ratio 13.7 (8-20); Calcium 8.2 mg/dL (8.6-10.3); EGFR African American 128.2 (>60); EGFR Non-African American 105.9 (>60); Globulin 3.2 g/dL (2-4); Phosphorus 3.2 mg/dL (2.5-5.0); Total Bilirubin 0.8 mg/dL (0.2-1.0); Total Protein 6.1 g/dL (6.4-8.9)
[2020-05-08] MEDS: LaCOSAMide VIAL 100 MG in NS 0.9% 50 ML 50 ML IV SCH (11:38)
[2020-05-08] MEDS: NADOLOL 20 MG PO SCH ×2 (11:42→11:50)
[2020-05-08] MEDS: Amantadine SOLN ORALSYR 10 mg/ml PO SCH ×2 (11:43→20:45)
[2020-05-08] MEDS: Mupirocin 2% OINT TUBE TOPICAL SCH ×2 (11:44→20:48)
[2020-05-08] MEDS: CMCS: Ketoconazole 2 % CREAM (NF) 30 GM TUBE TOPICAL SCH ×2 (11:44→20:48)
[2020-05-08] MEDS: Nystatin TOP POWDER 15 GM BTL TOPICAL SCH ×3 (11:45→20:49)
[2020-05-08] MEDS: Rifaximin 20 mg/mL Suspension (Pharmacy to Compound) PO SCH ×2 (11:45→20:45)
[2020-05-08] MEDS: Neomycin/Polym/Bacit TOP OINT 15 GM TOPICAL SCH ×2 (11:45→20:48)
[2020-05-08] MEDS: Potassium Chloride LIQUID 20 MEQ/15 ML LIQUID PO SCH (11:45)
[2020-05-08 23:18] LABS: Urine Appearance Clear; Urine Bilirubin Negative (Negative); Urine Blood 1+ (Negative); Urine Color Straw; Urine Glucose Negative (Negative); Urine Ketones Negative (Negative); Urine Nitrite Negative (Negative); Urine Protein Negative (Negative); Urine Specific Gravity 1.002 (1.010-1.030); Urine Urobilinogen Negative (Negative)
[2020-05-08 23:25] LABS: Urine Bacteria 1+ (Absent); Urine Red Blood Cell Trace(0-2/hpf) (Absent); Urine White Blood Cell 2+(11-20/hpf) (Absent)
[2020-05-09 05:40] LABS: ABS Eosinophils 0.3 10^3/ul (0-0.6); ABS Lymphocytes 0.6 10^3/ul (1.0-4.8); ABS Monocytes 0.5 10^3/ul (0-0.8); ABS Neutrophils 2.6 10^3/ul (1.5-7.7); Hematocrit 24 % (42-52); Hemoglobin 7.9 g/dL (14.0-18.0); Mean Corpuscular HGB Conc 33 g/dL (31-36); Mean Corpuscular Hemoglobin 32 pg (27-31); Mean Corpuscular Volume 95 fL (80-94); Mean Platelet Volume 9.1 fL (7.4-10.4); Platelet Count 100 10^3/uL (150-450); Red Blood Count 2.51 10^6 /uL (4.18-5.48); Red Cell Distribution Width 19 % (10-15); White Blood Count 4.1 10^3/uL (3.5-10.8)
[2020-05-09 06:03] LABS: BUN/Creatinine Ratio 13.3 (8-20); Calcium 8.3 mg/dL (8.6-10.3); EGFR African American 124.2 (>60); EGFR Non-African American 102.7 (>60); Magnesium 1.8 mg/dL (1.9-2.7)
[2020-05-09] MEDS ORDERED: Magnesium Sulfate 2 gm BAG 2 GM/50 ML BAG IVPB ONE (07:51)
[2020-05-09] MEDS ORDERED: Magnesium Sulfate IV 1GM/100ML 1 GM/100 ML BAG IV ONE (07:55)
[2020-05-09] MEDS: Potassium Chloride LIQUID 20 MEQ/15 ML LIQUID PO SCH (08:47)
[2020-05-09] MEDS: NADOLOL 20 MG PO SCH (08:48)
[2020-05-09] MEDS: Amantadine SOLN ORALSYR 10 mg/ml PO SCH (08:52)
[2020-05-09] MEDS: Rifaximin 20 mg/mL Suspension (Pharmacy to Compound) PO SCH (08:54)
[2020-05-09] MEDS: CMCS: Ketoconazole 2 % CREAM (NF) 30 GM TUBE TOPICAL SCH ×2 (09:03→22:03)
[2020-05-09] MEDS: Nystatin TOP POWDER 15 GM BTL TOPICAL SCH ×3 (09:04→22:04)
[2020-05-09] MEDS: Neomycin/Polym/Bacit TOP OINT 15 GM TOPICAL SCH ×2 (09:04→22:04)
[2020-05-09] MEDS: Mupirocin 2% OINT TUBE TOPICAL SCH ×2 (09:04→22:03)
[2020-05-09] MEDS ORDERED: Albumin Human 25% 25 GM/100 ML BTL IV ONE (11:30)
[2020-05-09] MEDS: Lactulose 30 ml UDC PO SCH (16:08)
[2020-05-09] MEDS: BENZOCAINE PR SCH (16:52)
[2020-05-09] MEDS: DOCUSATE PR SCH (16:52)
[2020-05-10] MEDS: Lactulose 30 ml UDC PO SCH ×2 (06:28→15:56)
[2020-05-10 06:53] LABS: ABS Eosinophils 0.3 10^3/ul (0-0.6); ABS Lymphocytes 0.8 10^3/ul (1.0-4.8); ABS Monocytes 0.5 10^3/ul (0-0.8); ABS Neutrophils 2.9 10^3/ul (1.5-7.7); Eosinophil % 7.5 %; Hematocrit 25 % (42-52); Hemoglobin 8.2 g/dL (14.0-18.0); Lymphocyte % 17.9 %; Mean Corpuscular HGB Conc 33 g/dL (31-36); Mean Corpuscular Hemoglobin 32 pg (27-31); Mean Corpuscular Volume 96 fL (80-94); Mean Platelet Volume 9.2 fL (7.4-10.4); Nucleated Red Blood Cells % 0.1; Platelet Count 109 10^3/uL (150-450); Red Blood Count 2.58 10^6 /uL (4.18-5.48); Red Cell Distribution Width 18 % (10-15); White Blood Count 4.7 10^3/uL (3.5-10.8)
[2020-05-10] MEDS: BENZOCAINE PR SCH ×2 (06:58→16:49)
[2020-05-10] MEDS: DOCUSATE PR SCH ×2 (06:58→16:49)
[2020-05-10 07:20] LABS: BUN/Creatinine Ratio 13.2 (8-20); Calcium 8.4 mg/dL (8.6-10.3); EGFR African American 122.3 (>60); EGFR Non-African American 101.1 (>60)
[2020-05-10] MEDS ORDERED: Magnesium Sulfate 2 gm BAG 2 GM/50 ML BAG IVPB ONE (08:01)
[2020-05-10] MEDS: CMCS: Ketoconazole 2 % CREAM (NF) 30 GM TUBE TOPICAL SCH ×2 (08:23→22:03)
[2020-05-10] MEDS: Nystatin TOP POWDER 15 GM BTL TOPICAL SCH ×3 (08:24→22:04)
[2020-05-10] MEDS: Neomycin/Polym/Bacit TOP OINT 15 GM TOPICAL SCH ×2 (08:24→22:04)
[2020-05-10] MEDS: Mupirocin 2% OINT TUBE TOPICAL SCH ×2 (08:24→22:03)
[2020-05-10] MEDS: Senna TAB 8.6 mg TAB PO SCH (08:37)
[2020-05-10] MEDS: NADOLOL 20 MG PO SCH (09:16)
[2020-05-10] MEDS: Potassium Chlor 20 meq TAB.ER PO SCH (09:17)
[2020-05-10 09:23] LABS: Albumin 3.1 g/dL (3.2-5.2); Indirect Bilirubin 0.6 mg/dL (0.3-1.0); Total Bilirubin 0.8 mg/dL (0.2-1.0)
[2020-05-10 09:29] LABS: Albumin/Globulin Ratio 1.1 (1-3); Globulin 2.9 g/dL (2-4)
[2020-05-11] MEDS: Lactulose 30 ml UDC PO SCH (05:08)
[2020-05-11 06:10] LABS: INR 1.21 (0.82-1.09)
[2020-05-11 06:17] LABS: ABS Eosinophils 0.3 10^3/ul (0-0.6); ABS Lymphocytes 0.8 10^3/ul (1.0-4.8); ABS Monocytes 0.5 10^3/ul (0-0.8); ABS Neutrophils 3.5 10^3/ul (1.5-7.7); Eosinophil % 6.6 %; Hematocrit 25 % (42-52); Hemoglobin 8.6 g/dL (14.0-18.0); Lymphocyte % 15.4 %; Mean Corpuscular HGB Conc 34 g/dL (31-36); Mean Corpuscular Hemoglobin 32 pg (27-31); Mean Corpuscular Volume 95 fL (80-94); Mean Platelet Volume 9.3 fL (7.4-10.4); Platelet Count 107 10^3/uL (150-450); Red Blood Count 2.65 10^6 /uL (4.18-5.48); Red Cell Distribution Width 19 % (10-15); White Blood Count 5.2 10^3/uL (3.5-10.8)
[2020-05-11 06:26] LABS: BUN/Creatinine Ratio 13.3 (8-20); Calcium 8.4 mg/dL (8.6-10.3); EGFR African American 100.7 (>60); EGFR Non-African American 83.2 (>60); Magnesium 1.9 mg/dL (1.9-2.7)
[2020-05-11] MEDS: DOCUSATE PR SCH (06:54)
[2020-05-11] MEDS: BENZOCAINE PR SCH (06:54)
[2020-05-11] MEDS: Senna TAB 8.6 mg TAB PO SCH (08:26)
[2020-05-11] MEDS: Neomycin/Polym/Bacit TOP OINT 15 GM TOPICAL SCH (08:26)
[2020-05-11] MEDS: Nystatin TOP POWDER 15 GM BTL TOPICAL SCH ×2 (08:26→12:00)
[2020-05-11] MEDS: NADOLOL 20 MG PO SCH (08:31)
[2020-05-11] MEDS: Potassium Chlor 20 meq TAB.ER PO SCH (08:33)
[2020-05-11] MEDS: Mupirocin 2% OINT TUBE TOPICAL SCH (08:35)
[2020-05-11] MEDS: CMCS: Ketoconazole 2 % CREAM (NF) 30 GM TUBE TOPICAL SCH (08:35)
[2020-05-11 12:55] VITALS: BP 110/62
== END 2020-05-11 15:12 | disposition swing bed (61) | DRG 25 ==
LOC: ED 06:36 → ICU 10:33 → MEDTELE 04-22 11:03 → ICU 05-01 19:36 → SSU 05-07 21:00
PROVIDERS: ADMIT Internal Medicine; ATTEND Internal Medicine

== ENCOUNTER 2020-05-11 15:03 | Inpatient (IN) ==
[2020-05-11] MEDS ORDERED: Ondansetron 4 mg VIAL 2 MG/ML 2 ml VIAL IV PRN ×2 (15:38→15:46)
[2020-05-11] MEDS ORDERED: oxyCODONE 5 mg/5 ml ORAL.SOLN UDC PO PRN (15:46)
[2020-05-11] MEDS ORDERED: Magnesium Hydroxide LIQ 30 ML UDC PO PRN (15:46)
[2020-05-11] MEDS ORDERED: BENZOCAINE PO SCH (17:00)
[2020-05-11] MEDS ORDERED: DOCUSATE PO SCH (17:00)
[2020-05-11] MEDS: Lactulose 30 ml UDC PO SCH (17:21)
[2020-05-11] MEDS ORDERED: DOCUSATE PR SCH (19:18)
[2020-05-11] MEDS ORDERED: BENZOCAINE PR SCH (19:18)
[2020-05-11] MEDS: Nystatin TOP POWDER 15 GM BTL TOPICAL SCH (21:13)
[2020-05-11] MEDS: CMCS:Ketoconazole 2 % CREAM (NF) 30 GM TUBE TOPICAL SCH (21:13)
[2020-05-11] MEDS: Mupirocin 2% OINT TUBE TOPICAL SCH (21:14)
[2020-05-11] MEDS: Neomycin/Polym/Bacit TOP OINT 15 GM TOPICAL SCH (21:14)
[2020-05-12] MEDS: Lactulose 30 ml UDC PO SCH ×2 (04:49→17:23)
[2020-05-12] MEDS: DOCUSATE PR SCH ×2 (05:06→17:24)
[2020-05-12] MEDS: BENZOCAINE PR SCH ×2 (05:06→17:24)
[2020-05-12 05:47] LABS: ABS Eosinophils 0.4 10^3/ul (0-0.6); ABS Lymphocytes 0.9 10^3/ul (1.0-4.8); ABS Monocytes 0.5 10^3/ul (0-0.8); ABS Neutrophils 3.3 10^3/ul (1.5-7.7); Eosinophil % 8.4 %; Hematocrit 25 % (42-52); Hemoglobin 8.3 g/dL (14.0-18.0); Lymphocyte % 17.3 %; Mean Corpuscular HGB Conc 33 g/dL (31-36); Mean Corpuscular Hemoglobin 31 pg (27-31); Mean Corpuscular Volume 96 fL (80-94); Platelet Count 111 10^3/uL (150-450); Red Blood Count 2.64 10^6 /uL (4.18-5.48); Red Cell Distribution Width 19 % (10-15); White Blood Count 5.2 10^3/uL (3.5-10.8)
[2020-05-12 06:08] LABS: Albumin/Globulin Ratio 0.9 (1-3); BUN/Creatinine Ratio 15.1 (8-20); Calcium 8.6 mg/dL (8.6-10.3); EGFR African American 106.1 (>60); EGFR Non-African American 87.7 (>60); Globulin 3.2 g/dL (2-4); Magnesium 1.8 mg/dL (1.9-2.7); Potassium 4.1 mmol/L (3.5-5.0); Total Bilirubin 0.8 mg/dL (0.2-1.0); Total Protein 6.2 g/dL (6.4-8.9)
[2020-05-12] MEDS ORDERED: Magnesium Sulfate IV 1GM/100ML 1 GM/100 ML BAG IV ONE (08:00)
[2020-05-12] MEDS: Senna TAB 8.6 mg TAB PO SCH (09:14)
[2020-05-12] MEDS: Nystatin TOP POWDER 15 GM BTL TOPICAL SCH ×3 (09:18→21:15)
[2020-05-12] MEDS: Neomycin/Polym/Bacit TOP OINT 15 GM TOPICAL SCH ×2 (09:19→21:15)
[2020-05-12] MEDS: Potassium Chlor 20 meq TAB.ER PO SCH (09:19)
[2020-05-12] MEDS: CMCS:Ketoconazole 2 % CREAM (NF) 30 GM TUBE TOPICAL SCH ×2 (09:20→21:56)
[2020-05-12] MEDS: Mupirocin 2% OINT TUBE TOPICAL SCH ×2 (09:20→21:15)
[2020-05-13] MEDS: Lactulose 30 ml UDC PO SCH ×2 (05:18→16:16)
[2020-05-13 06:24] LABS: ABS Eosinophils 0.4 10^3/ul (0-0.6); ABS Lymphocytes 0.8 10^3/ul (1.0-4.8); ABS Monocytes 0.5 10^3/ul (0-0.8); ABS Neutrophils 2.8 10^3/ul (1.5-7.7); Eosinophil % 8.2 %; Hematocrit 25 % (42-52); Hemoglobin 8.4 g/dL (14.0-18.0); Lymphocyte % 18.1 %; Mean Corpuscular HGB Conc 33 g/dL (31-36); Mean Corpuscular Hemoglobin 32 pg (27-31); Mean Corpuscular Volume 95 fL (80-94); Mean Platelet Volume 9.3 fL (7.4-10.4); Platelet Count 107 10^3/uL (150-450); Red Blood Count 2.65 10^6 /uL (4.18-5.48); Red Cell Distribution Width 18 % (10-15); White Blood Count 4.5 10^3/uL (3.5-10.8)
[2020-05-13] MEDS: BENZOCAINE PR SCH ×2 (06:27→17:02)
[2020-05-13] MEDS: DOCUSATE PR SCH ×2 (06:27→17:02)
[2020-05-13 07:05] LABS: Albumin 3.1 g/dL (3.2-5.2); Albumin/Globulin Ratio 0.9 (1-3); BUN/Creatinine Ratio 15.9 (8-20); Calcium 8.5 mg/dL (8.6-10.3); EGFR African American 112.1 (>60); EGFR Non-African American 92.6 (>60); Globulin 3.3 g/dL (2-4); Magnesium 1.8 mg/dL (1.9-2.7); Potassium 3.9 mmol/L (3.5-5.0); Total Bilirubin 0.7 mg/dL (0.2-1.0); Total Protein 6.4 g/dL (6.4-8.9)
[2020-05-13] MEDS: Nystatin TOP POWDER 15 GM BTL TOPICAL SCH ×3 (08:31→21:01)
[2020-05-13] MEDS: Senna TAB 8.6 mg TAB PO SCH (08:31)
[2020-05-13] MEDS: Potassium Chlor 20 meq TAB.ER PO SCH (08:31)
[2020-05-13] MEDS: Mupirocin 2% OINT TUBE TOPICAL SCH ×3 (08:32→21:14)
[2020-05-13] MEDS: CMCS:Ketoconazole 2 % CREAM (NF) 30 GM TUBE TOPICAL SCH ×3 (08:32→21:14)
[2020-05-13] MEDS: Neomycin/Polym/Bacit TOP OINT 15 GM TOPICAL SCH ×3 (08:33→21:13)
[2020-05-14] MEDS: Lactulose 30 ml UDC PO SCH (05:19)
[2020-05-14] MEDS: BENZOCAINE PR SCH (05:21)
[2020-05-14] MEDS: DOCUSATE PR SCH (05:21)
[2020-05-14 07:27] VITALS: BP 101/53
[2020-05-14] MEDS: Mupirocin 2% OINT TUBE TOPICAL SCH (08:06)
[2020-05-14] MEDS: Nystatin TOP POWDER 15 GM BTL TOPICAL SCH (08:06)
[2020-05-14] MEDS: Neomycin/Polym/Bacit TOP OINT 15 GM TOPICAL SCH (08:06)
[2020-05-14] MEDS: Potassium Chlor 20 meq TAB.ER PO SCH (08:07)
[2020-05-14] MEDS: CMCS:Ketoconazole 2 % CREAM (NF) 30 GM TUBE TOPICAL SCH (08:11)
[2020-05-14] MEDS: Senna TAB 8.6 mg TAB PO SCH (08:15)
== END 2020-05-14 10:30 | DRG 82 ==
LOC: SSU 15:48
PROVIDERS: ADMIT Internal Medicine; ATTEND Internal Medicine

== ENCOUNTER 2020-08-13 22:49 | Observation (INO) ==
[2020-08-13 23:43] LABS: ABS Eosinophils 0.4 10^3/ul (0-0.6); ABS Lymphocytes 0.7 10^3/ul (1.0-4.8); ABS Monocytes 0.6 10^3/ul (0-0.8); ABS Neutrophils 2.6 10^3/ul (1.5-7.7); Eosinophil % 8.1 %; Hematocrit 30 % (42-52); Hemoglobin 9.6 g/dL (14.0-18.0); Lymphocyte % 17.1 %; Mean Corpuscular HGB Conc 32 g/dL (31-36); Mean Corpuscular Hemoglobin 28 pg (27-31); Mean Corpuscular Volume 85 fL (80-94); Mean Platelet Volume 8.9 fL (7.4-10.4); Nucleated Red Blood Cells % 0.1; Platelet Count 82 10^3/uL (150-450); Red Blood Count 3.48 10^6 /uL (4.18-5.48); Red Cell Distribution Width 19 % (10-15); White Blood Count 4.3 10^3/uL (3.5-10.8)
[2020-08-13 23:59] LABS: Albumin 3.4 g/dL (3.2-5.2); Anion Gap 7 mmol/L (2-11); CO2 Carbon Dioxide 26 mmol/L (22-32); Chloride 107 mmol/L (101-111); Potassium 4.1 mmol/L (3.5-5.0); Sodium 140 mmol/L (135-145)
[2020-08-14 00:05] LABS: ALT 20 U/L (7-52); AST 32 U/L (13-39); Alkaline Phosphatase 115 U/L (34-104); BUN/Creatinine Ratio 18.3 (8-20); Blood Urea Nitrogen 19 mg/dL (6-24); EGFR African American 85.2 (>60); EGFR Non-African American 70.4 (>60); Globulin 3.3 g/dL (2-4); Glucose 103 mg/dL (70-100); Total Protein 6.7 g/dL (6.4-8.9)
[2020-08-14] MEDS ORDERED: Lactulose 30 ml UDC PO ONE (00:18)
[2020-08-14 00:22] LABS: Troponin I 0.03 ng/mL (<0.03)
[2020-08-14 01:20] LABS: Urine Appearance Clear; Urine Bilirubin Negative (Negative); Urine Blood Negative (Negative); Urine Color Yellow; Urine Glucose Negative (Negative); Urine Ketones Negative (Negative); Urine Nitrite Negative (Negative); Urine Protein Negative (Negative); Urine Specific Gravity 1.009 (1.010-1.030); Urine Urobilinogen Negative (Negative)
[2020-08-14 01:23] LABS: Urine Bacteria Absent (Absent); Urine Red Blood Cell Absent (Absent); Urine White Blood Cell 1+(6-10/hpf) (Absent)
[2020-08-14] MEDS ORDERED: Ondansetron 4 mg VIAL 2 MG/ML 2 ml VIAL IV PRN (01:38)
[2020-08-14] MEDS ORDERED: Dextrose 50% Syringe 50 ml 25 GM/50 ML SYRINGE IV PUSH PRN (03:04)
[2020-08-14 05:56] LABS: Hematocrit 30 % (42-52); Hemoglobin 9.5 g/dL (14.0-18.0); Mean Corpuscular HGB Conc 32 g/dL (31-36); Mean Corpuscular Hemoglobin 28 pg (27-31); Mean Corpuscular Volume 86 fL (80-94); Mean Platelet Volume 9.1 fL (7.4-10.4); Platelet Count 68 10^3/uL (150-450); Red Blood Count 3.46 10^6 /uL (4.18-5.48); Red Cell Distribution Width 19 % (10-15); White Blood Count 3.4 10^3/uL (3.5-10.8)
[2020-08-14 06:12] LABS: INR 3.16 (0.82-1.09)
[2020-08-14 06:41] LABS: Troponin I 0.03 ng/mL (<0.03)
[2020-08-14] MEDS ORDERED: CMCS: Rosuvastatin 5 mg TAB (NF) PO SCH (09:00)
[2020-08-14] MEDS ORDERED: Vitamin THERAPEUTIC TAB PO SCH (09:00)
[2020-08-14] MEDS ORDERED: Senna TAB 8.6 mg TAB PO SCH (09:00)
[2020-08-14] MEDS ORDERED: Potassium Chlor 10 meq TAB PO SCH (09:00)
[2020-08-14] MEDS ORDERED: [UNRECOGNIZED DRUG - OTHER] PR SCH (09:00)
[2020-08-14 11:31] VITALS: BP 113/67
[2020-08-14] MEDS ORDERED: Warfarin DAILY REMINDER **NOTE FOLLOW UP SCH (16:00)
== END 2020-08-14 14:45 | disposition home or self-care (01) ==
LOC: MEDTELE 22:49 → ED 22:49 → MEDTELE 08-14 04:06
PROVIDERS: ADMIT Student in an Organized Health Care Education/Training Program; ATTEND Internal Medicine

== ENCOUNTER 2020-11-15 14:16 | Inpatient (IN) ==
[2020-11-15 17:28] LABS: ABS Eosinophils 0.3 10^3/ul (0-0.6); ABS Lymphocytes 0.6 10^3/ul (1.0-4.8); ABS Monocytes 0.5 10^3/ul (0-0.8); ABS Neutrophils 2.7 10^3/ul (1.5-7.7); Eosinophil % 7.6 %; Hematocrit 31 % (42-52); Hemoglobin 10.2 g/dL (14.0-18.0); Lymphocyte % 14.8 %; Mean Corpuscular HGB Conc 33 g/dL (31-36); Mean Corpuscular Hemoglobin 29 pg (27-31); Mean Corpuscular Volume 89 fL (80-94); Mean Platelet Volume 9.5 fL (7.4-10.4); Platelet Count 67 10^3/uL (150-450); Red Blood Count 3.49 10^6 /uL (4.18-5.48); Red Cell Distribution Width 18 % (10-15); White Blood Count 4.2 10^3/uL (3.5-10.8)
[2020-11-15 17:40] LABS: ALT 16 U/L (7-52); AST 26 U/L (13-39); Albumin 3.4 g/dL (3.2-5.2); Albumin/Globulin Ratio 1.1 (1-3); Alkaline Phosphatase 91 U/L (35-149); Anion Gap 6 mmol/L (2-11); Blood Urea Nitrogen 15 mg/dL (6-24); CO2 Carbon Dioxide 27 mmol/L (22-32); Calcium 8.9 mg/dL (8.6-10.3); Chloride 108 mmol/L (101-111); EGFR African American 87.1 (>60); Globulin 3.2 g/dL (2-4); Glucose 96 mg/dL (70-100); Magnesium 1.9 mg/dL (1.9-2.7); Potassium 4.1 mmol/L (3.5-5.0); Sodium 141 mmol/L (135-145); Total Protein 6.6 g/dL (6.4-8.9)
[2020-11-15 17:44] LABS: Troponin I 0.03 ng/mL (<0.03)
[2020-11-15 17:58] LABS: TSH Ultra Thyroid Stim Horm 2.89 mcIU/mL (0.34-5.60)
[2020-11-15 20:22] LABS: Urine Appearance Cloudy; Urine Bilirubin Negative (Negative); Urine Blood 2+ (Negative); Urine Color Amber; Urine Glucose Negative (Negative); Urine Ketones Negative (Negative); Urine Nitrite Negative (Negative); Urine Protein Negative (Negative); Urine Specific Gravity 1.016 (1.002-1.030); Urine Urobilinogen Negative (Negative)
[2020-11-15 20:26] LABS: Activated Partial Thrombo Time 31.4 seconds (26.0-38.0); INR 1.19 (0.82-1.09)
[2020-11-15 20:28] LABS: Urine Bacteria 1+ (Absent); Urine Red Blood Cell 3+(>10/hpf) (Absent); Urine Squamous Epithelial Cell Present (Absent); Urine White Blood Cell 3+(>20/hpf) (Absent)
[2020-11-15] MEDS ORDERED: cefTRIAXone 1 gm/50 mL NS BAG 1 GM/50 ML BAG IV ONE (20:59)
[2020-11-15] MEDS ORDERED: NS 0.9% 1000 ml BAG 1,000 ML IV ONE (21:41)
[2020-11-15 23:22] LABS: Alcohol, S 10 mg/dL (<10)
[2020-11-15] MEDS ORDERED: Iodixanol (CONTRAST) 320 MG/ML 100 ML SDV IV ONE (23:43)
[2020-11-16] MEDS ORDERED: Dextrose 50% Syringe 50 ml 25 GM/50 ML SYRINGE IV PUSH PRN (01:43)
[2020-11-16 05:36] LABS: Troponin I 0.03 ng/mL (<0.03)
[2020-11-16 08:25] LABS: Creatine Kinase 104 U/L (10-223)
[2020-11-16 08:29] LABS: Myoglobin 48.1 ng/mL (17.4-105.7)
[2020-11-16] MEDS ORDERED: DOCUSATE SODIUM PR SCH (09:00)
[2020-11-16] MEDS ORDERED: BENZOCAINE PR SCH (09:00)
[2020-11-16 09:05] LABS: Folate > 20.00 ng/mL (5.90-24.80)
[2020-11-16 09:06] LABS: Vitamin B12 390 pg/mL (180-914)
[2020-11-16] MEDS: Senna TAB 8.6 mg TAB PO SCH (10:29)
[2020-11-16] MEDS: Potassium Chlor 10 meq TAB PO SCH (10:29)
[2020-11-16] MEDS: Lactulose 30 ml UDC PO SCH ×4 (12:15→22:07)
[2020-11-17] MEDS ORDERED: cefTRIAXone 1 gm/50 mL NS BAG 1 GM/50 ML BAG IVPB SCH
[2020-11-17 08:32] LABS: Hematocrit 30 % (42-52); Mean Corpuscular HGB Conc 33 g/dL (31-36); Mean Corpuscular Hemoglobin 29 pg (27-31); Mean Corpuscular Volume 89 fL (80-94); Platelet Count 62 10^3/uL (150-450); Red Blood Count 3.41 10^6 /uL (4.18-5.48); Red Cell Distribution Width 18 % (10-15); White Blood Count 3.6 10^3/uL (3.5-10.8)
[2020-11-17] MEDS: Lactulose 30 ml UDC PO SCH (10:02)
[2020-11-17] MEDS: Senna TAB 8.6 mg TAB PO SCH (10:03)
[2020-11-17] MEDS: Potassium Chlor 10 meq TAB PO SCH (10:03)
[2020-11-17 13:10] VITALS: BP 104/60
== END 2020-11-17 11:34 | disposition home or self-care (01) ==
LOC: ED 14:16 → EDHOLD 22:29 → MEDTELE 11-16 01:01
PROVIDERS: ADMIT Internal Medicine; ATTEND Pediatrics

== ENCOUNTER 2022-04-04 16:24 | Observation (INO) ==
[2022-04-04 18:47] LABS: Hematocrit 33 % (42-52); Hemoglobin 10.7 g/dL (14.0-18.0); Mean Corpuscular HGB Conc 33 g/dL (31-36); Mean Corpuscular Hemoglobin 34 pg (27-31); Mean Corpuscular Volume 104 fL (80-94); Red Blood Count 3.13 10^6 /uL (4.18-5.48); Red Cell Distribution Width 17 % (10-15); White Blood Count 6.7 10^3/uL (3.5-10.8)
[2022-04-04] MEDS ORDERED: Lactulose 30 ml UDC PO ONE (19:03)
[2022-04-04 19:05] LABS: Activated Partial Thrombo Time 33.4 seconds (26.0-38.0); INR 1.27 (0.89-1.11)
[2022-04-04 19:36] LABS: ABS Eosinophils 0.3 10^3/ul (0-0.6); ABS Lymphocytes 0.5 10^3/ul (1.0-4.8); ABS Monocytes 0.5 10^3/ul (0-0.8); ABS Neutrophils 5.5 10^3/ul (1.5-7.7); Eosinophil % 3.9 %; Lymphocyte % 6.8 %; Mean Platelet Volume 9.6 fL (7.4-10.4); Platelet Count 66 10^3/uL (150-450)
[2022-04-04 19:55] LABS: Calcium 10.4 mg/dL (8.6-10.3); Total Bilirubin 1.4 mg/dL (0.2-1.0)
[2022-04-04 20:01] LABS: Albumin/Globulin Ratio 1.9 (1-3); Globulin 2.7 g/dL (2-4); Total Protein 7.7 g/dL (6.4-8.9); eGFR CKD-EPI 72.9 (>60)
[2022-04-04 20:55] LABS: High Sensitivity Troponin 1 Hr 19 pg/mL (<20)
[2022-04-04] MEDS ORDERED: cefTRIAXone 1 gm/50 mL D5W 1 GM/50 ML BAG IV SCH (21:30)
[2022-04-04 22:00] LABS: Urine Appearance Cloudy; Urine Bilirubin Negative (Negative); Urine Blood Negative (Negative); Urine Color Yellow; Urine Glucose Negative (Negative); Urine Ketones Negative (Negative); Urine Nitrite Negative (Negative); Urine Protein 1+(30 mg/dL) (Negative); Urine Specific Gravity 1.013 (1.002-1.030); Urine Urobilinogen Negative (Negative)
[2022-04-04 22:18] LABS: Urine Bacteria 3+ (Absent); Urine Red Blood Cell Trace(0-2/hpf) (Absent); Urine Squamous Epithelial Cell Present (Absent); Urine White Blood Cell 3+(>20/hpf) (Absent)
[2022-04-05 08:20] LABS: ABS Eosinophils 0.3 10^3/ul (0-0.6); ABS Lymphocytes 0.5 10^3/ul (1.0-4.8); ABS Monocytes 0.6 10^3/ul (0-0.8); ABS Neutrophils 4.5 10^3/ul (1.5-7.7); Eosinophil % 4.6 %; Hematocrit 29 % (42-52); Hemoglobin 9.7 g/dL (14.0-18.0); Lymphocyte % 8.9 %; Mean Corpuscular HGB Conc 33 g/dL (31-36); Mean Corpuscular Hemoglobin 34 pg (27-31); Mean Corpuscular Volume 104 fL (80-94); Platelet Count 64 10^3/uL (150-450); Red Blood Count 2.83 10^6 /uL (4.18-5.48); Red Cell Distribution Width 16 % (10-15); White Blood Count 5.9 10^3/uL (3.5-10.8)
[2022-04-05 08:46] LABS: Albumin 4.4 g/dL (3.2-5.2); Direct Bilirubin 0.4 mg/dL (0.03-0.18); Globulin 2.2 g/dL (2-4); Indirect Bilirubin 1.1 mg/dL (0.3-1.0); Total Bilirubin 1.5 mg/dL (0.2-1.0); Total Protein 6.6 g/dL (6.4-8.9)
[2022-04-05 08:47] LABS: Calcium 9.7 mg/dL (8.6-10.3); Magnesium 2.2 mg/dL (1.9-2.7); Potassium 3.7 mmol/L (3.5-5.0)
[2022-04-05] MEDS ORDERED: Vitamin THERAPEUTIC TAB PO SCH (09:00)
[2022-04-05] MEDS ORDERED: Polyethylene Glycol 3350 17 GM PACKET PO SCH ×2 (09:00→12:00)
[2022-04-05] MEDS ORDERED: CMCS: Epleronone 25 mg TAB (NF) PO SCH (09:00)
[2022-04-05] MEDS ORDERED: Potassium Chlor 20 meq TAB.ER PO SCH (09:00)
[2022-04-05] MEDS ORDERED: Lactulose 30 ml UDC PO SCH ×3 (09:00→12:00)
[2022-04-05] MEDS ORDERED: Potassium Chlor 10 meq TAB PO SCH (09:30)
[2022-04-05] MEDS ORDERED: DOCUSATE SODIUM PR SCH (10:15)
[2022-04-05] MEDS ORDERED: BENZOCAINE PR SCH (10:15)
[2022-04-05 11:23] VITALS: BP 121/66
[2022-04-05] MEDS ORDERED: [UNRECOGNIZED DRUG - OTHER] PR SCH (13:00)
[2022-04-05] MEDS ORDERED: Senna TAB 8.6 mg TAB PO SCH (21:00)
[2022-04-08 11:11] LABS: Lacosamide 13.9 mcg/mL (1.0 - 10.0)
[2022-04-08 11:51] LABS: Levetiracetam 52.1 mcg/mL
== END 2022-04-05 12:40 | disposition home or self-care (01) ==
LOC: ED 16:24 → EDHOLD 16:24 → SUATTDRO 21:06 → MED 23:32
PROVIDERS: ADMIT Internal Medicine; ATTEND Internal Medicine

== ENCOUNTER 2022-07-13 20:01 | Inpatient (IN) ==
[2022-07-13 21:08] LABS: ABS Eosinophils 0.1 10^3/ul (0-0.6); ABS Lymphocytes 0.3 10^3/ul (1.0-4.8); ABS Monocytes 0.3 10^3/ul (0-0.8); ABS Neutrophils 1.6 10^3/ul (1.5-7.7); Eosinophil % 5.6 %; Hematocrit 23 % (42-52); Hemoglobin 7.2 g/dL (14.0-18.0); Lymphocyte % 13.6 %; Mean Corpuscular HGB Conc 31 g/dL (31-36); Mean Corpuscular Hemoglobin 31 pg (27-31); Mean Corpuscular Volume 102 fL (80-94); Mean Platelet Volume 9.9 fL (7.4-10.4); Platelet Count 59 10^3/uL (150-450); Red Blood Count 2.29 10^6 /uL (4.18-5.48); Red Cell Distribution Width 18 % (10-15); White Blood Count 2.4 10^3/uL (3.5-10.8)
[2022-07-13 21:40] LABS: Albumin 3.5 g/dL (3.2-5.2); Albumin/Globulin Ratio 1.4 (1-3); Calcium 8.9 mg/dL (8.6-10.3); Globulin 2.5 g/dL (2-4); Potassium 3.8 mmol/L (3.5-5.0); Total Bilirubin 0.8 mg/dL (0.2-1.0); eGFR CKD-EPI 82.4 (>60)
[2022-07-13 22:07] LABS: Urine Appearance Cloudy; Urine Bilirubin Negative (Negative); Urine Blood Negative (Negative); Urine Color Yellow; Urine Glucose Negative (Negative); Urine Ketones Negative (Negative); Urine Nitrite Negative (Negative); Urine Protein Negative (Negative); Urine Specific Gravity 1.016 (1.002-1.030); Urine Urobilinogen Negative (Negative)
[2022-07-13 22:13] LABS: Urine Bacteria 3+ (Absent); Urine Red Blood Cell 1+(3-5/hpf) (Absent); Urine Squamous Epithelial Cell Present (Absent); Urine White Blood Cell 3+(>20/hpf) (Absent)
[2022-07-13 22:25] LABS: High Sensitivity Troponin 1 Hr 21 pg/mL (<20)
[2022-07-13] MEDS ORDERED: Lactulose 30 ml UDC PO ONE (23:31)
[2022-07-13 23:57] LABS: C Reactive Protein 6.04 mg/L (<8.01)
[2022-07-14 02:08] LABS: INR 1.28 (0.88-1.18)
[2022-07-14 06:11] LABS: ABS Eosinophils 0.2 10^3/ul (0-0.6); ABS Lymphocytes 0.5 10^3/ul (1.0-4.8); ABS Monocytes 0.3 10^3/ul (0-0.8); ABS Neutrophils 2.1 10^3/ul (1.5-7.7); Eosinophil % 6.4 %; Hematocrit 22 % (42-52); Hemoglobin 6.8 g/dL (14.0-18.0); Lymphocyte % 15.5 %; Mean Corpuscular HGB Conc 31 g/dL (31-36); Mean Corpuscular Hemoglobin 31 pg (27-31); Mean Corpuscular Volume 100 fL (80-94); Mean Platelet Volume 9.3 fL (7.4-10.4); Platelet Count 62 10^3/uL (150-450); Red Blood Count 2.21 10^6 /uL (4.18-5.48); Red Cell Distribution Width 18 % (10-15); White Blood Count 3.1 10^3/uL (3.5-10.8)
[2022-07-14 06:52] LABS: Calcium 8.7 mg/dL (8.6-10.3); Potassium 3.7 mmol/L (3.5-5.0); eGFR CKD-EPI 90.5 (>60)
[2022-07-14] MEDS: CMCS: Epleronone 25 mg TAB (NF) PO SCH ×2 (08:36→20:58)
[2022-07-14] MEDS: Lactulose 30 ml UDC PO SCH ×4 (08:49→20:59)
[2022-07-14] MEDS: Pantoprazole VIAL 40 MG VIAL IV SCH ×2 (08:58→20:56)
[2022-07-14] MEDS ORDERED: Potassium Chlor 20 meq TAB.ER PO SCH (09:00)
[2022-07-14] MEDS: Potassium Chlor 10 meq TAB PO SCH (11:51)
[2022-07-14] MEDS: Polyethylene Glycol 3350 17 GM PACKET PO SCH (11:51)
[2022-07-14 12:16] LABS: Magnesium 2.1 mg/dL (1.9-2.7)
[2022-07-14] MEDS ORDERED: KCL 20 MEQ/100 ML IVPREMIX 20 MEQ/100 ML BAG IV ONE (12:30)
[2022-07-14 13:16] LABS: ABS Eosinophils 0.2 10^3/ul (0-0.6); ABS Lymphocytes 0.5 10^3/ul (1.0-4.8); ABS Monocytes 0.3 10^3/ul (0-0.8); ABS Neutrophils 2.2 10^3/ul (1.5-7.7); Eosinophil % 5.5 %; Hematocrit 25 % (42-52); Hemoglobin 8.1 g/dL (14.0-18.0); Lymphocyte % 15.7 %; Mean Corpuscular HGB Conc 33 g/dL (31-36); Mean Corpuscular Hemoglobin 32 pg (27-31); Mean Corpuscular Volume 96 fL (80-94); Mean Platelet Volume 9.9 fL (7.4-10.4); Nucleated Red Blood Cells % 0.2; Platelet Count 59 10^3/uL (150-450); Red Blood Count 2.59 10^6 /uL (4.18-5.48); Red Cell Distribution Width 18 % (10-15); White Blood Count 3.2 10^3/uL (3.5-10.8)
[2022-07-14] MEDS ORDERED: fentaNYL 100 mcg/2 ml 50 MCG/ML VIAL ONE (16:35)
[2022-07-14] MEDS ORDERED: Midazolam 5 mg/5 ml VIAL 1 mg/ml 5 ml VIAL (5 mg) ONE (16:35)
[2022-07-14 20:04] LABS: Ferritin 14.7 ng/mL (24-336)
[2022-07-14] MEDS: Senna TAB 8.6 mg TAB PO SCH (20:57)
[2022-07-14] MEDS: Sucralfate 1 gm SUSP 1 GM/10 ML UDC PO SCH (20:59)
[2022-07-15 00:53] LABS: ABS Eosinophils 0.2 10^3/ul (0-0.6); ABS Lymphocytes 0.6 10^3/ul (1.0-4.8); ABS Monocytes 0.5 10^3/ul (0-0.8); ABS Neutrophils 2.3 10^3/ul (1.5-7.7); Eosinophil % 5.8 %; Hematocrit 26 % (42-52); Hemoglobin 8.6 g/dL (14.0-18.0); Lymphocyte % 15.8 %; Mean Corpuscular HGB Conc 33 g/dL (31-36); Mean Corpuscular Hemoglobin 32 pg (27-31); Mean Corpuscular Volume 97 fL (80-94); Mean Platelet Volume 9.7 fL (7.4-10.4); Nucleated Red Blood Cells % 0.2; Platelet Count 68 10^3/uL (150-450); Red Blood Count 2.73 10^6 /uL (4.18-5.48); Red Cell Distribution Width 19 % (10-15); White Blood Count 3.5 10^3/uL (3.5-10.8)
[2022-07-15] MEDS: Sucralfate 1 gm SUSP 1 GM/10 ML UDC PO SCH ×5 (01:02→20:59)
[2022-07-15 06:39] LABS: ABS Eosinophils 0.2 10^3/ul (0-0.6); ABS Lymphocytes 0.5 10^3/ul (1.0-4.8); ABS Monocytes 0.4 10^3/ul (0-0.8); ABS Neutrophils 2.3 10^3/ul (1.5-7.7); Eosinophil % 5.7 %; Hematocrit 25 % (42-52); Lymphocyte % 14.6 %; Mean Corpuscular HGB Conc 32 g/dL (31-36); Mean Corpuscular Hemoglobin 31 pg (27-31); Mean Corpuscular Volume 97 fL (80-94); Mean Platelet Volume 9.9 fL (7.4-10.4); Platelet Count 66 10^3/uL (150-450); Red Blood Count 2.58 10^6 /uL (4.18-5.48); Red Cell Distribution Width 19 % (10-15); White Blood Count 3.4 10^3/uL (3.5-10.8)
[2022-07-15 06:54] LABS: Albumin 3.4 g/dL (3.2-5.2); Albumin/Globulin Ratio 1.5 (1-3); Calcium 8.5 mg/dL (8.6-10.3); Globulin 2.2 g/dL (2-4); Potassium 3.7 mmol/L (3.5-5.0); Total Bilirubin 1.5 mg/dL (0.2-1.0); Total Protein 5.6 g/dL (6.4-8.9); eGFR CKD-EPI 83.5 (>60)
[2022-07-15 07:10] LABS: Ferritin 35.3 ng/mL (24-336)
[2022-07-15] MEDS: Lactulose 30 ml UDC PO SCH ×4 (09:39→20:59)
[2022-07-15] MEDS: Polyethylene Glycol 3350 17 GM PACKET PO SCH (09:40)
[2022-07-15] MEDS: Potassium Chlor 10 meq TAB PO SCH (09:45)
[2022-07-15] MEDS: Pantoprazole VIAL 40 MG VIAL IV SCH ×2 (09:49→20:59)
[2022-07-15] MEDS: cefTRIAXone 1 gm/50 mL D5W 1 GM/50 ML BAG IV SCH (10:00)
[2022-07-15] MEDS: CMCS: Epleronone 25 mg TAB (NF) PO SCH (10:03)
[2022-07-15 10:07] LABS: Magnesium 2.1 mg/dL (1.9-2.7)
[2022-07-15] MEDS: Iron Sucrose 200 MG in NS 0.9% 100 ml BAG 100 ML IVPB SCH (10:53)
[2022-07-15] MEDS: [UNRECOGNIZED DRUG - OTHER] PR SCH (18:07)
[2022-07-15] MEDS: Senna TAB 8.6 mg TAB PO SCH (20:54)
[2022-07-16 06:25] LABS: ABS Eosinophils 0.2 10^3/ul (0-0.6); ABS Lymphocytes 0.6 10^3/ul (1.0-4.8); ABS Monocytes 0.5 10^3/ul (0-0.8); ABS Neutrophils 2.3 10^3/ul (1.5-7.7); Eosinophil % 6.1 %; Hematocrit 25 % (42-52); Hemoglobin 8.3 g/dL (14.0-18.0); Lymphocyte % 15.1 %; Mean Corpuscular HGB Conc 33 g/dL (31-36); Mean Corpuscular Hemoglobin 32 pg (27-31); Mean Corpuscular Volume 97 fL (80-94); Mean Platelet Volume 10.4 fL (7.4-10.4); Nucleated Red Blood Cells % 0.1; Platelet Count 69 10^3/uL (150-450); Red Blood Count 2.59 10^6 /uL (4.18-5.48); Red Cell Distribution Width 18 % (10-15); White Blood Count 3.7 10^3/uL (3.5-10.8)
[2022-07-16 06:33] LABS: Calcium 8.7 mg/dL (8.6-10.3); Magnesium 2.1 mg/dL (1.9-2.7); Potassium 3.4 mmol/L (3.5-5.0); eGFR CKD-EPI 72.5 (>60)
[2022-07-16] MEDS ORDERED: Albumin Human 25% 25 GM/100 ML BTL IV ONE (09:00)
[2022-07-16] MEDS: KCL 20 MEQ/100 ML IVPREMIX 20 MEQ/100 ML BAG IV SCH ×2 (10:18→13:14)
[2022-07-16] MEDS: Lactulose 30 ml UDC PO SCH ×3 (10:21→17:05)
[2022-07-16] MEDS: Sucralfate 1 gm SUSP 1 GM/10 ML UDC PO SCH ×3 (10:21→17:05)
[2022-07-16] MEDS: Polyethylene Glycol 3350 17 GM PACKET PO SCH (10:22)
[2022-07-16] MEDS: Octreotide Acetate 50 MCG/ML ML SUBCUT ONE ×2 (10:25→15:17)
[2022-07-16] MEDS: Pantoprazole VIAL 40 MG VIAL IV SCH (10:27)
[2022-07-16] MEDS: Potassium Chlor 10 meq TAB PO SCH (10:32)
[2022-07-16] MEDS ORDERED: Potassium Chloride LIQUID 20 MEQ/15 ML LIQUID PO ONE (11:25)
[2022-07-16] MEDS: cefTRIAXone 1 gm/50 mL D5W 1 GM/50 ML BAG IV SCH (11:31)
[2022-07-16] MEDS: Iron Sucrose 200 MG in NS 0.9% 100 ml BAG 100 ML IVPB SCH (13:11)
[2022-07-16] MEDS ORDERED: Octreotide Acetate 50 MCG/ML ML SUBCUT ONE (13:26)
[2022-07-16] MEDS: [UNRECOGNIZED DRUG - OTHER] PR SCH (13:34)
[2022-07-16] MEDS ORDERED: OCTREOTIDE IM ONE (13:43)
[2022-07-16 16:47] VITALS: BP 116/70
== END 2022-07-16 18:00 | disposition home or self-care (01) | DRG 441 ==
LOC: EDHOLD 20:01 → ED 20:01 → SUATTDRO 23:31 → MED 07-14 10:37
PROVIDERS: ADMIT Internal Medicine; ATTEND Internal Medicine

== ENCOUNTER 2022-09-09 10:50 | Inpatient (IN) ==
[2022-09-09 12:29] LABS: Venous Bicarbonate HCO3 27.4 mmol/L (24-28)
[2022-09-09 12:40] LABS: ABS Eosinophils 0.2 10^3/ul (0-0.6); ABS Lymphocytes 0.5 10^3/ul (1.0-4.8); ABS Monocytes 0.4 10^3/ul (0-0.8); ABS Neutrophils 2.4 10^3/ul (1.5-7.7); Eosinophil % 5.8 %; Hematocrit 34 % (42-52); Hemoglobin 11.1 g/dL (14.0-18.0); INR 1.27 (0.88-1.18); Lymphocyte % 13.5 %; Mean Corpuscular HGB Conc 33 g/dL (31-36); Mean Corpuscular Hemoglobin 33 pg (27-31); Mean Corpuscular Volume 100 fL (80-94); Mean Platelet Volume 9.3 fL (7.4-10.4); Nucleated Red Blood Cells % 0.1; Platelet Count 54 10^3/uL (150-450); Red Blood Count 3.39 10^6 /uL (4.18-5.48); Red Cell Distribution Width 18 % (10-15); White Blood Count 3.5 10^3/uL (3.5-10.8)
[2022-09-09] MEDS ORDERED: Lactulose 30 ml UDC PO ONE (13:45)
[2022-09-09 13:57] LABS: ALT 18 U/L (7-52); AST 27 U/L (13-39); Albumin 3.4 g/dL (3.2-5.2); Albumin/Globulin Ratio 1.4 (1-3); Alcohol, S < 13 mg/dL (<13); Alkaline Phosphatase 113 U/L (35-149); Anion Gap 6 mmol/L (2-11); Blood Urea Nitrogen 12 mg/dL (6-24); CO2 Carbon Dioxide 31 mmol/L (22-32); Chloride 105 mmol/L (101-111); Creatinine, Serum 0.89 mg/dL (0.67-1.17); Globulin 2.4 g/dL (2-4); Glucose 123 mg/dL (70-100); Lipase 13 U/L (11.0-82.0); Potassium 3.9 mmol/L (3.5-5.0); Sodium 142 mmol/L (135-145); Total Protein 5.8 g/dL (6.4-8.9); eGFR CKD-EPI 90.5 (>60)
[2022-09-09 15:14] LABS: Urine Appearance Cloudy; Urine Bilirubin Negative (Negative); Urine Blood 1+ (Negative); Urine Color Yellow; Urine Glucose Negative (Negative); Urine Ketones Negative (Negative); Urine Nitrite Positive (Negative); Urine Protein Negative (Negative); Urine Specific Gravity 1.008 (1.002-1.030); Urine Urobilinogen Negative (Negative)
[2022-09-09 15:18] LABS: Urine Bacteria 2+ (Absent); Urine Red Blood Cell Trace(0-2/hpf) (Absent); Urine Squamous Epithelial Cell Present (Absent); Urine White Blood Cell 3+(>20/hpf) (Absent)
[2022-09-09] MEDS ORDERED: Lactulose 300 ML for PR 200 GM/300 ML BTL PR SCH (17:00)
[2022-09-09] MEDS ORDERED: Lactulose 300 ML for PR 200 GM/300 ML BTL PR ONE (17:08)
[2022-09-09] MEDS ORDERED: NS 0.9% 1000 ml BAG 1,000 ML IV SCH (17:15)
[2022-09-09] MEDS ORDERED: Lactulose 30 ml UDC PO SCH (21:00)
[2022-09-09] MEDS: Senna TAB 8.6 mg TAB PO SCH (23:52)
[2022-09-10] MEDS: DOCUSATE SODIUM PR SCH ×3 (00:38→22:21)
[2022-09-10] MEDS: BENZOCAINE PR SCH ×3 (00:38→22:21)
[2022-09-10 04:23] LABS: ABS Eosinophils 0.3 10^3/ul (0-0.6); ABS Lymphocytes 0.5 10^3/ul (1.0-4.8); ABS Monocytes 0.4 10^3/ul (0-0.8); ABS Neutrophils 3.3 10^3/ul (1.5-7.7); Eosinophil % 5.8 %; Hematocrit 34 % (42-52); Hemoglobin 11.2 g/dL (14.0-18.0); Lymphocyte % 10.7 %; Mean Corpuscular HGB Conc 33 g/dL (31-36); Mean Corpuscular Hemoglobin 33 pg (27-31); Mean Corpuscular Volume 100 fL (80-94); Mean Platelet Volume 9.4 fL (7.4-10.4); Platelet Count 62 10^3/uL (150-450); Red Cell Distribution Width 18 % (10-15); White Blood Count 4.5 10^3/uL (3.5-10.8)
[2022-09-10 04:45] LABS: Calcium 9.2 mg/dL (8.6-10.3); Creatinine, Serum 0.79 mg/dL (0.67-1.17); Magnesium 1.9 mg/dL (1.9-2.7); Potassium 3.7 mmol/L (3.5-5.0); eGFR CKD-EPI 93.8 (>60)
[2022-09-10] MEDS ORDERED: Potassium Chlor 20 meq TAB.ER PO ONE (07:30)
[2022-09-10] MEDS: Vitamin THERAPEUTIC TAB PO SCH (09:51)
[2022-09-10] MEDS: Polyethylene Glycol 3350 17 GM PACKET PO SCH (09:55)
[2022-09-10] MEDS: Lactulose 30 ml UDC PO SCH ×4 (09:56→22:17)
[2022-09-10 10:13] LABS: C Reactive Protein 9.02 mg/L (<8.01)
[2022-09-10] MEDS ORDERED: D5W 1/2 NS 1000 ml BAG 1,000 ML IV SCH (11:00)
[2022-09-10] MEDS: CMCS: Epleronone 25 mg TAB (NF) PO SCH (13:23)
[2022-09-10] MEDS: Potassium Chlor 10 meq TAB PO SCH (13:23)
[2022-09-10] MEDS ORDERED: cefTRIAXone 1 gm/50 mL D5W 1 GM/50 ML BAG IV SCH (15:00)
[2022-09-10] MEDS: Cefepime 1 GM in Dextrose 1 GM/50 ML BAG IV SCH (17:30)
[2022-09-10] MEDS: Senna TAB 8.6 mg TAB PO SCH (22:23)
[2022-09-11] MEDS: Lactulose 30 ml UDC PO SCH ×3 (01:44→15:28)
[2022-09-11] MEDS: Cefepime 1 GM in Dextrose 1 GM/50 ML BAG IV SCH (03:25)
[2022-09-11 07:45] LABS: INR 1.29 (0.88-1.18)
[2022-09-11 07:50] LABS: ABS Eosinophils 0.2 10^3/ul (0-0.6); ABS Lymphocytes 0.5 10^3/ul (1.0-4.8); ABS Monocytes 0.4 10^3/ul (0-0.8); ABS Neutrophils 2.2 10^3/ul (1.5-7.7); Albumin 3.1 g/dL (3.2-5.2); Albumin/Globulin Ratio 1.2 (1-3); Calcium 8.9 mg/dL (8.6-10.3); Creatinine, Serum 0.8 mg/dL (0.67-1.17); Eosinophil % 6.8 %; Globulin 2.6 g/dL (2-4); Hematocrit 32 % (42-52); Hemoglobin 10.7 g/dL (14.0-18.0); Lymphocyte % 14.8 %; Magnesium 1.8 mg/dL (1.9-2.7); Mean Corpuscular HGB Conc 34 g/dL (31-36); Mean Corpuscular Hemoglobin 34 pg (27-31); Mean Corpuscular Volume 102 fL (80-94); Mean Platelet Volume 9.6 fL (7.4-10.4); Platelet Count 50 10^3/uL (150-450); Potassium 3.7 mmol/L (3.5-5.0); Red Blood Count 3.14 10^6 /uL (4.18-5.48); Red Cell Distribution Width 18 % (10-15); Total Bilirubin 1.1 mg/dL (0.2-1.0); Total Protein 5.7 g/dL (6.4-8.9); White Blood Count 3.3 10^3/uL (3.5-10.8); eGFR CKD-EPI 93.4 (>60)
[2022-09-11] MEDS ORDERED: Potassium Chlor 20 meq TAB.ER PO ONE (08:40)
[2022-09-11] MEDS: Potassium Chlor 10 meq TAB PO SCH (09:33)
[2022-09-11] MEDS: Vitamin THERAPEUTIC TAB PO SCH (09:33)
[2022-09-11] MEDS: CMCS: Epleronone 25 mg TAB (NF) PO SCH (09:34)
[2022-09-11] MEDS: Polyethylene Glycol 3350 17 GM PACKET PO SCH (09:34)
[2022-09-11] MEDS: DOCUSATE SODIUM PR SCH ×3 (09:35→21:38)
[2022-09-11] MEDS: BENZOCAINE PR SCH ×3 (09:35→21:38)
[2022-09-11] MEDS ORDERED: Albumin Human 25% 25 GM/100 ML BTL IV ONE (11:00)
[2022-09-11] MEDS ORDERED: LACTULOSE PO SCH ×2 (12:30→18:30)
[2022-09-11] MEDS ORDERED: LACTULOSE PO ONE ×2 (15:00)
[2022-09-11] MEDS ORDERED: [UNRECOGNIZED DRUG - OTHER] PO ONE (15:00)
[2022-09-11] MEDS ORDERED: [UNRECOGNIZED DRUG - OTHER] PO ONE (15:00)
[2022-09-11] MEDS: cefTRIAXone 1 gm/50 mL D5W 1 GM/50 ML BAG IV SCH (17:56)
[2022-09-11 18:10] LABS: Mean Platelet Volume 9.5 fL (7.4-10.4); Platelet Count 63 10^3/uL (150-450)
[2022-09-11] MEDS ORDERED: [UNRECOGNIZED DRUG - OTHER] PO SCH (18:30)
[2022-09-11] MEDS: LACTULOSE PO SCH (19:13)
[2022-09-11] MEDS: Senna TAB 8.6 mg TAB PO SCH (22:10)
[2022-09-12] MEDS: BENZOCAINE PR SCH ×3 (00:18→22:04)
[2022-09-12] MEDS: DOCUSATE SODIUM PR SCH ×3 (00:18→22:04)
[2022-09-12] MEDS ORDERED: LACTULOSE PO ONE (01:00)
[2022-09-12] MEDS: LACTULOSE PO SCH ×8 (01:18→22:04)
[2022-09-12] MEDS ORDERED: Albumin Human 25% 12.5 GM/50 ML BTL IV ONE (07:45)
[2022-09-12 07:49] LABS: ABS Eosinophils 0.3 10^3/ul (0-0.6); ABS Lymphocytes 0.5 10^3/ul (1.0-4.8); ABS Monocytes 0.5 10^3/ul (0-0.8); ABS Neutrophils 2.7 10^3/ul (1.5-7.7); Eosinophil % 7.1 %; Hematocrit 34 % (42-52); Hemoglobin 11.2 g/dL (14.0-18.0); Lymphocyte % 13.3 %; Mean Corpuscular HGB Conc 33 g/dL (31-36); Mean Corpuscular Hemoglobin 34 pg (27-31); Mean Corpuscular Volume 103 fL (80-94); Mean Platelet Volume 9.6 fL (7.4-10.4); Platelet Count 60 10^3/uL (150-450); Red Blood Count 3.28 10^6 /uL (4.18-5.48); Red Cell Distribution Width 18 % (10-15); White Blood Count 4.1 10^3/uL (3.5-10.8)
[2022-09-12 07:50] LABS: INR 1.33 (0.88-1.18)
[2022-09-12 08:40] LABS: Albumin 3.3 g/dL (3.2-5.2); Albumin/Globulin Ratio 1.2 (1-3); Creatinine, Serum 0.72 mg/dL (0.67-1.17); Globulin 2.8 g/dL (2-4); Total Bilirubin 1.1 mg/dL (0.2-1.0); Total Protein 6.1 g/dL (6.4-8.9); eGFR CKD-EPI 96.5 (>60)
[2022-09-12] MEDS: Potassium Chlor 10 meq TAB PO SCH (08:45)
[2022-09-12] MEDS: Vitamin THERAPEUTIC TAB PO SCH (08:45)
[2022-09-12] MEDS: CMCS: Epleronone 25 mg TAB (NF) PO SCH (08:46)
[2022-09-12] MEDS: Polyethylene Glycol 3350 17 GM PACKET PO SCH (08:47)
[2022-09-12 10:09] LABS: Magnesium 1.8 mg/dL (1.9-2.7)
[2022-09-12] MEDS: cefTRIAXone 1 gm/50 mL D5W 1 GM/50 ML BAG IV SCH (16:13)
[2022-09-12] MEDS: Senna TAB 8.6 mg TAB PO SCH (22:02)
[2022-09-13] MEDS: LACTULOSE PO SCH ×7 (01:48→23:55)
[2022-09-13 07:17] LABS: ABS Eosinophils 0.3 10^3/ul (0-0.6); ABS Lymphocytes 0.5 10^3/ul (1.0-4.8); ABS Monocytes 0.5 10^3/ul (0-0.8); Eosinophil % 6.5 %; Hematocrit 34 % (42-52); Hemoglobin 11.4 g/dL (14.0-18.0); Lymphocyte % 11.8 %; Mean Corpuscular HGB Conc 33 g/dL (31-36); Mean Corpuscular Hemoglobin 34 pg (27-31); Mean Corpuscular Volume 103 fL (80-94); Mean Platelet Volume 10.3 fL (7.4-10.4); Platelet Count 64 10^3/uL (150-450); Red Blood Count 3.34 10^6 /uL (4.18-5.48); Red Cell Distribution Width 18 % (10-15); White Blood Count 4.3 10^3/uL (3.5-10.8)
[2022-09-13 07:44] LABS: Albumin 3.3 g/dL (3.2-5.2); Albumin/Globulin Ratio 1.2 (1-3); Calcium 8.9 mg/dL (8.6-10.3); Creatinine, Serum 0.77 mg/dL (0.67-1.17); Globulin 2.7 g/dL (2-4); Magnesium 1.9 mg/dL (1.9-2.7); Potassium 3.6 mmol/L (3.5-5.0); Total Bilirubin 0.8 mg/dL (0.2-1.0); eGFR CKD-EPI 94.5 (>60)
[2022-09-13] MEDS ORDERED: Albumin Human 25% 25 GM/100 ML BTL IV ONE (09:00)
[2022-09-13] MEDS: DOCUSATE SODIUM PR SCH ×2 (11:05→21:23)
[2022-09-13] MEDS: BENZOCAINE PR SCH ×2 (11:05→21:23)
[2022-09-13] MEDS: CMCS: Epleronone 25 mg TAB (NF) PO SCH (11:06)
[2022-09-13] MEDS: Polyethylene Glycol 3350 17 GM PACKET PO SCH (11:11)
[2022-09-13] MEDS: Potassium Chlor 10 meq TAB PO SCH (11:11)
[2022-09-13] MEDS: Vitamin THERAPEUTIC TAB PO SCH (11:12)
[2022-09-13] MEDS: cefTRIAXone 1 gm/50 mL D5W 1 GM/50 ML BAG IV SCH (15:24)
[2022-09-13] MEDS: Senna TAB 8.6 mg TAB PO SCH (21:22)
[2022-09-14] MEDS: LACTULOSE PO SCH ×6 (04:01→22:14)
[2022-09-14 07:38] LABS: ABS Eosinophils 0.3 10^3/ul (0-0.6); ABS Lymphocytes 0.5 10^3/ul (1.0-4.8); ABS Monocytes 0.5 10^3/ul (0-0.8); ABS Neutrophils 2.4 10^3/ul (1.5-7.7); Eosinophil % 8.1 %; Hematocrit 34 % (42-52); Lymphocyte % 12.8 %; Mean Corpuscular HGB Conc 33 g/dL (31-36); Mean Corpuscular Hemoglobin 34 pg (27-31); Mean Corpuscular Volume 104 fL (80-94); Mean Platelet Volume 9.4 fL (7.4-10.4); Platelet Count 46 10^3/uL (150-450); Red Blood Count 3.25 10^6 /uL (4.18-5.48); Red Cell Distribution Width 18 % (10-15); White Blood Count 3.6 10^3/uL (3.5-10.8)
[2022-09-14 08:18] LABS: Anion Gap 7 mmol/L (2-11); Blood Urea Nitrogen 9 mg/dL (6-24); C Reactive Protein 10.26 mg/L (<8.01); CO2 Carbon Dioxide 26 mmol/L (22-32); Calcium 8.4 mg/dL (8.6-10.3); Chloride 109 mmol/L (101-111); Creatinine, Serum 0.75 mg/dL (0.67-1.17); Glucose 126 mg/dL (70-100); Potassium 3.9 mmol/L (3.5-5.0); Sodium 142 mmol/L (135-145); eGFR CKD-EPI 95.3 (>60)
[2022-09-14] MEDS: Potassium Chlor 10 meq TAB PO SCH (08:24)
[2022-09-14] MEDS: CMCS: Epleronone 25 mg TAB (NF) PO SCH (08:25)
[2022-09-14] MEDS: Vitamin THERAPEUTIC TAB PO SCH (08:25)
[2022-09-14] MEDS: Polyethylene Glycol 3350 17 GM PACKET PO SCH (08:27)
[2022-09-14] MEDS: BENZOCAINE PR SCH (09:22)
[2022-09-14] MEDS: DOCUSATE SODIUM PR SCH (09:22)
[2022-09-14] MEDS ORDERED: Potassium Chlor 10 meq TAB PO ONE (10:21)
[2022-09-14 11:33] LABS: TSH Ultra Thyroid Stim Horm 2.65 mcIU/mL (0.34-5.60)
[2022-09-14 11:44] LABS: Folate > 20.00 ng/mL (5.90-24.80)
[2022-09-14 11:45] LABS: Vitamin B12 603 pg/mL (180-914)
[2022-09-14] MEDS ORDERED: [UNRECOGNIZED DRUG - OTHER] PR SCH (13:00)
[2022-09-14] MEDS: cefTRIAXone 1 gm/50 mL D5W 1 GM/50 ML BAG IV SCH (14:40)
[2022-09-14 15:52] LABS: Hematocrit 34 % (42-52); Hemoglobin 10.8 g/dL (14.0-18.0); Mean Platelet Volume 9.3 fL (7.4-10.4); Platelet Count 62 10^3/uL (150-450)
[2022-09-14] MEDS: Senna TAB 8.6 mg TAB PO SCH (22:13)
[2022-09-14] MEDS: [UNRECOGNIZED DRUG - OTHER] PR SCH (22:16)
[2022-09-15] MEDS: LACTULOSE PO SCH ×6 (01:20→22:00)
[2022-09-15 06:26] LABS: ABS Eosinophils 0.3 10^3/ul (0-0.6); ABS Lymphocytes 0.4 10^3/ul (1.0-4.8); ABS Monocytes 0.6 10^3/ul (0-0.8); ABS Neutrophils 3.5 10^3/ul (1.5-7.7); Eosinophil % 5.6 %; Hematocrit 32 % (42-52); Hemoglobin 10.8 g/dL (14.0-18.0); Lymphocyte % 8.4 %; Mean Corpuscular HGB Conc 34 g/dL (31-36); Mean Corpuscular Hemoglobin 35 pg (27-31); Mean Corpuscular Volume 103 fL (80-94); Nucleated Red Blood Cells % 0.1; Platelet Count 64 10^3/uL (150-450); Red Blood Count 3.12 10^6 /uL (4.18-5.48); Red Cell Distribution Width 18 % (10-15); White Blood Count 4.8 10^3/uL (3.5-10.8)
[2022-09-15 06:31] LABS: INR 1.34 (0.88-1.18)
[2022-09-15 06:42] LABS: Albumin 3.6 g/dL (3.2-5.2); Albumin/Globulin Ratio 1.6 (1-3); Creatinine, Serum 0.75 mg/dL (0.67-1.17); Globulin 2.2 g/dL (2-4); Magnesium 1.9 mg/dL (1.9-2.7); Potassium 3.7 mmol/L (3.5-5.0); Total Bilirubin 0.9 mg/dL (0.2-1.0); Total Protein 5.8 g/dL (6.4-8.9); eGFR CKD-EPI 95.3 (>60)
[2022-09-15] MEDS ORDERED: Potassium Chlor 10 meq TAB PO SCH (09:00)
[2022-09-15] MEDS: [UNRECOGNIZED DRUG - OTHER] PR SCH (09:06)
[2022-09-15] MEDS: Vitamin THERAPEUTIC TAB PO SCH (09:19)
[2022-09-15] MEDS: Potassium Chlor 10 meq TAB PO SCH (09:19)
[2022-09-15] MEDS: [UNRECOGNIZED DRUG - OTHER] PR SCH ×4 (09:29→23:39)
[2022-09-15] MEDS: CMCS: Epleronone 25 mg TAB (NF) PO SCH (09:32)
[2022-09-15] MEDS: Polyethylene Glycol 3350 17 GM PACKET PO SCH (11:07)
[2022-09-15] MEDS: Senna TAB 8.6 mg TAB PO SCH (20:24)
[2022-09-15 23:58] LABS: Mean Platelet Volume 9.4 fL (7.4-10.4); Platelet Count 61 10^3/uL (150-450)
[2022-09-16] MEDS: LACTULOSE PO SCH ×4 (00:04→14:34)
[2022-09-16 06:25] LABS: ABS Eosinophils 0.2 10^3/ul (0-0.6); ABS Lymphocytes 0.5 10^3/ul (1.0-4.8); ABS Monocytes 0.6 10^3/ul (0-0.8); ABS Neutrophils 2.3 10^3/ul (1.5-7.7); Eosinophil % 6.8 %; Hematocrit 30 % (42-52); Hemoglobin 10.2 g/dL (14.0-18.0); Lymphocyte % 14.2 %; Mean Corpuscular HGB Conc 34 g/dL (31-36); Mean Corpuscular Hemoglobin 35 pg (27-31); Mean Corpuscular Volume 103 fL (80-94); Mean Platelet Volume 9.9 fL (7.4-10.4); Nucleated Red Blood Cells % 0.2; Platelet Count 57 10^3/uL (150-450); Red Blood Count 2.94 10^6 /uL (4.18-5.48); Red Cell Distribution Width 18 % (10-15); White Blood Count 3.7 10^3/uL (3.5-10.8)
[2022-09-16 06:39] LABS: Calcium 8.7 mg/dL (8.6-10.3); Creatinine, Serum 0.81 mg/dL (0.67-1.17); Magnesium 1.9 mg/dL (1.9-2.7); Potassium 4.3 mmol/L (3.5-5.0); eGFR CKD-EPI 93.1 (>60)
[2022-09-16] MEDS: Polyethylene Glycol 3350 17 GM PACKET PO SCH (09:18)
[2022-09-16] MEDS: CMCS: Epleronone 25 mg TAB (NF) PO SCH (09:20)
[2022-09-16] MEDS: Vitamin THERAPEUTIC TAB PO SCH (09:21)
[2022-09-16] MEDS: Potassium Chlor 10 meq TAB PO SCH (09:22)
[2022-09-16] MEDS: [UNRECOGNIZED DRUG - OTHER] PR SCH ×2 (09:24→14:33)
[2022-09-16 17:02] VITALS: BP 124/56
== END 2022-09-16 17:35 | disposition home or self-care (01) | DRG 70 ==
LOC: MEDTELE 10:50 → ED 10:50 → SUATTDRO 19:54 → MEDTELE 21:03
PROVIDERS: ADMIT Internal Medicine; ATTEND Internal Medicine